=== PATIENT | female | born 1980 | race African-American/Black ===

== ENCOUNTER 2018-02-14 16:16 | Emergency (ER) | payer MEDICAID ==
--- NOTE | 2018-02-14 17:20 | EKG ---
Test Date: 2018-02-14 Test Time: 16:43:35 Expert Witness: MELANIE MEASUREMENT RESULTS: Intervals: Rate: 82 NJ: 168 QRSD: 88 QT: 390 QTc: 455 Huntley: P: 67 NJ: 168 QRS: 54 T: 49 INTERPRETIVE STATEMENTS: Normal sinus rhythm Normal ECG Compared to ECG 10/29/2014 18:46:57 No significant changes Electronically Signed On 02-14-18 17:19:48 CDT by Landon Vines
[2018-02-14 17:27] LABS: Absolute Lymphocytes (CBC) 1.8 K/uL (0.7-4.9); Absolute Monocytes 0.5 K/uL (0.1-1.3); Absolute Neutrophil 3.4 K/uL (1.8-8.0); Basophils % 0.3 % (0-1.3); Hematocrit 39.8 % (36.0-45.0); Lymphocytes % 30.7 % (15.3-44.8); MCH 32.6 pg (27.0-35.0); MCV 97.9 fL (80-100); MPV 11.2 fL (7.6-11.3); Monocytes % 9.2 % (3.3-12.3); RBC Red Blood Cell Count 4.06 M/uL (3.86-4.86)
[2018-02-14] MEDS ORDERED: MORPHINE 4 MG/ML SYR ONE (17:39)
[2018-02-14] MEDS ORDERED: NA CHLORIDE 0.9% 500 ML ONE (17:39)
[2018-02-14] MEDS ORDERED: ONDANSETRON 4 MG/2 ML VIAL ONE (17:39)
--- NOTE | 2018-02-14 17:45 | RAD REPORT ---
EXAM DESCRIPTION: RAD - Chest Single View - 02/14/2018 5:37 pm CLINICAL HISTORY: Chest pain, shortness of breath COMPARISON: November 18 TECHNIQUE: AP portable chest image was obtained . FINDINGS: Lungs are clear. Heart and vasculature are normal. No measurable pleural effusion and no p neumothorax. No gross bony abnormality seen. No acute aortic findings suspected. IMPRESSION: No acute cardiopulmonary process. No significant change from comparison.
[2018-02-14] MEDS ORDERED: NS KCL 20MEQ 1,000 ML IV ONE (17:55)
[2018-02-14 18:28] LABS: Urine Blood TRACE (NEG); Urine Glucose TRACE (NEG); Urine Protein 2+ (NEG); Urine Specific Gravity 1.015 (1.005-1.030)
--- NOTE | 2018-02-14 20:20 | EDPHYS ---
Physician Documentation [facility] Name: Miya Persaud Age: 37 yrs Sex: Female : 1980 Arrival Date: 02/14/2018 Time: 16:19 Bed 5 Private MD: Danae Lee ED Physician Derek Gomez HPI: 02/14 17:44 This 37 yrs old Black Female presents to ER via Ambulatory with complaints of Allergic jr8 Reaction. 17:44 Patient stated that she started on antibiotic regimen today for H. Pylori. Took her jr8 clarithromycin. A little while after started to have chest tightness and abdominal pain with n/v. Severity of symptoms: At their worst the symptoms were moderate in the emergency department the symptoms are unchanged. The patient has not experienced similar symptoms in the past. The patient has not recently seen a physician. 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 - Social history:: Smoking status: Patient/guardian denies using tobacco. ROS: 17:44 Eyes: Negative for injury, pain, redness, and discharge, ENT: Negative for injury, jr8 pain, and discharge, Neck: Negative for injury, pain, and swelling, Respiratory: Negative for shortness of breath, cough, wheezing, and pleuritic chest pain, Back: Negative for injury and pain, MS/Extremity: Negative for injury and deformity, Skin: Negative for injury, rash, and discoloration, Neuro: Negative for headache, weakness, numbness, tingling, and seizure. 17:44 Cardiovascular: Positive for chest pain, Negative for edema, orthopnea, palpitations, paroxysmal nocturnal dyspnea. 17:44 Abdomen/GI: Positive for abdominal pain, nausea and vomiting, Negative for diarrhea, constipation, abdominal cramps, abdominal distension, anorexia, dysphagia, hematemesis, black/tarry stool, rectal pain, rectal bleeding, bowel incontinence, flatulence. Exam: 17:44 Head/Face: Normocephalic, atraumatic. Eyes: Pupils equal round and reactive to light, jr8 extra-ocular motions intact. Lids and lashes normal. Conjunctiva and sclera are non-icteric and not injected. Cornea within normal limits. Periorbital areas with no swelling, redness, or edema. ENT: Nares patent. No nasal discharge, no septal abnormalities noted. Tympanic membranes are normal and external auditory canals are clear. Oropharynx with no redness, swelling, or masses, exudates, or evidence of obstruction, uvula midline. Mucous membranes moist. Neck: Trachea midline, no thyromegaly or masses palpated, and no cervical lymphadenopathy. Supple, full range of motion without nuchal rigidity, or vertebral point tenderness. No Meningismus. Cardiovascular: Regular rate and rhythm with a normal S1 and S2. No gallops, murmurs, or rubs. Normal PMI, no JVD. No pulse deficits. Respiratory: Lungs have equal breath sounds bilaterally, clear to auscultation and percussion. No rales, rhonchi or wheezes noted. No increased work of breathing, no retractions or nasal flaring. Abdomen/GI: Soft, non-tender, with normal bowel sounds. No distension or tympany. No guarding or rebound. No evidence of tenderness throughout. Back: No spinal tenderness. No costovertebral tenderness. Full range of motion. Skin: Warm, dry with normal turgor. Normal color with no rashes, no lesions, and no evidence of cellulitis. MS/ Extremity: Pulses equal, no cyanosis. Neurovascular intact. Full, normal range of motion. Neuro: Awake and alert, GCS 15, oriented to person, place, time, and situation. Cranial nerves II-XII grossly intact. Motor strength 5/5 in all extremities. Sensory grossly intact. Cerebellar exam normal. Normal gait. Vital Signs: 16:27 BP 118 / 91; Pulse 94; Resp 20; Temp 97.9; Pulse Ox 98% on R/A; Weight 48.99 kg; Height aj 5 ft. 1 in. (154.94 cm); 16:58 BP 132 / 84; Pulse 83; Resp 22; Pulse Ox 96% on R/A; ae1 18:57 BP 110 / 77; Pulse 86; Resp 18; Pulse Ox 99% on R/A; ae1 19:14 BP 119 / 81; Pulse 80; Resp 18; Pulse Ox 99% on R/A; mt 19:51 BP 104 / 73; Pulse 66; Resp 18; Pulse Ox 98% on R/A; mt 20:20 BP 106 / 72; Pulse 68; Resp 18; Pulse Ox 99% on R/A; mt 16:27 Body Mass Index 20.41 (48.99 kg, 154.94 cm) aj MDM: 16:41 Patient medically screened. jr8 20:19 Data reviewed: vital signs, nurses notes, lab test result(s), EKG, radiologic studies, jr8 plain films, and as a result, I will discharge patient. Data interpreted: Pulse oximetry: on room air is 98 %. Interpretation: normal. Counseling: I had a detailed discussion with the patient and/or guardian regarding: the historical points, exam findings, and any diagnostic results supporting the discharge/admit diagnosis, lab results, radiology results, the need for outpatient follow up, a community development manager, to return to the emergency department if symptoms worsen or persist or if there are any questions or concerns that arise at home. Response to treatment: the patient's symptoms have markedly improved after treatment, patient is well hydrated. 02/14 17:12 Order name: CBC with Diff; Complete Time: 17:36 jr8 02/14 17:12 Order name: Basic Metabolic Panel; Complete Time: 17:43 8 02/14 17:12 Order name: XRAY Chest (1 view); Complete Time: 17:46 8 02/14 18:27 Order name: Urine Dipstick--Ancillary (enter results); Complete Time: 18:30 em1 02/14 18:27 Order name: Urine --Ancillary (enter results); Complete Time: 18:30 1 02/14 17:12 Order name: EKG; Complete Time: 17:12 jr8 02/14 17:12 Order name: EKG - Nurse/Tech; Complete Time: 17:12 8 02/14 17:12 Order name: IV; Complete Time: 17:12 jr Administered Medications: 17:40 Drug: Zofran 4 mg Route: IVP; Site: right antecubital; ae1 17:58 Follow up: Response: Nausea is decreased ae1 17:44 Drug: NS 0.9% 500 ml Route: IV; Rate: bolus; Site: right antecubital; ae1 17:57 Follow up: IV Status: Completed infusion ae1 17:44 Drug: morphine 4 mg Route: IVP; Site: right antecubital; ae1 17:58 Follow up: Response: Pain is decreased ae1 17:57 Drug: NS 0.9% with KCl 20 mEq/L 1000 ml Route: IV; Rate: 500 ml/hr; Site: right ae1 antecubital; 20:34 Follow up: IV Status: Completed infusion ak1 Disposition: 02/14/18 20:19 Discharged to Home. Impression: Adverse Medication Reaction . - Condition is Stable. - Medication Reconciliation Form, Thank You Letter, Antibiotic Education, Prescription Opioid Use form. - Follow up: Private Physician; When: 2 - 3 days; Reason: Recheck today's complaints, Continuance of care, Re-evaluation by your physician. - Problem is new. - Symptoms have improved. Addendum: 02/15/2018 22:25 Co-signature as Attending Physician, Derek Gomez MD I agree with the assessment and k dr plan of care. Signatures: Dispatcher [employer] EDKaren Lim RN RN aj Rittger, Kevin, MD MD [facility] Jagdish Zeng PA PA jr8 Rosie Maloney RN RN ak1 Shiv Sampson RN RN ae1 Corrections: (The following items were deleted from the chart) 02/14 20:51 20:19 02/14/2018 20:19 Discharged to Home. Impression: Adverse Medication Reaction . ak1 Condition is Stable. Forms are Medication Reconciliation Form, Thank You Letter, Antibiotic Education, Prescription Opioid Use. Follow up: Private Physician; When: 2 - 3 days; Reason: Recheck today's complaints, Continuance of care, Re-evaluation by your physician. Problem is new. Symptoms have improved. jr8
--- NOTE | 2018-02-14 20:20 | ER ---
Nurse's Notes [facility] Name: Miya Persaud Age: 37 yrs Sex: Female : 1980 Arrival Date: 02/14/2018 Time: 16:19 Bed 5 Private MD: Danae Lee Diagnosis: Adverse Medication Reaction Presentation: 02/14 16:24 Presenting complaint: Patient states: Reports chest pain and SOB that started today aj after starting dexilant, clarithromycin, and amoxicillin today. Patient speaking with clear voice in triage, skin is warm and dry, in NAD. No swelling noted at this time. Transition of care: patient was not received from another setting of care. Onset: The symptoms/episode began/occurred acutely. Anaphylaxis evaluation, chest pain. Onset of symptoms was February 14, 2018. Care prior to arrival: None. 16:24 Method Of Arrival: Ambulatory aj 16:24 Acuity: PARTH 3 aj 16:59 Initial Sepsis Screen: Does the patient meet any 2 criteria? No. Patient's initial ae1 sepsis screen is negative. Does the patient have a suspected source of infection? No. Patient's initial sepsis screen is negative. Triage Assessment: 16:27 General: Appears in no apparent distress. comfortable, Behavior is calm, cooperative, aj appropriate for age. Pain: Complains of pain in chest. Neuro: Neuro: Level of Consciousness is awake, alert, obeys commands, Oriented to person, place, time, situation, Appropriate for age. Respiratory: Airway is patent Respiratory effort is even, unlabored, Respiratory pattern is. Derm: Skin is intact, is healthy with good turgor, Skin is pink, warm \T\ dry. normal. 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 - Social history:: Smoking status: Patient/guardian denies using tobacco. Screenin:57 Abuse screen: Denies threats or abuse. Nutritional screening: No deficits noted. ae1 Tuberculosis screening: No symptoms or risk factors identified. Fall Risk No fall in past 12 months (0 pts). No secondary diagnosis (0 pts). IV access (20 points). Ambulatory Aid- None/Bed Rest/Nurse Assist (0 pts). Gait- Weak (10 pts.). Mental Status- Overestimates/Forgets Limitations (15 pts.). Assessment: 16:54 General: Appears distressed, uncomfortable, slender, Behavior is agitated, anxious, ae1 crying, drowsy, Patient is slow to follow verbal commands. Patient keeps eyes closed, is able to open eyes if asked to. . Pain: Complains of pain in mid-sternal area Pain does not radiate. Neuro: Level of Consciousness is awake, lethargic, Oriented to person, place, situation. Cardiovascular: Heart tones S1 S2 present Patient's skin is warm and dry. Respiratory: Airway is patent Respiratory effort is even, unlabored, Respiratory pattern is regular, symmetrical, Breath sounds are clear bilaterally. GI: Reports nausea, vomiting. : No signs and/or symptoms were reported regarding the genitourinary system. Denies burning with urination. EENT: Eyes mild eyelid swelling. . Derm: Skin is dry, Skin is normal. Musculoskeletal: No signs and/or symptoms reported regarding the musculoskeletal system. 18:02 Reassessment: Patient appears in no apparent distress at this time. Patient and/or jl7 family updated on plan of care and expected duration. Pain level reassessed. Patient denies pain at this time. Patient states feeling better. 18:15 Reassessment: Patient up to bedside commode. ae1 Vital Signs: 16:27 BP 118 / 91; Pulse 94; Resp 20; Temp 97.9; Pulse Ox 98% on R/A; Weight 48.99 kg; Height aj 5 ft. 1 in. (154.94 cm); 16:58 BP 132 / 84; Pulse 83; Resp 22; Pulse Ox 96% on R/A; ae1 18:57 BP 110 / 77; Pulse 86; Resp 18; Pulse Ox 99% on R/A; ae1 19:14 BP 119 / 81; Pulse 80; Resp 18; Pulse Ox 99% on R/A; mt 19:51 BP 104 / 73; Pulse 66; Resp 18; Pulse Ox 98% on R/A; mt 20:20 BP 106 / 72; Pulse 68; Resp 18; Pulse Ox 99% on R/A; mt 16:27 Body Mass Index 20.41 (48.99 kg, 154.94 cm) ED Course: 16:19 Patient arrived in ED. rg4 16:19 Danae Lee MD is Private Physician. rg4 16:27 Triage completed. aj 16:27 Arm band placed on right wrist. Patient placed in an exam room. aj 16:31 Shiv Sampson, RN is Primary Nurse. ae1 16:41 Jgadish Zeng PA is PHCP. jr8 16:41 Derek Gomez MD is Attending Physician. jr8 16:43 Inserted saline lock: 20 gauge in right antecubital area, using aseptic technique. ae1 Blood collected. 16:43 EKG done, by public health technician. reviewed by Jagdish THOMAS. at1 16:58 Placed in gown. Bed in low position. Call light in reach. Side rails up X 1. Cardiac ae1 monitor on. Pulse ox on. NIBP on. Warm blanket given. 17:30 Notified Nurse Practitioner and/or Physician Loom Changer of a critical lab result(s), plt la1 94. 17:34 X-ray completed. Portable x-ray completed in exam room. Patient tolerated procedure bb2 well. 17:35 XRAY Chest (1 view) In Process Unspecified. EDMS 20:21 No provider procedures requiring assistance completed. ak1 20:33 IV discontinued, intact, bleeding controlled, No redness/swelling at site. Pressure ak1 dressing applied. Administered Medications: 17:40 Drug: Zofran 4 mg Route: IVP; Site: right antecubital; ae1 17:58 Follow up: Response: Nausea is decreased ae1 17:44 Drug: NS 0.9% 500 ml Route: IV; Rate: bolus; Site: right antecubital; ae1 17:57 Follow up: IV Status: Completed infusion ae1 17:44 Drug: morphine 4 mg Route: IVP; Site: right antecubital; ae1 17:58 Follow up: Response: Pain is decreased ae1 17:57 Drug: NS 0.9% with KCl 20 mEq/L 1000 ml Route: IV; Rate: 500 ml/hr; Site: right ae1 antecubital; 20:34 Follow up: IV Status: Completed infusion ak1 Outcome: 20:19 Discharge ordered by . jr8 20:32 Discharged to home ambulatory. ak1 20:32 Condition: improved 20:32 Discharge instructions given to patient, Instructed on discharge instructions, follow up and referral plans. Demonstrated understanding of instructions, follow-up care. 20:51 Patient left the ED. ak1 Signatures: Dispatcher [employer] EDMS Karen Dunlap, RN RN Jagdish Rebolledo PA PA jr8 Karen davis, estimator and drafter EKG Tat1 Erickson Bustamante RN RN la1 Rosie Maloney RN RN irlanda1 Shiv Sampson, RN RN delvin1 Michelle Reynaga4 Scott Richards RN RN jl7 [place] Tran Menjivar2
== END 2018-02-14 20:51 | disposition home or self-care (01) ==
LOC: ER 16:16
DX: T36.95XA Adverse effect of unspecified systemic antibiotic, initial encounter (principal); Y92.9 Unspecified place or not applicable
CPT/HCPCS: 36415; 71045; 80048; 81003; 81025; 85025; 93005; 96361; 96374; 96375; 99284; J2405

== ENCOUNTER 2018-06-06 18:41 | Emergency (ER) | payer MEDICAID ==
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
== END 2018-06-06 19:46 | disposition home or self-care (01) ==
LOC: ER 18:41
DX: M79.1 Myalgia (principal); V49.49XA Driver injured in collision with other motor vehicles in traffic accident, initial encounter; Z88.3 Allergy status to other anti-infective agents; Z88.6 Allergy status to analgesic agent
CPT/HCPCS: 99282

== ENCOUNTER 2018-06-30 01:06 | Emergency (ER) | payer MEDICAID ==
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
== END 2018-06-30 02:18 | disposition home or self-care (01) ==
LOC: ER 01:06
DX: S16.1XXA Strain of muscle, fascia and tendon at neck level, initial encounter (principal); V89.2XXA Person injured in unspecified motor-vehicle accident, traffic, initial encounter; F41.9 Anxiety disorder, unspecified; E07.9 Disorder of thyroid, unspecified; Z88.3 Allergy status to other anti-infective agents; Z88.6 Allergy status to analgesic agent; Z88.8 Allergy status to other drugs, medicaments and biological substances
CPT/HCPCS: 72040; 99283

== ENCOUNTER 2019-11-10 14:09 | Emergency (ER) | payer MEDICAID ==
--- OUTSIDE RECORDS SUMMARY | 2019-11-10 14:11 | XMS REPORT ---
:1980 [facility] Address [address] [place] [address] [address] [place] [address] Care Team Providers Name Role Phone Unavailable Unavailable Unavailable Problems This patient has no known problems. Allergies, Adverse Reactions, Alerts This patient has no known allergies or adverse reactions. Medications This patient has no known medications.
[2019-11-10 14:47] LABS: Absolute Lymphocytes (CBC) 2.4 K/uL (0.7-4.9); Basophils % 0.3 % (0-1.3); Hematocrit 38.9 % (36.0-45.0); Lymphocytes % 55.3 % (15.3-44.8); MPV 11.3 fL (7.6-11.3); Protime INR 1.07; RBC Red Blood Cell Count 3.93 M/uL (3.86-4.86)
--- NOTE | 2019-11-10 14:51 | RAD REPORT ---
EXAM DESCRIPTION: RAD - Chest Single View - 11/10/2019 2:44 pm CLINICAL HISTORY: CHEST PAIN Chest pain. COMPARISON: Chest Pa And Lat (2 Views) dated 06/13/2018; Chest Pa And Lat (2 Views) dated 02/15/2018; Chest Single View dated 02/14/2018; Chest Pa And Lat (2 Views) dated 11/18/2017 FINDINGS: Portable technique limits examination quality. The lungs are grossly clear. The heart is normal in size. No displaced fractures. IMPRESSION: No acute intrathoracic process suspected.
[2019-11-10 15:01] LABS: ALT/SGPT 36 U/L (12-78); AST/SGOT 40 U/L (15-37); Alkaline Phosphatase 115 U/L (45-117); BUN Blood Urea Nitrogen 13 mg/dL (7-18); Bicarbonate 22 mmol/L (21-32); Bilirubin Direct 0.2 mg/dL (0-0.2); Bilirubin Total 0.6 mg/dL (0.2-1.0); Glucose Level 80 mg/dL (74-106); Magnesium 2.6 mg/dL (1.8-2.4); NT PRO-BNP 171 pg/mL (<125); Potassium 3.7 mmol/L (3.5-5.1); Protein, Total 7.4 g/dL (6.4-8.2); Sodium Level 142 mmol/L (136-145); Troponin (Emerg Dept Use Only) < 0.02 ng/mL (0.0-0.045)
[2019-11-10 15:54] LABS: Urine Blood TRACE (NEG); Urine Glucose TRACE (NEG); Urine Protein 2+ (NEG); Urine pH 7.5 (5.0-7.0)
--- NOTE | 2019-11-10 16:21 | EDPHYS ---
Physician Documentation [facility] Name: Miya Persaud Age: 38 yrs Sex: Female : 1980 Arrival Date: 11/10/2019 Time: 14:13 Bed 4 Private MD: ED Physician Buck Rivera HPI: 11/10 16:16 This 38 yrs old Black Female presents to ER via EMS with complaints of Chest Pain. kb 16:16 The patient or guardian reports chest pain that is located primarily in the anterior kb chest wall, left. The pain radiates to the left arm. Associated signs and symptoms: The patient has no apparent associated signs or symptoms. The chest pain is described as aching. Duration: The patient or guardian reports a single episode. Modifying factors: The symptoms are alleviated by nothing. the symptoms are aggravated by movement, palpation of area. Severity of pain: At its worst the pain was moderate in the emergency department the pain is unchanged. The patient has not experienced similar symptoms in the past. The patient has not recently seen a physician. Pt reports left upper chest pain that radiates to left arm. States the pain started yesterday and got worse today. Reports pain on palpation of chest and shoulder, pain to upper arm on Monday when she had her BP checked at her dr's office and pain to raise left arm. Reports she is also having pain to right upper arm when the BP cuff squeezes it. States she has been feeling tired and not well since she had her labs done in October and it showed her kidney disease went from Stage 3 to Stage 4. . Historical: - Allergies: 14:16 CYCLOBENZAPRINE; ss 14:16 diclofenac sodium; ss 14:16 Levofloxacin; ss 14:16 aspirin; ss - PMHx: 14:16 Anxiety; Thyroid problem; Stage IV renal disease; Depression; IBS; Anemia; ss - PSHx: 14:16 Tubal ligation; R foot; ss - Immunization history:: Adult Immunizations up to date. - Coronavirus screen:: The patient has NOT traveled to [place], [place], or [place] in the past 14 days. Proceed with normal triage process as indicated. - Social history:: Smoking status: Patient denies any tobacco usage or history of. - Ebola Screening: : Patient denies exposure to infectious person Patient denies travel to an Ebola-affected area in the 21 days before illness onset. ROS: 16:13 ENT: Negative for injury, pain, and discharge, Neck: Negative for injury, pain, and kb swelling, Respiratory: Negative for shortness of breath, cough, wheezing, and pleuritic chest pain, Abdomen/GI: Negative for abdominal pain, nausea, vomiting, diarrhea, and constipation, Back: Negative for injury and pain, MS/Extremity: Negative for injury and deformity, Skin: Negative for injury, rash, and discoloration, Neuro: Negative for headache, weakness, numbness, tingling, and seizure. 16:13 Cardiovascular: Positive for chest pain, with movement, of the anterior aspect of left upper chest. 16:15 Constitutional: Positive for fatigue, malaise. kb Exam: 16:13 Constitutional: This is a well developed, well nourished patient who is awake, alert, kb and in no acute distress. Head/Face: Normocephalic, atraumatic. ENT: Nares patent. No nasal discharge, no septal abnormalities noted. Tympanic membranes are normal and external auditory canals are clear. Oropharynx with no redness, swelling, or masses, exudates, or evidence of obstruction, uvula midline. Mucous membranes moist. Neck: Trachea midline, no thyromegaly or masses palpated, and no cervical lymphadenopathy. Supple, full range of motion without nuchal rigidity, or vertebral point tenderness. No Meningismus. Cardiovascular: Regular rate and rhythm with a normal S1 and S2. No gallops, murmurs, or rubs. Normal PMI, no JVD. No pulse deficits. Respiratory: Lungs have equal breath sounds bilaterally, clear to auscultation and percussion. No rales, rhonchi or wheezes noted. No increased work of breathing, no retractions or nasal flaring. Abdomen/GI: Soft, non-tender, with normal bowel sounds. No distension or tympany. No guarding or rebound. No evidence of tenderness throughout. Back: No spinal tenderness. No costovertebral tenderness. Full range of motion. Skin: Warm, dry with normal turgor. Normal color with no rashes, no lesions, and no evidence of cellulitis. Neuro: Awake and alert, GCS 15, oriented to person, place, time, and situation. Cranial nerves II-XII grossly intact. Motor strength 5/5 in all extremities. Sensory grossly intact. Cerebellar exam normal. Normal gait. 16:13 Chest/axilla: Inspection: normal, Palpation: tenderness, that is moderate, of the anterior aspect of left upper chest, that totally reproduces the patient's complaints. 16:13 Musculoskeletal/extremity: Extremities: grossly normal except: noted in the left arm: pain, tenderness, ROM: limited active range of motion due to pain, in the left arm, Circulation is intact in all extremities. Sensation intact. Vital Signs: 14:16 BP 154 / 77; Pulse 60; Resp 18; Temp 98.2(O); Pulse Ox 100% on R/A; Weight 49.9 kg; ss Height 5 ft. 1 in. (154.94 cm); Pain 8/10; 15:00 BP 116 / 78; Pulse 55; Resp 15; Pulse Ox 100% on R/A; hb 16:00 BP 124 / 76; Pulse 58; Resp 16; Pulse Ox 99% on R/A; hb 14:16 Body Mass Index 20.78 (49.90 kg, 154.94 cm) ss MDM: 14:15 Patient medically screened. kb 15:16 Data reviewed: vital signs, nurses notes. Data reviewed: old medical records, kb Creatinine historically high, platelet count historically low lab test result(s), radiologic studies. Data interpreted: Pulse oximetry: on room air is 100 %. Interpretation: normal. Counseling: I had a detailed discussion with the patient and/or guardian regarding: the historical points, exam findings, and any diagnostic results supporting the discharge/admit diagnosis, lab results, radiology results, the need for outpatient follow up, a family practitioner, a urologist, to return to the emergency department if symptoms worsen or persist or if there are any questions or concerns that arise at home. 15:30 ED course: Pt reports she is now having pain all over body that is radiating down her kb legs. . 16:11 ED course: Pt will follow up with elevator mechanic tomorrow for re-evaluation. kb 11/10 14:15 Order name: Basic Metabolic Panel; Complete Time: 15:14 kb 11/10 14:15 Order name: CBC with Diff; Complete Time: 15:14 kb 11/10 14:15 Order name: LFT's; Complete Time: 15:14 kb 11/10 14:15 Order name: Magnesium; Complete Time: 15:14 kb 11/10 14:15 Order name: NT PRO-BNP; Complete Time: 15:14 kb 11/10 14:15 Order name: PT-INR; Complete Time: 15:14 kb 11/10 14:15 Order name: Troponin (emerg Dept Use Only); Complete Time: 15:14 kb 11/10 14:15 Order name: XRAY Chest (1 view); Complete Time: 15:14 kb 11/10 14:15 Order name: EKG; Complete Time: 14:18 kb 11/10 14:15 Order name: Cardiac monitoring; Complete Time: 14:36 kb 11/10 15:18 Order name: TSH; Complete Time: 15:52 kb 11/10 15:34 Order name: Flu; Complete Time: 16:11 hb 11/10 15:45 Order name: Urine Dipstick--Ancillary (enter results); Complete Time: 16:03 ms 11/10 15:45 Order name: Urine --Ancillary (enter results); Complete Time: 16:03 ms 11/10 14:15 Order name: EKG - Nurse/Tech; Complete Time: 14:36 kb 11/10 14:15 Order name: IV Saline Lock; Complete Time: 14:36 kb 11/10 14:15 Order name: Labs collected and sent; Complete Time: 14:36 kb 11/10 14:15 Order name: O2 Per Protocol; Complete Time: 14:36 kb 11/10 14:15 Order name: O2 Sat Monitoring; Complete Time: 14:36 kb 11/10 15:42 Order name: Urine Dipstick-Ancillary (obtain specimen); Complete Time: 15:52 kb Administered Medications: No medications were administered Disposition: 17:40 Co-signature as Attending Physician, Buck Rivera MD. rn Disposition: 11/10/19 16:20 Discharged to Home. Impression: Chest pain, unspecified, Myalgia, Chronic kidney disease (CKD). - Condition is Stable. - Discharge Instructions: Chest Wall Pain, [id number], Nonspecific Chest Pain, [id number]. - Medication Reconciliation Form, Thank You Letter, Antibiotic Education, Prescription Opioid Use form. - Follow up: Emergency Department; When: As needed; Reason: Worsening of condition. Follow up: Private Physician; When: 2 - 3 days; Reason: Recheck today's complaints, Continuance of care, Re-evaluation by your physician. Signatures: Dispatcher [employer] EDMS Zeynep Barba, CONTRACT POST OFFICE CLERK-C CONTRACT POST OFFICE CLERK-Ckb Buck Rivera MD MD rn Smirch, Shelby, RN RN Marie Russ RN RN hb Corrections: (The following items were deleted from the chart) 16:15 16:13 Constitutional: Negative for fever, chills, and weight loss, ENT: Negative for kb injury, pain, and discharge, Neck: Negative for injury, pain, and swelling, Respiratory: Negative for shortness of breath, cough, wheezing, and pleuritic chest pain, Abdomen/GI: Negative for abdominal pain, nausea, vomiting, diarrhea, and constipation, Back: Negative for injury and pain, MS/Extremity: Negative for injury and deformity, Skin: Negative for injury, rash, and discoloration, Neuro: Negative for headache, weakness, numbness, tingling, and seizure, kb 16:38 16:20 11/10/2019 16:20 Discharged to Home. Impression: Chest pain, unspecified; hb Myalgia; Chronic kidney disease (CKD). Condition is Stable. Forms are Medication Reconciliation Form, Thank You Letter, Antibiotic Education, Prescription Opioid Use. Follow up: Emergency Department; When: As needed; Reason: Worsening of condition. Follow up: Private Physician; When: 2 - 3 days; Reason: Recheck today's complaints, Continuance of care, Re-evaluation by your physician. kb
--- NOTE | 2019-11-10 16:21 | ER ---
Nurse's Notes [facility] Name: Miya Persaud Age: 38 yrs Sex: Female : 1980 Arrival Date: 11/10/2019 Time: 14:13 Bed 4 Private MD: Diagnosis: Chest pain, unspecified;Myalgia;Chronic kidney disease (CKD) Presentation: 11/10 14:13 Presenting complaint: EMS states: CP that radiates down L arm that began yesterday. Pt ss also c/o headache x 2 days. Transition of care: patient was not received from another setting of care. Onset of symptoms was November 09, 2019. Risk Assessment: Do you want to hurt yourself or someone else? Patient reports no desire to harm self or others. Initial Sepsis Screen: Does the patient meet any 2 criteria? No. Patient's initial sepsis screen is negative. Does the patient have a suspected source of infection? No. Patient's initial sepsis screen is negative. Care prior to arrival: None. 14:13 Method Of Arrival: EMS: [facility] ss 14:13 Acuity: PARTH 3 ss Historical: - Allergies: 14:16 CYCLOBENZAPRINE; ss 14:16 diclofenac sodium; ss 14:16 Levofloxacin; ss 14:16 aspirin; ss - PMHx: 14:16 Anxiety; Thyroid problem; Stage IV renal disease; Depression; IBS; Anemia; ss - PSHx: 14:16 Tubal ligation; R foot; ss - Immunization history:: Adult Immunizations up to date. - Coronavirus screen:: The patient has NOT traveled to [place], [place], or [place] in the past 14 days. Proceed with normal triage process as indicated. - Social history:: Smoking status: Patient denies any tobacco usage or history of. - Ebola Screening: : Patient denies exposure to infectious person Patient denies travel to an Ebola-affected area in the 21 days before illness onset. Screenin:36 Abuse screen: Denies threats or abuse. Denies injuries from another. Nutritional hb screening: No deficits noted. Tuberculosis screening: No symptoms or risk factors identified. Fall Risk None identified. Assessment: 14:15 General: Appears in no apparent distress. Behavior is calm, cooperative. Pain: hb Complains of pain in anterior aspect of left upper chest Pain radiates to left arm Pain currently is 8 out of 10 on a pain scale. Quality of pain is described as squeezing, Pain began 1 hour ago. Neuro: Level of Consciousness is awake, alert, obeys commands, Oriented to person, place, time, situation. Cardiovascular: Heart tones S1 S2 present Capillary refill < 3 seconds Patient's skin is warm and dry. Respiratory: Airway is patent Respiratory effort is even, unlabored, Respiratory pattern is regular, symmetrical, Breath sounds are clear bilaterally. GI: No signs and/or symptoms were reported involving the gastrointestinal system. : No signs and/or symptoms were reported regarding the genitourinary system. EENT: No signs and/or symptoms were reported regarding the EENT system. Derm: Skin is intact, is healthy with good turgor. Musculoskeletal: No signs and/or symptoms reported regarding the musculoskeletal system. 15:15 Reassessment: Patient appears in no apparent distress at this time. Patient and/or hb family updated on plan of care and expected duration. Pain level reassessed. Patient is alert, oriented x 3, equal unlabored respirations, skin warm/dry/pink. 16:15 Reassessment: Patient appears in no apparent distress at this time. Patient and/or hb family updated on plan of care and expected duration. Pain level reassessed. Patient is alert, oriented x 3, equal unlabored respirations, skin warm/dry/pink. Vital Signs: 14:16 BP 154 / 77; Pulse 60; Resp 18; Temp 98.2(O); Pulse Ox 100% on R/A; Weight 49.9 kg; ss Height 5 ft. 1 in. (154.94 cm); Pain 8/10; 15:00 BP 116 / 78; Pulse 55; Resp 15; Pulse Ox 100% on R/A; hb 16:00 BP 124 / 76; Pulse 58; Resp 16; Pulse Ox 99% on R/A; hb 14:16 Body Mass Index 20.78 (49.90 kg, 154.94 cm) ED Course: 14:13 Patient arrived in ED. ss 14:14 Triage completed. ss 14:15 Zeynep Barba F[facility]-C [facility]. kb 14:15 Buck Rivera MD is Attending Physician. kb 14:16 Arm band placed on right wrist. ss 14:25 Patient maintains SpO2 saturation greater than 95% on room air. hb 14:30 Inserted saline lock: 22 gauge in right forearm, using aseptic technique. Blood hb collected. 14:36 Marie Russ, RN is Primary Nurse. hb 14:38 Patient has correct armband on for positive identification. Bed in low position. Call hb light in reach. Side rails up X 1. life underwriter on. Pulse ox on. NIBP on. 14:52 XRAY Chest (1 view) In Process Unspecified. EDMS 16:32 No provider procedures requiring assistance completed. IV discontinued, intact, hb bleeding controlled, No redness/swelling at site. Pressure dressing applied. Administered Medications: No medications were administered Outcome: 16:20 Discharge ordered by MD. kb 16:32 Discharged to home ambulatory. hb 16:32 Condition: stable 16:32 Discharge instructions given to patient, Instructed on discharge instructions, follow up and referral plans. Demonstrated understanding of instructions, follow-up care. 16:38 Patient left the ED. hb Signatures: Dispatcher [employer] EDND Zeynep Barba, MARIEL-C MARIEL-Deanne Marrufo RN RN Marie Russ, RN RN hb
[2019-11-10 17:04] VITALS: TEMP 98.2
[2019-11-10 17:06] VITALS: BP 124/76; O2SAT 99
--- NOTE | 2019-11-11 06:15 | EKG ---
Test Date: 2019-11-10 Test Time: 14:31:57 Trackmobile Operator: MERYL MEASUREMENT RESULTS: Intervals: Rate: 50 ME: 184 QRSD: 88 QT: 450 QTc: 410 [place]: P: 63 ME: 184 QRS: 60 T: 46 INTERPRETIVE STATEMENTS: Sinus bradycardia Otherwise normal ECG Compared to ECG 02/14/2018 16:43:35 Sinus rhythm no longer present Electronically Signed On 11-11-19 06:14:41 RETAIL ASSET PROTECTION SPECIALIST by Landon Vines
== END 2019-11-10 16:38 | disposition home or self-care (01) ==
LOC: ER 14:09
DX: R07.9 Chest pain, unspecified (principal); M79.10 Myalgia, unspecified site; N18.4 Chronic kidney disease, stage 4 (severe)
CPT/HCPCS: 36415; 71045; 80048; 80076; 81003; 81025; 83735; 83880; 84443; 84484; 85025; 85610; 87804; 93005; 99285

== ENCOUNTER 2019-11-13 15:32 | Emergency (ER) | payer MEDICAID ==
--- OUTSIDE RECORDS SUMMARY | 2019-11-13 15:35 | XMS REPORT ---
:1980 Author Organization [facility] Address [address] [place] [address] [address] [place] [address] Care Team Providers Name Role Phone Unavailable Unavailable Unavailable Problems This patient has no known problems. Allergies, Adverse Reactions, Alerts This patient has no known allergies or adverse reactions. Medications This patient has no known medications.
[2019-11-13] MEDS ORDERED: NA CHLORIDE 0.9% 1,000 ML ONE (17:00)
[2019-11-13] MEDS ORDERED: ONDANSETRON 4 MG/2 ML VIAL ONE (17:00)
[2019-11-13] MEDS ORDERED: MORPHINE 2 MG/ML SYR ONE (17:00)
[2019-11-13 17:14] LABS: Absolute Lymphocytes (CBC) 2.5 K/uL (0.7-4.9); Basophils % 0.3 % (0-1.3); Hematocrit 38.6 % (36.0-45.0); Lymphocytes % 59.8 % (15.3-44.8); MPV 11.6 fL (7.6-11.3); RBC Red Blood Cell Count 3.92 M/uL (3.86-4.86)
[2019-11-13 17:21] LABS: Protime INR 1.1
[2019-11-13 17:41] LABS: ALT/SGPT 35 U/L (12-78); AST/SGOT 34 U/L (15-37); Alkaline Phosphatase 106 U/L (45-117); BUN Blood Urea Nitrogen 16 mg/dL (7-18); Bicarbonate 23 mmol/L (21-32); Bilirubin Direct 0.2 mg/dL (0-0.2); Bilirubin Total 0.8 mg/dL (0.2-1.0); Glucose Level 84 mg/dL (74-106); Magnesium 2.6 mg/dL (1.8-2.4); NT PRO-BNP 93 pg/mL (<125); Potassium 3.6 mmol/L (3.5-5.1); Protein, Total 7.6 g/dL (6.4-8.2); Sodium Level 141 mmol/L (136-145); Troponin (Emerg Dept Use Only) < 0.02 ng/mL (0.0-0.045)
--- NOTE | 2019-11-13 17:56 | RAD REPORT ---
EXAM DESCRIPTION: RAD - Chest Single View - 11/13/2019 5:35 pm CLINICAL HISTORY: CHEST PAIN Chest pain. COMPARISON: Chest Single View dated 11/10/2019; Chest Pa And Lat (2 Views) dated 06/13/2018; Chest Pa A nd Lat (2 Views) dated 02/15/2018; Chest Single View dated 02/14/2018 FINDINGS: Portable technique limits examination quality. The lungs are grossly clear. The heart is normal in size. No displaced fractures. IMPRESSION: No acute intrathoracic process suspected.
--- NOTE | 2019-11-13 17:58 | EKG ---
Test Date: 2019-11-13 Test Time: 15:52:26 Central Services Tech: MELANIE MEASUREMENT RESULTS: Intervals: Rate: 50 RI: 182 QRSD: 92 QT: 454 QTc: 413 [place]: P: 55 RI: 182 QRS: 56 T: 52 INTERPRETIVE STATEMENTS: Sinus bradycardia Otherwise normal ECG Compared to ECG 11/10/2019 14:31:57 No significant changes Electronically Signed On 11-13-19 17:57:35 GEOTHERMAL OPERATIONS MANAGER by Landon Vines
--- NOTE | 2019-11-13 18:21 | RAD REPORT ---
EXAM DESCRIPTION: CT - Head Brain Wo Cont - 11/13/2019 6:15 pm CLINICAL HISTORY: HEADACHE Headache, drowsiness COMPARISON: HEAD BRAIN W O CONTRAST dated 11/27/2013 TECHNIQUE: All CT scans are performed using dose optimization technique as appropriate and may inclu de automated exposure control or mA/KV adjustment according to patient size. FINDINGS: No intracranial hemorrhage, hydrocephalus or extra-axial fluid collection.No areas of brai n edema or evidence of midline shift. The paranasal sinuses and mastoids are clear. The calvarium is intact. IMPRESSION: No acute intracranial abnormality.
--- NOTE | 2019-11-13 21:03 | EDPHYS ---
Physician Documentation [facility] Name: Miya Persaud Age: 38 yrs Sex: Female : 1980 Arrival Date: 11/13/2019 Time: 15:34 Bed 26 Private MD: ED Physician Derek Gomez HPI: 11/13 16:45 This 38 yrs old Black Female presents to ER via Ambulatory with complaints of Chest cp Pain, Headache. 16:45 The patient or guardian reports chest pain that is located primarily in the anterior cp chest wall. 16:45 The pain does not radiate. Associated signs and symptoms: Pertinent positives: cp headache, Pertinent negatives: abdominal pain, cough, diaphoresis, dizziness, lower extremity pain, lower extremity swelling, recent travel, shortness of breath, syncope. 16:45 Duration: The patient or guardian reports multiple episodes, that wax and wane. cp 16:45 The chest pain is described as aching. Modifying factors: The symptoms are alleviated cp by nothing. the symptoms are aggravated by nothing. The patient has been recently seen at the [facility] Emergency Department, this week, for similar complaints. 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 all those that end with mycin; ch - Home Meds: 15:55 Lexapro 20 mg Oral tab 1 tab [Active]; loratadine 10 mg Oral tab 1 tab once daily ch [Active]; methocarbamol 500 mg Oral tab 1 tabs twice daily PRN [Active]; ondansetron HCl 4 mg Oral tab [Active]; Robaxin 500 mg Oral tab 1 tabs twice daily PRN [Active]; 22:10 Dexilant 60 mg oral CpDB 1 cap once daily [Active]; ch - PMHx: 15:55 Anemia; Anxiety; Depression; ibs; kidney disease; Stage IV renal disease; Thyroid ch problem; - PSHx: 15:55 Tubal ligation; R foot; ch - Immunization history:: Adult Immunizations up to date, Flu vaccine is up to date. - Coronavirus screen:: The patient has NOT traveled to [place] in the past 14 days. The patient has NOT had contact with known/suspected case of Coronavirus?. - Social history:: Smoking status: Patient denies any tobacco usage or history of. - Ebola Screening: : Patient negative for fever greater than or equal to 101.5 degrees Fahrenheit, and additional compatible Ebola Virus Disease symptoms Patient denies exposure to infectious person Patient denies travel to an Ebola-affected area in the 21 days before illness onset No symptoms or risks identified at this time. ROS: 16:50 Constitutional: Negative for fever, poor PO intake. cp 16:50 Cardiovascular: Positive for chest pain, Negative for edema, palpitations. cp 16:50 Respiratory: Negative for cough, shortness of breath, wheezing. 16:50 Abdomen/GI: Negative for abdominal pain, vomiting, diarrhea, constipation. 16:50 Back: Negative for radiated pain. 16:50 Skin: Negative for rash. 16:50 Neuro: Positive for headache, Negative for altered mental status, dizziness, syncope, weakness. 16:50 All other systems are negative. Exam: 16:52 ECG was reviewed by the Attending Physician. cp 16:55 Constitutional: The patient appears in no acute distress, alert, awake, cp non-diaphoretic, non-toxic, well developed, well nourished. 16:55 Head/Face: Normocephalic, atraumatic. cp 16:55 Eyes: Periorbital structures: appear normal, Pupils: equal, round, and reactive to light and accomodation, Extraocular movements: intact throughout, Conjunctiva: normal, no exudate, no injection, Sclera: no appreciated abnormality, Lids and lashes: appear normal, bilaterally. 16:55 ENT: External ear(s): are unremarkable, Ear canal(s): are normal, clear, TM's: bulging, is not appreciated, bilaterally, dullness, bilaterally, erythema, is not appreciated, bilaterally, Nose: is normal, Mouth: Lips: moist, Oral mucosa: pink and intact, moist, Posterior pharynx: is normal, airway is patent, no erythema, no exudate. 16:55 Neck: ROM/movement: is normal, is supple, without pain, no range of motions limitations, no nuchal rigidity. 16:55 Chest/axilla: Inspection: normal, Palpation: is normal, no crepitus, no tenderness. 16:55 Cardiovascular: Rate: bradycardic, Rhythm: regular, Heart sounds: murmur, not appreciated, rub, not appreciated, gallop, not appreciated, Edema: is not appreciated, JVD: is not appreciated. 16:55 Respiratory: the patient does not display signs of respiratory distress, Respirations: normal, no use of accessory muscles, no retractions, labored breathing, is not present, Breath sounds: are clear throughout, no decreased breath sounds, no stridor, no wheezing. 16:55 Abdomen/GI: Inspection: abdomen appears normal, Bowel sounds: active, all quadrants, Palpation: abdomen is soft and non-tender, in all quadrants. 16:55 Back: pain, is absent, ROM is normal. 16:55 Skin: no rash present. 16:55 Neuro: Orientation: to person, place \\T\\ time. Mentation: is normal, Cerebellar function: is grossly normal, Motor: moves all fours, strength is normal, Sensation: is normal. 20:51 ECG was reviewed by the Attending Physician. cp Vital Signs: 15:55 BP 146 / 85; Pulse 48; Resp 12; Temp 99(O); Pulse Ox 100% on R/A; Weight 48.53 kg; ch Height 5 ft. 2 in. (157.48 cm); Pain 8/10; 16:30 BP 108 / 83; Pulse 52; Resp 19; Pulse Ox 100% on R/A; vc 17:31 BP 128 / 77; Pulse 51; Resp 15; Pulse Ox 100% on R/A; vc 18:33 BP 101 / 68; Pulse 52; Resp 12; Temp 98.2; Pulse Ox 99% on R/A; Pain 2/10; ch 19:30 BP 101 / 65; Pulse 52; Resp 19; Pulse Ox 100% on R/A; vc 19:54 BP 101 / 65; Pulse 51; Resp 16; Temp 98.1(O); Pulse Ox 99% on R/A; Pain 2/10; ch 21:00 BP 123 / 73; Pulse 53; Resp 16; Pulse Ox 100% on R/A; vc 15:55 Body Mass Index 19.57 (48.53 kg, 157.48 cm) MDM: 16:25 Patient medically screened. cp 17:00 Differential diagnosis: acute myocardial infarction, acute pericarditis, chest wall cp pain, costochondritis, myocarditis, pleurisy, pneumonia, pneumothorax, pulmonary embolus, migraine. 21:01 Data reviewed: vital signs, nurses notes, lab test result(s), EKG, radiologic studies, cp plain films. 21:01 Test interpretation: by ED physician or midlevel provider: ECG, plain radiologic cp studies, chest xray negative for infiltrates. Counseling: I had a detailed discussion with the patient and/or guardian regarding: the historical points, exam findings, and any diagnostic results supporting the discharge/admit diagnosis, lab results, radiology results, the need for outpatient follow up, a family practitioner, to return to the emergency department if symptoms worsen or persist or if there are any questions or concerns that arise at home. Response to treatment: the patient's symptoms have mildly improved after treatment, and as a result, I will discharge patient. Special discussion: Based on the patient's history, exam, and Dx evaluation, there is no indication for emergent intervention or inpatient Tx. It is understood by the patient/guardian that if the Sx's persist or worsen they need to return immediately for re-evaluation. 02 16:42 Order name: Basic Metabolic Panel cp 02 16:42 Order name: CBC with Diff cp 02 16:42 Order name: LFT's cp 02 16:42 Order name: Magnesium cp 02 16:42 Order name: NT PRO-BNP cp 02 16:42 Order name: PT-INR cp 02 16:42 Order name: Troponin (emerg Dept Use Only) cp 02 16:42 Order name: Influenza Screen (a \\T\\ B) cp 11/13 16:42 Order name: Strep cp 11/13 17:16 Order name: CBC with Automated Diff; Complete Time: 17:37 EDMS 11/13 17:37 Interpretation: Normal except: WBC 4.1; PLT 78; MPV 11.6; ARMOND% 32.1; LYM% 59.8; NEUT A cp 1.3. 11/13 17:22 Order name: Protime (+INR); Complete Time: 17:37 EDMS 11/13 17:37 Interpretation: Abnormal: PT 12.9. cp 11/13 17:24 Order name: Group A Streptococcus Rapid Sc; Complete Time: 17:37 EDMS 11/13 17:43 Order name: Basic Metabolic Panel; Complete Time: 17:45 EDMS 11/13 17:45 Interpretation: Normal except: CL 112; CRE 2.08; GFR 32; CA 8.3. cp / 17:43 Order name: Liver (Hepatic) Function; Complete Time: 17:45 EDMS 02/ 17:45 Interpretation: Normal except: GLOB 3.6. cp / 16:42 Order name: XRAY Chest (1 view) cp 11/13 16:42 Order name: EKG; Complete Time: 16:58 cp 11/13 17:43 Order name: Troponin (Emerg Dept Use Only); Complete Time: 17:45 EDMS 02 17:46 Interpretation: Within normal limits: TROPED < 0.02. cp / 17:43 Order name: NT PRO-BNP; Complete Time: 17:45 EDMS 11/13 17:43 Order name: Magnesium; Complete Time: 17:45 EDMS 11/13 17:46 Interpretation: MG 2.6; Reviewed. cp 11/13 17:43 Order name: Influenza Screen (A ; Complete Time: 17:45 EDMS 11/13 17:47 Order name: CT Head Brain wo Cont cp 11/13 18:08 Order name: RAD; Complete Time: 18:08 EDMS 11/13 18:08 Interpretation: Report reviewed. cp 11/13 18:24 Order name: CT; Complete Time: 19:15 EDMS 11/13 19:15 Interpretation: Report reviewed. cp 11/13 19:59 Order name: Troponin I cp 11/13 19:59 Order name: EKG; Complete Time: 20:00 cp 11/13 20:38 Order name: Troponin I; Complete Time: 20:50 EDMS 11/13 20:50 Interpretation: Reviewed. 11/13 16:42 Order name: Cardiac monitoring; Complete Time: 16:57 cp 11/13 16:42 Order name: EKG - Nurse/Tech; Complete Time: 16:57 cp 11/13 16:42 Order name: IV Saline Lock; Complete Time: 16:57 cp 11/13 16:42 Order name: Labs collected and sent; Complete Time: 16:57 cp 11/13 16:42 Order name: O2 Per Protocol; Complete Time: 16:57 cp 11/13 16:42 Order name: O2 Sat Monitoring; Complete Time: 16:57 11/13 19:59 Order name: EKG - Nurse/Tech; Complete Time: 20:48 EC:52 Rate is 50 beats/min. Rhythm is regular. IN interval is normal. QRS interval is normal. cp QT interval is normal. Clinical impression: Sinus bradycardia. Interpreted by me. Reviewed by me. 20:51 Rate is 47 beats/min. Rhythm is regular. IN interval is normal. QRS interval is normal. cp QT interval is normal. Interpreted by me. Reviewed by me. Administered Medications: 17:03 Drug: morphine 2 mg Route: IVP; Site: right antecubital; ch 18:35 Follow up: Response: No adverse reaction; Pain is decreased ch 17:04 Drug: Zofran 4 mg Route: IVP; Site: right antecubital; ch 20:36 Follow up: Response: No adverse reaction ch 17:04 Drug: NS 0.9% 1000 ml Route: IV; Rate: 1000 ml/hr; Site: right antecubital; ch 17:37 Follow up: IV Intake: 1000ml vc 21:06 Drug: Hydrocodone-Acetaminophen (7.5 mg-325 mg) 1 tabs Route: PO; vc 21:20 Follow up: Response: No adverse reaction; Pain is decreased ch Disposition: 21:45 Chart complete. 11/14 07:06 Co-signature as Attending Physician, Derek Gomez MD I agree with the assessment and kdr plan of care. Disposition: 11/13/19 21:02 Discharged to Home. Impression: Headache, Chest pain, unspecified, Chronic kidney disease (CKD). - Condition is Stable. - Discharge Instructions: Nonspecific Chest Pain, General Headache Without Cause. - Prescriptions for Medrol (Tao) 4 mg Oral Tablets, Dose Pack - take 1 tablet by ORAL route as directed - follow package instructions; 1 packet. Tramadol 50 mg Oral Tablet - take 1 tablet by ORAL route every 8 hours as needed; 12 tablet. - Medication Reconciliation Form, Thank You Letter, Antibiotic Education, Prescription Opioid Use form. - Follow up: Danae Lee MD; When: 1 - 2 days; Reason: Recheck today's complaints. - Problem is an ongoing problem. - Symptoms have improved. Signatures: Dispatcher [employer] EDJodi York RN RN ch Derek Gomez MD MD kdr Kalyan Bernard PA PA cp Gibson, Jolanta lt1 Shanna Islas RN RN vc Corrections: (The following items were deleted from the chart) 11/13 17:37 17:37 Normal except: WBC 4.1; PLT 78; MPV 11.6; ARMOND% 32.1; LYM% 59.8. cp cp 17:45 17:45 Normal except: CL 112; CRE 2.08; GFR 32. cp cp 21:29 21:02 11/13/2019 21:02 Discharged to Home. Impression: Headache; Chest pain, lt1 unspecified; Chronic kidney disease (CKD). Condition is Stable. Forms are Medication Reconciliation Form, Thank You Letter, Antibiotic Education, Prescription Opioid Use. Follow up: Danae Lee; When: 1 - 2 days; Reason: Recheck today's complaints. Problem is an ongoing problem. Symptoms have improved. cp 22:10 15:55 Home Meds: Omeprazole Oral; [facility]
--- NOTE | 2019-11-13 21:03 | ER ---
Nurse's Notes [facility] Name: Miya Persaud Age: 38 yrs Sex: Female : 1980 Arrival Date: 11/13/2019 Time: 15:34 Bed 26 Private MD: Diagnosis: Headache;Chest pain, unspecified;Chronic kidney disease (CKD) Presentation: 11/13 15:52 Presenting complaint: Patient states: not feeling well since October. states it is just ch getting worse. I was seen here Monday and they checked everything but I still dont feel better. C/o chest pain, headache, sore throat, not feeling well, aches all over. and I need a prescription for my Lexapro. Transition of care: patient was not received from another setting of care. Onset of symptoms was October 16, 2019. Risk Assessment: Do you want to hurt yourself or someone else? Patient reports no desire to harm self or others. Initial Sepsis Screen: Does the patient meet any 2 criteria? No. Patient's initial sepsis screen is negative. Does the patient have a suspected source of infection? No. Patient's initial sepsis screen is negative. 15:52 Method Of Arrival: Ambulatory 15:52 Acuity: PARTH 3 ch 21:17 Care prior to arrival: None. vc Triage Assessment: 15:55 General: Appears in no apparent distress. comfortable, Behavior is calm, cooperative, ch appropriate for age. Pain: Complains of pain in generalized. Cardiovascular: Pulses are all present. Edema is absent. Rhythm is sinus bradycardia. 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 all those that end with mycin; ch - Home Meds: 15:55 Lexapro 20 mg Oral tab 1 tab [Active]; loratadine 10 mg Oral tab 1 tab once daily ch [Active]; methocarbamol 500 mg Oral tab 1 tabs twice daily PRN [Active]; ondansetron HCl 4 mg Oral tab [Active]; Robaxin 500 mg Oral tab 1 tabs twice daily PRN [Active]; 22:10 Dexilant 60 mg oral CpDB 1 cap once daily [Active]; ch - PMHx: 15:55 Anemia; Anxiety; Depression; ibs; kidney disease; Stage IV renal disease; Thyroid ch problem; - PSHx: 15:55 Tubal ligation; R foot; ch - Immunization history:: Adult Immunizations up to date, Flu vaccine is up to date. - Coronavirus screen:: The patient has NOT traveled to [place] in the past 14 days. The patient has NOT had contact with known/suspected case of Coronavirus?. - Social history:: Smoking status: Patient denies any tobacco usage or history of. - Ebola Screening: : Patient negative for fever greater than or equal to 101.5 degrees Fahrenheit, and additional compatible Ebola Virus Disease symptoms Patient denies exposure to infectious person Patient denies travel to an Ebola-affected area in the 21 days before illness onset No symptoms or risks identified at this time. Screenin:30 Abuse screen: Denies threats or abuse. Nutritional screening: No deficits noted. vc Tuberculosis screening: No symptoms or risk factors identified. Fall Risk None identified. Assessment: 17:35 Reassessment: Patient and/or family updated on plan of care and expected duration. Pain vc level reassessed. warm blanket provided. 18:16 Pain: Complains of pain in chest, throat, generalized pain. improved after morphine ch Pain does not radiate. Pain began gradually, couple months ago, was present by October of 2019. Neuro: No deficits noted. Cardiovascular: Reports chest pain, Heart tones S1 S2 present Capillary refill < 3 seconds in bilateral fingers toes Clubbing of nail beds is absent Patient's skin is warm and dry. Pulses are all present. Edema is absent. Rhythm is sinus bradycardia. Respiratory: Airway is patent Trachea midline Respiratory effort is even, unlabored, Breath sounds are clear bilaterally. GI: Abdomen is flat, non-distended, Bowel sounds present X 4 quads. Abd is soft and non tender X 4 quads. Reports nausea, appetite, pain with eating. : No signs and/or symptoms were reported regarding the genitourinary system. Derm: Skin is intact, is healthy with good turgor, Skin is dry, Skin is normal, brown, Skin temperature is warm. 18:33 Reassessment: Patient appears in no apparent distress at this time. Patient and/or ch family updated on plan of care and expected duration. Pain level reassessed. Patient is alert, oriented x 3, equal unlabored respirations, skin warm/dry/pink. pt states she still has a bit of a headache, but otherwise feels better. Patient states feeling better. Patient states symptoms have improved. 19:54 Reassessment: Patient appears in no apparent distress at this time. No changes from previously documented assessment. Patient and/or family updated on plan of care and expected duration. Pain level reassessed. Patient is alert, oriented x 3, equal unlabored respirations, skin warm/dry/pink. 21:00 Reassessment: Patient and/or family updated on plan of care and expected duration. Pain vc level reassessed. Patient is alert, oriented x 3, equal unlabored respirations, skin warm/dry/pink. Patient states feeling better. Neuro: Level of Consciousness is awake, alert, obeys commands, Oriented to person, place, time. Vital Signs: 15:55 BP 146 / 85; Pulse 48; Resp 12; Temp 99(O); Pulse Ox 100% on R/A; Weight 48.53 kg; ch Height 5 ft. 2 in. (157.48 cm); Pain 8/10; 16:30 BP 108 / 83; Pulse 52; Resp 19; Pulse Ox 100% on R/A; vc 17:31 BP 128 / 77; Pulse 51; Resp 15; Pulse Ox 100% on R/A; vc 18:33 BP 101 / 68; Pulse 52; Resp 12; Temp 98.2; Pulse Ox 99% on R/A; Pain 2/10; ch 19:30 BP 101 / 65; Pulse 52; Resp 19; Pulse Ox 100% on R/A; vc 19:54 BP 101 / 65; Pulse 51; Resp 16; Temp 98.1(O); Pulse Ox 99% on R/A; Pain 2/10; ch 21:00 BP 123 / 73; Pulse 53; Resp 16; Pulse Ox 100% on R/A; vc 15:55 Body Mass Index 19.57 (48.53 kg, 157.48 cm) ED Course: 15:34 Patient arrived in ED. as 15:44 Jodi Lewis, RN is Primary Nurse. 15:54 Triage completed. 15:55 Arm band placed on left wrist. Patient placed in an exam room, on a stretcher, on monitor technician, on pulse oximetry. EKG completed in triage. Results shown to MD. 15:57 EKG done, by lead quality technician. reviewed by Derek Gomez MD. at1 16:15 Patient has correct armband on for positive identification. Placed in gown. Bed in low vc position. Call light in reach. Side rails up X 1. monitor and storage bin tender on. Pulse ox on. NIBP on. 16:25 Kalyan Bernard PA is PHCP. cp 16:25 Derek Gomez MD is Attending Physician. cp 16:56 Initial lab(s) drawn, by me, sent to lab. Flu and/or RSV swab sent to lab. Strep swab lt1 sent to lab. Inserted saline lock: 20 gauge in right antecubital area, using aseptic technique. 19:54 No apparent distress. Resting quietly. ch 19:54 No provider procedures requiring assistance completed. Patient maintains SpO2 ch saturation greater than 95% on room air. 20:19 Repeat lab(s) drawn. by me, sent to lab. ch 20:35 Troponin I Sent. ch 20:48 CT Head Brain wo Cont Sent. ch 21:01 Danae Lee MD is Referral Physician. cp 21:27 IV discontinued, intact, bleeding controlled, No redness/swelling at site. Pressure ch dressing applied. 22:07 Strep Sent. ch 22:07 Influenza Screen (a \\T\\ B) Sent. ch Administered Medications: 17:03 Drug: morphine 2 mg Route: IVP; Site: right antecubital; ch 18:35 Follow up: Response: No adverse reaction; Pain is decreased ch 17:04 Drug: Zofran 4 mg Route: IVP; Site: right antecubital; ch 20:36 Follow up: Response: No adverse reaction ch 17:04 Drug: NS 0.9% 1000 ml Route: IV; Rate: 1000 ml/hr; Site: right antecubital; ch 17:37 Follow up: IV Intake: 1000ml vc 21:06 Drug: Hydrocodone-Acetaminophen (7.5 mg-325 mg) 1 tabs Route: PO; vc 21:20 Follow up: Response: No adverse reaction; Pain is decreased ch Intake: 17:37 IV: 1000ml; Total: 1000ml. vc Outcome: 21:02 Discharge ordered by . cp 21:27 Discharged to home ambulatory, with family. vc 21:27 Condition: good 21:27 Discharge instructions given to patient, Instructed on discharge instructions, follow up and referral plans. medication usage. 21:29 Patient left the ED. lt1 Signatures: Jodi Lewis, RN RN Martina Ramirez Amanda, commissioned security officer EKG Tat1 Kalyan Bernard PA PA cp Tran, Leah lt1 Shanna Islas RN RN vc Corrections: (The following items were deleted from the chart) 22:10 15:55 Home Meds: Omeprazole Oral; [facility]
[2019-11-13] MEDS ORDERED: HYDROCODONE/APAP 7.5/325 MG TAB ONE (21:04)
--- NOTE | 2019-11-14 09:22 | EKG ---
Test Date: 2019-11-13 Test Time: 20:44:56 Laundry Presser: DELORIS MEASUREMENT RESULTS: Intervals: Rate: 47 [place]: 188 QRSD: 88 QT: 474 QTc: 419 [place]: P: 60 [place]: 188 QRS: 63 T: 46 INTERPRETIVE STATEMENTS: Sinus bradycardia Otherwise normal ECG Compared to ECG 11/13/2019 15:52:26 No significant changes Electronically Signed On 11-14-19 09:22:32 HEALTH CLAIMS EXAMINER by Landon Vines
[2019-11-15 02:45] VITALS: TEMP 98.1
[2019-11-15 02:47] VITALS: BP 123/73; O2SAT 100
== END 2019-11-13 21:29 | disposition home or self-care (01) ==
LOC: ER 15:32
DX: R07.9 Chest pain, unspecified (principal); R51 Headache; N18.4 Chronic kidney disease, stage 4 (severe); F34.1 Dysthymic disorder; E07.9 Disorder of thyroid, unspecified; Z88.1 Allergy status to other antibiotic agents; Z88.3 Allergy status to other anti-infective agents; Z88.5 Allergy status to narcotic agent; Z88.6 Allergy status to analgesic agent
CPT/HCPCS: 93005 ×2; 87070; 85025; 80048; 36415; 83735; 85610; 80076; 87081; 84484 ×2; 83880; 87804 ×2; 70450; 71045; 96375; 96374; 99285; J2270; J7030; J2405

== ENCOUNTER 2020-07-16 08:31 | Observation (INO) | payer MEDICAID, OTHER ==
--- OUTSIDE RECORDS SUMMARY | 2020-07-16 08:33 | XMS REPORT | Continuity of Care Document ---
:1980 Author Organization [facility] t Address [address] [place] [address] Care Team Providers Name Role Phone Peggy ALAMO Attending Clinician Problems This patient has no known problems. Allergies, Adverse Reactions, Alerts This patient has no known allergies or adverse reactions. Medications This patient has no known medications. Procedures This patient has no known procedures. Encounters Start End Encounter Admission Attending Care Care Encounter Source Date/Time Date/Time Type Type Clinicians Facility Department ID 2019-11-26 2019-11-26 Office [facility] [id number] 27 10:09:55 11:02:35 Visit John PA [id number] [facility] [id number] [facility] [phone] [facility] Results This patient has no known results.
[2020-07-16] MEDS ORDERED: NA CHLORIDE 0.9% 500 ML ONE ×2 (08:57→10:55)
[2020-07-16] MEDS ORDERED: ONDANSETRON 4 MG/2 ML VIAL ONE ×2 (08:57→14:00)
[2020-07-16 09:12] LABS: Absolute Lymphocytes (CBC) 3.2 K/uL (0.7-4.9); Basophils % 0.3 % (0-1.3); Hematocrit 39.2 % (36.0-45.0); Lymphocytes % 34.1 % (15.3-44.8); MPV 11.2 fL (7.6-11.3); RBC Red Blood Cell Count 3.89 M/uL (3.86-4.86)
[2020-07-16] MEDS ORDERED: FAMOTIDINE 20 MG/2 ML VIAL IV ONE (09:21)
[2020-07-16 09:24] LABS: Albumin 4.1 g/dL (3.4-5.0); Bilirubin Direct 0.2 mg/dL (0-0.2); Bilirubin Total 0.4 mg/dL (0.2-1.0); Protein, Total 8.1 g/dL (6.4-8.2)
--- NOTE | 2020-07-16 09:30 | RAD REPORT ---
EXAM DESCRIPTION: CT - Abdomen Pelvis Wo Contrast - 07/16/2020 9:22 am CLINICAL HISTORY: Abdominal pain. n/v/d;Abd pain COMPARISON: Abdomen Pelvis Wo Contrast dated 01/19/2018 TECHNIQUE: CT imaging of the abdomen and pelvis was performed without contrast. Solid organ, bowel a nd vascular assessment is limited due to lack of IV and oral contrast. All CT scans are performed using dose optimization technique as appropriate and may include automated exposure control or mA/KV adjustment according to patient size. FINDINGS: The lower lung pike are clear.Small stone is present in the gallbladder. The liver, spleen, pancreas, adrenal glands and kidneys are within normal limits for a limited non-co ntrast examination. No bowel obstruction, free air, free fluid or abscess. The colon demonstrates mild mucosal thickening likely representing mild colitis. The appendix is normal. The osseous structures are within normal limits. IMPRESSION: A mild colitis pattern is suspected. Cholelithiasis. A limited non-contrast examination was performed as detailed.
[2020-07-16 10:51] LABS: Blood Morphology Comment NOT SEEN (NOT SEEN); Platelet Estimate DECR
[2020-07-16] MEDS ORDERED: KCL 20 MEQ/100 mL IVPB 20 MEQ/100 ML BAG IV ONE (10:55)
[2020-07-16] MEDS ORDERED: POTASSIUM CL SA 10 MEQ TAB PO ONE (10:55)
[2020-07-16] MEDS ORDERED: METOCLOPRAMIDE 10 MG/2mL INJ ONE (11:23)
--- NOTE | 2020-07-16 11:43 | ER ---
Nurse's Notes [facility] Name: Miya Persaud Age: 39 yrs Sex: Female : 1980 Arrival Date: 07/16/2020 Time: 08:32 Bed 8 Private MD: Diagnosis: Nausea and vomiting;Abdominal and pelvic pain;Mild colitis Presentation: 07/16 08:33 Chief complaint: EMS states: N/V since 0600 this morning, reports abd pain. Coronavirus em screen: Client denies travel out of the [place] in the last 14 days. Ebola Screen: Patient negative for fever greater than or equal to 101.5 degrees Fahrenheit, and additional compatible Ebola Virus Disease symptoms Patient denies exposure to infectious person. Patient denies travel to an Ebola-affected area in the 21 days before illness onset. No symptoms or risks identified at this time. Initial Sepsis Screen: Does the patient meet any 2 criteria? No. Patient's initial sepsis screen is negative. Does the patient have a suspected source of infection? No. Patient's initial sepsis screen is negative. Risk Assessment: Do you want to hurt yourself or someone else? Patient reports no desire to harm self or others. Onset of symptoms was July 16, 2020. 08:33 Method Of Arrival: EMS: [facility] em 08:33 Acuity: PARTH 3 em Historical: - Allergies: 08:41 "mycin" medications. all those that end with mycin; em 08:41 Aspirin; em 08:41 CYCLOBENZAPRINE; em 08:41 Demerol; em 08:41 diclofenac sodium; em 08:41 Levofloxacin; em - PMHx: 08:41 Anemia; Anxiety; Depression; ibs; kidney disease; Stage IV renal disease; Thyroid em problem; - PSHx: 08:41 Tubal ligation; R foot; em - Immunization history:: Adult Immunizations unknown. - Social history:: Smoking status: Patient denies any tobacco usage or history of. Screenin:41 Abuse screen: Denies threats or abuse. Nutritional screening: No deficits noted. em Tuberculosis screening: No symptoms or risk factors identified. Fall Risk None identified. Assessment: 08:41 General: Appears in no apparent distress. uncomfortable, ill, slender, Behavior is em calm, cooperative, quiet. Pain: Complains of pain in abdomen Pain currently is 10 out of 10 on a pain scale. Neuro: Level of Consciousness is awake, alert, obeys commands, Oriented to person, place, time, situation, Appropriate for age. Cardiovascular: Capillary refill < 3 seconds Patient's skin is warm and dry. Respiratory: Airway is patent Respiratory effort is even, unlabored, Respiratory pattern is regular, symmetrical. GI: Abdomen is flat, Bowel sounds present X 4 quads. Abd is soft X 4 quads Abd is non tender X 4 quads Reports diarrhea, nausea, vomiting. Derm: Skin is intact, is healthy with good turgor, Skin is pink, warm \\T\\ dry. Musculoskeletal: Capillary refill < 3 seconds, Range of motion: intact in all extremities. 10:14 Reassessment: Patient appears in no apparent distress at this time. Patient and/or em family updated on plan of care and expected duration. Pain level reassessed. Patient is alert, oriented x 3, equal unlabored respirations, skin warm/dry/pink. 11:00 Reassessment: reports nausea has returned, Dr. Gomez notified, received new em medication orders. 12:21 Reassessment: Dr. Jara at bedside. em 13:25 Reassessment: Patient appears in no apparent distress at this time. Patient and/or em family updated on plan of care and expected duration. Pain level reassessed. Patient is alert, oriented x 3, equal unlabored respirations, skin warm/dry/pink. Vital Signs: 08:33 BP 148 / 75; Pulse 56; Resp 18; Temp 97.9(O); Pulse Ox 100% on R/A; Weight 47.17 kg; em Height 5 ft. 0 in. (152.40 cm); 10:13 BP 142 / 76; Pulse 47; Resp 18; Pulse Ox 100% on R/A; em 11:06 BP 128 / 64; Pulse 45; Resp 16; Pulse Ox 100% on R/A; em 13:00 BP 127 / 61; Pulse 45; Resp 18; Pulse Ox 100% on R/A; em 08:33 Body Mass Index 20.31 (47.17 kg, 152.40 cm) em ED Course: 08:32 Patient arrived in ED. em 08:35 Derek Gomez MD is Attending Physician. kdr 08:39 Triage completed. em 08:41 Arm band placed on. em 08:41 Patient has correct armband on for positive identification. Bed in low position. Call em light in reach. Adult w/ patient. 08:42 Carroll Perla, RN is Primary Nurse. em 08:55 Initial lab(s) drawn, by me, sent to lab. Inserted saline lock: 20 gauge in right em antecubital area, using aseptic technique. Blood collected. 11:42 Paulo Jara DO is Hospitalizing Provider. kdr 13:35 No provider procedures requiring assistance completed. Patient admitted, IV remains in em place. Administered Medications: 08:55 Drug: NS 0.9% 500 ml Route: IV; Rate: bolus; Site: right antecubital; em 10:40 Follow up: IV Status: Completed infusion; IV Intake: 500ml em 08:55 Drug: Zofran (Ondansetron) 4 mg Route: IVP; Site: right antecubital; em 10:40 Follow up: Response: No adverse reaction; Marked relief of symptoms em 09:13 Drug: Pepcid 20 mg Route: IVP; Site: right antecubital; em 10:40 Follow up: Response: No adverse reaction; Marked relief of symptoms em 10:49 Drug: Potassium Chloride 20 mEq Route: IV; Rate: calculated rate; Site: right em antecubital; 13:10 Follow up: IV Status: Completed infusion; IV Intake: 100ml em 10:49 Drug: NS 0.9% 500 ml Route: IV; Rate: bolus; Site: right antecubital; em 13:10 Follow up: IV Status: Completed infusion; IV Intake: 500ml em 11:17 Drug: Reglan 10 mg Route: IVP; Site: right antecubital; em 12:00 Follow up: Response: No adverse reaction; Marked relief of symptoms; Nausea is decreasedem 13:09 Drug: Flagyl 500 mg Volume: 100 ml; Route: IVPB; Rate: 200 ml/hr; Infused Over: 30 em mins; Site: right antecubital; 13:36 Follow up: IV Status: Infusion continued upon admission em 13:48 Drug: Zofran (Ondansetron) 4 mg Route: IVP; Site: right antecubital; em 13:58 Follow up: Response: Medication administered at discharge. em 13:58 Not Given (Patient Refused): Potassium Chloride 40 mEq PO once em Intake: 10:40 IV: 500ml; Total: 500ml. em 13:10 IV: 100ml; Total: 600ml. em 13:10 IV: 500ml; Total: 1100ml. em Outcome: 11:43 Decision to Hospitalize by Provider. kdr 13:35 Admitted to Med/surg accompanied by tech, via wheelchair, room 205, Report called to em DUNCAN Singer 13:35 Condition: good 13:35 Instructed on the need for admit, Demonstrated understanding of instructions. 13:59 Patient left the ED. em Signatures: Derek Gomez MD MD kdr Munoz, Edgar RN RN em
--- NOTE | 2020-07-16 11:44 | EDPHYS ---
Physician Documentation [facility] Name: Miya Persaud Age: 39 yrs Sex: Female : 1980 Arrival Date: 07/16/2020 Time: 08:32 Bed 8 Private MD: ED Physician Derek Gomez HPI: 07/16 11:43 This 39 yrs old Black Female presents to ER via EMS with complaints of Nausea/Vomiting. kdr 11:43 The patient presents to the emergency department with nausea, that is mild, vomiting, kdr that is intermittent, diarrhea, that is intermittent, abdominal pain, of the abdomen diffusely. Onset: The symptoms/episode began/occurred suddenly, at 06:00. Possible causes: unknown. The symptoms are aggravated by food , The symptoms are alleviated by nothing. Associated signs and symptoms: Pertinent positives: abdominal pain, diarrhea, nausea, vomiting. Severity of symptoms: At their worst the symptoms were moderate severe in the emergency department the symptoms are unchanged. The patient has experienced similar episodes in the past, a few times. The patient has not recently seen a physician. Historical: - Allergies: 08:41 "mycin" medications. all those that end with mycin; em 08:41 Aspirin; em 08:41 CYCLOBENZAPRINE; em 08:41 Demerol; em 08:41 diclofenac sodium; em 08:41 Levofloxacin; em - PMHx: 08:41 Anemia; Anxiety; Depression; ibs; kidney disease; Stage IV renal disease; Thyroid em problem; - PSHx: 08:41 Tubal ligation; R foot; em - Immunization history:: Adult Immunizations unknown. - Social history:: Smoking status: Patient denies any tobacco usage or history of. ROS: 11:43 Constitutional: Negative for fever, chills, and weight loss, Eyes: Negative for injury, kdr pain, redness, and discharge, Neck: Negative for injury, pain, and swelling, Cardiovascular: Negative for chest pain, palpitations, and edema, Respiratory: Negative for shortness of breath, cough, wheezing, and pleuritic chest pain, Back: Negative for injury and pain, : Negative for injury, bleeding, discharge, and swelling, MS/Extremity: Negative for injury and deformity, Skin: Negative for injury, rash, and discoloration, Neuro: Negative for headache, weakness, numbness, tingling, and seizure activity. Psych: Negative for depression, anxiety, suicide ideation, homicidal ideation, and hallucinations, Allergy/Immunology: Negative for hives, rash, and allergies, Endocrine: Negative for neck swelling, polydipsia, polyuria, polyphagia, and marked weight changes, Hematologic/Lymphatic: Negative for swollen nodes, abnormal bleeding, and unusual bruising. 11:43 Abdomen/GI: Positive for abdominal pain, nausea and vomiting, nausea, vomiting, and diarrhea. Exam: 11:43 Constitutional: This is a well developed, well nourished patient who is awake, alert, kdr and in no acute distress. Head/Face: Normocephalic, atraumatic. Eyes: Pupils equal round and reactive to light, extra-ocular motions intact. Lids and lashes normal. Conjunctiva and sclera are non-icteric and not injected. Cornea within normal limits. Periorbital areas with no swelling, redness, or edema. Neck: Trachea midline, no thyromegaly or masses palpated, and no cervical lymphadenopathy. Supple, full range of motion without nuchal rigidity, or vertebral point tenderness. No Meningismus. Chest/axilla: Normal chest wall appearance and motion. Nontender with no deformity. No lesions are appreciated. Cardiovascular: Regular rate and rhythm with a normal S1 and S2. No gallops, murmurs, or rubs. Normal PMI, no JVD. No pulse deficits. Respiratory: Lungs have equal breath sounds bilaterally, clear to auscultation and percussion. No rales, rhonchi or wheezes noted. No increased work of breathing, no retractions or nasal flaring. Back: No spinal tenderness. No costovertebral tenderness. Full range of motion. Skin: Warm, dry with normal turgor. Normal color with no rashes, no lesions, and no evidence of cellulitis. MS/ Extremity: Pulses equal, no cyanosis. Neurovascular intact. Full, normal range of motion. Neuro: Awake and alert, GCS 15, oriented to person, place, time, and situation. Cranial nerves II-XII grossly intact. Motor strength 5/5 in all extremities. Sensory grossly intact. Cerebellar exam normal. Normal gait. Psych: Awake, alert, with orientation to person, place and time. Behavior, mood, and affect are within normal limits. 11:43 Abdomen/GI: Inspection: abdomen appears normal, Bowel sounds: diminished, in all quadrants, Palpation: soft, moderate abdominal tenderness, in all quadrants. Vital Signs: 08:33 BP 148 / 75; Pulse 56; Resp 18; Temp 97.9(O); Pulse Ox 100% on R/A; Weight 47.17 kg; em Height 5 ft. 0 in. (152.40 cm); 10:13 BP 142 / 76; Pulse 47; Resp 18; Pulse Ox 100% on R/A; em 11:06 BP 128 / 64; Pulse 45; Resp 16; Pulse Ox 100% on R/A; em 13:00 BP 127 / 61; Pulse 45; Resp 18; Pulse Ox 100% on R/A; em 08:33 Body Mass Index 20.31 (47.17 kg, 152.40 cm) em MDM: 11:43 Patient medically screened. kdr 11:43 Data reviewed: vital signs, nurses notes, lab test result(s), radiologic studies. kdr Counseling: I had a detailed discussion with the patient and/or guardian regarding: the historical points, exam findings, and any diagnostic results supporting the discharge/admit diagnosis, lab results, radiology results, the need for further work-up and treatment in the hospital. ED course: The patient has continued to be nausea and unable to take PO since arrival. 07/16 08:36 Order name: Basic Metabolic Panel kdr 07/16 08:36 Order name: CBC with Diff kdr 07/16 08:36 Order name: Hepatic Function kdr 07/16 08:36 Order name: Lipase kdr 07/16 09:15 Order name: CBC with Automated Diff EDMS 07/16 09:24 Order name: Basic Metabolic Panel; Complete Time: 10:32 EDMS 07/16 08:53 Order name: CT Abd/Pelvis - IV Contrast Only kdr 07/16 09:24 Order name: Liver (Hepatic) Function; Complete Time: 10:32 EDMS 07/16 09:24 Order name: Lipase; Complete Time: 10:32 EDMS 07/16 09:31 Order name: CT; Complete Time: 10:32 EDMS 07/16 10:46 Order name: CREATININE WHOLE BLOOD EDMS 07/16 10:51 Order name: Manual Differential EDMS 07/16 08:36 Order name: IV Saline Lock; Complete Time: 09:13 kdr 07/16 08:36 Order name: Labs collected and sent; Complete Time: 09:13 kdr Administered Medications: 08:55 Drug: NS 0.9% 500 ml Route: IV; Rate: bolus; Site: right antecubital; em 10:40 Follow up: IV Status: Completed infusion; IV Intake: 500ml em 08:55 Drug: Zofran (Ondansetron) 4 mg Route: IVP; Site: right antecubital; em 10:40 Follow up: Response: No adverse reaction; Marked relief of symptoms em 09:13 Drug: Pepcid 20 mg Route: IVP; Site: right antecubital; em 10:40 Follow up: Response: No adverse reaction; Marked relief of symptoms em 10:49 Drug: Potassium Chloride 20 mEq Route: IV; Rate: calculated rate; Site: right em antecubital; 13:10 Follow up: IV Status: Completed infusion; IV Intake: 100ml em 10:49 Drug: NS 0.9% 500 ml Route: IV; Rate: bolus; Site: right antecubital; em 13:10 Follow up: IV Status: Completed infusion; IV Intake: 500ml em 11:17 Drug: Reglan 10 mg Route: IVP; Site: right antecubital; em 12:00 Follow up: Response: No adverse reaction; Marked relief of symptoms; Nausea is decreasedem 13:09 Drug: Flagyl 500 mg Volume: 100 ml; Route: IVPB; Rate: 200 ml/hr; Infused Over: 30 em mins; Site: right antecubital; 13:36 Follow up: IV Status: Infusion continued upon admission em 13:48 Drug: Zofran (Ondansetron) 4 mg Route: IVP; Site: right antecubital; em 13:58 Follow up: Response: Medication administered at discharge. em 13:58 Not Given (Patient Refused): Potassium Chloride 40 mEq PO once em Disposition: 07/16/20 11:43 Hospitalization ordered by Paulo Jara for Observation. Preliminary diagnosis are Nausea and vomiting, Abdominal and pelvic pain, Mild colitis. - Bed requested for Telemetry/MedSurg (observation). - Status is Observation. em - Condition is Fair. - Problem is an acute exacerbation. - Symptoms have improved. Signatures: Dispatcher [employer] EDDerek Garber MD MD kdr Munoz, Edgar, RN RN em Ricki Rivera RN RN [id number] Corrections: (The following items were deleted from the chart) 13:19 11:43 Hospitalization Ordered by Paulo Jara DO for Observation. Preliminary jaLucas diagnosis is Nausea and vomiting; Abdominal and pelvic pain; Mild colitis. Bed requested for Telemetry/MedSurg (observation). Status is Observation. Condition is Fair. Problem is an acute exacerbation. Symptoms have improved. kdr 13:59 13:19 07/16/2020 11:43 Hospitalization Ordered by Paulo Jara DO for Observation. em Preliminary diagnosis is Nausea and vomiting; Abdominal and pelvic pain; Mild colitis. Bed requested for Telemetry/MedSurg (observation). Status is Observation. Condition is Fair. Problem is an acute exacerbation. Symptoms have improved. evens
[2020-07-16] MEDS ORDERED: METRONIDAZOLE 500mg IVPB 500 MG/100 ML BAG IV ONE (11:58)
--- NOTE | 2020-07-16 12:43 | P.HP ---
Patient History Date of Service: 07/16/20 Allergies aspirin Allergy (Verified 06/20/16 14:02) Anaphylaxis unknown antibiotic Allergy (Uncoded 09/26/17 01:08) Unknown Home Medications: Albuterol Sulfate [Albuterol Sulfate 0.083% Neb Soln] 2.5 mg IH PRN 06/20/16 Escitalopram [Lexapro] 20 mg PO DAILY 06/20/16 Loratadine [Claritin] 10 mg PO DAILY 06/20/16 Physical Examination - Studies Laboratory Data (last 24 hrs) 07/16/20 08:55: WBC 9.5 D, Hgb 13.2, Hct 39.2, Plt Count 69 L* 07/16/20 08:55: Sodium 142, Potassium 3.0 L, BUN 20 H, Creatinine 2.27 H, Glucose 134 H, Total Bilirubin 0.4, AST 68 H, ALT 49, Alkaline Phosphatase 141 H, Lipase 95 Assessment and Plan - Advance Directives Does patient have a Living Will: No Does patient have a Durable POA for Healthcare: No
--- NOTE | 2020-07-16 12:58 | P.HP ---
Certification for Inpatient Patient admitted to: Observation With expected LOS: <2 Midnights Patient will require the following post-hospital care: None Practitioner: I am a practitioner with admitting privileges, knowledge of patient current condition, hospital course, and medical plan of care. Services: Services provided to patient in accordance with Admission requirements found in Title 42 Section 412.3 of the Code of Federal Regulations Patient History Date of Service: 07/16/20 Primary Care Provider: Dr. Leon; GI-Dr. Mcfarlane; Nephrology-Dr. Bosch; Card- Dr. Mendez Reason for admission: Nausea, vomiting and diarrhea History of Present Illness: 39-year-old female with history of chronic renal disease, celiac disease, depression with anxiety, asthma, and chronic thrombocytopenia. Patient reports over the past week she has been having increasing nausea, vomiting and diarrhea. She is not able to keep anything down. Patient is seen by GI as an outpatient. She reports a history of celiac disease. Patient was trying to see GI but was not able to. Patient also reported some diffuse abdominal pain. Symptoms worsen. She came to the ER for further evaluation. Patient denies any fever, chills, chest pain or shortness of breath. In the ER patient was seen. Vital signs stable. CT scan shows mild diffuse colitis. White count 9.5, hemoglobin 13.2. Platelet count 69. Sodium 142, potassium 3.0. BN of 20, creatinine 2.27 with a GFR 29. Glucose 134. AST 68, ALT 49. Alk-phos 141 and lipase within normal range. Patient was given medication for pain and nausea in the ER. Patient admitted for observation. When I saw the patient ER, patient without significant pain. Patient stable. Allergies aspirin Allergy (Verified 06/20/16 14:02) Anaphylaxis unknown antibiotic Allergy (Uncoded 09/26/17 01:08) Unknown Home medications list reviewed: Yes Home Medications: Albuterol Sulfate [Albuterol Sulfate 0.083% Neb Soln] 2.5 mg IH PRN 06/20/16 Escitalopram [Lexapro] 20 mg PO DAILY 06/20/16 Loratadine [Claritin] 10 mg PO DAILY 06/20/16 - Past Medical/Surgical History Diabetic: No -: Depression with anxiety -: Chronic renal disease stage 3 -: Chronic thrombocytopenia -: Asthma -: Seasonal allergies -: Bilateral axillary surgery -: Right foot surgery Psychosocial/ Personal History: Patient was adopted. She is single. She has an adopted child. - Family History Family History: Reviewed- Non-Contributory - Social History Smoking Status: Never smoker Alcohol use: No CD- Drugs: No Caffeine use: No Place of Residence: Home Review of Systems General: Weakness, Malaise, As per HPI Eyes: Unremarkable ENT: Unremarkable Respiratory: Unremarkable Cardiovascular: Unremarkable Gastrointestinal: Nausea, Vomiting, Abdominal Pain, Diarrhea, As per HPI Genitourinary: Unremarkable Musculoskeletal: Unremarkable Integumentary: Unremarkable Neurological: Unremarkable Lymphatics: Unremarkable Physical Examination - Physical Exam General: Alert, In no apparent distress, Oriented x3, Cooperative HEENT: Atraumatic, Normocephalic, PERRLA, Other (Dry mucous membranes) Neck: Supple Respiratory: Clear to auscultation bilaterally, Normal air movement Cardiovascular: Normal pulses, Regular rate/rhythm Gastrointestinal: Normal bowel sounds, Soft and benign, Non-distended, No masses, No rebound, No guarding, Tenderness (Mild pain throughout) Musculoskeletal: No erythema, No tenderness, No warmth Integumentary: No tenderness/swelling, No erythema, No warmth, No cyanosis Neurological: Normal speech, Normal strength at 5/5 x4 extr, Normal tone, Normal affect - Studies Laboratory Data (last 24 hrs) 07/16/20 08:55: WBC 9.5 D, Hgb 13.2, Hct 39.2, Plt Count 69 L* 07/16/20 08:55: Sodium 142, Potassium 3.0 L, BUN 20 H, Creatinine 2.27 H, Glucose 134 H, Total Bilirubin 0.4, AST 68 H, ALT 49, Alkaline Phosphatase 141 H, Lipase 95 Assessment and Plan - Plan Impression: Nausea, vomiting and diarrhea with abdominal pain secondary to acute mild diffuse colitis with hx of celiac dz Acute on chronic renal disease stage II with mild dehydration Chronic thrombocytopenia Depression with anxiety Asthma Plan: Nausea, vomiting and diarrhea with abdominal pain secondary to acute mild diffuse colitis with hx of celiac dz: Patient we admitted for further evaluation and observation. Will continue IV fluids. Will continue with IV antibiotic therapy-Cipro and Flagyl. Will provide medication for pain and nausea. Will start with a clear liquid diet then advance to a gluten free diet. Will consult GI to further evaluate. Await recommendations. DVT prophylaxis will include SCD due to chronic thrombocytopenia. Will consult Nephrology to further evaluate her acute on chronic renal disease. Anticipate improvement over the next 24 hr. Likely discharge tomorrow. Acute on chronic renal disease stage II with mild dehydration: Patient is seen by Dr. Bosch. Continue IV fluids. Will consult nephrology for further recommendation. Chronic thrombocytopenia: Previous lab reviewed. Patient has a history of thrombocytopenia. Will obtain peripheral smear and other lab to monitor closely. Depression with anxiety: Will need to restart home medication Asthma: Patient uses inhalers as needed. Discharge Plan: Home Plan to discharge in: 24 Hours - Advance Directives Does patient have a Living Will: No Does patient have a Durable POA for Healthcare: No - Code Status/Comfort Care Code Status Assessed: Yes (Patient is full code) Time Spent Managing Pts Care (In Minutes): 55
[2020-07-16] MEDS ORDERED: ACETAMINOPHEN 500 MG TAB PO PRN (14:13)
[2020-07-16] MEDS ORDERED: ONDANSETRON 4 MG/2 ML VIAL IV PRN (14:13)
[2020-07-16] MEDS ORDERED: ALPRAZOLAM 0.25 MG TABLET PO PRN (14:13)
[2020-07-16] MEDS ORDERED: MORPHINE 2 MG/ML SYR IV PRN (14:13)
[2020-07-16] MEDS ORDERED: HYDROCODONE/APAP 7.5/325 MG TAB PO PRN (14:13)
[2020-07-16] MEDS ORDERED: TRAMADOL HCL 50 MG TAB PO PRN (14:13)
[2020-07-16 14:30] VITALS: BMI 19.6
--- NOTE | 2020-07-16 14:51 | CON ---
Date of Consultation: 07/16/2020 Reason For Consultation: Elevated BUN and creatinine, fluid management. History Of Present Illness: This is a pleasant 39-year-old black female with significant past medical history of bronchial asthma, hypertension, hyperlipidemia, IBS, chronic kidney disease stage 3B/4 secondary to hypertension, followed up with Dr. Bosch, baseline creatinine 2 as by November 2019, the patient came to the hospital complaining from abdominal pain, nausea and vomiting, and diarrhea. The patient had workup with Dr. Tim about celiac disease, not confirmed yet. Upon arrival to the hospital, the patient found to have elevation in BUN and creatinine. For that reason, we have been consulted. The patient denied taking any nonsteroidal. No IV contrast. No recent change in her medication. No antibiotic. Past Medical History: Includes; 1. IBS. 2. Chronic kidney disease, stage 3B, baseline creatinine 2, GFR of 32 as by November 2019, thrombocytopenia. Allergies: TO ASPIRIN. Home Medications: Include albuterol, Lexapro, loratadine. Family History: Positive for hypertension. Social History: Denied smoking, denied drinking, denied drugs abuse. Review of Systems: Head and Neck: No red eye. No ear pain. GI: Has nausea, vomiting, diarrhea. : No polyuria. No dysuria. No hematuria. Pediatric Speech Therapist: No vaginal discharge. Respiratory: No shortness of breath. Cardiovascular: No chest pain. Endocrine: No polydipsia. Skin: No rash. Neuro: No weakness. Musculoskeletal: Generalized fatigue. Physical Examination: Vital Signs: When I saw the patient, blood pressure of 118/67, pulse of 59, afebrile. Chest: Clear to auscultation. Heart: S1, S2. Regular. Systolic murmur. Abdomen: Soft, mild tenderness. No guarding. No rebound. Extremities: No edema. Neurological: Alert and oriented x3. No focal. Laboratory Data: Back in November; sodium 141, potassium 3.6, bicarb 23, BUN 16, creatinine 2, GFR of 32, calcium 8.3. Hemoglobin 13. Current platelets 78. Current lab data; WBC 9.4, H and H 13.2/39.2. Sodium 141, potassium 3.6, bicarb 23, BUN 16, creatinine 2, GFR of 32, calcium 8.3. Assessment And Plan: 1. Chronic kidney disease, stable on baseline, looked to me on the dry side. I am going to start the patient on hydration D5 half and we will monitor the patient. 2. Hypokalemia, we will supplement, mostly secondary to gastrointestinal loss. 3. Given the advanced disease, we will send for vitamin D and PTH. 4. Thrombocytopenia with the presence of anemia and chronic kidney disease, possible secondary to celiac. We will follow up with primary. 5. Hypernatremia secondary to depletion. We will start on D5 half. 6. Hypokalemia. We will supplement. Thank you Dr. Jara for allowing us to participate in the care of your patient. Time spent Corordent the care discussing the case with the patient Family member (face to face) and staff member / other risk assessment consultant and placing order 65 min SALOME Voice ID: [id number] Report ID: [id number] MTDD
[2020-07-16] MEDS ORDERED: INFLUENZA VACCINE (for 3y+) 0.5 ML DOSE IMVAC ONE (15:00)
[2020-07-16 15:08] LABS: Protime INR 1.02
[2020-07-16] MEDS: D5.45NS W/KCL 20MEQ 20 MEQ/1,000 ML BAG IV SCH (15:16)
[2020-07-16 15:30] VITALS: O2SAT 99
[2020-07-16 16:42] LABS: Urine Protein/Creatinine Ratio 2.17 ratio (<0.15)
[2020-07-16] MEDS: METRONIDAZOLE 500mg IVPB 500 MG/100 ML BAG IV SCH (16:43)
[2020-07-16 16:45] LABS: Urine Appearance CLEAR; Urine Bilirubin NEGATIVE (NEG); Urine Blood TRACE (NEG); Urine Color YELLOW; Urine Glucose 1+ (NEG); Urine Protein 2+ (NEG); Urine Specific Gravity 1.015 (1.005-1.030); Urine Urobilinogen 0.2 mg/dL (0.2-1.0); Urine pH 7.5 (5.0-7.0)
[2020-07-16 16:57] LABS: Urine Microscopic Reflex ORDER UMIC
[2020-07-16 17:07] LABS: Urine Bacteria <20 /HPF (<20); Urine Culture Reflex Order NOT NEEDED; Urine Mucus 1+ /HPF (NONE SEEN)
[2020-07-16] MEDS: LACTOBACILLUS/ACIDOPHILUS TAB PO SCH (21:22)
[2020-07-16] MEDS: Ciprofloxacin 200mg IV 200 MG/100 ML IV.SOLN. IV SCH (21:22)
[2020-07-17] MEDS: METRONIDAZOLE 500mg IVPB 500 MG/100 ML BAG IV SCH ×3 (00:37→16:55)
[2020-07-17 06:03] LABS: Absolute Lymphocytes (CBC) 2.2 K/uL (0.7-4.9); Basophils % 0.1 % (0-1.3); Lymphocytes % 36.5 % (15.3-44.8); RBC Red Blood Cell Count 3.57 M/uL (3.86-4.86)
[2020-07-17 06:25] LABS: Albumin 3.7 g/dL (3.4-5.0); Bilirubin Total 0.8 mg/dL (0.2-1.0); Magnesium 2.2 mg/dL (1.8-2.4); Phosphorus 1.6 mg/dL (2.5-4.9); Potassium 3.7 mmol/L (3.5-5.1); Protein, Total 7.4 g/dL (6.4-8.2); Thyroid Stimulating Hormone 1.06 uIU/mL (0.360-3.740)
[2020-07-17] MEDS: LACTOBACILLUS/ACIDOPHILUS TAB PO SCH (08:27)
[2020-07-17] MEDS: Ciprofloxacin 200mg IV 200 MG/100 ML IV.SOLN. IV SCH (08:28)
[2020-07-17] MEDS: D5.45NS W/KCL 20MEQ 20 MEQ/1,000 ML BAG IV SCH ×2 (08:28→17:40)
[2020-07-17] MEDS ORDERED: LORATADINE 10 MG TAB PO PRN (08:47)
[2020-07-17] MEDS ORDERED: NA CHLORIDE 0.9% 500 ML IV ONE ×2 (08:47→12:50)
--- NOTE | 2020-07-17 08:56 | P.PN ---
Subjective Date of Service: 07/17/20 Primary Care Provider: Dr. Leon; GI-Dr. Mcfarlane; Nephrology-Dr. Bosch; Card- Dr. Mendez Chief Complaint: Nausea, vomiting and diarrhea Subjective: Improving (less pain noted. less nausea and vomiting.) Physical Examination - Vital Signs Temperature: 97.5 F Blood Pressure: 91/52 Pulse: 55 Respirations: 16 Pulse Ox (%): 100 - Physical Exam General: Alert, In no apparent distress, Oriented x3, Cooperative HEENT: Atraumatic Neck: Supple Respiratory: Clear to auscultation bilaterally, Normal air movement Cardiovascular: Normal pulses, Regular rate/rhythm Gastrointestinal: Normal bowel sounds, Soft and benign, Non-distended, No tenderness, No masses, No rebound, No guarding Musculoskeletal: No erythema, No tenderness, No warmth Integumentary: No tenderness/swelling, No erythema, No warmth, No cyanosis Neurological: Normal speech, Normal strength at 5/5 x4 extr, Normal tone, Normal affect - Studies Laboratory Data (last 24 hrs) 07/17/20 05:48: Sodium 142, Potassium 3.7, BUN 13, Creatinine 2.15 H, Glucose 82, Phosphorus 1.6 L, Magnesium 2.2, Total Bilirubin 0.8, AST 30, ALT 34, Alkaline Phosphatase 118 H 07/17/20 05:48: WBC 5.9 D, Hgb 12.2, Hct 36.0, Plt Count 57 L* 07/16/20 14:42: PT 12.0, INR 1.02, APTT 32.9 07/16/20 08:55: WBC 9.5 D, Hgb 13.2, Hct 39.2, Plt Count 69 L* 07/16/20 08:55: Sodium 142, Potassium 3.0 L, BUN 20 H, Creatinine 2.27 H, Glucose 134 H, Total Bilirubin 0.4, AST 68 H, ALT 49, Alkaline Phosphatase 141 H, Lipase 95 Medications List Reviewed: Yes Assessment & Plan Discharge Plan: Home Plan to discharge in: 24 Hours Physician Review Additional Text: Impression: Nausea, vomiting and diarrhea with abdominal pain secondary to acute mild diffuse colitis with hx of celiac dz Acute on chronic renal disease stage II with mild dehydration Chronic thrombocytopenia Depression with anxiety Asthma Plan: Nausea, vomiting and diarrhea with abdominal pain secondary to acute mild diffuse colitis with hx of celiac dz: Patient overall improved. No significant abdominal pain noted. Less nausea. Continue IV antibiotic therapy. Continue IV fluids. Will give fluid bolus today. Will start full liquid diet this morning. If tolerates then will try soft diet for lunch. Continue to monitor closely. Possible discharge as early as today if able to tolerate diet and okay with nephrology. Await recommendation. Will also discuss with her GI specialist. If the patient remains until tomorrow, I will turn the service over to the hospitalist team. I will go over the plan of care with him. Acute on chronic renal disease stage II with mild dehydration: Patient is seen by Dr. Bosch. Continue IV fluids. Continue Nephrology recommendations. Chronic thrombocytopenia: Previous lab reviewed. Patient has a history of thrombocytopenia. Await results on peripheral smear and other lab. Depression with anxiety: Restart home medication Asthma: Patient uses inhalers as needed. Time Spent Managing Pts Care (In Minutes): 55
[2020-07-17] MEDS ORDERED: ESCITALOPRAM 20 MG TAB PO SCH (09:00)
[2020-07-17 10:35] LABS: White Blood Cell Scan OK (OK)
[2020-07-17 10:36] LABS: Blood Morphology Comment NOT SEEN (NOT SEEN); Platelet Estimate DECR
--- NOTE | 2020-07-17 12:30 | P.PN ---
Subjective Date of Service: 07/17/20 Primary Care Provider: Dr. Leon; GI-Dr. Mcfarlane; Nephrology-Dr. Bosch; Card- Dr. Mendez Chief Complaint: Nausea, vomiting and diarrhea Subjective: Improving Subjective Pt with Hx of CKD, baseline Cr 2.0, celiac disease , presented for nausea and vomiting Today feels better tolerating diet cr near baseline can be discharged from nephrology point of view Physical exam general: AAOX3, NAD thin Neck; Supple, No elevated JVD hear: RRR, normal S1,2 no murmur or rub Chest: CTAB, no rlaes or wheezes Abdomen: Soft , Nt Extremities No edema or ulcer Assessment And Plan: CKD III cr stable at baseline renal dose meds avoid NSAID hypokalemia due to poor oral intake resolved gastroenteritis improving now tolerating diet Chronic Thrombocytopenia stable HTN bp is at borderline at her baseline Pt can be discharged from nephrology point of view , follow in 2-3 wks Physical Examination - Vital Signs Temperature: 97.5 F Blood Pressure: 94/54 Pulse: 55 Respirations: 16 Pulse Ox (%): 100 - Studies Medications List Reviewed: Yes
--- NOTE | 2020-07-17 16:25 | P.DS ---
Admission Date: 07/16/20 Discharge Date: 07/17/20 Primary Care Provider: Dr. Leon; GI-Dr. Mcfarlane; Nephrology-Dr. Bosch; Card- Dr. Mendez Disposition: ROUTINE DISCHARGE Discharge Condition: GOOD Reason for Admission: Nausea, vomiting and diarrhea Consultations: Nephrology-Dr. Nj GI-Dr. Tim Procedures: CT Scan: FINDINGS: The lower lung pike are clear.Small stone is present in the gallbladder. The liver, spleen, pancreas, adrenal glands and kidneys are within normal limits for a limited non-contrast examination. No bowel obstruction, free air, free fluid or abscess. The colon demonstrates mild mucosal thickening likely representing mild colitis. The appendix is normal. The osseous structures are within normal limits. IMPRESSION: A mild colitis pattern is suspected. Cholelithiasis. A limited non-contrast examination was performed as detailed. Medical Problem List: Nausea, vomiting and diarrhea with abdominal pain secondary to acute mild diffuse colitis with hx of celiac dz Acute on chronic renal disease stage II with mild dehydration Chronic thrombocytopenia Depression with anxiety Asthma CT scan showing cholelithiasis Brief History of Present Illness: 39-year-old female with history of chronic renal disease, celiac disease, depression with anxiety, asthma, and chronic thrombocytopenia. Patient reports over the past week she has been having increasing nausea, vomiting and diarrhea. She is not able to keep anything down. Patient is seen by GI as an outpatient. She reports a history of celiac disease. Patient was trying to see GI but was not able to. Patient also reported some diffuse abdominal pain. Symptoms worsen. She came to the ER for further evaluation. Patient denies any fever, chills, chest pain or shortness of breath. In the ER patient was seen. Vital signs stable. CT scan shows mild diffuse colitis. White count 9.5, hemoglobin 13.2. Platelet count 69. Sodium 142, potassium 3.0. BN of 20, creatinine 2.27 with a GFR 29. Glucose 134. AST 68, ALT 49. Alk-phos 141 and lipase within normal range. Patient was given medication for pain and nausea in the ER. Patient admitted for observation. When I saw the patient ER, patient without significant pain. Patient stable. Hospital Course: Patient presented with nausea, vomiting and diarrhea. She also had some abdominal pain. Patient found to have mild diffuse colitis based on CT scan. Patient reports a history of celiac disease. She had seen GI recently to further evaluate this. The patient was admitted for IV fluids and antibiotic therapy. The patient has responded well. At discharge the patient is tolerating a gluten free diet. At discharge she will continue with a gluten free diet. Education on colitis will be provided. Education on celiac disease will also be given. At discharge she will continue with Levaquin 250 mg daily and Flagyl 500 mg 3 times a day for a total of 7 days. The patient will also continue with lactobacillus twice daily. GI was consulted. No further intervention was required. Recommend follow up with GI within 1-2 weeks to follow up this hospitalization. Patient will likely require colonoscopy in the near future to further evaluate and address. Patient had acute on chronic renal disease stage II with mild dehydration. Patient given IV fluids. Renal function has improved. Patient at baseline at this time. Patient is seen by nephrology as an outpatient. Recommend follow up with nephrology within 1-2 weeks to follow up this hospitalization. Recommend to recheck lab-BMP in 1-2 weeks to monitor stability. Patient with chronic thrombocytopenia. Patient has seen Hematology in the past. This appears stable. Recommend follow up with hematology within 1-2 weeks to monitor her care. Patient with depression and anxiety. At discharge she will continue with her current medication. Patient with history of asthma. Patient takes medication. She may continue with this. CT scan also revealed cholelithiasis. No cholecystitis noted. This can be further monitored and addressed by her PCP. Vital Signs/Physical Exam: Temp Pulse Resp BP Pulse Ox 97.5 F 55 16 94/54 L 100 07/17/20 12:30 07/17/20 12:30 07/17/20 12:30 07/17/20 12:30 07/17/20 12:30 General: Alert, In no apparent distress, Oriented x3, Cooperative HEENT: Atraumatic Neck: Supple Respiratory: Clear to auscultation bilaterally, Normal air movement Cardiovascular: Normal pulses, Regular rate/rhythm Gastrointestinal: Normal bowel sounds, Soft and benign, Non-distended, No tenderness, No masses, No rebound, No guarding Neurological: Normal speech, Normal strength at 5/5 x4 extr, Normal tone, Normal affect Laboratory Data at Discharge: WBC 5.9 K/uL (4.3-10.9) D 07/17/20 05:48 Hgb 12.2 g/dL (12.0-15.0) 07/17/20 05:48 Hct 36.0 % (36.0-45.0) 07/17/20 05:48 Plt Count 57 K/uL (152-406) L* 07/17/20 05:48 PT 12.0 SECONDS (9.5-12.5) 07/16/20 14:42 INR 1.02 07/16/20 14:42 APTT 32.9 SECONDS (24.3-36.9) 07/16/20 14:42 Sodium 142 mmol/L (136-145) 07/17/20 05:48 Potassium 3.7 mmol/L (3.5-5.1) 07/17/20 05:48 BUN 13 mg/dL (7-18) 07/17/20 05:48 Creatinine 2.15 mg/dL (0.55-1.3) H 07/17/20 05:48 Glucose 82 mg/dL (74-106) 07/17/20 05:48 Phosphorus 1.6 mg/dL (2.5-4.9) L 07/17/20 05:48 Magnesium 2.2 mg/dL (1.8-2.4) 07/17/20 05:48 Total Bilirubin 0.8 mg/dL (0.2-1.0) 07/17/20 05:48 AST 30 U/L (15-37) 07/17/20 05:48 ALT 34 U/L (12-78) 07/17/20 05:48 Alkaline Phosphatase 118 U/L (45-117) H 07/17/20 05:48 Lipase 95 U/L (73-393) 07/16/20 08:55 Home Medications: Albuterol Sulfate [Albuterol Sulfate 0.083% Neb Soln] 2.5 mg IH PRN PRN 06/20/16 Escitalopram [Lexapro*] 20 mg PO DAILY 06/20/16 Loratadine [Claritin*] 10 mg PO DAILY PRN 06/20/16 Lactobacillus Acidophilus [Acidophilus Lactobacilli] 1 each PO BID #14 capsule 07/17/20 Levofloxacin [Levaquin] 250 mg PO DAILY #7 tablet 07/17/20 metroNIDAZOLE [Flagyl] 500 mg PO Q8H #21 tablet 07/17/20 New Medications: Lactobacillus Acidophilus [Acidophilus Lactobacilli] 1 each PO BID #14 capsule metroNIDAZOLE [Flagyl] 500 mg PO Q8H #21 tablet Levofloxacin [Levaquin] 250 mg PO DAILY #7 tablet Patient Discharge Instructions: 1. Follow up with PCP within 1 week. 2. Patient presented with nausea, vomiting and diarrhea. She also had some abdominal pain. Patient found to have mild diffuse colitis based on CT scan. Patient reports a history of celiac disease. She had seen GI recently to further evaluate this. The patient was admitted for IV fluids and antibiotic therapy. The patient has responded well. At discharge the patient is tolerating a gluten free diet. At discharge she will continue with a gluten free diet. Education on colitis will be provided. Education on celiac disease will also be given. At discharge she will continue with Levaquin 250 mg daily and Flagyl 500 mg 3 times a day for a total of 7 days. The patient will also continue with lactobacillus twice daily. GI was consulted. No further intervention was required. Recommend follow up with GI within 1-2 weeks to follow up this hospitalization. Patient will likely require colonoscopy in the near future to further evaluate and address. 3. Patient had acute on chronic renal disease stage II with mild dehydration. Patient given IV fluids. Renal function has improved. Patient at baseline at this time. Patient is seen by nephrology as an outpatient. Recommend follow up with nephrology within 1-2 weeks to follow up this hospitalization. Recommend to recheck lab-BMP in 1-2 weeks to monitor stability. 4. Patient with chronic thrombocytopenia. Patient has seen Hematology in the past. This appears stable. Recommend follow up with hematology within 1-2 weeks to monitor her care. 5. Patient with depression and anxiety. At discharge she will continue with her current medication. 6. Patient with history of asthma. Patient takes medication. She may continue with this. 7. CT scan also revealed cholelithiasis. No cholecystitis noted. This can be further monitored and addressed by her PCP. Diet: gluten free diet Activity: Ad oscar Time spent managing pt's care (in minutes): 55
[2020-07-17] MEDS ORDERED: ENSURE HIGH PROTEIN 237 ML CAN PO SCH (21:00)
[2020-07-17 22:55] VITALS: BP 94/54; TEMP 97.5
--- NOTE | 2020-07-18 19:22 | CON ---
Date of Consultation: 07/17/2020 Reason For Consultation: Nausea, vomiting, diarrhea with abnormal CT scan revealing colitis. History Of Present Illness: This is a 39-year-old female with history of chronic re nal disease, on hemodialysis, celiac disease, depression, anxiety, asthma, and chronic thrombocytopen ia. The patient presented to the hospital due to nausea, vomiting, diarrhea, and dehydration. The p atient states that she had been having diarrhea constantly over the past week along with constant hawa sea and vomiting came to hospital for help and she felt really dehydrated. Since that dannie e, she has been given IV fluids and resuscitated. The platelet count was noted to be down to 69. So dium ok of 140 but potassium was low at 3.0, creatinine was at 2.37. She has a CT scan revealing mil d diffuse colitis. Past Medical History: Significant for end-stage renal disease, stage III. Actually, she is not on d ialysis or hemodialysis, depression, anxiety, chronic thrombocytopenia, asthma, seasonal allergies, b ilateral axillary surgery and right foot surgery. The patient was adopted, single, never . T he patient has an adopted child and daughter, so she says 2 kids. No tobacco. No alcohol. Family History: Father alive with celiac disease. Mother of cervical cancer and approximately 39 years of age it appears. Medications: At home include albuterol, Lexapro, Claritin. Allergies: ASPIRIN GIVES ANAPHYLAXIS SHE SAYS ON CHART REVIEW. Review of Systems: The patient has nausea, vomiting, diarrhea. Maybe some mild abdominal discomfort but no significant severe pain. No fevers, chills, night sweats, heat or cold intolerance. Chest pain, shortness of br eath, seizure, syncope, lower extremity edema, muscle aches, joint aches, backaches. She does have d epression, anxiety. Physical Examination: Vital signs: The patient has a temperature of 97 degrees Fahrenheit, pulse 65, respirations 20, bloo d pressure 111/69. She is 5 feet 1 inch, 104 pounds. BMI of 19.6 kg/meter sq. HEENT: Normocephalic, atraumatic. Anicteric. Pupils are equal, round, and reactive to light. Extr aocular movements are intact. Oropharynx is clear. Neck: Supple. No masses. Respirations: Clear to auscultation bilaterally. Cardiac: Regular rate and rhythm. Gastrointestinal: Positive bowel sounds. Soft, nondistended. Mild tenderness with no peritoneal or Mejia sign. No rebound. Extremities: No clubbing, cyanosis, or edema. 2+ pulses. Neuro: Alert and oriented x3. Grossly nonfocal. 5/5 motor sensation to light touch. Laboratory Data: The patient has a white count of 5.9, down from 9.5 yesterday, hemoglobin of 12.2, hematocrit of 36, MCV of 101, platelet count of 57, polys of 56%, lymphocytes 37%; monocytes 8%. The patient has a PT of 12.0, INR of 1.02, PTT of 32.9. The patient has a sodium 142, potassium 3.7, ch loride 118, bicarb 20, BUN of 13, creatinine of 2.15, glucose 82, calcium 8.3, phosphorus 1.6, magnes ium 2.2, total bilirubin 0.8, direct bilirubin yesterday was 0.2, AST of 30, ALT of 34, alkaline phos phatase 118, LDH of 127, total protein 7.4, albumin 3.7. TSH of 1.06, free T4 1.04, PTH intact of 29 .1. UA show glucose 1+, trace ketones, trace blood with 5-10 RBCs, less than 5 white blood cells, 5 to 10 squamous epithelial cells, less than 20 bacteria, negative leukocyte esterase, negative nitrite s, total protein 102, urine creatinine 47, and total urine protein 2+ from nephropathy. No blood or RBCs in her urine. CT abdomen and pelvis revealed mild colitis. The appendix appeared normal. The whole colon looked a little mildly inflamed. Impression: 1.Mild colitis with nausea, vomiting, diarrhea over the past week. We will need to await remaining stool studies. Continue antibiotics. 2.Abnormal CT revealing mild diffuse colitis in entire colon. 3.History of end-stage renal disease, depression, and interosseous disorder and other as per above. Recommendation: 1.Await remaining stool studies including C. diff and stool culture. 2.Continue antibiotics. 3.Consider Questran therapy. 4.Consider endoscopies with biopsies if needed. YOJANA/NGOC Voice ID: [id number] Report ID: [id number]
[2020-07-23 06:55] LABS: Vitamin D 1,25-Dihydroxy Total 56 pg/mL (18-72); Vitamin D,1,25-OH2, D2 <8 pg/mL
== END 2020-07-17 19:00 | disposition home or self-care (01) ==
LOC: ER 08:31 → ERHOLD 12:49 → 2ND 13:35 → INTOOBSV 07-17 07:52 → OBSVTOIN 07-17 07:52
PROVIDERS: ADMIT Family Medicine; ATTEND Family Medicine
DX: K52.9 Noninfective gastroenteritis and colitis, unspecified (principal); D64.9 Anemia, unspecified; I12.9 Hypertensive chronic kidney disease with stage 1 through stage 4 chronic kidney disease, or unspecified chronic kidney disease; N18.32 Chronic kidney disease, stage 3b; E78.5 Hyperlipidemia, unspecified; E87.6 Hypokalemia; D69.6 Thrombocytopenia, unspecified; E87.0 Hyperosmolality and hypernatremia; N17.9 Acute kidney failure, unspecified; F41.8 Other specified anxiety disorders; J45.909 Unspecified asthma, uncomplicated; K80.20 Calculus of gallbladder without cholecystitis without obstruction; K90.0 Celiac disease
CPT/HCPCS: 96365; 96361; 87040; 87088; 85025 ×2; 87086; 80048; 36415; 83735; 83615; 85610; 82565; 80076; 85730; 82652; 80069; 84443; 87077; 87186; 82570; 84439; 83690; 83010; 83970; 80053; 84156; 74176; 96375; 99285; 96366; J2765; J3480; J0744 ×2; G0378 ×4; J7040 ×4; J2405 ×3; 81003; 81015

== ENCOUNTER 2020-09-23 13:51 | Emergency (ER) | payer MEDICAID ==
--- OUTSIDE RECORDS SUMMARY | 2020-09-23 13:55 | XMS REPORT | Continuity of Care Document ---
:1980 Author Organization [facility] t Address [address] [place] [address] Care Team Providers Name Role Phone Peggy [...] ID 2019-11-26 2019-11-26 Office BOGDAN Woods [id number] 10:09:55 11:02:35 Visit John PA [id number] ABELINO [id number] BELLE PLAINE [phone] AND AL[facility] Results This patient has no known results.
--- NOTE | 2020-09-23 15:31 | RAD REPORT ---
EXAM DESCRIPTION: Saw Gates (2 Views)09/23/2020 3:14 pm CLINICAL HISTORY: Cough COMPARISON: November 2019 FINDINGS: The lungs appear clear of acute infiltrate. The heart is mildly enlarged IMPRESSION: No acute abnormalities displayed
[2020-09-23] MEDS ORDERED: PANTOPRAZOLE 40 MG INJ ONE (16:05)
[2020-09-23 16:18] LABS: Absolute Lymphocytes (CBC) 2.3 K/uL (0.7-4.9); Albumin 4.1 g/dL (3.4-5.0); Basophils % 0.2 % (0-1.3); Bilirubin Direct 0.1 mg/dL (0-0.2); Bilirubin Total 0.6 mg/dL (0.2-1.0); Hematocrit 34.2 % (36.0-45.0); Lymphocytes % 56.6 % (15.3-44.8); MPV 11.3 fL (7.6-11.3); Potassium 3.7 mmol/L (3.5-5.1); Protein, Total 7.4 g/dL (6.4-8.2); RBC Red Blood Cell Count 3.36 M/uL (3.86-4.86)
[2020-09-23 16:26] LABS: Protime INR 1.15
--- NOTE | 2020-09-23 17:10 | ER ---
Nurse's Notes [facility] Name: Miya Persaud Age: 39 yrs Sex: Female : 1980 Arrival Date: 09/23/2020 Time: 13:54 Bed 13 Private MD: Diagnosis: Encounter for examination and observation for unspecified reason Presentation: 09/23 14:23 Chief complaint: Patient states: "I was spitting up blood clots and I called my MD and sv they told me to come in." Started 0400 today but has been having this issue for weeks. Coronavirus screen: Client denies travel out of the [place] in the last 14 days. Ebola Screen: No symptoms or risks identified at this time. Risk Assessment: Do you want to hurt yourself or someone else? Patient reports no desire to harm self or others. Onset of symptoms is unknown. 14:23 Method Of Arrival: Ambulatory sv 14:23 Acuity: PARTH 3 sv 14:25 Initial Sepsis Screen: Does the patient meet any 2 criteria? No. Patient's initial sv sepsis screen is negative. Does the patient have a suspected source of infection? No. Patient's initial sepsis screen is negative. Triage Assessment: 17:56 General: Appears in no apparent distress. Behavior is calm, cooperative, appropriate ll1 for age. 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 all those that end with mycin; sv 14:25 Aspirin; sv 14:25 CYCLOBENZAPRINE; sv 14:25 Demerol; sv 14:25 diclofenac sodium; sv 14:25 Levofloxacin; sv 14:25 Clarithromycin; sv - PMHx: 14:25 Anemia; Anxiety; Depression; ibs; kidney disease; Stage IV renal disease; Thyroid sv problem; - PSHx: 14:25 Tubal ligation; R foot; sv - Immunization history:: Adult Immunizations up to date. - Social history:: Smoking status: unknown. Screenin:00 Abuse screen: Denies threats or abuse. Nutritional screening: No deficits noted. ll1 Tuberculosis screening: No symptoms or risk factors identified. Fall Risk IV access (20 points). Total Crane Fall Scale indicates No Risk (0-24 pts). Assessment: 15:55 General: Appears in no apparent distress. Behavior is calm, cooperative, appropriate ll1 for age. Pain: Denies pain. Neuro: No deficits noted. Cardiovascular: No deficits noted. Respiratory: Reports cough that is noticed blood in sputum with cough Airway is patent Trachea midline Respiratory effort is even, unlabored, Respiratory pattern is regular, symmetrical, Breath sounds are clear bilaterally. GI: No deficits noted. 17:00 Reassessment: No changes from previously documented assessment. Patient and/or family ll1 updated on plan of care and expected duration. Pain level reassessed. 17:55 Reassessment: No changes from previously documented assessment. Patient and/or family ll1 updated on plan of care and expected duration. Pain level reassessed. Vital Signs: 14:25 BP 108 / 70; Pulse 60; Resp 16; Temp 97.5; Pulse Ox 99% ; Weight 44 kg; Height 5 ft. 1 sv in. (154.94 cm); 16:00 BP 124 / 70; Pulse 52; Resp 16; Pulse Ox 99% ; ll1 17:55 BP 94 / 54; Pulse 50; Resp 16; Pulse Ox 100% on R/A; Pain 0/10; ll1 14:25 Body Mass Index 18.33 (44.00 kg, 154.94 cm) sv ED Course: 13:54 Patient arrived in ED. rg4 14:23 Arm band placed on. sv 14:24 Triage completed. sv 15:07 Jose Alberto Kilgore, RN is Primary Nurse. ll1 15:12 Chest Pa And Lat (2 Views) XRAY In Process Unspecified. EDMS 15:14 Kalyan Bernard PA is PHCP. cp 15:14 Derek Gomez MD is Attending Physician. cp 15:58 Inserted saline lock: 22 gauge in right antecubital area, using aseptic technique. ll1 Blood collected. 16:00 Patient has correct armband on for positive identification. Bed in low position. Call ll1 light in reach. Side rails up X 1. monitoring tech on. Pulse ox on. NIBP on. 17:08 Alexandro Tim MD is Referral Physician. cp 17:08 Referral Physician role handed off by Alexandro Tim MD cp 17:55 No provider procedures requiring assistance completed. IV discontinued, intact, ll1 bleeding controlled, No redness/swelling at site. Pressure dressing applied. Administered Medications: 15:58 Drug: ProTONIX 40 mg Route: IVP; Site: right antecubital; 1 19:00 Follow up: Response: No adverse reaction; RASS: Alert and Calm (0) ll1 Outcome: 17:09 Discharge ordered by . cp 17:56 Patient left the ED. 1 17:56 Discharged to home ambulatory. 1 17:56 Condition: stable 17:56 Discharge instructions given to patient, Instructed on discharge instructions, follow up and referral plans. medication usage, Demonstrated understanding of instructions, follow-up care, medications, Prescriptions given X 2. Signatures: Dispatcher [employer] EDRenee Alvarez, RN RN Kalyan Brar PA PA cp Garcia, Rubi 4 Jose Alberto Kilgore RN RN 1
--- NOTE | 2020-09-23 17:10 | EDPHYS ---
Physician Documentation [facility] Name: Miya Persaud Age: 39 yrs Sex: Female : 1980 Arrival Date: 09/23/2020 Time: 13:54 Bed 13 Private MD: ED Physician Derek Gomez HPI: 09/23 15:30 This 39 yrs old Black Female presents to ER via Ambulatory with complaints of Coughing cp Up Blood. 15:30 The patient presents to the emergency department "spitting up blood". Onset: The cp symptoms/episode began/occurred intermittent for past several weeks, multiple episodes since this morning. Abdominal pain: located in the epigastric area. Associated signs and symptoms: Pertinent negatives: fever, shortness of breath, cough. Severity of symptoms: in the emergency department the symptoms are unchanged. 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 all those that end with mycin; sv 14:25 Aspirin; sv 14:25 CYCLOBENZAPRINE; sv 14:25 Demerol; sv 14:25 diclofenac sodium; sv 14:25 Levofloxacin; sv 14:25 Clarithromycin; sv - PMHx: 14:25 Anemia; Anxiety; Depression; ibs; kidney disease; Stage IV renal disease; Thyroid sv problem; - PSHx: 14:25 Tubal ligation; R foot; sv - Immunization history:: Adult Immunizations up to date. - Social history:: Smoking status: unknown. ROS: 15:35 All other systems are negative. cp Exam: 15:40 Constitutional: The patient appears in no acute distress, alert, awake, comfortable, cp non-toxic, well developed, well nourished. 15:40 Head/Face: Normocephalic, atraumatic. cp 15:40 Eyes: Periorbital structures: appear normal, Conjunctiva: normal, no exudate, no injection, Sclera: no appreciated abnormality, Lids and lashes: appear normal, bilaterally. 15:40 ENT: External ear(s): are unremarkable, Nose: is normal, Mouth: Lips: moist, Oral mucosa: pink and intact, moist, Posterior pharynx: Airway: no evidence of obstruction, patent, erythema, is not appreciated, exudate, is not appreciated. 15:40 Neck: ROM/movement: is normal, is supple, without pain, no range of motions limitations. 15:40 Chest/axilla: Inspection: normal, Palpation: is normal, no crepitus, no tenderness. 15:40 Cardiovascular: Rate: normal, Rhythm: regular. 15:40 Respiratory: the patient does not display signs of respiratory distress, Respirations: normal, no use of accessory muscles, no retractions, labored breathing, is not present, Breath sounds: are clear throughout, no decreased breath sounds. 15:40 Abdomen/GI: Inspection: abdomen appears normal, Bowel sounds: active, all quadrants, Palpation: soft, in all quadrants, mild abdominal tenderness, in the epigastric area, rebound tenderness, is not appreciated, involuntary guarding, is not appreciated. 15:40 Back: pain, is absent, ROM is normal. 15:40 Neuro: Orientation: is normal, Mentation: is normal, Motor: moves all fours, strength is normal. Vital Signs: 14:25 BP 108 / 70; Pulse 60; Resp 16; Temp 97.5; Pulse Ox 99% ; Weight 44 kg; Height 5 ft. 1 sv in. (154.94 cm); 16:00 BP 124 / 70; Pulse 52; Resp 16; Pulse Ox 99% ; ll1 17:55 BP 94 / 54; Pulse 50; Resp 16; Pulse Ox 100% on R/A; Pain 0/10; ll1 14:25 Body Mass Index 18.33 (44.00 kg, 154.94 cm) sv MDM: 15:22 Patient medically screened. cp 16:00 Differential diagnosis: gastritis, hemorrhagic shock, PUD. cp 17:08 Data reviewed: vital signs, nurses notes, lab test result(s), radiologic studies, plain cp films. 17:08 Counseling: I had a detailed discussion with the patient and/or guardian regarding: the cp historical points, exam findings, and any diagnostic results supporting the discharge/admit diagnosis, lab results, radiology results, the need for outpatient follow up, a microbiology lab technician, to return to the emergency department if symptoms worsen or persist or if there are any questions or concerns that arise at home. ED course: VSS. Labs reviewed and stable. Will discharge to home for continued monitoring. 09/23 15:23 Order name: Basic Metabolic Panel cp 09/23 15:23 Order name: CBC with Diff cp 09/23 15:23 Order name: LFT's; Complete Time: 16:28 cp 09/23 16:28 Interpretation: Normal except: AST 59; ALK 154. cp 09/23 15:23 Order name: PT-INR; Complete Time: 16:28 cp 09/23 15:25 Order name: Basic Metabolic Panel; Complete Time: 16:28 EDMS 09/23 17:02 Interpretation: Normal except: CL 112; CRE 2.24; GFR 29. cp 09/23 15:25 Order name: CBC with Automated Diff EDMS 09/23 17:01 Interpretation: Normal except: WBC 4.1; RBC 3.36; HGB 11.5; HCT 34.2; MCV 101.8; PLT cp 62; ARMOND% 35.2; LYM% 56.6; NEUT A 1.5. 09/23 14:38 Order name: Chest Pa And Lat (2 Views) XRAY; Complete Time: 15:46 snw 09/23 15:23 Order name: Cardiac monitoring; Complete Time: 15:39 cp 09/23 15:24 Order name: IV Saline Lock; Complete Time: 15:39 cp 09/23 15:24 Order name: Labs collected and sent; Complete Time: 15:39 cp 09/23 15:24 Order name: O2 Per Protocol; Complete Time: 15:39 cp 09/23 15:24 Order name: O2 Sat Monitoring; Complete Time: 15:39 cp Administered Medications: 15:58 Drug: ProTONIX 40 mg Route: IVP; Site: right antecubital; ll1 19:00 Follow up: Response: No adverse reaction; RASS: Alert and Calm (0) ll1 Disposition: 18:00 Chart complete. cp Disposition: 09/23/20 17:09 Discharged to Home. Impression: Encounter for examination and observation for unspecified reason. - Condition is Stable. - Prescriptions for Protonix 40 mg Oral Tablet - take 1 tablet by ORAL route once daily; 30 tablet. Zofran 4 mg Oral Tablet - take 1 tablet by ORAL route every 12 hours As needed; 20 tablet. - Medication Reconciliation Form, Thank You Letter, Antibiotic Education, Prescription Opioid Use form. - Follow up: Alexandro Tim MD; When: 2 - 3 days; Reason: Recheck today's complaints. Follow up: Private Physician; When: 2 - 3 days; Reason: Recheck today's complaints. - Problem is new. - Symptoms have improved. Addendum: 09/26/2020 11:32 Co-signature as Attending Physician, Derek Gomez MD I agree with the assessment and k dr plan of care. Signatures: Dispatcher [employer] EDMS Renee Chandler, RN RN Derek Barraza MD MD [facility] Kalyan Bernard PA PA cp Lewis, Lynsay RN RN ll1 Corrections: (The following items were deleted from the chart) 09/23 17:56 17:09 09/23/2020 17:09 Discharged to Home. Impression: Encounter for examination and ll1 observation for unspecified reason. Condition is Stable. Forms are Medication Reconciliation Form, Thank You Letter, Antibiotic Education, Prescription Opioid Use. Follow up: Private Physician; When: 2 - 3 days; Reason: Recheck today's complaints. Problem is new. Symptoms have improved. cp
[2020-09-23 19:10] LABS: Blood Morphology Comment NOT SEEN (NOT SEEN); Platelet Estimate DECR; White Blood Cell Scan OK (OK)
[2020-09-23 20:20] VITALS: O2SAT 99
[2020-09-23 20:22] VITALS: BP 124/70
[2020-09-23 20:37] VITALS: TEMP 98
== END 2020-09-23 17:56 | disposition home or self-care (01) ==
LOC: ER 13:51
DX: Z71.1 Person with feared health complaint in whom no diagnosis is made (principal); N18.4 Chronic kidney disease, stage 4 (severe); Z88.1 Allergy status to other antibiotic agents; Z88.3 Allergy status to other anti-infective agents; Z88.5 Allergy status to narcotic agent; Z88.6 Allergy status to analgesic agent
CPT/HCPCS: 85025; 80048; 36415; 85610; 80076; 71046; 96374; 99284; C9113

== ENCOUNTER 2021-03-28 19:47 | Emergency (ER) | payer MEDICAID ==
--- OUTSIDE RECORDS SUMMARY | 2021-03-28 19:50 | XMS REPORT | Continuity of Care Document ---
:1980 Author Organization [facility] t Address [address] [place] [address] Care Team Providers Name Role Phone Radiology Attending Clinician Unavailable Doctor Unassigned, Name Attending Clinician Unavailable Peggy ALAMO Attending Clinician Problems This patient has no known problems. Allergies, Adverse Reactions, Alerts This patient has no known allergies or adverse reactions. Medications This patient has no known medications. Procedures This patient has no known procedures. Encounters Start End Encounter Admission Attending Care Care Encounter Source Date/Time Date/Time Type Type Clinicians Facility Department ID 2021-03-26 2021-03-26 [facility] [id number] 16:00:00 23:59:00 Encounter [place] [id number] [place] [id number] [place] [id number] 2021-03-26 2021-03-26 Orders Doctor BRADEN [id number] 00:00:00 00:00:00 Only Unassigned, MARV[place] [id number] [place] [id number] 2021-03-24 2021-03-24 [facility]iology [facility] [id number] 07:33:57 23:59:00 Encounter [place] [id number] [place] [id number] [place] [id number] 2021-03-24 2021-03-24 Orders Doctor BRADEN [id number] 00:00:00 00:00:00 Only Unassigned, MARVIN [id number] [place] [facility] [id number] 2019-11-26 2019-11-26 Office [place] [id number] 10:09:55 11:02:35 Visit John PA [id number] [place] [id number] [place] [id number] [facility] Results This patient has no known results.
[2021-03-28 20:58] LABS: Absolute Lymphocytes (CBC) 1.3 K/uL (0.7-4.9); Basophils % 0.2 % (0-1.3); Hematocrit 35.3 % (36.0-45.0); Lymphocytes % 36.2 % (15.3-44.8); MPV 11.3 fL (7.6-11.3); RBC Red Blood Cell Count 3.51 M/uL (3.86-4.86)
--- NOTE | 2021-03-28 21:00 | RAD REPORT ---
EXAM DESCRIPTION: Saw Single View03/28/2021 8:51 pm CLINICAL HISTORY: Chest pain COMPARISON: 2019 FINDINGS: The lungs appear clear of acute infiltrate. The heart is normal size IMPRESSION: No acute abnormalities displayed
[2021-03-28 21:12] LABS: ALT/SGPT 34 U/L (12-78); AST/SGOT 42 U/L (15-37); Albumin 3.7 g/dL (3.4-5.0); Alkaline Phosphatase 122 U/L (45-117); BUN Blood Urea Nitrogen 15 mg/dL (7-18); Bicarbonate 25 mmol/L (21-32); Bilirubin Direct 0.2 mg/dL (0-0.2); Bilirubin Total 0.6 mg/dL (0.2-1.0); Glucose Level 98 mg/dL (74-106); Magnesium 2.3 mg/dL (1.8-2.4); NT PRO-BNP 249 pg/mL (<125); Protein, Total 7.1 g/dL (6.4-8.2); Sodium Level 143 mmol/L (136-145); Troponin (Emerg Dept Use Only) < 0.02 ng/mL (0.0-0.045)
[2021-03-28 21:14] LABS: Protime INR 1.17
[2021-03-28] MEDS ORDERED: MORPHINE 2 MG/ML SYR ONE (21:14)
[2021-03-28] MEDS ORDERED: ONDANSETRON 4 MG/2 ML VIAL ONE (21:14)
[2021-03-28 22:14] LABS: Blood Morphology Comment NOTED (NOT SEEN); Platelet Estimate DECR; Polychromasia 1+; White Blood Cell Scan OK (OK)
[2021-03-29] MEDS ORDERED: MORPHINE 2 MG/ML SYR ONE (00:39)
--- NOTE | 2021-03-29 00:47 | EDPHYS ---
Physician Documentation [facility] Name: Miya Persaud Age: 40 yrs Sex: Female : 1980 Arrival Date: 03/28/2021 Time: 19:55 Bed 5 Private MD: ED Physician Keith Rausch HPI: 03/28 21:14 This 40 yrs old Black Female presents to ER via EMS with complaints of Chest Pain. [facility] 21:14 The patient or guardian reports chest pain that is located primarily in the anterior mh7 chest wall, left. Onset: just prior to arrival, today. The pain does not radiate. Associated signs and symptoms: Pertinent positives: lightheadedness, nausea, palpitations, Pertinent negatives: abdominal pain, cough, diaphoresis, headache, lower extremity pain, lower extremity swelling, near syncope, recent travel, shortness of breath, syncope, vomiting. The chest pain is described as tightness. Duration: The patient or guardian reports a single episode, that is still ongoing, but improving. Modifying factors: The symptoms are alleviated by nothing. the symptoms are aggravated by movement, palpation of area. Severity of pain: At its worst the pain was moderate today, in the emergency department the pain has improved moderately. 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 all those that end with mycin; jm8 20:13 Clarithromycin; jm8 20:13 CYCLOBENZAPRINE; jm8 20:13 Demerol; jm8 20:13 diclofenac sodium; jm8 20:13 Levofloxacin; jm8 - Home Meds: 20:13 Dexilant 60 mg Oral CpDB 1 cap once daily [Active]; Lexapro 20 mg Oral tab 1 tab jm8 [Active]; loratadine 10 mg Oral tab 1 tab once daily [Active]; methocarbamol 500 mg Oral tab 1 tabs twice daily PRN [Active]; ondansetron HCl 4 mg Oral tab [Active]; Robaxin 500 mg Oral tab 1 tabs twice daily PRN [Active]; - PMHx: 20:13 Anemia; Anxiety; Depression; ibs; kidney disease; Stage IV renal disease; Thyroid jm8 problem; - PSHx: 20:13 None; jm8 - Immunization history:: Adult Immunizations up to date, Client reports having NOT received the Covid vaccine. - Social history:: Smoking status: Patient/guardian denies using tobacco. ROS: 21:14 Constitutional: Negative for fever, chills, and weight loss, Eyes: Negative for injury, mh7 pain, redness, and discharge, ENT: Negative for injury, pain, and discharge, Neck: Negative for injury, pain, and swelling, Respiratory: Negative for shortness of breath, cough, wheezing, and pleuritic chest pain, Back: Negative for injury and pain, : Negative for injury, bleeding, discharge, and swelling, MS/Extremity: Negative for injury and deformity, Skin: Negative for injury, rash, and discoloration, Neuro: Negative for headache, weakness, numbness, tingling, and seizure, Psych: Negative for depression, anxiety, suicide ideation, homicidal ideation, and hallucinations, Allergy/Immunology: Negative for hives, rash, and allergies, Endocrine: Negative for neck swelling, polydipsia, polyuria, polyphagia, and marked weight changes, Hematologic/Lymphatic: Negative for swollen nodes, abnormal bleeding, and unusual bruising. Exam: 21:14 Constitutional: This is a well developed, well nourished patient who is awake, alert, mh7 and in no acute distress. Head/Face: Normocephalic, atraumatic. Eyes: Pupils equal round and reactive to light, extra-ocular motions intact. Lids and lashes normal. Conjunctiva and sclera are non-icteric and not injected. Cornea within normal limits. Periorbital areas with no swelling, redness, or edema. Neck: Trachea midline, no thyromegaly or masses palpated, and no cervical lymphadenopathy. Supple, full range of motion without nuchal rigidity, or vertebral point tenderness. No Meningismus. 21:14 Respiratory: Lungs have equal breath sounds bilaterally, clear to auscultation and percussion. No rales, rhonchi or wheezes noted. No increased work of breathing, no retractions or nasal flaring. Abdomen/GI: Soft, non-tender, with normal bowel sounds. No distension or tympany. No guarding or rebound. No evidence of tenderness throughout. Back: No spinal tenderness. No costovertebral tenderness. Full range of motion. Skin: Warm, dry with normal turgor. Normal color with no rashes, no lesions, and no evidence of cellulitis. MS/ Extremity: Pulses equal, no cyanosis. Neurovascular intact. Full, normal range of motion. Neuro: Awake and alert, GCS 15, oriented to person, place, time, and situation. Cranial nerves II-XII grossly intact. Motor strength 5/5 in all extremities. Sensory grossly intact. Cerebellar exam normal. Normal gait. Psych: Awake, alert, with orientation to person, place and time. Behavior, mood, and affect are within normal limits. 21:14 Chest/axilla: Inspection: normal, Palpation: tenderness, that is moderate, of the anterior aspect of left upper chest, that totally reproduces the patient's complaints, Axilla: are normal, Lymph nodes: lymphadenopathy is not appreciated. 21:14 Cardiovascular: Rate: bradycardic, Rhythm: regular, Pulses: no pulse deficits are appreciated, Heart sounds: normal, normal S1and S2, Edema: is not appreciated, JVD: is not appreciated. Vital Signs: 20:09 BP 107 / 67; Pulse 49; Resp 16; Temp 98.6; Pulse Ox 100% ; Weight 43.54 kg; Height 5 [facility] ft. 0 in. (152.40 cm); Pain 8/10; 21:14 BP 102 / 65; Pulse 48; Resp 16; Pulse Ox 99% on R/A; [facility] 22:48 BP 91 / 62; Pulse 46; Resp 16; Pulse Ox 98% on R/A; [facility] 03/29 00:13 BP 92 / 60; Pulse 44; Resp 16; Pulse Ox 99% on R/A; [facility] 01:04 BP 93 / 62; Pulse 43; Resp 16; Pulse Ox 99% on R/A; [facility] 03/28 20:09 Body Mass Index 18.75 (43.54 kg, 152.40 cm) [facility] MDM: 00:45 Differential diagnosis: abnormal EKG, acute myocardial infarction, acute pericarditis, mh7 anxiety, coronary artery disease chest wall pain, congestive heart failure costochondritis, myocarditis, pericarditis, pleurisy, pneumonia, pneumothorax. HEART Score: History: Slightly Suspicious (0), ECG: Normal (0), Age: < or = 45 years (0), Risk Factors: No Risk Factors Known (0), Troponin: < or = 1 x Normal Limit (0), Total Score = 0. Data reviewed: vital signs, nurses notes, old medical records, lab test result(s), cardiac enzymes, CBC, electrolytes, EKG, radiologic studies, plain films. Data interpreted: Pulse oximetry: on room air is 99 %. Interpretation: normal. Counseling: I had a detailed discussion with the patient and/or guardian regarding: the historical points, exam findings, and any diagnostic results supporting the discharge/admit diagnosis, lab results, radiology results, the need for outpatient follow up, to return to the emergency department if symptoms worsen or persist or if there are any questions or concerns that arise at home. 00:47 Patient medically screened. 03/28 20:27 Order name: Basic Metabolic Panel; Complete Time: 21:30 [facility] 03/28 20:27 Order name: CBC with Diff; Complete Time: 22:15 [facility] 03/28 20:27 Order name: LFT's; Complete Time: 21:30 [facility] 03/28 20:27 Order name: Magnesium; Complete Time: 21: [facility] 03/28 20:27 Order name: NT PRO-BNP; Complete Time: 21:30 03/28 20:27 Order name: PT-INR; Complete Time: 21:55 [facility] 03/28 20:27 Order name: Troponin (emerg Dept Use Only); Complete Time: 21:30 03/28 20:27 Order name: XRAY Chest (1 view); Complete Time: 21:30 [facility] 03/28 20:27 Order name: EKG; Complete Time: 20:28 [facility] 03/28 21:08 Order name: CBC Smear Scan; Complete Time: 22:15 [facility] 03/28 23:41 Order name: Troponin (emerg Dept Use Only); Complete Time: 00:34 03/28 20:27 Order name: Cardiac monitoring; Complete Time: 20:28 [facility] 03/28 20:27 Order name: EKG - Nurse/Tech; Complete Time: 20:28 03/28 20:27 Order name: IV Saline Lock; Complete Time: 20:41 03/28 20:27 Order name: Labs collected and sent; Complete Time: 20:41 [facility] 03/28 20:27 Order name: O2 Per Protocol; Complete Time: 20:41 [facility] 03/28 20:27 Order name: O2 Sat Monitoring; Complete Time: 20:41 [facility] Administered Medications: 03/28 20:55 Drug: Zofran (Ondansetron) 4 mg Route: IVP; Site: right antecubital; 8 03/29 00:58 Follow up: Response: No adverse reaction [facility] 03/28 20:56 Drug: morphine 2 mg Route: IVP; Site: right antecubital; 8 03/29 00:58 Follow up: Response: No adverse reaction [facility] 00:23 Drug: morphine 2 mg Route: IVP; Site: right antecubital; 8 00:58 Follow up: Response: No adverse reaction [facility] Disposition: 03/29/21 00:47 Discharged to Home. Impression: Chest pain, unspecified. - Condition is Stable. - Discharge Instructions: Nonspecific Chest Pain, Chest Wall Pain. - Medication Reconciliation Form, Thank You Letter, Antibiotic Education, Prescription Opioid Use form. - Follow up: Private Physician; When: 1 - 2 days; Reason: Worsening of condition, Recheck today's complaints, Continuance of care, Re-evaluation by your physician. - Problem is an acute exacerbation. - Symptoms have improved. Signatures: Dispatcher [employer] EDMS Erickson Bustamante, TOOTH CLERK-C TOOTH CLERK-Cla1 Pritesh Muñoz, RN RN [id number] Keith Rausch MD MD 7 Esdras Gleason RN RN [id number] Corrections: (The following items were deleted from the chart) 01:00 00:47 03/29/2021 00:47 Discharged to Home. Impression: Chest pain, unspecified. [facility] Condition is Stable. Forms are Medication Reconciliation Form, Thank You Letter, Antibiotic Education, Prescription Opioid Use. Follow up: Private Physician; When: 1 - 2 days; Reason: Worsening of condition, Recheck today's complaints, Continuance of care, Re-evaluation by your physician. Problem is an acute exacerbation. Symptoms have improved. [facility]
--- NOTE | 2021-03-29 00:47 | ER ---
Nurse's Notes [facility] Name: Miya Persaud Age: 40 yrs Sex: Female : 1980 Arrival Date: 03/28/2021 Time: 19:55 Bed 5 Private MD: Diagnosis: Chest pain, unspecified Presentation: 03/28 20:09 Chief complaint: EMS states: they were called for chest pain that started around 1850. jm8 Pt also complains of dizziness, nausea, and palpitations. Coronavirus screen: Client denies travel out of the [place] in the last 14 days. At this time, the client does not indicate any symptoms associated with coronavirus-19. Ebola Screen: Patient negative for fever greater than or equal to 101.5 degrees Fahrenheit, and additional compatible Ebola Virus Disease symptoms Patient denies exposure to infectious person. Patient denies travel to an Ebola-affected area in the 21 days before illness onset. Initial Sepsis Screen: Does the patient meet any 2 criteria? No. Patient's initial sepsis screen is negative. Does the patient have a suspected source of infection? No. Patient's initial sepsis screen is negative. Risk Assessment: Do you want to hurt yourself or someone else? Patient reports no desire to harm self or others. Onset of symptoms was March 28, 2021 at 18:50. 20:09 Method Of Arrival: EMS: [facility] 20:09 Acuity: PARTH 2 jm8 Triage Assessment: 20:14 General: Appears in no apparent distress. comfortable, Behavior is calm, cooperative, jm8 appropriate for age. Pain: Complains of pain in chest Pain currently is 8 out of 10 on a pain scale. Quality of pain is described as burning, dull. 20:20 EENT: No deficits noted. No signs and/or symptoms were reported regarding the EENT 8 system. Neuro: No deficits noted. Level of Consciousness is awake, alert, obeys commands, Oriented to person, place, time. Cardiovascular: Reports chest pain, lightheadedness, nausea, palpitations, Capillary refill < 3 seconds Rhythm is sinus bradycardia Chest pain is described as Pain is 8 out of 10 on a pain scale. Respiratory: No deficits noted. Airway is patent Trachea midline Respiratory effort is even, unlabored, Respiratory pattern is regular, symmetrical. GI: No deficits noted. No signs and/or symptoms were reported involving the gastrointestinal system. : No deficits noted. No signs and/or symptoms were reported regarding the genitourinary system. Derm: No deficits noted. No signs and/or symptoms reported regarding the dermatologic system. Musculoskeletal: No deficits noted. No signs and/or symptoms reported regarding the musculoskeletal system. HAND TACKER: 20:14 LMP N/A - Post-menopause jm8 Historical: - Allergies: 20:13 Aspirin; jm8 20:13 "mycin" medications. all those that end with mycin; jm8 20:13 Clarithromycin; jm8 20:13 CYCLOBENZAPRINE; jm8 20:13 Demerol; jm8 20:13 diclofenac sodium; jm8 20:13 Levofloxacin; jm8 - Home Meds: 20:13 Dexilant 60 mg Oral CpDB 1 cap once daily [Active]; Lexapro 20 mg Oral tab 1 tab jm8 [Active]; loratadine 10 mg Oral tab 1 tab once daily [Active]; methocarbamol 500 mg Oral tab 1 tabs twice daily PRN [Active]; ondansetron HCl 4 mg Oral tab [Active]; Robaxin 500 mg Oral tab 1 tabs twice daily PRN [Active]; - PMHx: 20:13 Anemia; Anxiety; Depression; ibs; kidney disease; Stage IV renal disease; Thyroid jm8 problem; - PSHx: 20:13 None; jm8 - Immunization history:: Adult Immunizations up to date, Client reports having NOT received the Covid vaccine. - Social history:: Smoking status: Patient/guardian denies using tobacco. Screenin:14 Abuse screen: Denies threats or abuse. Denies injuries from another. Nutritional jm8 screening: No deficits noted. Tuberculosis screening: No symptoms or risk factors identified. Fall Risk None identified. Vital Signs: 20:09 BP 107 / 67; Pulse 49; Resp 16; Temp 98.6; Pulse Ox 100% ; Weight 43.54 kg; Height 5 jm8 ft. 0 in. (152.40 cm); Pain 8/10; 21:14 BP 102 / 65; Pulse 48; Resp 16; Pulse Ox 99% on R/A; jm8 22:48 BP 91 / 62; Pulse 46; Resp 16; Pulse Ox 98% on R/A; jm8 03/29 00:13 BP 92 / 60; Pulse 44; Resp 16; Pulse Ox 99% on R/A; [facility] 01:04 BP 93 / 62; Pulse 43; Resp 16; Pulse Ox 99% on R/A; [facility] 03/28 20:09 Body Mass Index 18.75 (43.54 kg, 152.40 cm) 8 ED Course: 03/28 19:55 Patient arrived in ED. [facility] 20:03 Keith Rausch MD is Attending Physician. [facility] 20:12 Triage completed. [facility] 20:14 Arm band placed on right wrist. [facility] 20:14 Patient has correct armband on for positive identification. Bed in low position. Call [facility] light in reach. Side rails up X2. 20:35 Inserted saline lock: 20 gauge in right antecubital area, using aseptic technique. [facility] 20:51 XRAY Chest (1 view) In Process Unspecified. [facility] 03/29 01:00 No provider procedures requiring assistance completed. IV discontinued, intact. [facility] Administered Medications: 03/28 20:55 Drug: Zofran (Ondansetron) 4 mg Route: IVP; Site: right antecubital; [facility] 03/29 00:58 Follow up: Response: No adverse reaction [facility] 03/28 20:56 Drug: morphine 2 mg Route: IVP; Site: right antecubital; [facility] 03/29 00:58 Follow up: Response: No adverse reaction [facility] 00:23 Drug: morphine 2 mg Route: IVP; Site: right antecubital; [facility] 00:58 Follow up: Response: No adverse reaction [facility] Outcome: 00:47 Discharge ordered by . [facility] 00:59 Discharged to home ambulatory. [facility] 00:59 Condition: good 00:59 Discharge instructions given to patient, Instructed on discharge instructions, follow up and referral plans. medication usage, Demonstrated understanding of instructions, follow-up care, medications. 01:00 Patient left the ED. 8 Signatures: Dispatcher [employer] [facility] Pritesh Muñoz, RN RN [id number] Keith Rausch MD MD 7 Esdras Gleason RN RN 8
[2021-03-29 01:15] VITALS: TEMP 98.6
[2021-03-29 01:21] VITALS: BP 92/60; O2SAT 99
--- NOTE | 2021-03-29 15:49 | EKG ---
Test Date: 2021-03-28 Test Time: 20:00:28 Firebrick Layer Helper: MEASUREMENT RESULTS: Intervals: Rate: 49 VT: 160 QRSD: 84 QT: 476 QTc: 429 [place]: P: 72 VT: 160 QRS: 65 T: 50 INTERPRETIVE STATEMENTS: Marked sinus bradycardia Abnormal ECG Compared to ECG 11/13/2019 20:44:56 No significant changes Electronically Signed On 03-29-21 15:47:06 CDT by Fidel Mendez
--- NOTE | 2021-03-29 15:49 | EKG ---
Test Date: 2021-03-28 Test Time: 20:01:14 Cashier And Waiter/Waitress: MEASUREMENT RESULTS: Intervals: Rate: 48 DC: 164 QRSD: 84 QT: 470 QTc: 419 [place]: P: 61 DC: 164 QRS: 66 T: 58 INTERPRETIVE STATEMENTS: Marked sinus bradycardia Abnormal ECG Compared to ECG 03/28/2021 20:00:28 No significant changes Electronically Signed On 03-29-21 15:47:06 CDT by Fidel Mendez
== END 2021-03-29 01:00 | disposition home or self-care (01) ==
LOC: ER 19:47
DX: R07.89 Other chest pain (principal); N18.4 Chronic kidney disease, stage 4 (severe); F41.8 Other specified anxiety disorders; Z88.3 Allergy status to other anti-infective agents; Z88.5 Allergy status to narcotic agent; Z88.6 Allergy status to analgesic agent; Z88.8 Allergy status to other drugs, medicaments and biological substances
CPT/HCPCS: 93005 ×2; 85025; 80048; 36415; 83735; 85610; 80076; 84484 ×2; 83880; 71045; J2270 ×2; J2405; 96374; 96375; 99284

== ENCOUNTER 2021-04-05 12:16 | Inpatient (IN) | payer MEDICAID ==
--- OUTSIDE RECORDS SUMMARY | 2021-04-05 12:39 | XMS REPORT | Continuity of Care Document ---
:1980 [address] [facility] t Address [address] [place] [address] Care Team Providers Name Role Phone Radiology [...] Type Clinicians Facility Department ID 2021-03-26 2021-03-26 [facility] Radiology [facility] [id number] 16:00:00 23:59:00 Encounter Mc[place] [id number] [place] [id number] [place] [id number] 2021-03-26 2021-03-26 Orders Doctor BRADEN [id number] 00:00:00 00:00:00 Only Unassigned, MARVIN [id number] [place] [id number] 2021-03-24 2021-03-24 [facility] Radiology [facility] [id number] 07:33:57 23:59:00 Encounter [place] [id number] [place] [id number] [place] [id number] 2021-03-24 2021-03-24 Orders Doctor BRADEN [id number] 00:00:00 00:00:00 Only Unassigned, MARVIN [id number] [place] [facility] [id number] 2019-11-26 2019-11-26 Office BOGDAN [place] [id number] 10:09:55 11:02:35 Visit John PA [id number] [place] [id number] [place] [id number] AND ALIV[facility] Results This patient has no known results.
[2021-04-05] MEDS ORDERED: LORazepam 2 MG/ML VIAL ONE (12:56)
--- NOTE | 2021-04-05 13:25 | RAD REPORT ---
EXAM DESCRIPTION: RAD - Chest Single View - 04/05/2021 1:09 pm CLINICAL HISTORY: CHEST PAIN Chest pain. COMPARISON: Chest Single View dated 03/28/2021; Chest Pa And Lat (2 Views) dated 09/23/2020; Chest Si ngle View dated 11/13/2019; Chest Single View dated 11/10/2019 FINDINGS: Portable technique limits examination quality. The lungs are grossly clear. The heart is normal in size. No displaced fractures. IMPRESSION: No acute intrathoracic process suspected.
[2021-04-05 13:50] LABS: Absolute Lymphocytes (CBC) 1.6 K/uL (0.7-4.9); Basophils % 0.3 % (0-1.3); Hematocrit 37.9 % (36.0-45.0); Lymphocytes % 39.2 % (15.3-44.8); RBC Red Blood Cell Count 3.77 M/uL (3.86-4.86)
[2021-04-05 13:54] LABS: Protime INR 1.1
[2021-04-05 14:15] LABS: ALT/SGPT 40 U/L (12-78); AST/SGOT 53 U/L (15-37); Albumin 4.3 g/dL (3.4-5.0); Alkaline Phosphatase 123 U/L (45-117); BUN Blood Urea Nitrogen 18 mg/dL (7-18); Bicarbonate 23 mmol/L (21-32); Bilirubin Direct 0.2 mg/dL (0-0.2); Bilirubin Total 0.9 mg/dL (0.2-1.0); Glucose Level 76 mg/dL (74-106); Magnesium 2.7 mg/dL (1.8-2.4); NT PRO-BNP 242 pg/mL (<125); Potassium 3.5 mmol/L (3.5-5.1); Protein, Total 7.6 g/dL (6.4-8.2); Sodium Level 140 mmol/L (136-145); Troponin (Emerg Dept Use Only) < 0.02 ng/mL (0.0-0.045)
--- NOTE | 2021-04-05 16:02 | EDPHYS ---
Physician Documentation [facility] Name: Miya Persaud Age: 40 yrs Sex: Female : 1980 Arrival Date: 04/05/2021 Time: 12:17 Bed 16 Private MD: ED Physician Klayan Cr HPI: 04/05 12:51 This 40 yrs old Black Female presents to ER via EMS with complaints of Chest Pain. kb 12:51 The patient or guardian reports chest pain that is located primarily in the anterior kb chest wall, left. Onset: this morning. The pain radiates to the left arm, the left shoulder, left neck. Associated signs and symptoms: Pertinent positives: shortness of breath. The chest pain is described as crushing. Duration: The patient or guardian reports a single episode, that is still ongoing. Modifying factors: The symptoms are alleviated by nothing. the symptoms are aggravated by nothing. Severity of pain: At its worst the pain was moderate in the emergency department the pain is unchanged. The patient has not experienced similar symptoms in the past. The patient has been recently seen at the [facility] Emergency Department, last week. 12:52 Pt reports left sided chest pain that started this morning when she woke up. States the kb pain radiates to left arm, shoulder and neck. Also reports shortness of breath. Has heart cath scheduled for tomorrow at [address] Mendez. Historical: - Allergies: 12:22 "mycin" medications. all those that end with mycin; bp 12:22 Aspirin; bp 12:22 Clarithromycin; bp 12:22 Cyclobenzaprine; bp 12:22 Demerol; bp 12:22 diclofenac sodium; bp 12:22 Levofloxacin; bp - Home Meds: 12:22 Dexilant 60 mg Oral CpDB 1 cap once daily [Active]; Lexapro 20 mg Oral tab 1 tab bp [Active]; loratadine 10 mg Oral tab 1 tab once daily [Active]; methocarbamol 500 mg Oral tab 1 tabs twice daily PRN [Active]; ondansetron HCl 4 mg Oral tab [Active]; Robaxin 500 mg Oral tab 1 tabs twice daily PRN [Active]; - PMHx: 12:22 Anemia; Anxiety; Depression; ibs; kidney disease; Stage IV renal disease; Thyroid bp problem; - Immunization history:: Adult Immunizations. - Social history:: Smoking status: unknown. ROS: 12:46 Constitutional: Negative for fever, chills, and weight loss. kb 12:46 Cardiovascular: Positive for chest pain, Negative for edema, orthopnea, palpitations, paroxysmal nocturnal dyspnea. 12:46 Respiratory: Positive for shortness of breath, Negative for cough, dyspnea on exertion, hemoptysis, orthopnea, pleurisy, sputum production, wheezing. 12:46 Psych: Positive for anxiety, Negative for depression, drug dependence, alcohol dependence, auditory hallucinations, visual hallucinations, homicidal ideation, insomnia, suicide gesture, suicidal ideation. 12:46 All other systems are negative. Exam: 12:47 Constitutional: This is a well developed, well nourished patient who is awake, alert, kb and in no acute distress. Head/Face: Normocephalic, atraumatic. ENT: Moist Mucous membranes Cardiovascular: Regular rate and rhythm with a normal S1 and S2. No gallops, murmurs, or rubs. No pulse deficits. Respiratory: Respirations even and unlabored. No increased work of breathing, no retractions or nasal flaring. Abdomen/GI: Soft, non-tender. No distention Skin: Warm, dry with normal turgor. Normal color. MS/ Extremity: Pulses equal, no cyanosis. Neurovascular intact. Full, normal range of motion. Neuro: Awake and alert, GCS 15, oriented to person, place, time, and situation. Moves all extremities. Normal gait. Psych: Awake, alert, with orientation to person, place and time. Behavior, mood, and affect are within normal limits. 12:47 Constitutional: The patient appears anxious. 12:50 ECG was reviewed by the Attending Physician. kb Vital Signs: 12:17 BP 114 / 67; Pulse 58; Resp 16; Temp 98; Pulse Ox 100% ; bp 14:25 BP 96 / 63; Pulse 48; Resp 16; Pulse Ox 100% ; bp 16:45 BP 110 / 64; Pulse 51; Resp 16; Pulse Ox 98% on R/A; iw 20:30 BP 113 / 69; Pulse 60; Resp 16; Pulse Ox 100% on R/A; jb4 MDM: 12:27 Patient medically screened. kb 12:47 Data reviewed: vital signs, nurses notes. Data interpreted: Pulse oximetry: on room air kb is 100 %. Interpretation: normal. 14:42 Physician consultation: Fidel Mendez MD was called at 14:42, regarding consult, kb voicemail left, awaiting callback. 15:59 Counseling: I had a detailed discussion with the patient and/or guardian regarding: the kb historical points, exam findings, and any diagnostic results supporting the discharge/admit diagnosis, lab results, radiology results, the need for further work-up and treatment in the hospital. Physician consultation: Fidel Mendez MD was contacted at 16:00, regarding consult, patient's condition, and will see patient in inpatient room. 16:00 ED course: WILLIAM Guzman contacted for admission. kb 04/05 12:27 Order name: Basic Metabolic Panel; Complete Time: 14:31 kb 04/05 12:27 Order name: CBC with Diff; Complete Time: 20:09 kb 04/05 12:27 Order name: LFT's; Complete Time: 14:31 kb 04/05 12:27 Order name: Magnesium; Complete Time: 14:31 kb 04/05 12:27 Order name: NT PRO-BNP; Complete Time: 14:31 kb 04/05 12:27 Order name: PT-INR; Complete Time: 13:58 kb 04/05 12:27 Order name: Troponin (emerg Dept Use Only); Complete Time: 14:31 kb 04/05 12:27 Order name: XRAY Chest (1 view); Complete Time: 13:29 kb 04/05 12:27 Order name: EKG; Complete Time: 12:28 kb 04/05 12:50 Order name: COVID-19 : Document "Date of Symptom Onset" if Symptomatic. kb 04/05 15:58 Order name: SARS-COV-2 RT PCR; Complete Time: 15:59 EDMS 04/05 20:09 Order name: CBC Smear Scan; Complete Time: 20:09 EDMS 04/05 12:27 Order name: Cardiac monitoring; Complete Time: 13:00 kb 04/05 12:27 Order name: EKG - Nurse/Tech; Complete Time: 13:00 kb 04/05 12:27 Order name: IV Saline Lock; Complete Time: 13:00 kb 04/05 12:27 Order name: Labs collected and sent; Complete Time: 13:00 kb 04/05 12:27 Order name: O2 Per Protocol; Complete Time: 13:00 kb 04/05 12:27 Order name: O2 Sat Monitoring; Complete Time: 13:00 kb EC:50 Rate is 52 beats/min. Rhythm is regular. QRS [place] is Normal. HI interval is normal at kb 164 msec. QRS interval is normal at 84 msec. QT interval is normal at 442 msec. Administered Medications: 12:45 Drug: Ativan (LORazepam) 0.5 mg Route: IVP; Site: left forearm; bp 14:37 Follow up: Response: Anxiety decreased bp Disposition: 04/06 18:50 Co-signature as Attending Physician, Kalyan Cr MD I agree with the assessment and horace plan of care. Disposition Summary: 04/05/21 16:02 Hospitalization Ordered Hospitalization Status: Observation Provider: Paulo Jara Location: Telemetry/MedSurg (observation) kb Condition: Stable kb Problem: new kb Symptoms: are unchanged kb Bed/Room Type: Standard Room Assignment: 430(04/05/21 19:41) Diagnosis - Chest pain, unspecified kb Forms: - Medication Reconciliation Form kb - SBAR form kb Signatures: Dispatcher [employer] EDZeynep Newman, MARIEL-C FOOD AND BEVERAGE OPERATIONS MANAGER-Sofie Fleming, RN RN Kalyan Wilson MD MD cha Peltier, Brian, RN RN bp Corrections: (The following items were deleted from the chart) 04/05 14:43 14:34 Counseling: I had a detailed discussion with the patient and/or guardian regarding: the historical points, exam findings, and any diagnostic results supporting the discharge/admit diagnosis, lab results, radiology results, the need for further work-up and treatment in the hospital, kb 15:06 12:50 CORONAVIRUS ordered. EDOK EDOK 19:41 16:02 kb
--- NOTE | 2021-04-05 16:02 | ER ---
Nurse's Notes [facility] Name: iMya Persaud Age: 40 yrs Sex: Female : 1980 Arrival Date: 04/05/2021 Time: 12:17 Bed 16 Private MD: Diagnosis: Chest pain, unspecified Presentation: 04/05 12:17 Chief complaint: EMS states: CRUSHING CHEST PAIN, SEEN FOR SAME LAST WEEK. SCHEDULED bp FOR HEARTH CATH TOMORROW. Coronavirus screen: At this time, the client does not indicate any symptoms associated with coronavirus-19. Ebola Screen: No symptoms or risks identified at this time. Initial Sepsis Screen: Does the patient meet any 2 criteria? No. Patient's initial sepsis screen is negative. Initial Sepsis Screen: Does the patient have a suspected source of infection? No. Patient's initial sepsis screen is negative. Risk Assessment: Do you want to hurt yourself or someone else? Patient reports no desire to harm self or others. 12:17 Method Of Arrival: EMS: [facility] bp 12:17 Acuity: PARTH 2 bp Triage Assessment: 12:22 General: Appears in no apparent distress. comfortable, Behavior is cooperative, bp appropriate for age, anxious. Pain: Complains of pain in chest. EENT: No deficits noted. Neuro: Level of Consciousness is awake, alert, obeys commands, Oriented to Appropriate for age. Cardiovascular: Rhythm is sinus bradycardia. Respiratory: No deficits noted. GI: No signs and/or symptoms were reported involving the gastrointestinal system. : No signs and/or symptoms were reported regarding the genitourinary system. Derm: No deficits noted. Musculoskeletal: No deficits noted. Historical: - Allergies: 12:22 "mycin" medications. all those that end with mycin; bp 12:22 Aspirin; bp 12:22 Clarithromycin; bp 12:22 Cyclobenzaprine; bp 12:22 Demerol; bp 12:22 diclofenac sodium; bp 12:22 Levofloxacin; bp - Home Meds: 12:22 Dexilant 60 mg Oral CpDB 1 cap once daily [Active]; Lexapro 20 mg Oral tab 1 tab bp [Active]; loratadine 10 mg Oral tab 1 tab once daily [Active]; methocarbamol 500 mg Oral tab 1 tabs twice daily PRN [Active]; ondansetron HCl 4 mg Oral tab [Active]; Robaxin 500 mg Oral tab 1 tabs twice daily PRN [Active]; - PMHx: 12:22 Anemia; Anxiety; Depression; ibs; kidney disease; Stage IV renal disease; Thyroid bp problem; - Immunization history:: Adult Immunizations. - Social history:: Smoking status: unknown. Screenin:29 Abuse screen: Denies threats or abuse. Denies injuries from another. Nutritional bp screening: No deficits noted. Tuberculosis screening: No symptoms or risk factors identified. Fall Risk None identified. Assessment: 12:30 General: SEE TRIAGE NOTE. bp 19:00 Reassessment: Patient appears in no apparent distress at this time. Patient and/or jb4 family updated on plan of care and expected duration. Pain level reassessed. Patient is alert, oriented x 3, equal unlabored respirations, skin warm/dry/pink. 20:30 Reassessment: Patient is alert, oriented x 3, equal unlabored respirations, skin bb warm/dry/pink. report called to Kiley SONG for room 430. 20:30 Reassessment: Patient appears in no apparent distress at this time. Patient and/or jb4 family updated on plan of care and expected duration. Pain level reassessed. Patient is alert, oriented x 3, equal unlabored respirations, skin warm/dry/pink. Vital Signs: 12:17 BP 114 / 67; Pulse 58; Resp 16; Temp 98; Pulse Ox 100% ; bp 14:25 BP 96 / 63; Pulse 48; Resp 16; Pulse Ox 100% ; bp 16:45 BP 110 / 64; Pulse 51; Resp 16; Pulse Ox 98% on R/A; iw 20:30 BP 113 / 69; Pulse 60; Resp 16; Pulse Ox 100% on R/A; jb4 ED Course: 12:17 Patient arrived in ED. bp 12:22 Triage completed. bp 12:22 Arm band placed on. bp 12:27 Zeynep Barba FNP-C is PHCP. kb 12:27 Kalyan Cr MD is Attending Physician. kb 12:29 Patient has correct armband on for positive identification. Bed in low position. Call bp light in reach. Side rails up X2. potline monitor on. Pulse ox on. NIBP on. 12:32 Omer Smith, RN is Primary Nurse. bp 12:45 Inserted saline lock: 20 gauge in left forearm, using aseptic technique. Blood bp collected. 13:00 XRAY Chest (1 view) Sent. bp 13:10 XRAY Chest (1 view) In Process Unspecified. EDMS 14:37 COVID-19 : Document "Date of Symptom Onset" if Symptomatic. Sent. bp 16:01 Paulo Jara DO is Hospitalizing Provider. kb 20:31 No provider procedures requiring assistance completed. Patient admitted, IV remains in bb place. Patient maintains SpO2 saturation greater than 95% on room air. 20:58 Primary Nurse role handed off by Omer Smith, RN mw2 Administered Medications: 12:45 Drug: Ativan (LORazepam) 0.5 mg Route: IVP; Site: left forearm; bp 14:37 Follow up: Response: Anxiety decreased bp Outcome: 16:02 Decision to Hospitalize by Provider. kb 20:31 Admitted to Tele accompanied by tech, via stretcher, room 430, with chart, Report bb called to Kiley SONG 20:31 Condition: stable 20:31 Instructed on the need for admit. 21:09 Patient left the ED. mw2 Signatures: Dispatcher [employer] EDMS Zeynep Barba, BILLER-C BILLER-CkMicki Alexis, RN Karla Smith, RN Rolan Ingram, DUNCAN SONG jbOmer Carreon, RN RN Lynda Moore mw2
--- NOTE | 2021-04-05 16:45 | P.HP ---
Certification for Inpatient Patient admitted to: Observation With expected LOS: <2 Midnights Patient will require the following post-hospital care: None Practitioner: I am a practitioner with admitting privileges, knowledge of patient current condition, hospital course, and medical plan of care. Services: Services provided to patient in accordance with Admission requirements found in Title 42 Section 412.3 of the Code of Federal Regulations Patient History Date of Service: 04/05/21 Primary Care Provider: Dr. Toscano Reason for admission: Chest pain History of Present Illness: 40-year-old female with history of chronic renal disease stage 4, depression with anxiety, chronic thrombocytopenia, and GERD with hiatal hernia. Patient presented with chest pain. Mainly to the left side. She reports that she recently has seen Cardiology for chest pain. She had an abnormal cardiac stress test was to have a heart catheterization here soon. She came to the ER due to increasing pain. She denies any significant nausea, vomiting. No significant shortness of breath noted. In the ER patient evaluated. EKG shows no significant EKG changes. Troponin unremarkable. CBC unremarkable. Sodium 140, potassium 3.5. BUN of 18, creatinine 2.29 with a GFR 28. Glucose 76. ER spoke to Cardiology. Cardiology recommends to admit for further evaluation and heart catheterization for tomorrow. Patient admitted for further evaluation and treatment. Patient doing well this time. No chest pain noted. Allergies aspirin Allergy (Verified 04/01/21 13:58) Anaphylaxis clarithromycin Allergy (Verified 04/01/21 13:58) Anaphylaxis cyclobenzaprine Allergy (Verified 04/01/21 13:58) Anaphylaxis gluten Allergy (Verified 04/01/21 13:58) Anaphylaxis Home medications list reviewed: Yes Home Medications: Albuterol Sulfate [Albuterol Sulfate 0.083% Neb Soln] 2.5 mg IH PRN PRN 06/20/16 Escitalopram [Lexapro*] 20 mg PO DAILY 06/20/16 Loratadine [Claritin*] 10 mg PO DAILY PRN 06/20/16 Lactobacillus Acidophilus [Acidophilus Lactobacilli] 1 each PO BID #14 capsule 07/17/20 Levofloxacin [Levaquin] 250 mg PO DAILY #7 tablet 07/17/20 metroNIDAZOLE [Flagyl] 500 mg PO Q8H #21 tablet 07/17/20 - Past Medical/Surgical History Diabetic: No -: Depression with anxiety -: Chronic renal disease stage 3 -: Chronic thrombocytopenia -: Asthma -: Seasonal allergies -: Bilateral axillary surgery -: Right foot surgery Psychosocial/ Personal History: Patient was adopted. She is single. She has an adopted child. - Family History Mother Notes: cervical cancer - Social History Smoking Status: Unknown if ever smoked Alcohol use: No CD- Drugs: No Caffeine use: No Place of Residence: Home Review of Systems General: As per HPI Eyes: Unremarkable ENT: Unremarkable Respiratory: Unremarkable Cardiovascular: Chest Pain Gastrointestinal: As per HPI (Increased indigestion) Genitourinary: Unremarkable Musculoskeletal: Unremarkable Integumentary: Unremarkable Neurological: Unremarkable Lymphatics: Unremarkable Physical Examination - Physical Exam General: Alert, In no apparent distress, Oriented x3, Cooperative HEENT: Atraumatic, Normocephalic, PERRLA, Other (Dry mucous membranes) Neck: Supple Respiratory: Clear to auscultation bilaterally, Normal air movement Cardiovascular: Normal pulses, Regular rate/rhythm Gastrointestinal: Normal bowel sounds, Non-distended, No tenderness, No masses, No rebound, No guarding Musculoskeletal: No erythema, No tenderness, No warmth Integumentary: No tenderness/swelling, No erythema, No warmth, No cyanosis Neurological: Normal speech, Normal strength at 5/5 x4 extr, Normal tone, Normal affect - Studies Laboratory Data (last 24 hrs) 04/05/21 12:45: PT 12.7 H, INR 1.10 04/05/21 12:45: WBC 4.00 L, Hgb 12.6, Hct 37.9, Plt Count 81 L* D 04/05/21 12:45: Sodium 140, Potassium 3.5, BUN 18, Creatinine 2.29 H, Glucose 76, Magnesium 2.7 H, Total Bilirubin 0.9, AST 53 H, ALT 40, Alkaline Phosphatase 123 H Assessment and Plan - Plan Impression: Chest pain with recent abnormal cardiac stress test GERD with hiatal hernia Chronic renal disease stage IV Depression with anxiety Chronic thrombocytopenia Plan: Chest pain with recent abnormal cardiac stress test: Patient will be admitted for further evaluation and treatment. Will monitor cardiac enzymes and telemetry. Cardiology consulted. Cardiology is aware of the patient. Will plan for heart catheterization tomorrow. In preparation for this will start IV fluids. Will monitor renal function. Will consult nephrology for further recommendation. Await findings from heart catheterization. GERD with hiatal hernia: Continue Protonix b.i.d.. Chronic renal disease stage IV: Nephrology consulted to further evaluate and treat. Will start IV fluids. Depression with anxiety: Continue with Lexapro. Chronic thrombocytopenia: Will monitor closely. Hold heparin if platelet count less than 90. Code status: Full code DVT prophylaxis: Heparin Advanced care planning-30 min: Patient wishes to go home at discharge. Discharge Plan: Home Plan to discharge in: 24 Hours - Advance Directives Does patient have a Living Will: No Does patient have a Durable POA for Healthcare: No - Code Status/Comfort Care Code Status Assessed: Yes (Patient is full code) Time Spent Managing Pts Care (In Minutes): 55
[2021-04-05 20:08] LABS: Blood Morphology Comment NOTED (NOT SEEN); Platelet Estimate DECR; Poikilocytosis 1+; White Blood Cell Scan OK (OK)
[2021-04-05] MEDS ORDERED: NA CHLORIDE 0.9% 1,000 ML IV SCH (20:32)
[2021-04-05] MEDS ORDERED: ONDANSETRON 4 MG/2 ML VIAL IV PRN (20:32)
[2021-04-05] MEDS ORDERED: ACETAMINOPHEN 500 MG TAB PO PRN (20:32)
[2021-04-05] MEDS: HEPARIN 5000 UNIT/ML 1 ML VIAL SQ SCH (21:00)
[2021-04-05 21:28] VITALS: BMI 18.0
[2021-04-05 21:54] LABS: Creatine Phosphokinase 89 U/L (26-192); Troponin I < 0.02 ng/mL (0.0-0.045)
[2021-04-05] MEDS: ALPRAZOLAM 0.25 MG TABLET PO PRN (21:55)
[2021-04-05] MEDS ORDERED: ALPRAZOLAM 0.5 MG TABLET ONE (22:02)
[2021-04-05 22:11] LABS: CKMB Creatine Kinase MB < 1.0 ng/mL (1.0-3.6)
[2021-04-06] MEDS: MORPHINE 2 MG/ML SYR IV PRN ×3 (00:12→23:53)
[2021-04-06] MEDS: ALPRAZOLAM 0.25 MG TABLET PO PRN (05:08)
[2021-04-06 05:30] LABS: Urine Appearance CLEAR (Clear); Urine Bilirubin NEGATIVE (Negative); Urine Blood NEGATIVE (Negative); Urine Color YELLOW (Yellow); Urine Glucose TRACE (Negative); Urine Protein 2+ (Negative); Urine Specific Gravity 1.015 (1.005-1.030); Urine Urobilinogen 0.2 mg/dL (0.2-1.0); Urine pH 7.5 (5.0-7.0)
[2021-04-06 05:34] LABS: Urine Microscopic Reflex ORDER UMIC
[2021-04-06 05:52] LABS: Urine Bacteria <20 /HPF (<20); Urine RBC NONE SEEN /HPF (NONE SEEN); Urine Urothelial Cells <5 /HPF (NONE SEEN)
[2021-04-06 06:09] LABS: Absolute Lymphocytes (CBC) 2.5 K/uL (0.7-4.9); Basophils % 0.2 % (0-1.3); Hematocrit 33.4 % (36.0-45.0); Lymphocytes % 60.8 % (15.3-44.8); MPV 11.8 fL (7.6-11.3)
--- NOTE | 2021-04-06 06:16 | P.PN ---
Subjective Date of Service: 04/06/21 Primary Care Provider: Dr. Toscano Chief Complaint: Chest pain Subjective: Improving, Doing well Physical Examination - Vital Signs Temperature: 97.1 F Blood Pressure: 98/54 Pulse: 50 Respirations: 16 Pulse Ox (%): 100 - Studies Laboratory Data (last 24 hrs) 04/05/21 12:45: PT 12.7 H, INR 1.10 04/05/21 12:45: WBC 4.00 L, Hgb 12.6, Hct 37.9, Plt Count 81 L* D 04/05/21 12:45: Sodium 140, Potassium 3.5, BUN 18, Creatinine 2.29 H, Glucose 76, Magnesium 2.7 H, Total Bilirubin 0.9, AST 53 H, ALT 40, Alkaline Phosphatase 123 H Assessment & Plan Discharge Plan: Home Plan to discharge in: 24 Hours Physician Review Additional Text: Physical exam: General: Alert, In no apparent distress, Oriented x3, Cooperative HEENT: Atraumatic, Normocephalic, PERRLA, Other (Dry mucous membranes) Neck: Supple Respiratory: Clear to auscultation bilaterally, Normal air movement Cardiovascular: Normal pulses, Regular rate/rhythm Gastrointestinal: Normal bowel sounds, Non-distended, No tenderness, No masses, No rebound, No guarding Musculoskeletal: No erythema, No tenderness, No warmth Integumentary: No tenderness/swelling, No erythema, No warmth, No cyanosis Neurological: Normal speech, Normal strength at 5/5 x4 extr, Normal tone, Normal affect Impression: Chest pain with recent abnormal cardiac stress test GERD with hiatal hernia Chronic renal disease stage IV Depression with anxiety Chronic thrombocytopenia Plan: Chest pain with recent abnormal cardiac stress test: Patient doing well at this time. Continue to monitor closely. Cardiology consulted. Cardiology is aware of the patient. Patient to have heart catheterization today to further evaluate. Await findings. If unremarkable likely discharge later today. Will discuss with cardiology. Patient on IV fluids in preparation for procedure. GERD with hiatal hernia: Continue Protonix b.i.d.. Chronic renal disease stage IV: Nephrology consulted to further evaluate and treat. Continue IV fluids.. Depression with anxiety: Continue with Lexapro. Chronic thrombocytopenia: Will monitor closely. Hold heparin if platelet count less than 90. Code status: Full code DVT prophylaxis: Heparin Advanced care planning-30 min: Patient wishes to go home at discharge. Time Spent Managing Pts Care (In Minutes): 55
[2021-04-06 06:17] LABS: BUN Blood Urea Nitrogen 18 mg/dL (7-18); Bicarbonate 23 mmol/L (21-32); Creatine Phosphokinase 66 U/L (26-192); Glucose Level 71 mg/dL (74-106); HDL Cholesterol 39 mg/dL (40-60); LDL Cholesterol, Calculated 42 (<130); Magnesium 2.6 mg/dL (1.8-2.4); Potassium 3.5 mmol/L (3.5-5.1); Sodium Level 142 mmol/L (136-145); Troponin I < 0.02 ng/mL (0.0-0.045)
[2021-04-06 06:18] LABS: CKMB Creatine Kinase MB < 1.0 ng/mL (1.0-3.6)
[2021-04-06 07:17] LABS: Blood Morphology Comment NOT SEEN (NOT SEEN); Platelet Estimate DECR
[2021-04-06] MEDS: PANTOPRAZOLE 40MG TABLET PO SCH ×2 (07:30→16:35)
--- NOTE | 2021-04-06 07:42 | P.CNS ---
Date of Consult: 04/06/21 Reason for Consult: ANIKA/CKD Requesting Physician: Paulo Jara Primary Care Provider: Dr. Lo Chief Complaint: Chest pain History of Present Illness: 40-year-old female with history of chronic renal disease stage 4, depression with anxiety, chronic thrombocytopenia, and GERD with hiatal hernia. Patient presented with chest pain. Mainly to the left side. She reports that she recently has seen Cardiology for chest pain. She had an abnormal cardiac stress test was to have a heart catheterization here soon. She came to the ER due to increasing pain. She denies any significant nausea, vomiting. No significant shortness of breath noted. 12:51 This 40 yrs old Black Female presents to ER via EMS with complaints of Chest Pain. kb 12:51 The patient or guardian reports chest pain that is located primarily in the anterior kb chest wall, left. Onset: this morning. The pain radiates to the left arm, the left shoulder, left neck. Associated signs and symptoms: Pertinent positives: shortness of breath. The chest pain is described as crushing. Duration: The patient or guardian reports a single episode, that is still ongoing. Modifying factors: The symptoms are alleviated by nothing. the symptoms are aggravated by nothing. Severity of pain: At its worst the pain was moderate in the emergency department the pain is unchanged. The patient has not experienced similar symptoms in the past. The patient has been recently seen at the [facility] Emergency Department, last week. 12:52 Pt reports left sided chest pain that started this morning when she woke up. States the kb pain radiates to left arm, shoulder and neck. Also reports shortness of breath. Has heart cath scheduled for tomorrow at [address] Mendez. Allergies aspirin Allergy (Verified 04/01/21 13:58) Anaphylaxis clarithromycin Allergy (Verified 04/01/21 13:58) Anaphylaxis cyclobenzaprine Allergy (Verified 04/01/21 13:58) Anaphylaxis gluten Allergy (Verified 04/01/21 13:58) Anaphylaxis Home medications list reviewed: Yes Home Medications: Loratadine [Claritin*] 10 mg PO DAILY PRN 06/20/16 Buspirone HCl 7.5 mg PO DAILY 04/05/21 Estradiol/Levonorgestrel [Climara Pro Patch] 1 each TD EVERY 7TH DAY 04/05/21 Famotidine 20 mg PO BEDTIME 04/05/21 Lactobacillus Acidophilus [Probiotic] 1 cap PO DAILY 04/05/21 Omeprazole [Prilosec] 40 mg PO DAILY 04/05/21 Ondansetron [Zofran] 4 mg PO Q6H PRN 04/05/21 Oxybutynin Chloride 5 mg PO DAILY 04/05/21 Sertraline [Zoloft] 25 mg PO DAILY 04/05/21 Sucralfate [Carafate] 1 gm PO DAILY WITH BREAKFAST 04/05/21 Pantoprazole [Protonix Tab] 40 mg PO BID #60 tab 04/06/21 - Past Medical/Surgical History Diabetic: No -: Depression with anxiety -: Chronic renal disease stage 3 -: Chronic thrombocytopenia -: Asthma -: Seasonal allergies -: Bilateral axillary surgery -: Right foot surgery -: ligation Psychosocial/ Personal History: Patient was adopted. She is single. She has an adopted child. - Family History Mother Notes: cervical cancer - Social History Smoking Status: Unknown if ever smoked Alcohol use: No CD- Drugs: No Caffeine use: No Place of Residence: Home Review of Systems 10-point ROS is otherwise unremarkable Cardiovascular: Chest Pain Physical Examination Temp Pulse Resp BP Pulse Ox 97.1 F 50 16 98/54 L 100 04/06/21 06:15 04/06/21 06:15 04/06/21 06:15 04/06/21 06:15 04/06/21 06:15 General: In no apparent distress, Oriented x3, Cooperative HEENT: Atraumatic Neck: Supple Respiratory: Clear to auscultation bilaterally Cardiovascular: No edema, Regular rate/rhythm Gastrointestinal: Soft and benign, Non-distended Musculoskeletal: No clubbing, No contractures Integumentary: No rashes, No cyanosis Neurological: Normal speech Laboratory Data (last 24 hrs) 04/05/21 12:45: PT 12.7 H, INR 1.10 04/05/21 12:45: WBC 4.00 L, Hgb 12.6, Hct 37.9, Plt Count 81 L* D 04/05/21 12:45: Sodium 140, Potassium 3.5, BUN 18, Creatinine 2.29 H, Glucose 76, Magnesium 2.7 H, Total Bilirubin 0.9, AST 53 H, ALT 40, Alkaline Phosphatase 123 H Imagings Data: EXAM DESCRIPTION: RAD - Chest Single View - 04/05/2021 1:09 pm CLINICAL HISTORY: CHEST PAIN Chest pain COMPARISON: Chest Single View dated 03/28/2021; Chest Pa And Lat (2 Views) dated 09/23/2020; Chest Single View dated 11/13/2019; Chest Single View dated 11/10/2019 FINDINGS: Portable technique limits examination quality. The lungs are grossly clear. The heart is normal in size. No displaced fractures. IMPRESSION: No acute intrathoracic process suspected. Conclusions/Impression: ANIKA likely due to hypovolemia CKD III with proteinuria -No NSAIDs -Change IVF 1/2NS Hypokalemia -Consider potassium replacement Hypocalcemia -Recommend Vitamin D Anemia in chronic illness Thrombocytopenia -Monitor H&H Bradycardia -Follow up with cardiology Chest Pain -Plan for cardiac cath today -Give Mucomyst for dye exposure Thank you kindly for the consultation. Case reviewed with Dr. Jara.
[2021-04-06] MEDS: HEPARIN 5000 UNIT/ML 1 ML VIAL SQ SCH ×2 (07:47→19:23)
[2021-04-06] MEDS ORDERED: ACETYLCYST 6,000 MG/30 ML VIAL PO SCH (08:00)
[2021-04-06] MEDS: NACHLORIDE 0.45% 1,000 ML IV SCH ×2 (08:43→18:00)
[2021-04-06] MEDS ORDERED: ESCITALOPRAM 20 MG TAB PO SCH (09:00)
[2021-04-06] MEDS ORDERED: NA CHLORIDE 0.9% 500 ML ONE (09:57)
--- NOTE | 2021-04-06 11:07 | OP ---
Date of Procedure: 04/06/2021 Surgeon: Fidel Mendez MD [employer] Vice President: Mr. Alhaji Lott. Admitted to Dr. Jara on 04/05/2021 with unstable angina. She has a history of positive stress test in the past. Procedure In Detail: Brought to the open hearth laborer today on 04/06/2021 at 10 in the morning, prepped and d raped in routine sterile fashion. Given Versed and fentanyl for sedation. A 6-Congolese sheath introdu nayana in the right common femoral artery successfully using the Seldinger technique and 10 cc of xyloca ine. Angiography there was normal. Angio-Seal was used to close the case. Yeison catheter left an d right were used to cannulate the left main and right main. She was found to have a small blood ves teresa throughout but they were free of any atherosclerosis. There were no focal stenosis. There were no complications. Blood Loss: 5 mL. Postoperative Diagnosis: Positive stress test, positive chest pain, normal heart catheterization, sm all vessel. Plan: Plan is for medical therapy. The patient will remain in the hospital for 2 hours after bedres t after the catheterization then she will go home today whenever it is okay with Dr. Jara and I felicitas orozco see her in the office in 2 weeks. Total conscious sedation was 30 minutes. MILKA/HANKL Voice ID: [id number] Report ID: [id number]
--- NOTE | 2021-04-06 11:08 | P.DS ---
Admission Date: 04/05/21 Discharge Date: 04/06/21 Primary Care Provider: Dr. Edwards Disposition: ROUTINE DISCHARGE Discharge Condition: GOOD Reason for Admission: Chest pain Consultations: Cardiology-Dr. Mendez Nephrology-Dr. Edwards Procedures: Heart catheterization: Unremarkable no significant disease noted Medical problem list: Chest pain with recent abnormal cardiac stress test status post normal heart catheterization GERD with hiatal hernia Chronic renal disease stage IV Depression with anxiety Chronic thrombocytopenia Brief History of Present Illness: 40-year-old female with history of chronic renal disease stage 4, depression with anxiety, chronic thrombocytopenia, and GERD with hiatal hernia. Patient presented with chest pain. Mainly to the left side. She reports that she recently has seen Cardiology for chest pain. She had an abnormal cardiac st ress test was to have a heart catheterization here soon. She came to the ER due to increasing pain. She denies any significant nausea, vomiting. No significant shortness of breath noted. In the ER patient evaluated. EKG shows no significant EKG changes. Troponin unremarkable. CBC unremarkable. Sodium 140, potassium 3.5. BUN of 18, creatinine 2.29 with a GFR 28. Glucose 76. ER spoke to Cardiology. Cardiology recommends to admit for further evaluation and heart catheterization for tomorrow. Patient admitted for further evaluation and treatment. Patient doing well this time. No chest pain noted. Hospital Course: Patient presented with chest pain. She had been seen by cardiology as an outpatient. She had an abnormal cardiac stress test. She was scheduled for heart catheterization. Due to her chest pain the patient was admitted for further evaluation. Cardiology was consulted. Cardiology performed heart catheterization. Heart catheterization showed normal coronaries. No further intervention required. Chest pain likely GI related. Patient with underlying GERD with hiatal hernia. At discharge patient will continue with Protonix 40 mg 1 pill twice daily. Education on GERD/hiatal hernia diet provided. Recommend follow-up with PCP in 1 week to follow-up his hospitalization and continue her care. Patient may follow-up with cardiology in 4 to 6 weeks. Patient with history of GERD and hiatal hernia. As recommended above patient will continue with Protonix 40 mg 1 pill twice daily. Patient with chronic renal disease stage IV. This appears stable at this time. Patient seen by nephrology. Future medications will need to be renally dosed. No further use of notes or anti-inflammatories. Recommend to recheck labBMP in 1 week to monitor her progress. Follow-up with nephrology as directed. Patient with depression with anxiety. At discharge she will continue with Lexapro and buspar. Patient with chronic thrombocytopenia. This appears stable. This can be monitored as an outpatient. Recommend to recheck labCBC in 2 to 4 weeks to monitor her progress. Vital Signs/Physical Exam: Temp Pulse Resp BP Pulse Ox 97.1 F 67 16 93/64 100 04/06/21 08:54 04/06/21 10:42 04/06/21 10:42 04/06/21 10:42 04/06/21 08:54 General: Alert, In no apparent distress, Oriented x3, Cooperative HEENT: Atraumatic Neck: Supple Respiratory: Clear to auscultation bilaterally, Normal air movement Cardiovascular: Normal pulses, Regular rate/rhythm Gastrointestinal: Normal bowel sounds, Soft and benign, Non-distended, No tenderness, No masses, No rebound, No guarding Musculoskeletal: No erythema, No tenderness, No warmth Integumentary: No tenderness/swelling Neurological: Normal speech, Normal strength at 5/5 x4 extr, Normal tone, Normal affect Laboratory Data at Discharge: WBC 4.10 K/uL (4.3-10.9) L 04/06/21 05:28 Hgb 11.4 g/dL (12.0-15.0) L 04/06/21 05:28 Hct 33.4 % (36.0-45.0) L 04/06/21 05:28 Plt Count 70 K/uL (152-406) L* 04/06/21 05:28 PT 12.7 SECONDS (9.5-12.5) H 04/05/21 12:45 INR 1.10 04/05/21 12:45 Sodium 142 mmol/L (136-145) 04/06/21 05:28 Potassium 3.5 mmol/L (3.5-5.1) 04/06/21 05:28 BUN 18 mg/dL (7-18) 04/06/21 05:28 Creatinine 2.16 mg/dL (0.55-1.3) H 04/06/21 05:28 Glucose 71 mg/dL (74-106) L 04/06/21 05:28 Magnesium 2.6 mg/dL (1.8-2.4) H 04/06/21 05:28 Total Bilirubin 0.9 mg/dL (0.2-1.0) 04/05/21 12:45 AST 53 U/L (15-37) H 04/05/21 12:45 ALT 40 U/L (12-78) 04/05/21 12:45 Alkaline Phosphatase 123 U/L (45-117) H 04/05/21 12:45 Troponin I < 0.02 ng/mL (0.0-0.045) 04/06/21 05:28 Triglycerides 106 mg/dL (<150) 04/06/21 05:28 Cholesterol 102 mg/dL (<200) 04/06/21 05:28 HDL Cholesterol 39 mg/dL (40-60) L 04/06/21 05:28 Cholesterol/HDL Ratio 2.62 04/06/21 05:28 Home Medications: Escitalopram [Lexapro*] 20 mg PO DAILY 06/20/16 Loratadine [Claritin*] 10 mg PO DAILY PRN 06/20/16 Buspirone HCl 7.5 mg PO DAILY 04/05/21 Estradiol/Levonorgestrel [Climara Pro Patch] 1 each TD EVERY 7TH DAY 04/05/21 Famotidine 20 mg PO BEDTIME 04/05/21 Lactobacillus Acidophilus [Probiotic] 1 cap PO DAILY 04/05/21 Omeprazole [Prilosec] 40 mg PO DAILY 04/05/21 Ondansetron [Zofran] 4 mg PO Q6H PRN 04/05/21 Oxybutynin Chloride 5 mg PO DAILY 04/05/21 Sertraline [Zoloft] 25 mg PO DAILY 04/05/21 Sucralfate [Carafate] 1 gm PO DAILY WITH BREAKFAST 04/05/21 Pantoprazole [Protonix Tab] 40 mg PO BID #60 tab 04/06/21 New Medications: Pantoprazole [Protonix Tab] 40 mg PO BID #60 tab Physician Discharge Instructions: Patient presented with chest pain. She had been seen by cardiology as an outpatient. She had an abnormal cardiac stress test. She was scheduled for heart catheterization. Due to her chest pain the patient was admitted for further evaluation. Cardiology was consulted. Cardiology performed heart c atheterization. Heart catheterization showed normal coronaries. No further intervention required. Chest pain likely GI related. Patient with underlying GERD with hiatal hernia. At discharge patient will continue with Protonix 40 mg 1 pill twice daily. Education on GERD/hiatal hernia diet provided. Recommend follow-up with PCP in 1 week to follow-up his hospitalization and continue her care. Patient may follow-up with cardiology in 4 to 6 weeks. Patient with history of GERD and hiatal hernia. As recommended above patient will continue with Protonix 40 mg 1 pill twice daily. Patient with chronic renal disease stage IV. This appears stable at this time. Patient seen by nephrology. Future medications will need to be renally dosed. No further use of notes or anti-inflammatories. Recommend to recheck labBMP in 1 week to monitor her progress. Follow-up with nephrology as directed. Patient with depression with anxiety. At discharge she will continue with Lexapro and buspar. Patient with chronic thrombocytopenia. This appears stable. This can be monitored as an outpatient. Recommend to recheck labCBC in 2 to 4 weeks to monitor her progress. Diet: Renal Activity: Ad oscar Followup: NONE,NONE [Primary Care Provider] - Time spent managing pt's care (in minutes): 55
--- NOTE | 2021-04-06 16:13 | EKG ---
Test Date: 2021-04-05 Test Time: 12:41:49 [employer] Assistant: TAMANNA MEASUREMENT RESULTS: Intervals: Rate: 52 WI: 164 QRSD: 84 QT: 442 QTc: 411 [place]: P: 69 WI: 164 QRS: 57 T: 57 INTERPRETIVE STATEMENTS: Sinus bradycardia Otherwise normal ECG Compared to ECG 03/28/2021 20:01:14 No significant changes Electronically Signed On 04-06-21 16:08:54 CDT by Fidel Mendez
--- NOTE | 2021-04-06 16:18 | CON ---
Date of Consultation: 04/06/2021 Reason For Consultation: Elevated BUN and creatinine, fluid management. History Of Present Illness: This is a pleasant 40-year-old female, well known to me from the office with significant past medical history of bronchial asthma, hypertension, hyperlipidemia, IBS, chronic kidney disease stage IIIB/4, normal size kidney, on the right 10.2/7 cm on the left, disproportion i n the size, proteinuric, nonnephrotic secondary to hypertension, nephrosclerosis, confirmed with biop sy done back in 2002. Baseline creatinine 2s with GFR around 30. Apparently, the patient was in her regular state of health. The patient came to the hospital complaining of chest pain without any hawa sea or vomiting radiating to her left shoulder. The patient was taking for cardiac cath today. Prim carlito workup show creatinine 2.2 with GFR of 28. The patient denied taking any nonsteroidal. No IV contrast. Past Medical History: 1.Hypertension. 2.Hyperlipidemia. 3.Bronchial asthma. 4.IBS. 5.Chronic kidney disease, stage IIIB/4 with disproportion in the kidney size, right 10.2/left 7 cm, proteinuric, nonnephrotic secondary to hypertension, nephrosclerosis, confirmed with biopsy. 6.Seasonal allergy. Past Surgical History: Include the heart catheterization today, right foot surgery, bilateral axilla ry surgery. Home Medications: Include albuterol, citalopram. Loratadine, levofloxacin, metronidazole. Allergies: TO ASPIRIN, CLARITHROMYCIN, CYCLOBENZAPRINE. Social History: Denies smoking. Denies drinking. Denies drug abuse. Family History: Positive for cervical cancer. Review of Systems: Head and Neck: No red eye. No ear pain. GI: No nausea. No vomiting. : No polyuria. No dysuria. No hematuria. 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 Respiratory: No shortness of breath. Cardiovascular: Has chest pain. Endocrine: No polydipsia. Skin: No rash. Neuro: No neuropathy. No pain. Musculoskeletal: No joint pain. No swelling. Physical Examination: Vital Signs: When I saw the patient, blood pressure 94/62, pulse of 53. Chest: Clear to auscultation. Heart: S1, S2 regular. Abdomen: Soft, nontender. Extremities: No edema. Neurologic: Alert and oriented x3. No focality. Laboratory Data: WBC 4.1, H and H 11.4/33.4, platelets of 70. Sodium 142, potassium 3.5, bicarb 23, BUN 18, creatinine 2.1, GFR of 30, calcium 8.1, magnesium 2.6. BNP 242. Urinalysis negative for in fection. Current Medications: Include heparin, Tylenol, alprazolam, citalopram, pantoprazole. Assessment And Plan: 1.Chronic kidney disease stage IIIB/4 secondary to hypertension, nephrosclerosis stable on baseline. The patient is going to be exposed to contrast. I am going to start the patient on Mucomyst, incre ase IV fluid to 100 and we will monitor the patient. We will continue on normal saline. 2.Hypertension. Currently blood pressure on the lower side. Hold all blood pressure medications, e specially BREE inhibitor and ARB. 3.Coronary artery disease with catheterization on advanced chronic kidney disease. We will continue Mucomyst. We will follow up lab in 2 days and 2 weeks. Will follow up with Cardiology. 4.Bronchial asthma, stable. Follow up with the primary. Case discussed with Dr. Jara, agreed on the plan discussed with the patient, verbalized aji bebeto. COLLIN/NGOC Voice ID: [id number] Report ID: [id number]
[2021-04-06] MEDS: ACETYLCYST 6,000 MG/30 ML VIAL PO SCH (19:23)
[2021-04-06] MEDS: SERTRALINE HCL 50 MG TAB PO SCH (20:27)
[2021-04-06] MEDS ORDERED: BUSPIRONE HCL 5 MG TABLET PO SCH (21:00)
[2021-04-07] MEDS: NACHLORIDE 0.45% 1,000 ML IV SCH ×2 (01:46→08:14)
[2021-04-07] MEDS: MORPHINE 2 MG/ML SYR IV PRN (03:51)
--- NOTE | 2021-04-07 06:14 | P.DS ---
Admission Date: 04/05/21 Discharge Date: 04/07/21 Primary Care Provider: Dr. Lo Disposition: ROUTINE DISCHARGE Discharge Condition: GOOD Reason for Admission: Chest pain Consultations: Cardiology-Dr. Mendez Nephrology-Dr. Edwards Procedures: Heart catheterization: Unremarkable no significant disease noted Medical problem list: Chest pain with recent abnormal cardiac stress test status post normal heart catheterization GERD with hiatal hernia Chronic renal disease stage IV Depression with anxiety Chronic thrombocytopenia Brief History of Present Illness: 40-year-old female with history of chronic renal disease stage 4, depression with anxiety, chronic thrombocytopenia, and GERD with hiatal hernia. Patient presented with chest pain. Mainly to the left side. She reports that she recently has seen Cardiology for chest pain. She had an abnormal cardiac stress test was to have a heart catheterization here soon. She came to the ER due to increasing pain. She denies any significant nausea, vomiting. No significant shortness of breath noted. In the ER patient evaluated. EKG shows no significant EKG changes. Troponin unremarkable. CBC unremarkable. Sodium 140, potassium 3.5. BUN of 18, creatinine 2.29 with a GFR 28. Glucose 76. ER spoke to Cardiology. Cardiology recommends to admit for further evaluation and heart catheterization for tomorrow. Patient admitted for further evaluation and treatment. Patient doing well this time. No chest pain noted. Hospital Course: Patient presented with chest pain. She had been seen by cardiology as an outpatient. She had an abnormal cardiac stress test. She was scheduled for heart catheterization. Due to her chest pain the patient was admitted for further evaluation. Cardiology was consulted. Cardiology performed heart catheterization. Heart catheterization showed normal coronaries. No further intervention required. Chest pain likely GI related. Patient with underlying GERD with hiatal hernia. At discharge patient will continue with Protonix 40 mg 1 pill twice daily. Education on GERD/hiatal hernia diet provided. Recommend follow-up with PCP in 1 week to follow-up his hospitalization and continue her care. Patient may follow-up with cardiology in 4 to 6 weeks. Patient with history of GERD and hiatal hernia. As recommended above patient will continue with Protonix 40 mg 1 pill twice daily. Patient with chronic renal disease stage IV. This appears stable at this time. Patient seen by nephrology. Future medications will need to be renally dosed. No further use of notes or anti-inflammatories. Recommend to recheck labBMP in 1 week to monitor her progress. Follow-up with nephrology as directed. Patient with depression with anxiety. At discharge she will continue with Lexapro and buspar. Patient with chronic thrombocytopenia. This appears stable. This can be monitored as an outpatient. Recommend to recheck labCBC in 2 to 4 weeks to monitor her progress. Vital Signs/Physical Exam: Temp Pulse Resp BP Pulse Ox 97.2 F 52 16 98/57 L 100 04/07/21 04:00 04/07/21 04:00 04/07/21 04:21 04/07/21 04:00 04/07/21 04:21 General: Alert, In no apparent distress, Oriented x3, Cooperative HEENT: Atraumatic Neck: Supple Respiratory: Clear to auscultation bilaterally, Normal air movement Cardiovascular: Normal pulses, Regular rate/rhythm Gastrointestinal: Normal bowel sounds, No tenderness, No masses, No rebound, No guarding Musculoskeletal: No erythema, No tenderness, No warmth Integumentary: No tenderness/swelling Neurological: Normal speech, Normal strength at 5/5 x4 extr, Normal tone, Normal affect Laboratory Data at Discharge: WBC 4.10 K/uL (4.3-10.9) L 04/06/21 05:28 Hgb 11.4 g/dL (12.0-15.0) L 04/06/21 05:28 Hct 33.4 % (36.0-45.0) L 04/06/21 05:28 Plt Count 70 K/uL (152-406) L* 04/06/21 05:28 PT 12.7 SECONDS (9.5-12.5) H 04/05/21 12:45 INR 1.10 04/05/21 12:45 Sodium 142 mmol/L (136-145) 04/06/21 05:28 Potassium 3.5 mmol/L (3.5-5.1) 04/06/21 05:28 BUN 18 mg/dL (7-18) 04/06/21 05:28 Creatinine 2.16 mg/dL (0.55-1.3) H 04/06/21 05:28 Glucose 71 mg/dL (74-106) L 04/06/21 05:28 Magnesium 2.6 mg/dL (1.8-2.4) H 04/06/21 05:28 Total Bilirubin 0.9 mg/dL (0.2-1.0) 04/05/21 12:45 AST 53 U/L (15-37) H 04/05/21 12:45 ALT 40 U/L (12-78) 04/05/21 12:45 Alkaline Phosphatase 123 U/L (45-117) H 04/05/21 12:45 Troponin I < 0.02 ng/mL (0.0-0.045) 04/06/21 05:28 Triglycerides 106 mg/dL (<150) 04/06/21 05:28 Cholesterol 102 mg/dL (<200) 04/06/21 05:28 HDL Cholesterol 39 mg/dL (40-60) L 04/06/21 05:28 Cholesterol/HDL Ratio 2.62 04/06/21 05:28 Home Medications: Loratadine [Claritin*] 10 mg PO DAILY PRN 06/20/16 Buspirone HCl 7.5 mg PO DAILY 04/05/21 Estradiol/Levonorgestrel [Climara Pro Patch] 1 each TD EVERY 7TH DAY 04/05/21 Famotidine 20 mg PO BEDTIME 04/05/21 Lactobacillus Acidophilus [Probiotic] 1 cap PO DAILY 04/05/21 Omeprazole [Prilosec] 40 mg PO DAILY 04/05/21 Ondansetron [Zofran] 4 mg PO Q6H PRN 04/05/21 Oxybutynin Chloride 5 mg PO DAILY 04/05/21 Sertraline [Zoloft] 25 mg PO DAILY 04/05/21 Sucralfate [Carafate] 1 gm PO DAILY WITH BREAKFAST 04/05/21 Pantoprazole [Protonix Tab] 40 mg PO BID #60 tab 04/06/21 New Medications: Pantoprazole [Protonix Tab] 40 mg PO BID #60 tab Physician Discharge Instructions: Patient presented with chest pain. She had been seen by cardiology as an outpatient. She had an abnormal cardiac stress test. She was scheduled for heart catheterization. Due to her chest pain the patient was admitted for further evaluation. Cardiology was consulted. Cardiology performed heart catheterization. Heart catheterization showed normal coronaries. No further intervention required. Chest pain likely GI related. Patient with underlying GERD with hiatal hernia. At discharge patient will continue with Protonix 40 mg 1 pill twice daily. Education on GERD/hiatal hernia diet provided. Recommend follow-up with PCP in 1 week to follow-up his hospitalization and continue her care. Patient may follow-up with cardiology in 4 to 6 weeks. Patient with history of GERD and hiatal hernia. As recommended above patient will continue with Protonix 40 mg 1 pill twice daily. Patient with chronic renal disease stage IV. This appears stable at this time. Patient seen by nephrology. Future medications will need to be renally dosed. No further use of notes or anti-inflammatories. Recommend to recheck labBMP in 1 week to monitor her progress. Follow-up with nephrology as directed. Patient with depression with anxiety. At discharge she will continue with Lexapro and buspar. Patient with chronic thrombocytopenia. This appears stable. This can be monitored as an outpatient. Recommend to recheck labCBC in 2 to 4 weeks to monitor her progress. Diet: Renal Activity: Ad oscar Followup: NONE,NONE [Primary Care Provider] - Time spent managing pt's care (in minutes): 55
--- NOTE | 2021-04-07 07:57 | P.PN ---
Subjective Date of Service: 04/07/21 Primary Care Provider: Dr. Lo Chief Complaint: Chest pain Physical Examination - Vital Signs Temperature: 97.2 F Blood Pressure: 98/57 Pulse: 52 Respirations: 16 Pulse Ox (%): 100 Assessment And Plan - Plan 1. Chronic kidney disease stage IIIB/4 secondary to hypertension, nephrosclerosis stable on baseline. The patient is going to be exposed to contrast. I am going to start the patient on Mucomyst, increase IV fluid to 100 and we will monitor the patient. We will continue on normal saline. 2. Hypertension. Currently blood pressure on the lower side. Hold all blood pressure medications, especially BREE inhibitor and ARB. 3. Coronary artery disease with catheterization on advanced chronic kidney disease. We will continue Mucomyst. We will follow up lab in 2 days and 2 weeks. Will follow up with Cardiology. 4. Bronchial asthma, stable. Follow up with the primary. Case discussed with Dr. Jara, agreed on the plan discussed with the patient, verbalized understanding. Physician Review Additional Text: Physical exam: General: Alert, In no apparent distress, Oriented x3, Cooperative HEENT: Atraumatic, Normocephalic, PERRLA, Other (Dry mucous membranes) Neck: Supple Respiratory: Clear to auscultation bilaterally, Normal air movement Cardiovascular: Normal pulses, Regular rate/rhythm Gastrointestinal: Normal bowel sounds, Non-distended, No tenderness, No masses, No rebound, No guarding Musculoskeletal: No erythema, No tenderness, No warmth Integumentary: No tenderness/swelling, No erythema, No warmth, No cyanosis Neurological: Normal speech, Normal strength at 5/5 x4 extr, Normal tone, Normal affect Impression: Chest pain with recent abnormal cardiac stress test GERD with hiatal hernia Chronic renal disease stage IV Depression with anxiety Chronic thrombocytopenia Plan: Chest pain with recent abnormal cardiac stress test: Patient doing well at this time. Continue to monitor closely. Cardiology consulted. Cardiology is aware of the patient. Patient to have heart catheterization today to further evaluate. Await findings. If unremarkable likely discharge later today. Will discuss with cardiology. Patient on IV fluids in preparation for procedure. GERD with hiatal hernia: Continue Protonix b.i.d.. Chronic renal disease stage IV: Nephrology consulted to further evaluate and treat. Continue IV fluids.. Depression with anxiety: Continue with Lexapro. Chronic thrombocytopenia: Will monitor closely. Hold heparin if platelet count less than 90. Code status: Full code DVT prophylaxis: Heparin Advanced care planning-30 min: Patient wishes to go home at discharge.
[2021-04-07] MEDS: PANTOPRAZOLE 40MG TABLET PO SCH (08:06)
[2021-04-07] MEDS: SERTRALINE HCL 50 MG TAB PO SCH (08:06)
[2021-04-07] MEDS: ACETYLCYST 6,000 MG/30 ML VIAL PO SCH (08:06)
[2021-04-07] MEDS: HEPARIN 5000 UNIT/ML 1 ML VIAL SQ SCH (08:07)
[2021-04-07 08:14] VITALS: BP 97/58; TEMP 96.6
[2021-04-07 10:09] VITALS: O2SAT 98
--- NOTE | 2021-04-08 04:31 | CON ---
Date of Consultation: 04/06/2021 The patient was admitted on 04/05/2021 with unstable angina. I saw the patient 04/06/2021. Patient admitting physician was Dr. Jara. History Of Present Illness: Ms. Persaud is a patient who rather has a complicated past medical histor y including anemia, anxiety, depression, irritable bowel syndrome, stage 4 kidney disease, hypothyroi dism. Had a recent abnormal stress test in my office. Came in with complaining of chest pain in the anterior wall with exertion radiating to the left arm and left neck and left shoulder with some diap horesis, and shortness of breath. Denied any nausea, vomiting. Denied any PND, orthopnea, pedal estuardo ma, palpitation, or syncope. She was scheduled to have a catheterization today as an outpatient mohsen monte. Past Medical History: As stated above. Allergies: TO MYCIN, ASPIRIN, DEMEROL, LEVOTHYROXINE, DICLOFENAC. Medications: At home include Dexilant, Lexapro, loratadine, Zofran, and Robaxin. Review of Systems: Negative. Social History: Negative. Family History: Noncontributory. Physical Examination: Vital Signs: Blood pressure 114/67, pulse of 58, respiratory rate of 16, temperature 98, pulse ox wa s 100%. HEENT: Negative. Neck: Supple without any bruit, lymphadenopathy, JVD, or thyromegaly. Chest: Clear to auscultation and percussion. Cardiac: Revealed a regular rhythm and rate with an S4 gallops, no murmurs or rubs. Abdomen: Benign. Extremities: Revealed no clubbing, cyanosis, or edema. Data Reviewed: EKG showed sinus bradycardia. Chest x-ray was normal. Creatinine was 2.29, platelet count was 81,000. Troponin was negative. Her BNP was 242. Lipid profile was adequate. She was CO VID negative. Impression And Plan: 1.Unstable angina with symptoms of chest pain radiating to the left arm with shortness of breath and diaphoresis and recent positive stress test. We are obviously concern with her kidney function. Ne phrology had been consulted. We will hydrate her. Will be given Mucomyst. She also has some thromb ocytopenia that needs to be addressed down the road. I agree with her present regimen. I think carrie ent needs a left heart catheterization to define her coronary anatomy. I will limit the amount of co ntrast as much as possible. The patient understands the risk and the benefits of the procedure. She agrees to proceed. Dr. Edwards is involved in her care as well. MILKA/NGOC Voice ID: [id number] Report ID: [id number]
== END 2021-04-07 11:35 | disposition home or self-care (01) | DRG 392 ==
LOC: ER 12:16 → OBSVTOIN 16:33 → ERHOLD 16:33 → 4TH 20:31
PROVIDERS: ADMIT Family Medicine; ATTEND Family Medicine
PROC: B201YZZ Plain Radiography of Multiple Coronary Arteries using Other Contrast (ICD-10-PCS; principal; 2021-04-06)
DX: K21.9 Gastro-esophageal reflux disease without esophagitis (principal); N18.4 Chronic kidney disease, stage 4 (severe); R07.9 Chest pain, unspecified; R94.39 Abnormal result of other cardiovascular function study; K44.9 Diaphragmatic hernia without obstruction or gangrene; I12.9 Hypertensive chronic kidney disease with stage 1 through stage 4 chronic kidney disease, or unspecified chronic kidney disease; D69.6 Thrombocytopenia, unspecified; F41.8 Other specified anxiety disorders; K58.9 Irritable bowel syndrome, unspecified; J45.909 Unspecified asthma, uncomplicated; E87.6 Hypokalemia; E83.51 Hypocalcemia; D63.8 Anemia in other chronic diseases classified elsewhere; Z20.822 Contact with and (suspected) exposure to COVID-19
CPT/HCPCS: 36415; 71045; 80048; 80061; 80076; 81003; 81015; 82550; 82553; 83735; 83880; 84484; 85025; 85610; 93005; 93454; 96374; 99285; C1760; C1893; J2270; J7040; U0003

== ENCOUNTER 2021-05-13 05:55 | Day surgery (SDC) | payer OTHER ==
[2021-05-12 09:05] LABS: Absolute Lymphocytes (CBC) 1.7 K/uL (0.7-4.9); Basophils % 0.3 % (0-1.3); Hematocrit 34.2 % (36.0-45.0); Lymphocytes % 44.1 % (15.3-44.8); MPV 11.2 fL (7.6-11.3); RBC Red Blood Cell Count 3.36 M/uL (3.86-4.86)
[2021-05-12 09:07] LABS: Albumin 3.8 g/dL (3.4-5.0); Bilirubin Direct 0.1 mg/dL (0-0.2); Bilirubin Total 0.3 mg/dL (0.2-1.0); Potassium 3.6 mmol/L (3.5-5.1); Protein, Total 7.4 g/dL (6.4-8.2)
[2021-05-12 11:10] LABS: Blood Morphology Comment NOT SEEN (NOT SEEN); Platelet Estimate DECR; White Blood Cell Scan OK (OK)
[2021-05-13] MEDS ORDERED: Ringers Lactate 1,000 ML IV ONE (06:35)
[2021-05-13] MEDS ORDERED: CEFOXITIN/SWI 1gm 1 GM/10 ML SYR ONE (06:35)
[2021-05-13 06:45] VITALS: O2SAT 100
[2021-05-13 06:59] LABS: Absolute Lymphocytes (CBC) 1.8 K/uL (0.7-4.9); Basophils % 0.3 % (0-1.3); Hematocrit 33.1 % (36.0-45.0); Lymphocytes % 43.4 % (15.3-44.8); MPV 11.4 fL (7.6-11.3); RBC Red Blood Cell Count 3.23 M/uL (3.86-4.86)
[2021-05-13 07:07] LABS: Albumin 3.8 g/dL (3.4-5.0); Bilirubin Direct 0.2 mg/dL (0-0.2); Bilirubin Total 0.4 mg/dL (0.2-1.0); Protein, Total 7.2 g/dL (6.4-8.2)
[2021-05-13] MEDS ORDERED: propofoL 200 MG/20 ML VIAL IV ONE (07:49)
[2021-05-13] MEDS ORDERED: ROCURONIUM 50 MG/5 ML VIAL IV ONE (07:50)
[2021-05-13] MEDS ORDERED: FENTANYL CITR 250 MCG/5 ML ONE (07:50)
[2021-05-13] MEDS ORDERED: GLYCOPYRROLATE 0.2 MG/ML SYR ONE (07:50)
[2021-05-13] MEDS ORDERED: LIDOCAINE 2% MPF 5 ML VIAL ONE (07:50)
[2021-05-13] MEDS ORDERED: MIDAZOLAM HCL 2 MG/2 ML INJ ONE (07:51)
[2021-05-13] MEDS ORDERED: ONDANSETRON 4 MG/2 ML VIAL ONE (07:53)
[2021-05-13] MEDS ORDERED: dexAMETHasone 10 MG/ML VIAL ONE (07:55)
[2021-05-13] MEDS ORDERED: KETOROLAC 30 MG/ML INJ ONE (07:55)
[2021-05-13] MEDS ORDERED: BUPIVACAINE 0.5% PF 10 ML VIAL ONE (07:57)
[2021-05-13] MEDS: HYDROMORPHONE HCL 1 MG/ML INJ ONE ×2 (09:59→10:14)
[2021-05-13 10:34] VITALS: TEMP 96.8
[2021-05-13] MEDS ORDERED: TRAMADOL HCL 50 MG TAB ONE (11:53)
[2021-05-13 12:08] VITALS: BP 97/62
--- NOTE | 2021-05-13 18:28 | OP ---
Date of Procedure: 05/13/2021 Surgeon: Glen Valle MD [employer]: TAIWO Gates Preoperative Diagnosis: Chronic cholecystitis and cholelithiasis. Postoperative Diagnosis: Chronic cholecystitis and cholelithiasis with cirrhosis of the liver and ve ntral hernia. Procedure Performed: Laparoscopic cholecystectomy and repair of ventral hernia. Estimated Blood Loss: Minimal. Specimen: Hernia sac and gallbladder. Finding: As above. Anesthesia: General. Complications: None. Disposition: The patient tolerated the procedure in stable condition and taken to Recovery in good g eneral condition. Procedure In Detail: The patient was brought to the OR and placed in supine position. General anest hesia begun. The patient was prepped and draped in usual sterile fashion. Marcaine 0.5% was infiltr ated locally. A 15-blade was used to make a 1 cm supraumbilical midline incision. Subcutaneous tiss ue was divided. Fascia was identified and there was a ventral hernia present with preperitoneal fat, which was excised. Good fascial edges were obtained. A 1.5 cm opening was present and then #1 Vicr yl was used as stay sutures and then a 12 mm trocar was placed into the peritoneal cavity under direc t vision. Pneumoperitoneum was established and three 5 mm trocars were placed, 2 in the right subcos jaime region and 1 in the infraumbilical paramedian region because the liver was very enlarged and cirr hotic. Then, the gallbladder was identified. The fundus was retracted superiorly. Infundibulum was identified and retracted inferolaterally. Cystic duct and cystic artery were clearly identified wit h blunt dissection. Clips were placed. Both structures were divided. Cautery was used to remove th e gallbladder from the liver bed. Bleeding on the liver bed was controlled with cautery. Gallbladde r was retrieved through the umbilicus via an EndoCatch bag. Because of the cirrhosis, Arixtra spray was used as a preventive measure and platelet counts were low as well. No evidence of bleeding or bi le leakage was appreciated. Subsequently, all trocars were removed under direct vision. Stay suture s were tied to each other to reapproximate the fascial defect and closed the hernia defect. Subcutan eous wounds were irrigated. Bleeding was controlled with cautery. A 3-0 chromic was used to reappro ximate subcutaneous tissue and close the skin. Sterile dressing applied. The patient was awakened a nd taken to Recovery in good condition. Discharge Note: The patient will go to day surgery and home when stable. Disposition: Home. Condition: Stable. Discharge Instructions: Resume home medications and diet. Activity as tolerated. No heavy lifting. Remove outer dressing in 2 days. Shower. Keep wound clean and dry. Keep Steri-Strips on at all t imes. Tramadol 1 tablet 50 mg p.o. q.4 p.r.n. pain. Follow up in my office in 1 week. Call for mila ointment. /MODL Voice ID: [id number] Report ID: [id number]
== END 2021-05-13 11:58 | disposition home or self-care (01) ==
LOC: OR 05:55
PROVIDERS: ATTEND Surgery
PROC: 0FT44ZZ Resection of Gallbladder, Percutaneous Endoscopic Approach (ICD-10-PCS; principal; 2021-05-13 08:00)
DX: K80.10 Calculus of gallbladder with chronic cholecystitis without obstruction (principal); Z20.822 Contact with and (suspected) exposure to COVID-19
CPT/HCPCS: 85025 ×2; 80048; 36415 ×2; 82150; 86900; 86850; 84703; 86901; 80076 ×2; 88302; 88304; 47562; U0003; J2704; J2250; J3010; J1100; J1170; J7120; J2405

== ENCOUNTER 2021-05-14 15:42 | Emergency (ER) | payer OTHER ==
--- OUTSIDE RECORDS SUMMARY | 2021-05-14 15:45 | XMS REPORT | Continuity of Care Document ---
:1980 Author Organization [facility] t Address [address] [place] [address] Care Team Providers Name Role Phone Radiology [...] Type Clinicians Facility Department ID 2021-03-26 2021-03-26 [facility] Radiology [facility] [id number] 16:00:00 23:59:00 Encounter [place] [id number] [place] [id number] [place] [phone] [id number] 2021-03-26 2021-03-26 Orders Doctor BRADEN [id number] 00:00:00 00:00:00 Only Unassigned, MARVIN [id number] [place] [id number] 2021-03-24 2021-03-24 [facility] Radiology [facility] [id number] 07:33:57 23:59:00 Encounter [place] [id number] [place] [id number] [place] [id number] 2021-03-24 2021-03-24 Orders Doctor BRADEN [id number] 00:00:00 00:00:00 Only Unassigned, MARVIN [id number] [place] [facility] [id number] 2019-11-26 2019-11-26 Office [place] [id number] 10:09:55 11:02:35 Visit John [place] [id number] [place] [id number] [place] [phone] AND ALIV[facility] Results This patient has no known results.
[2021-05-14] MEDS ORDERED: ONDANSETRON 4 MG (ODT) TAB ONE (17:25)
--- NOTE | 2021-05-14 20:51 | RAD REPORT ---
EXAM DESCRIPTION: RAD - Chest Single View - 05/14/2021 8:43 pm CLINICAL HISTORY: COUGH COMPARISON: Chest Single View dated 04/05/2021; Chest Single View dated 03/28/2021; Chest Pa And Lat (2 Views) dated 09/23/2020; Chest Single View dated 11/13/2019 FINDINGS: No evidence of edema or pneumonia. The heart size is within normal limits.No acute osseous abnormality. There is free air underneath the right hemidiaphragm. The lungs are clear, however. Jaya gical clips in the right upper quadrant per IMPRESSION: No acute cardiopulmonary disease. Free air underneath the right hemidiaphragm. Reference same-day CT of the abdomen and pelvis.
--- NOTE | 2021-05-14 20:51 | RAD REPORT ---
EXAM DESCRIPTION: CT - Abdomen Pelvis Wo Contrast - 05/14/2021 8:32 pm CLINICAL HISTORY: Abdominal pain. s/p cholcystectomy;Abd pain;Nausea / vomiting COMPARISON: Abdomen Pelvis Wo Contrast dated 07/16/2020; Abdomen Pelvis Wo Contrast dated 018; Abdomen Pelvis Wo Contrast dated 03/08/2017Abdomen Pelvis Wo Contrast dated 07/16/2020; Abdome n Pelvis Wo Contrast dated 01/19/2018; Abdomen Pelvis Wo Contrast dated 03/08/2017; Hepatobiliary Sy stem Imagin dated 04/29/2021 TECHNIQUE: CT imaging of the abdomen and pelvis was performed without contrast. Solid organ, bowel a nd vascular assessment is limited due to lack of IV and oral contrast. All CT scans are performed using dose optimization technique as appropriate and may include automated exposure control or mA/KV adjustment according to patient size. FINDINGS: The lower lung pike are clear. No focal liver lesions are identified. Status post cholecystectomy. No intrahepatic biliary ductal di latation is identified. There is some fluid at the gallbladder fossa. Punctate right renal stone. No ureteral calculi. There is free fluid in the pelvis. No bowel obstruction is identified. Bladder is u nremarkable. No adnexal masses are seen. No fractures are identified. No adrenal masses. Normal appen leatha. IMPRESSION: Free air within the abdomen which is not unexpected given the patient reportedly had a c holecystectomy the previous day. There is some fluid at the gallbladder fossa and within the pelvis w hich is also not unexpected. Recommend clinical correlation as hollow viscus perforation could appear similar. A limited non-contrast examination was performed as detailed.
[2021-05-14 21:24] LABS: Basophils % 1.6 % (0-1.3); Lymphocytes % 11.4 % (15.3-44.8); MPV 10.7 fL (7.6-11.3); RBC Red Blood Cell Count 3.68 M/uL (3.86-4.86)
[2021-05-14 21:57] LABS: Albumin 4.3 g/dL (3.4-5.0); Bilirubin Direct 0.3 mg/dL (0-0.2); Bilirubin Total 1.1 mg/dL (0.2-1.0); Potassium 3.7 mmol/L (3.5-5.1); Protein, Total 8.3 g/dL (6.4-8.2)
[2021-05-14] MEDS ORDERED: PROMETHAZINE INJ 25 MG/ML AMP ONE (21:57)
[2021-05-14] MEDS ORDERED: MORPHINE 2 MG/ML SYR ONE (21:58)
[2021-05-14] MEDS ORDERED: NA CHLORIDE 0.9% 500 ML ONE (21:58)
[2021-05-14] MEDS ORDERED: FAMOTIDINE 20 MG/2 ML VIAL IV ONE (21:58)
[2021-05-14 23:53] LABS: Protime INR 1.13
--- NOTE | 2021-05-15 00:27 | EDPHYS ---
Physician Documentation [facility] Name: Miya Persaud Age: 40 yrs Sex: Female : 1980 Arrival Date: 05/14/2021 Time: 15:43 Bed DIS2 Private MD: ED Physician Keith Rausch HPI: 05/14 20:24 This 40 yrs old Black Female presents to ER via Wheelchair with complaints of Post mh7 Surgical Pain, Vomiting. 20:24 The patient presents with abdominal pain in the upper abdomen. Onset: The mh7 symptoms/episode began/occurred last night. The symptoms do not radiate. Associated signs and symptoms: Pertinent positives: nausea and vomiting, Pertinent negatives: anorexia, blood in stools, chest pain, constipation, diarrhea, dysuria, fever, headache, hematuria, palpitations, shortness of breath, vaginal discharge, vomiting blood. The symptoms are described as intermittent, vague, waxing/waning. Modifying factors: The symptoms are alleviated by nothing, the symptoms are aggravated by food, movement, pressure, touching the area, vomiting. Severity of pain: At its worst the pain was moderate today, in the emergency department the pain is unchanged. The patient has been recently been admitted at [facility], was discharged yesterday. Patient states that she had her gallbladder removed at this hospital yesterday. She reports increased upper abdominal pain, nausea, and vomiting since last night. She has also had a nonproductive cough since yesterday. She denies any fever, sore throat, chest pain, headache, diarrhea, or dysuria.. Historical: - Allergies: 17:05 "mycin" medications. all those that end with mycin; iw 17:05 Aspirin; iw 17:05 Clarithromycin; iw 17:05 Cyclobenzaprine; iw 17:05 Demerol; iw 17:05 diclofenac sodium; iw 17:05 Levofloxacin; iw - PMHx: 17:05 Anemia; Anxiety; Depression; ibs; kidney disease; Stage IV renal disease; Thyroid iw problem; - Immunization history:: Client reports having NOT received the Covid vaccine. - Social history:: Smoking status: Patient denies any tobacco usage or history of. ROS: 20:24 Constitutional: Negative for fever, chills, and weight loss, Eyes: Negative for injury, mh7 pain, redness, and discharge, ENT: Negative for injury, pain, and discharge, Neck: Negative for injury, pain, and swelling, Cardiovascular: Negative for chest pain, palpitations, and edema, Back: Negative for injury and pain, : Negative for injury, bleeding, discharge, and swelling, MS/Extremity: Negative for injury and deformity, Skin: Negative for injury, rash, and discoloration, Neuro: Negative for headache, weakness, numbness, tingling, and seizure, Psych: Negative for depression, anxiety, suicide ideation, homicidal ideation, and hallucinations, Allergy/Immunology: Negative for hives, rash, and allergies, Endocrine: Negative for neck swelling, polydipsia, polyuria, polyphagia, and marked weight changes, Hematologic/Lymphatic: Negative for swollen nodes, abnormal bleeding, and unusual bruising. Exam: 20:24 Constitutional: This is a well developed, well nourished patient who is awake, alert, mh7 and in no acute distress. Head/Face: Normocephalic, atraumatic. Eyes: Pupils equal round and reactive to light, extra-ocular motions intact. Lids and lashes normal. Conjunctiva and sclera are non-icteric and not injected. Cornea within normal limits. Periorbital areas with no swelling, redness, or edema. Neck: Trachea midline, no thyromegaly or masses palpated, and no cervical lymphadenopathy. Supple, full range of motion without nuchal rigidity, or vertebral point tenderness. No Meningismus. Chest/axilla: Normal chest wall appearance and motion. Nontender with no deformity. No lesions are appreciated. Cardiovascular: Regular rate and rhythm with a normal S1 and S2. No gallops, murmurs, or rubs. Normal PMI, no JVD. No pulse deficits. Respiratory: Lungs have equal breath sounds bilaterally, clear to auscultation and percussion. No rales, rhonchi or wheezes noted. No increased work of breathing, no retractions or nasal flaring. 20:24 Back: No spinal tenderness. No costovertebral tenderness. Full range of motion. Skin: Warm, dry with normal turgor. Normal color with no rashes, no lesions, and no evidence of cellulitis. MS/ Extremity: Pulses equal, no cyanosis. Neurovascular intact. Full, normal range of motion. Neuro: Awake and alert, GCS 15, oriented to person, place, time, and situation. Cranial nerves II-XII grossly intact. Motor strength 5/5 in all extremities. Sensory grossly intact. Cerebellar exam normal. Normal gait. Psych: Awake, alert, with orientation to person, place and time. Behavior, mood, and affect are within normal limits. 20:24 Abdomen/GI: Inspection: scar(s), are noted in the umbilical area and right upper quadrant, Surgical wounds appear clean dry and intact without any discharge, erythema, or swelling., Bowel sounds: normal, in all quadrants, Palpation: moderate abdominal tenderness, in the epigastric area and right upper quadrant, mass, is not appreciated, rebound tenderness, is not appreciated, voluntary guarding, is not appreciated, involuntary guarding, is not appreciated, no appreciated organomegaly, Rectal exam: the exam is deferred, because of patient request, Indicators: McBurney's point is not tender, Mejia's sign is negative, Rovsing's sign is negative, Obturator sign is negative, Psoas sign is negative, Liver: is enlarged, Hernia: not appreciated. Vital Signs: 17:03 BP 134 / 90; Pulse 55; Resp 16; Temp 97.4(O); Pulse Ox 99% on R/A; Weight 46.72 kg; mt Height 5 ft. 1 in. (154.94 cm) (R); 20:58 BP 117 / 64; Pulse 60; Resp 20; Pulse Ox 98% on R/A; dh4 05/15 00:48 BP 107 / 59; Pulse 60; Resp 20 S; Temp 98.3(O); Pulse Ox 98% on R/A; bb 05/14 17:03 Body Mass Index 19.46 (46.72 kg, 154.94 cm) mt MDM: 00:23 Differential diagnosis: bowel obstruction, diverticulitis, gastritis, gastroesophageal mh7 reflux disease, non-specific abd pain, pancreatitis, Peptic Ulcer Disease, urinary tract infection. Data reviewed: vital signs, nurses notes, old medical records, lab test result(s), cardiac enzymes, CBC, electrolytes, EKG, radiologic studies, CT scan, plain films. Data interpreted: Pulse oximetry: on room air is 98 %. Interpretation: normal. Counseling: I had a detailed discussion with the patient and/or guardian regarding: the historical points, exam findings, and any diagnostic results supporting the discharge/admit diagnosis, lab results, radiology results, the need for outpatient follow up, to return to the emergency department if symptoms worsen or persist or if there are any questions or concerns that arise at home. Response to treatment: the patient's symptoms have resolved after treatment, the patient's blood pressure is in an acceptable range, mental status has returned to baseline, the patient no longer shows bradycardia, the patient is not short of breath, the patient is not tachycardic, the patient's pain is gone, the patient's temperature has normalized, the patient is now symptom free, patient is well hydrated. Physician consultation: Glen Valle MD was contacted at 22:05, regarding patient's condition, and will see patient in office, next week. 00:27 Patient medically screened. [facility] 05/14 20:18 Order name: Basic Metabolic Panel; Complete Time: 22:01 [facility] 05/14 20:18 Order name: CBC with Diff; Complete Time: 21:37 [facility] 05/14 20:18 Order name: Hepatic Function; Complete Time: 22:01 [facility] 05/14 20:18 Order name: Lipase; Complete Time: 22:01 [facility] 05/14 20:20 Order name: Troponin (emerg Dept Use Only); Complete Time: 21:51 [facility] 05/14 21:39 Order name: Protime (+inr) [facility] 05/14 20:19 Order name: Chest Single View XRAY; Complete Time: 21:06 [facility] 05/14 20:19 Order name: CT Abd/Pelvis - Without Contrast; Complete Time: 21:06 [facility] 05/14 21:39 Order name: Ptt, Activated; Complete Time: 00:19 [facility] 05/14 21:39 Order name: Protime (+INR); Complete Time: 00:19 [facility] 05/14 20:18 Order name: IV Saline Lock; Complete Time: 21:15 [facility] 05/14 20:18 Order name: Labs collected and sent; Complete Time: 21:15 [facility] Administered Medications: 05/14 17:05 Drug: Ondansetron 4 mg Route: PO; kb 22:06 Drug: NS 0.9% 500 ml Route: IV; Rate: bolus; Site: right antecubital; bb 05/15 00:47 Follow up: IV Status: Completed infusion; IV Intake: 500ml 05/14 22:07 Drug: Pepcid (famotidine) 20 mg Route: IVP; Site: right antecubital; 23:00 Follow up: Response: No adverse reaction bb 22:07 Drug: morphine 2 mg Route: IVP; Site: right antecubital; bb 23:00 Follow up: Response: No adverse reaction; RASS: Alert and Calm (0) bb 22: Drug: Phenergan (promethazine) 12.5 mg Route: IVP; Site: right antecubital; bb 23:00 Follow up: Response: No adverse reaction bb Disposition Summary: 05/15/21 00:27 Discharge Ordered Location: Home [facility] Problem: new [facility] Symptoms: have improved mh Condition: Stable 7 Diagnosis - Nausea with vomiting, unspecified mh7 - Abdominal Pain, Post Operative 7 Followup: [facility] - With: Private Physician - When: 1 - 2 days - Reason: Worsening of condition, Recheck today's complaints, Continuance of care, Re-evaluation by your physician Followup: [facility] - With: Glen Valle MD - When: 2 - 3 days - Reason: Worsening of condition, Recheck today's complaints, Continuance of care, Re-evaluation by your physician Discharge Instructions: - Discharge Summary Sheet 7 - Nausea and Vomiting, Adult, [id number] 7 - Abdominal Pain, Adult, [id number] 7 - Cholecystostomy, Care After mh7 Forms: - Medication Reconciliation Form [facility] - Thank You Letter [facility] - Antibiotic Education [facility] - Prescription Opioid Use [facility] Prescriptions: - ondansetron 4 mg Oral tablet,disintegrating - place 1 tablet by TRANSLINGUAL route every 8 hours As needed; 10 tablet; 7 Refills: 0, Product Selection Permitted - Pepcid 20 mg Oral Tablet - take 1 tablet by ORAL route every 12 hours for 5 days; 10 tablet; Refills: 0, [facility] Product Selection Permitted - promethazine 25 mg Oral Tablet - take 1 tablet by ORAL route every 6 hours As needed; 8 tablet; Refills: 0, 7 Product Selection Permitted Signatures: Dispatcher [employer] Zeynep Armendariz, EMIL FLOYD-Micki Avila RN RN Karla Graham RN RN iw Holmes, Maurice, MD MD mh7
--- NOTE | 2021-05-15 00:27 | ER ---
Nurse's Notes [facility] Name: Miya Persaud Age: 40 yrs Sex: Female : 1980 Arrival Date: 05/14/2021 Time: 15:43 Bed DIS2 Private MD: Diagnosis: Nausea with vomiting, unspecified;Abdominal Pain, Post Operative Presentation: 05/14 17:05 Chief complaint: Patient states: cholecystectomy on 05-13 by Leonard, having post op pain. iw Ebola Screen: Patient negative for fever greater than or equal to 101.5 degrees Fahrenheit, and additional compatible Ebola Virus Disease symptoms Patient denies exposure to infectious person. Patient denies travel to an Ebola-affected area in the 21 days before illness onset. No symptoms or risks identified at this time. 17:05 Method Of Arrival: Wheelchair iw 17:05 Acuity: PARTH 3 iw Historical: - Allergies: 17:05 "mycin" medications. all those that end with mycin; iw 17:05 Aspirin; iw 17:05 Clarithromycin; iw 17:05 Cyclobenzaprine; iw 17:05 Demerol; iw 17:05 diclofenac sodium; iw 17:05 Levofloxacin; iw - PMHx: 17:05 Anemia; Anxiety; Depression; ibs; kidney disease; Stage IV renal disease; Thyroid iw problem; - Immunization history:: Client reports having NOT received the Covid vaccine. - Social history:: Smoking status: Patient denies any tobacco usage or history of. Screenin:00 Abuse screen: Denies threats or abuse. Nutritional screening: No deficits noted. bb Tuberculosis screening: No symptoms or risk factors identified. Fall Risk None identified. Assessment: 20:00 General: Appears uncomfortable, ill, slender, Behavior is anxious. Pain: Complains of bb pain in epigastric area and right upper quadrant Pain currently is 10 out of 10 on a pain scale. Neuro: Level of Consciousness is awake, alert, obeys commands, Oriented to person, place, time, situation. Cardiovascular: Capillary refill < 3 seconds Patient's skin is warm and dry. Respiratory: Respiratory effort is even, unlabored. GI: Abdomen is non-distended, Reports upper abdominal pain, vomiting. Derm: Skin is dry, Skin is normal, Skin temperature is warm. Musculoskeletal: Circulation, motion, and sensation intact. 22:30 Reassessment: pt appears to be sleeping, eyes closed, resp unlabored, arouses easily bb states she is feeling better. 05/15 00:45 Reassessment: Patient is alert, oriented x 3, equal unlabored respirations, skin bb warm/dry/pink. pt verbalized understanding of and agrees to plan of care discharge instructions given pt ambulated with steady gait to exit Patient states feeling better. Vital Signs: 05/14 17:03 BP 134 / 90; Pulse 55; Resp 16; Temp 97.4(O); Pulse Ox 99% on R/A; Weight 46.72 kg; mt Height 5 ft. 1 in. (154.94 cm) (R); 20:58 BP 117 / 64; Pulse 60; Resp 20; Pulse Ox 98% on R/A; dh4 05/15 00:48 BP 107 / 59; Pulse 60; Resp 20 S; Temp 98.3(O); Pulse Ox 98% on R/A; bb 05/14 17:03 Body Mass Index 19.46 (46.72 kg, 154.94 cm) nh ED Course: 05/14 15:43 Patient arrived in ED. mr 16:48 Derek Gomez MD is Attending Physician. kdr 17:05 Triage completed. iw 20:00 Keith Rausch MD is Attending Physician. 7 20:00 No provider procedures requiring assistance completed. bb 20:00 Patient has correct armband on for positive identification. bb 20:32 CT Abd/Pelvis - Without Contrast In Process Unspecified. EDMS 20:42 Chest Single View XRAY In Process Unspecified. EDMS 21:14 Inserted saline lock: 20 gauge in right antecubital area, using aseptic technique. replaced by [facility] Blood collected. 05/15 00:26 Glen Valle MD is Referral Physician. 7 00:45 IV discontinued, intact, bleeding controlled, No redness/swelling at site. Pressure bb dressing applied. Administered Medications: 05/14 17:05 Drug: Ondansetron 4 mg Route: PO; kb 22:06 Drug: NS 0.9% 500 ml Route: IV; Rate: bolus; Site: right antecubital; bb 05/15 00:47 Follow up: IV Status: Completed infusion; IV Intake: 500ml 05/14 22:07 Drug: Pepcid (famotidine) 20 mg Route: IVP; Site: right antecubital; bb 23:00 Follow up: Response: No adverse reaction bb 22:07 Drug: morphine 2 mg Route: IVP; Site: right antecubital; bb 23:00 Follow up: Response: No adverse reaction; RASS: Alert and Calm (0) bb 22:07 Drug: Phenergan (promethazine) 12.5 mg Route: IVP; Site: right antecubital; bb 23:00 Follow up: Response: No adverse reaction bb Intake: 05/15 00:47 IV: 500ml; Total: 500ml. bb Outcome: 00:27 Discharge ordered by . mhNikole 00:45 Discharged to home ambulatory. bb 00:45 Condition: stable 00:45 Discharge instructions given to patient, Instructed on discharge instructions, follow up and referral plans. medication usage, Demonstrated understanding of instructions, follow-up care, medications, Prescriptions given X 3. 00:49 Patient left the ED. bb Signatures: Dispatcher [employer] EDMS Zeynep Barba, SUPERIOR COURT JUDGE-C SUPERIOR COURT JUDGE-Ckb Derek Gomez MD MD kdr Rivera Sylvia Micki Hatfield RN RN bb Williams, Irene, RN RN iw [place] Leighton Cota replaced by [facility] Keith Rausch MD MD 7
[2021-05-15 00:57] VITALS: O2SAT 98
[2021-05-15 01:00] VITALS: BP 107/59; TEMP 98.3
--- NOTE | 2021-05-18 16:58 | EKG ---
Test Date: 2021-05-14 Test Time: 21:42:52 Pole Lift Operator: TAMANNA MEASUREMENT RESULTS: Intervals: Rate: 56 HI: 142 QRSD: 84 QT: 430 QTc: 414 Gordo: P: 61 HI: 142 QRS: 62 T: 66 INTERPRETIVE STATEMENTS: Sinus bradycardia Otherwise normal ECG Compared to ECG 04/05/2021 12:41:49 No significant changes Electronically Signed On 05-18-21 16:53:59 CDT by Fidel Mendez
== END 2021-05-15 00:49 | disposition home or self-care (01) ==
LOC: ER 15:42
DX: G89.18 Other acute postprocedural pain (principal); Z98.890 Other specified postprocedural states; Z88.1 Allergy status to other antibiotic agents; Z88.5 Allergy status to narcotic agent; Z88.6 Allergy status to analgesic agent; Z88.8 Allergy status to other drugs, medicaments and biological substances
CPT/HCPCS: 96361; 93005; 85025; 80048; 36415; 85610; 80076; 85730; 84484; 83690; 74176; 71045; 96375; 96374; 99284; J2550; J2270; J7040

== ENCOUNTER 2023-02-01 12:41 | Inpatient (IN) | payer OTHER ==
--- OUTSIDE RECORDS SUMMARY | 2023-02-01 13:30 | XMS REPORT | Continuity of Care Document ---
:1980 Author Organization [facility] t Address [address] [place] [address] [address] [place] [address] Care Team Providers Name Role Phone HYACINTH TEJINDER Primary Care Physician Unavailable Doctor Unassigned, [place] Attending Clinician Unavailable EUN STEEL Attending Clinician Unavailable Eun Steel MD Attending Clinician JEANA AHUMADA Attending Clinician Unavailable Jeana Ahumada DO Attending Clinician Kia Waddell MD Attending Clinician Pob, [facility] Main Attending Clinician Unavailable Randall Waddell MD Attending Clinician RANDALL WADDELL Attending Clinician Unavailable KIA WADDELL Attending Clinician Unavailable Jose Evans Attending Clinician DONAVAN GLYNN Attending Clinician Unavailable Donavan Espinoza Attending Clinician 1, [facility] Attending Clinician Unavailable Akilah Cedeno MD Attending Clinician AKILAH CEDNEO Attending Clinician Unavailable Zaid Cowan Attending Clinician ZAID HERNÁNDEZ Attending Clinician Unavailable [facility] Attending Clinician Unavailable Vtc-Lab Attending Clinician Unavailable Matthew Kelly MD Attending Clinician Radiology Attending Clinician Unavailable RADIOLOGY Attending Clinician Unavailable MYLES NEWMAN Attending Clinician Unavailable LISA MALAVE Attending Clinician Unavailable Hadley Edmonds MD Attending Clinician John Woods MD Attending Clinician HADLEY EDMONDS Attending Clinician Unavailable Jess Hanks MD Attending Clinician EUN STEEL Admitting Clinician Unavailable DONAVAN GLYNN Admitting Clinician Unavailable KIA WADDELL Admitting Clinician Unavailable Payers Payer Name Policy Type Policy Number Effective Date Expiration Date [facility] [id number] 2015 MEDICAID 00:00:00 Problems Condition Condition Condition Status Onset Resolution Last Treating Co mments Source Name Details Category Date Date Treatment Clinician Date Mild Mild Disease Active 2020-10 Univers intermitte intermitte 2-20 [place] Nephrogeno Nephrogeno Disease Active 2020-10 U nivers us us 2-13 ity of protein[place] protein[place] Anemia of Anemia of Disease Active 2020-10 Uni vers chronic chronic 2-13 ity of disease disease 00:00: [place] [facility] Urinary Urinary Disease Active Overview: Univ ers incontinen incontinen 03-12 Formattin ity of ce ce 00:00: g of this note Medical might be Branch different from the original. Formattin g of this note might be different from the original. Possible mixed incontine nce on oxybutyni n being managed by Dr Steel Grade 3 Grade 3 Disease Active Overview: Univ ers out of 6 out of 6 03-12 Formattin ity of intensity intensity 00:00: [place] of [place] murmur murmur 00 note Medical might be Branch different from the original. Formattin g of this note might be different from the original. Has been followed by Dr Mendez likely mitral valve prolapse Will refer for further eval Celiac Celiac Disease Active Overview: Univer s disease disease 03-12 Formattin ity o f 00:00: g of this note Medical might be Branch different from the original. Formattin g of this note might be different from the original. Has chronic malabsorb tion syndrome Will need to monitor iron ,B12 folate and vitamin D levels Counseled on protein intake and monitor weight Has been followed by Dr Tim in past Lumbar Lumbar Disease Active Univers radiculiti radiculiti 12-30 it y of s s 00:00: Medical Branch Lumbar Lumbar Disease Active Univers radiculopa radiculopa 12-30 it y of thy thy 00:00: Medical Branch Pain of Pain of Disease Active Univers left hip left hip 12-30 ity of joint joint 00:00: Medical Branch Stage 3 Stage 3 Disease Active Overview: Univ ers chronic chronic 05-02 Formattin ity o f kidney kidney 00:00: g of this [place] disease disease note Medical might be Branch different from the original. Formattin g of this note might be different from the original. 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 Baseline creatinin e around 2-2.5 Fluctuate s with her vol status she tends to get very dehydrate d sometimes with nausea and vomiting She has never been on immunosup ression Will get records from Dr Villalobos Anxiety Anxiety Disease Active Univers and and 12-05 ity of depression depression [place] [facility] [place] Allergies, Adverse Reactions, Alerts Allergy Allergy Status Severity Reaction(s) Onset Inactive Treating Comm ents Source Name Type Date Date Clinician Macrolid Propensi Active Shortness of Univers e ty to Breath 2-25 ity of Antibiot adverse 00:00: [place] ics reaction 00 Medical s Branch MACROLID Drug Active SOB Univers E Class 2-25 ity of ANTIBIOT 00:00: [place] ICS 00 Medical Branch Macrolid Propensi Active Shortness of Univers e ty to Breath 2-25 ity of Antibiot adverse 00:00: [place] ics reaction 00 Medical s Branch Cycloben Propensi Active Shortness of Univers zaprine ty to Breath 6-10 ity of adverse 00:00: [place] reaction 00 Medical s Branch CYCLOBEN DRUG Active SOB Univers ZAPRINE INGREDI 6-10 ity of 00:00: Medical Branch Gluten Propensi Active Unknown - 2019-10 Unive rs ty to See comments 0-15 ity of adverse 00:00: [place] reaction 00 Medical s Branch GLUTEN DRUG Active Unknown-Cmnt 2019-10 Univ ers INGREDI 0-15 ity of 00:00: [place] 00 Medical Branch Clarithr Propensi Active Shortness of Univers omycin ty to Breath 2-22 ity of adverse 00:00: [place] reaction 00 Medical s Branch CLARITHR DRUG Active High Palpitations Un jame OMYCIN INGREDI 2-22 ity of 00:00: [place] 00 Medical Branch Aspirin Propensi Active Shortness of Experien c Univers ty to Breath -04 ed ity of adverse 00:00: shortness [place] reaction of breath Medic al s and Branch hives. ASPIRIN DRUG Active SOB Univers INGREDI 5- ity of 00:00: [place] 00 Medical Branch Social History Social Habit Start Date Stop Date Quantity Comments Source Alcohol intake 2022-05-26 2022-05-26 Current [facility] 00:00:00 00:00:00 non-drinker of [facility] alcohol (finding) Branch Exposure to 2022-04-17 2022-04-27 Yes [facility] SARS-CoV-2 00:00:00 14:37:00 [place] Medical (event) Branch Tobacco use and 2017-12-29 2017-12-29 Smokeless tobacco Un iversity of exposure 00:00:00 00:00:00 non-user [facility] Sex Assigned At [birth year] [facility] 00:00:00 00:00:00 Smoking Status Start Date Stop Date Source Tobacco smoking consumption [facility] unknown Never smoked tobacco [facility] Medications Ordered Filled Start Stop Current Ordering Indication Dosage Frequency Signature Comments Components Source Medication Medication Date Date Medication? Clinician (SIG) Name Name mirtazapine Yes 15mg Take 15 mg Univers 15 mg 7-29 by mouth ity of tablet 03:23: at [place] 02 bedtime. Medical Branch mirtazapine Yes 15mg Take 15 mg Univers 15 mg 7-29 by mouth ity of tablet 03:23: at [place] 02 bedtime. Medical Branch NaCl 0.9% 2021- 1000mL at 999 Uni vers (NS) bolus 04-27 mL/hr, ity of infusion 20:30: 20:10 1,000 mL, Fabien as 1,000 mL 00 :00 IV Medical Infusion, Branch ONCE, 1 dose, On Mon04/27/22 at 1530, KEYON mirtazapine 0 Yes 15mg Take 15 mg Univers 15 mg 04-27 by mouth ity of tablet 15:16: at [place] 11 bedtime. Medical Branch escitalopra 2021-0 Yes 20mg Take 20 mg Univers m oxalate 04-27 by mouth ity of 20 mg 14:24: daily. [place] tablet 25 Medical Branch escitalopra 0 Yes 20mg Take 20 mg Univers m oxalate 04-27 by mouth ity of 20 mg 14:24: daily. [place] tablet 25 Medical Branch escitalopra 0 Yes 20mg Take 20 mg Univers m oxalate 04-27 by mouth ity of 20 mg 14:24: daily. [place] tablet 25 Medical Branch ondansetron 2021- No 4mg Take 4 mg Univers 4 mg tablet 04-27 by mouth ity of 14:23: 00:00 every 8 [place] 56 :00 (eight) Medical hours as Branch needed. amoxicillin 2021-2021- No [id number] 875mg Take 1 Univers 875 mg 04-27 tablet by ity of tablet 00:00: 04:59 mouth in [place] 00 :00 the Medical morning Branch and 1 tablet in the evening. Do all this for 7 days. ursodioL 0 Yes [id number] 500mg Take 1 U nivers 500 mg 5-27 tablet by ity of tablet 00:00: mouth [place] 00 daily. Medical Branch proMETHazin 2021-0 Yes [id number] 25mg Take 1 Univers e 25 mg 5-27 tablet by ity of tablet 00:00: mouth [place] 00 every 6 Medical (six) Branch hours as needed for Nausea and Vomiting (N/V). ursodioL 2021-0 Yes [id number] 500mg Take 1 U nivers 500 mg 5-27 tablet by ity of tablet 00:00: mouth [place] 00 daily. Medical Branch proMETHazin 2021-0 Yes [id number] 25mg Take 1 Univers e 25 mg 5-27 tablet by ity of tablet 00:00: mouth [place] 00 every 6 Medical (six) Branch hours as needed for Nausea and Vomiting (N/V). ursodioL 2-0 Yes [id number] 500mg Take 1 U nivers 500 mg 5-27 tablet by ity of tablet 00:00: mouth [place] 00 daily. Medical Branch proMETHazin 2021-0 Yes [id number] 25mg Take 1 Univers e 25 mg 5-27 tablet by ity of tablet 00:00: mouth [place] 00 every 6 Medical (six) Branch hours as needed for Nausea and Vomiting (N/V). ursodioL 2-0 Yes [id number] 500mg Take 1 U nivers 500 mg 5-27 tablet by ity of tablet 00:00: mouth [place] 00 daily. Medical Branch proMETHazin 2021-0 Yes [id number] 25mg Take 1 Univers e 25 mg 5-27 tablet by ity of tablet 00:00: mouth [place] 00 every 6 Medical (six) Branch hours as needed for Nausea and Vomiting (N/V). proMETHazin 2021-0 2022- No [id number] 25mg Take 1 Univers e 25 mg 3-22 05-27 tablet by ity of tablet 00:00: 00:00 mouth [place] 00 :00 every 6 Medical (six) Branch hours as needed for Nausea and Vomiting (N/V). famotidine 2021-0 Yes 20mg Take 20 mg U nivers 20 mg 2-16 by mouth ity of tablet 00:00: at [place] [address] bedtime. Medical Branch famotidine 2021-0 Yes 20mg Take 20 mg U nivers 20 mg 2-16 by mouth ity of tablet 00:00: at [place] [address] bedtime. Medical Branch famotidine 2021-0 Yes 20mg Take 20 mg U nivers 20 mg 2-16 by mouth ity of tablet 00:00: at [place] [address] bedtime. Medical Branch famotidine 2021-0 Yes 20mg Take 20 mg U nivers 20 mg 2-16 by mouth ity of tablet 00:00: at [place] [address] bedtime. Medical Branch SERTraline 2021-0 Yes Univers 25 mg 2-13 ity of tablet 00:00: [place] 00 Medical Branch SERTraline 2021-0 2022- No Univer s 25 mg 2-13 07-27 ity of tablet 00:00: 00:00 [place] 00 :00 Medical Branch omeprazole 2022-0 Yes 40mg Take 40 mg U nivers 40 mg 2-09 by mouth ity of capsule 00:00: every [place] 00 morning. Medical Branch omeprazole 2021-0 Yes 40mg Take 40 mg U nivers 40 mg 2-09 by mouth ity of capsule 00:00: every [place] 00 morning. Medical Branch omeprazole 2021-0 Yes 40mg Take 40 mg U nivers 40 mg 2-09 by mouth ity of capsule 00:00: every [place] 00 morning. Medical Branch omeprazole 2021-0 Yes 40mg Take 40 mg U nivers 40 mg 2-09 by mouth ity of capsule 00:00: every [place] 00 morning. Medical Branch bismuth Yes Take by Univers subsalicyla 5-03 mouth. ity of te 15:24: [place] (PEPTO-BISM 46 Medical OL ORAL) Branch bismuth Yes Take by Univers subsalicyla 5-03 mouth. ity of te 15:24: [place] (PEPTO-BISM 46 Medical OL ORAL) Branch bismuth Yes Take by Univers subsalicyla 5-03 mouth. ity of te 15:24: [place] (PEPTO-BISM 46 Medical OL ORAL) Branch bismuth Yes Take by Univers subsalicyla 5-03 mouth. ity of te 15:24: [place] (PEPTO-BISM 46 Medical OL ORAL) Branch loratadine Yes 10mg Take 10 mg U nivers (CLARITIN) 02-01 by mouth ity o f 10 mg 15:08: daily. [place] tablet Medical Branch ALBUTEROL Yes Inhale. Unive rs INHALE 02-01 ity of 15:08: [place] [facility] beclomethas Yes Inhale. Uni vers one 02-01 ity of dipropionat 15:08: [place] e (QVAR 01 Medical INHALE) Branch ondansetron Yes 4mg Take 4 mg U nivers 4 mg tablet 02-01 by mouth ity of 15:08: every 8 [place] (eight) Medical hours as Branch needed. calcium Yes Take by Univers carbonate 5-03 mouth. ity of (TUMS ORAL) 15:08: [place] [facility] escitalopra Yes 20mg Take 20 mg Univers m oxalate 03 by mouth ity of (LEXAPRO) 15:08: daily. [place] 20 mg Medical tablet Branch loratadine Yes 10mg Take 10 mg U nivers (CLARITIN) 503 by mouth ity o f 10 mg 15:08: daily. [place] tablet Medical [place] ALBUTEROL Yes Inhale. [facility] rs INHALE 02-01 ity of 15:08: [facility] beclomethas Yes Inhale. Uni vers one 02-01 ity of dipropionat 15:08: [facility] (QVAR 01 Medical INHALE) [place] calcium Yes Take by Univers carbonate 5-03 mouth. ity of (TUMS ORAL) 15:08: [place] [facility] loratadine Yes 10mg Take 10 mg U nivers (CLARITIN) 03 by mouth ity o f 10 mg 15:08: daily. [place] tablet [facility] ALBUTEROL Yes Inhale. [facility] INHALE 02-01 ity of 15:08: [facility] beclomethas Yes Inhale. Uni vers one 02-01 ity of dipropionat 15:08: [facility] (QVAR 01 Medical INHALE) [place] calcium Yes Take by Univers carbonate 5-03 mouth. ity of (TUMS ORAL) 15:08: [facility] loratadine Yes 10mg Take 10 mg U nivers (CLARITIN) 03 by mouth ity o f 10 mg 15:08: daily. [place] tablet [facility] ALBUTEROL Yes Inhale. [facility] INHALE 02-01 ity of 15:08: [facility] beclomethas Yes Inhale. Uni vers one 02-01 ity of dipropionat 15:08: [facility] (QVAR 01 Medical INHALE) [place] calcium Yes Take by Univers carbonate 5-03 mouth. ity of (TUMS ORAL) 15:08: [address] PROAIR HFA Yes INHALE 2 Uni vers 90 1-25 PUFFS PO Q ity of mcg/actuati 00:00: 4-6 H PRF [place] inhaler 00 SOB/ Medical WHEEZING Branch PROAIR HFA 0 Yes INHALE 2 Uni vers 90 1-25 PUFFS PO Q ity of mcg/actuati 00:00: 4-6 H PRF [place] on inhaler 00 SOB/ Medical WHEEZING Branch PROAIR HFA 2018-0 Yes INHALE 2 Uni vers 90 1-25 PUFFS PO Q ity of mcg/actuati 00:00: 4-6 H PRF [place] on inhaler 00 SOB/ Medical WHEEZING Branch PROAIR HFA 2018-0 Yes INHALE 2 Uni vers 90 1-25 PUFFS PO Q ity of mcg/actuati 00:00: 4-6 H PRF [place] on inhaler 00 SOB/ Medical WHEEZING Branch cyproheptad 0 Yes Univer s ine 4 mg 1-15 ity of tablet 00:00: [place] [facility] cyproheptad 2018-0 Yes Univer s ine 4 mg 1-15 ity of tablet 00:00: [place] [facility] cyproheptad 2018-0 Yes Univer s ine 4 mg 1-15 ity of tablet 00:00: [place] [facility] cyproheptad 0 Yes Univer s ine 4 mg 1-15 ity of tablet 00:00: [place] [facility] Vital Signs Vital Name Observation Time Observation Value Comments Source Systolic blood 2022-04-27 19:19:00 141 mm[Hg] Univer sity of pressure [facility] Diastolic blood 2022-04-27 19:19:00 93 mm[Hg] Unive rsity of [facility] Heart rate 2022-04-27 19:19:00 87 /min [facility] Body temperature 2022-04-27 19:19:00 37.11 [facility]yn [facility] Respiratory rate 2022-04-27 19:19:00 18 /min [facility] Body weight 2022-04-27 19:19:00 45.813 kg [facility] BMI 2022-04-27 19:19:00 19.73 kg/m2 [facility] Oxygen saturation in 2022-04-27 19:19:00 98 /min University Arterial blood by [facility] Pulse oximetry Branch Systolic blood 2022-02-25 20:21:00 133 mm[Hg] Univer sity of pressure [facility] Diastolic blood 2022-02-25 20:21:00 76 mm[Hg] Unive rsity of pressure [facility] Heart rate 2022-02-25 20:21:00 71 /min [facility] Respiratory rate 2022-02-25 20:21:00 18 /min [facility] Body height 2022-02-25 20:21:00 152.4 cm [facility] Body weight 2022-02-25 20:21:00 45.949 kg [facility] BMI 2022-02-25 20:21:00 19.78 kg/m2 [facility] Oxygen saturation in 2022-02-25 20:21:00 100 /min [facility] Arterial blood by [facility] Pulse oximetry [place] Procedures Procedure Date / Time Performing Clinician Source Performed AUTHORIZATION FOR 2022-10-10 06:01:00 Doctor Unassigned, No [facility] RELEASE OF PHI Name [facility] COMP. METABOLIC PANEL 2022-04-27 19:35:00 Jeana Ahumada [facility] ([id number]) [facility] CBC WITH DIFF 2022-04-27 19:35:00 Jeana Ahumada [facility] CONSENT/REFUSAL FOR 2022-04-27 19:15:00 Doctor Unassdomingo, No Un [facility] DIAGNOSIS AND TREATMENT Name [facility] Encounters Start End Encounter Admission Attending Care Care Encounter Source Date/Time Date/Time Type Type Clinicians Facility Department ID 2022-10-10 2022-10-10 Orders Doctor FELICIANO 1.2.840.114 [id number] Univers 00:00:00 00:00:00 Only Unassigned, MARVIN 350.1.13.10 ity of [place] [facility] 4.2.7.2.686 Fabien as [id number] [place] [address] Branch 2022-05-26 2022-05-26 Outpatient R DAMIÁN [facility] [id number] Univers 10:27:39 23:59:00 EUN johnston [facility] 2022-05-26 2022-05-26 [facility] Damián NJMELINDA 1.2.840.114 [id number] Univers 10:27:39 23:59:00 Encounter Eun LÓPEZ 350.1.13.10 ity of [place] 4.2.7.2.686 [facility] [id number] [facility] 800 Branch 2022-04-27 2022-04-27 Emergency X [facility] ERT [id number] Univers 14:21:00 15:23:00 JEANA ity [facility] 2022-04-27 2022-04-27 Emergency [facility] 1.2.840.114 [id number] Univers 14:21:00 15:23:00 Jeana Cervantes RENE 350.1.13.10 ity [facility] 4.2.7.2.686 [facility] [id number] [facility] 084 Branch 2022-03-22 2022-03-22 Telephone [facility] [id number] Univers 00:00:00 00:00:00 Kia MULTISPEC 350.1.13.10 ity of [place]AL[place] 4.2.7.2.686 [facility] [id number] [facility] AND ALIVIA 072 Branch DIABETES CLINIC 2022-03-16 2022-03-16 Case Folder Christelle, Shaista Lab Main [facility] 1.2.8 40.114 [id number] Univers 16:15:00 16:30:00 Visit Randall Waddell 350.1.1 3.10 ity of [facility] 4.2.7.2.686 [facility] PROFESSIO [id number] Nd dical NAL 353 Branch BUILDING 2022-03-16 2022-03-16 Outpatient [facility] [id number] Univers 16:15:00 16:15:00 RANDALL ity [facility] 2022-03-16 2022-03-16 Orders Doctor FELICIANO 1.2.840.114 [id number] Univers 00:00:00 00:00:00 Only Unassigned, MARVIN 350.1.13.10 ity of [place] [facility] 4.2.7.2.686 Fabien [id number] [facility] 009 Branch 2022-02-25 2022-02-25 Outpatient R NADIRA [facility] [id number] Univers 14:00:00 15:47:25 [facility] 2022-02-25 2022-02-25 Outpatient James WADDELL [facility] [id number] Univers 14:00:00 15:47:25 [facility] 2022-02-25 2022-02-25 [facility] 1.2.840.114 [id number] Univers 14:00:00 15:47:25 Visit [facility] 350.1.13.10 ity [facility] 4.2.7.2.686 [facility] [id number] [facility] AND [place] 072 Branch DIABETES CLINIC 2022-02-25 2022-02-25 Outpatient R NADIRA [facility] [id number] Univers 14:00:00 14:00:00 [facility] 2022-02-25 2022-02-25 Outpatient R NADIRA [facility] [id number] Univers 14:00:00 14:00:00 [facility] 2022-01-12 2022-01-12 Outpatient R NADIRA [facility] [id number] Univers 11:30:00 11:30:00 [facility] 2022-01-08 2022-01-08 Abstract BRADEN Burton 1.2.840.114 [id number] Univers 00:00:00 00:00:00 Jose WONG 350.1.13.10 it y of [facility] 4.2.7.2.686 Fabien [id number] [facility] 009 Branch 2021-12-21 2021-12-21 Emergency [facility] [id number] Univers 15:15:00 18:23:00 DONAVAN [facility] 2021-12-21 2021-12-21 Emergency [facility] [id number] Univers 15:15:00 18:23:[address] [facility] 350.1.13.10 i ty of [place] 4.2.7.2.686 [facility] [id number] [facility] 084 Branch 2021-12-21 2021-12-21 Orders Doctor BRADEN 1.2.840.114 [id number] Univers 00:00:00 00:00:00 Only Unassigned, MARVIN 350.1.13.10 ity of [place] [facility] 4.2.7.2.686 Fabien as [id number] [facility] 009 Branch 2021-12-21 2021-12-21 Patient [facility] 1.2.840.114 [id number] Univers 00:00:00 00:00:00 Secure Msg [facility] MULTISPEC 350.1.13.10 ity of [place] 4.2.7.2.686 [facility] [place] [id number] [facility] AND [place] [address] [place] [facility] 2021-12-20 2021-12-20 Telephone [facility] [id number] Univers 00:00:00 00:00:00 Sheharyar MULTISPEC 350.1.13.10 ity of [place] 4.2.7.2.686 [facility] [place] [id number] [facility] AND [address] DIABETES CLINIC 2021-12-10 2021-12-10 Outpatient [facility] [id number] Univers 08:46:40 23:59:00 SHEHARYAR ity [facility] 2021-12-10 2021[facility] 1.2.840.114 [id number] Univers 08:46:40 23:59:00 Encounter Kia [facility] 350.1.13.10 ity of CLINICS 4.2.7.2.686 [facility] [id number] [facility] 803 Branch 2021-12-10 2021-12-10 Outpatient R DIAZFORMERLY [facility] [id number] Univers 08:46:40 23:59:00 SHEHARYAR ity [facility] 2021-12-10 2021-12-10 Outpatient [facility] [id number] Univers 08:46:40 23:59:00 SHEHARYAR ity [facility] 2021-12-08 2021-12-08 Case Folder Christelle, Adc Lab Main [facility] 1.2.8 40.114 [id number] Univers 11:15:00 11:30:00 Visit Kia Waddell 350.1.13.10 ity of [facility] 4.2.7.2.686 [place] [facility] [id number] [address] 2021-12-08 2021-12-08 Case Folder 1, Adc Lab [facility] 1.2.840.114 [id number] Univers 10:45:00 11:00:00 Visit Akilah CedenoALBERT 350.1.13.10 ity of [place] 4.2.7.2.686 [place] [id number] [facility] [address] [place] 2021-12-08 2021-12-08 Outpatient James [facility] [id number] Univers 10:45:00 10:45:00 AKILAH [facility] 2021-12-08 2021-12-08 Outpatient James [facility]REL[facility] [id number] Univers 10:00:00 10:00:00 [facility]AH [facility] 2021-12-08 2021-12-08 Orders Doctor BRADEN 1.2.840.114 [id number] Univers 00:00:00 00:00:00 Only Unassigned, MARVIN 350.1.13.10 ity of [place] [facility] 4.2.7.2.686 Fabien as [id number] [facility] 009 Branch 2021 2021 [facility] Zaid Hernández [facility] 1.2.840.114 [id number] Univers 00:00:00 00:00:00 Management Y HEALTH 350.1.13.10 ity of CLINICS 4.2.7.2.686 [place] [id number] [facility] 803 Branch 2021-11-26 2021-11-26 Outpatient ZAID ROSARIO [facility] [id number] Univers 07:46:06 23:59:00 ity of [facility] 2021-11-26 2021-11-26 Zaid Christy 1.2.840.114 [id number] Univers 07:46:06 23:59:00 Encounter Hemant [facility] 350.1. 13.10 ity of CLINICS 4.2.7.2.686 [facility] [id number] [facility] 803 Branch 2021-11-26 2021-11-26 Outpatient R ZAID HERNÁNDEZ [facility] [id number] Univers 07:46:06 23:59:00 ity of [facility] 2021-11-19 2021-11-19 Case Folder Vtc-Lab [facility] 1.2.840.114 [id number] Univers 15:15:00 15:30:00 Visit Kia [place] 350.1.13.1 0 ity of [place] 4.2.7.2.686 [facility] [place] [phone] [facility] [address] [facility] 2021-11-19 2021-11-19 [facility] [id number] Univers 14:30:00 15:06:01 SHEHARYAR ity [facility] 2021-11-19 2021-11-19 [facility] 1.2.840.114 [id number] Univers 14:30:00 15:06:01 Visit Kia PA 350.1.13.10 ity of [place] 4.2.7.2.686 [facility] [phone] [place] [id number] [place] [facility] 2021-11-19 2021-11-19 Outpatient R NADIRA [facility] [id number] Univers 14:30:00 15:06:01 SHEHARYAR ity [facility] 2021-11-19 2021-11-19 [facility] 1.2.840.114 [id number] Univers 14:30:00 15:06:01 Visit Kia PA 350.1.13.10 ity of [place] 4.2.7.2.686 [facility] [place] [phone] [facility] [place] [address] [facility] 2021-08-11 2021-08-11 Orders Doctor FELICIANO 1.2.840.114 [id number] Univers 00:00:00 00:00:00 Only Unassigned, MARVIN 350.1.13.10 ity of [place] [facility] 4.2.7.2.686 Fabien as [id number] [facility] [address] 2021-08-11 2021-08-11 Telephone KRISTOPHER [place] 1.2.840.114 [id number] [facility] 00:00:00 00:00:00 [facility] 350.1.13.10 ity of [facility] 4.2.7.2.686 [place] [phone] [facility] [address] 2021-06-04 2021-06-04 EXT [facility] OP Kelly, EXT MSRDP 1.2.840.114 [id number] [place] 00:00:00 00:00:00 [place] LOCATION 350.1.13.58 H ealth [place] 9.2.7.2.686 [id number] 2021-06-04 2021-06-04 EXT [facility] Kelly, EXT MSR[facility] 1.2.840.114 [id number] [place] 00:00:00 00:00:00 [place] LOCATION 350.1.13.58 H ealth [place] 9.2.7.2.686 [id number] 0 2021-05-19 2021-05-19 Outpatient R DAMIÁN, [facility] [id number] Univers 14:00:00 14:00:00 ENU ity of [facility] 2021-03-26 2021-03-26 Hospital Radiology [facility] 1.2.840.114 [id number] Univers 16:00:00 23:59:00 Encounter [place] 350.1.13.10 ity of [place].2.686 [place] [phone] [facility] [address] 2021-03-26 2021-03-26 [facility] Radiology [facility] 1.2.840.114 [id number] 16:00:00 23:59:00 Encounter [place] 350.1.13.10 [place] 4.2.7.2.686 [place] [id number] 806 2021-03-26 2021-03-26 Outpatient R RADIOLOGY [facility] [id number] Univers 00:00:00 00:00:00 ity of [facility] 2021-03-26 2021-03-26 Orders Doctor BRADEN 1.2.840.114 [id number] Univers 00:00:00 00:00:00 Only Unassigned, MARVIN 350.1.13.10 ity of [place] [facility] 4.2.7.2.686 [place] as [id number] [facility] [address] 2021-03-26 2021-03-26 Orders Doctor BRADEN 1.2.840.114 [id number] 00:00:00 00:00:00 Only Unassigned, MARVIN 350.1.13.10 [place] [facility] 4.2.7.2.686 [id number] [id number] 2021-03-24 2021-03-24 [facility] Radiology [facility] 1.2.840.114 [id number] 07:33:57 23:59:00 Encounter [place] 350.1.13.10 [place] 4.2.7.2.686 [place] [id number] 80 2021-03-24 2021-03-24 [facility] Radiology [facility] 1.2.840.114 [id number] [facility] 07:33:57 23:59:00 Encounter [place] 350.1.13.10 ity of [place] 4.2.7.2.686 [facility] [phone] [facility] [address] [place] [address] 2021-03-24 2021-03-24 Outpatient R RADIOLOGY [facility] [id number] Univers 00:00:00 00:00:00 ity of [facility] 2021-03-24 2021-03-24 Orders Doctor BRADEN 1.2.840.114 [id number] 00:00:00 00:00:00 Only Unassigned, MARVIN 350.1.13.10 [place] [facility] 4.2.7.2.686 [id number] 009 2021-03-24 2021-03-24 Orders Doctor BRADEN Cortez2.840.114 [id number] Univers 00:00:00 00:00:00 Only Unassigned, MARVIN 350.1.13.10 ity of [place] [facility] 4.2.7.2.686 [place] [id number] [place] [address] [place] 2021-02-11 2021-02-11 Outpatient R STEFFIKIMBERLYHELENA [facility] [id number] Univers 00:00:00 00:00:00 [facility] 2020-08-19 2020-08-19 Outpatient R TRENT, [facility] [id number] Univers 10:30:00 10:30:00 MYLES [facility] 2020-08-19 2020-08-19 Outpatient R TRENT [facility] [id number] Univers 10:30:00 10:30:00 MYLES [facility] 2020-03-02 2020-03-02 Outpatient R NATALIALISA BURLESON [facility] [id number] Univers 11:30:00 11:30:00 ity [facility] 2020-02-26 2020-02-26 Outpatient R TRENT [facility] [id number] Univers 13:00:00 [facility] 2020-02-17 2020-02-17 Outpatient R [facility] [id number] Univers 11:00:00 11:[facility]:00 [facility] 2019-11-26 2019-11-26 Case Folder Vtc-Lab [facility] 1.2.840.114 [id number] Univers 11:06:28 11:16:28 Visit Hadley EdmondsPEC 350.1.13. 10 ity of [place]7.2.686 [place] [id number] [facility] AND [facility] 2019-11-26 2019-11-26 Office Peggy NJMELINDA 1.2.840.114 [id number] 10:09:55 11:02:35 Visit John PA 350.1.13.10 [place] 4.2.7.2.686 [place] [id number] AND ALIVIA [facility] 2019-11-26 2019-11-26 Office John Woods [facility] 1.2.840.114 [id number] Univers 10:09:55 11:02:35 Visit Hadley Edmonds MULTISPEC 350.1.13. 10 [place] of [place] [id number] [facility] AND [place] [address] [facility] 2019-11-26 2019-11-26 Outpatient R KENDAL, [facility] [id number] Univers 10:00:00 10:00:00 HADLEY ity of [facility] 2019-11-20 2019-11-20 Orders Doctor BRADEN 1.2.840.114 [id number] Univers 00:00:00 00:00:00 Only Unassigned, MARVIN 350.1.13.10 ity of [place] [facility] 4.2.7.2.686 [place] [id number] [facility] [address] 2019-10-15 2019-10-15 Case Folder Christelle, Ad[facility] Lab Main [facility] 1.2.8 40.114 [id number] Univers 14:40:47 14:55:47 Visit Jess Hanks 350.1.13 .10 ity of [place]2.7.2.686 [place] [facility] [id number] [facility] [address] [facility] 2019-10-15 2019-10-15 Orders Doctor BRADEN 1.2.840.114 [id number] Univers 00:00:00 00:00:00 Only Unassigned, MARVIN 350.1.13.10 ity of [place] [facility] 4.2.7.2.686 [place] [id number] [place] [address] [place] 2019-05-06 2019-05-06 Orders Doctor FELICIANO 1.2.840.114 [id number] Univers 00:00:00 00:00:00 Only Unassigned, MARVIN 350.1.13.10 ity of [place] [facility] 4.2.7.2.686 [place] [phone] [address] Results This patient has no known results.
--- NOTE | 2023-02-01 14:09 | RAD REPORT ---
EXAM DESCRIPTION: Saw Single View02/01/2023 1:54 pm CLINICAL HISTORY: Chest pain COMPARISON: 2020 FINDINGS: The lungs appear clear of acute infiltrate. The heart is normal size IMPRESSION: No acute abnormalities displayed
[2023-02-01 14:26] LABS: Absolute Lymphocytes (CBC) 2.1 K/uL (0.7-4.9); Hematocrit 37.1 % (36.0-45.0); Lymphocytes % 50.8 % (15.3-44.8); MCV 99.2 fL (80-100); MPV 10.1 fL (7.6-11.3); RBC Red Blood Cell Count 3.73 M/uL (3.86-4.86)
[2023-02-01 14:27] LABS: Protime INR 1.15
[2023-02-01 14:44] LABS: Albumin 4.2 g/dL (3.4-5.0); Bilirubin Direct 0.2 mg/dL (0-0.2); Bilirubin Total 0.6 mg/dL (0.2-1.0); Magnesium 2.6 mg/dL (1.6-2.4); Potassium 3.5 mEq/L (3.5-5.1); Protein, Total 7.7 g/dL (6.4-8.2); Troponin High Sensitivity 3.5 pg/mL (<58.9)
--- NOTE | 2023-02-01 16:36 | ER ---
Nurse's Notes [facility] Name: Miya Persaud Age: 42 yrs Sex: Female : 1980 Arrival Date: 02/01/2023 Time: 12:41 Bed 13 Private MD: Diagnosis: Chest pain, unspecified Presentation: 02/01 13:03 Chief complaint: Patient states: Pain to left side of chest radiating down left arm aa5 that began yesterday. Pt also reports nausea and weight loss. Coronavirus screen: At this time, the client does not indicate any symptoms associated with coronavirus-19. Ebola Screen: Patient denies travel to an Ebola-affected area in the 21 days before illness onset. Initial Sepsis Screen: Does the patient meet any 2 criteria? No. Patient's initial sepsis screen is negative. Does the patient have a suspected source of infection? No. Patient's initial sepsis screen is negative. Risk Assessment: Do you want to hurt yourself or someone else? Patient reports no desire to harm self or others. Onset of symptoms was January 2023. 13:03 Acuity: PARTH 3 aa5 13:03 Method Of Arrival: Ambulatory aa5 Triage Assessment: 13:15 General: Appears in no apparent distress. uncomfortable, Behavior is calm, cooperative, eh3 appropriate for age. 13:15 Pain: Complains of pain in chest and abdomen. EENT: No signs and/or symptoms were eh3 reported regarding the EENT system. Neuro: Level of Consciousness is awake, alert, obeys commands, Oriented to person, place, time, situation. Cardiovascular: Capillary refill < 3 seconds Patient's skin is warm and dry. Rhythm is sinus bradycardia. Respiratory: Airway is patent Respiratory effort is even, unlabored, Respiratory pattern is regular, symmetrical. GI: Abdomen is flat, non-distended, Reports intolerance of food, nausea. : No signs and/or symptoms were reported regarding the genitourinary system. Derm: Skin is pink, warm \\T\\ dry. Musculoskeletal: No signs and/or symptoms reported regarding the musculoskeletal system. 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 all those that end with mycin; aa5 13:02 Aspirin; aa5 13:02 Clarithromycin; aa5 13:02 Cyclobenzaprine; aa5 13:02 Demerol; aa5 13:02 diclofenac sodium; aa5 13:02 Levofloxacin; aa5 - Home Meds: 13:15 Lexapro 10 mg Oral tablet 1 tab [Active]; loratadine 10 mg Oral tab 1 tab [Active]; eh3 omeprazole 40 mg Oral capsule,delayed release (e.c.) [Active]; Climara Pro 0.045-0.015 mg/24 hr transdermal patch, transdermal weekly [Active]; famotidine 20 mg Oral tablet [Active]; ursodiol 500 mg Oral tablet [Active]; promethazine 25 mg Oral tablet [Active]; - PMHx: 13:02 Anemia; Anxiety; Depression; ibs; kidney disease; Stage IV renal disease; Thyroid aa5 problem; - Immunization history:: Adult Immunizations up to date. - Social history:: Smoking status: unknown. Screenin:15 [facility] ED Fall Risk Assessment (Adult) Score/Fall Risk Level 0 - 2 = Low Risk. Abuse eh3 screen: Denies threats or abuse. Denies injuries from another. Nutritional screening: No deficits noted. Tuberculosis screening: No symptoms or risk factors identified. Assessment: 13:15 General: Appears in no apparent distress. uncomfortable, Behavior is calm, cooperative, eh3 appropriate for age. Pain: Complains of pain in abdomen and chest and left arm. Neuro: Level of Consciousness is awake, alert, obeys commands, Oriented to person, place, time, situation. Cardiovascular: Capillary refill < 3 seconds Patient's skin is warm and dry. Rhythm is sinus bradycardia. Respiratory: Airway is patent Respiratory effort is even, unlabored, Respiratory pattern is regular, symmetrical. GI: Abdomen is flat, non-distended, Bowel sounds present X 4 quads. Abd is soft and non tender X 4 quads. Reports intolerance of food, nausea. : No signs and/or symptoms were reported regarding the genitourinary system. EENT: No signs and/or symptoms were reported regarding the EENT system. Derm: Skin is pink, warm \\T\\ dry. Musculoskeletal: No signs and/or symptoms reported regarding the musculoskeletal system. 14:00 Reassessment: Patient appears in no apparent distress at this time. Patient and/or eh3 family updated on plan of care and expected duration. Pain level reassessed. Patient is alert, oriented x 3, equal unlabored respirations, skin warm/dry/pink. 15:00 Reassessment: Patient appears in no apparent distress at this time. Patient and/or eh3 family updated on plan of care and expected duration. Pain level reassessed. Patient is alert, oriented x 3, equal unlabored respirations, skin warm/dry/pink. 16:00 Reassessment: Patient appears in no apparent distress at this time. Patient and/or eh3 family updated on plan of care and expected duration. Pain level reassessed. Patient is alert, oriented x 3, equal unlabored respirations, skin warm/dry/pink. 17:00 Reassessment: Patient appears in no apparent distress at this time. Patient and/or eh3 family updated on plan of care and expected duration. Pain level reassessed. Patient is alert, oriented x 3, equal unlabored respirations, skin warm/dry/pink. 18:00 Reassessment: Patient appears in no apparent distress at this time. Patient and/or eh3 family updated on plan of care and expected duration. Pain level reassessed. Patient is alert, oriented x 3, equal unlabored respirations, skin warm/dry/pink. 19:00 Reassessment: Patient appears in no apparent distress at this time. Patient and/or eh3 family updated on plan of care and expected duration. Pain level reassessed. Patient is alert, oriented x 3, equal unlabored respirations, skin warm/dry/pink. 19:29 Reassessment: Nurse to nurse report received by Kitty on 4th floor. [facility] Vital Signs: 13:03 BP 138 / 90; Pulse 67; Resp 20 S; Pulse Ox 100% on R/A; aa5 13:29 Weight 47.58 kg (M); aa5 14:00 BP 114 / 70; Pulse 51; Resp 12; Pulse Ox 99% on R/A; 3 15:00 BP 116 / 73; Pulse 50; Resp 16; Pulse Ox 100% on R/A; 3 16:00 BP 113 / 77; Pulse 56; Resp 19; Pulse Ox 100% on R/A; 3 17:00 BP 112 / 66; Pulse 56; Resp 17; Pulse Ox 97% on R/A; 3 18:00 BP 127 / 77; Pulse 74; Resp 18; Pulse Ox 99% on R/A; eh3 19:00 BP 132 / 82; Pulse 58; Resp 18; Pulse Ox 98% on R/A; eh3 ED Course: 12:44 Patient arrived in ED. am2 13:02 Arm band placed on. aa5 13:05 Triage completed. aa5 13:12 [facility] Bar[facility]C [facility] kb 13:12 Kalyan Cr MD is Attending Physician. kb 13:15 Patient has correct armband on for positive identification. Bed in low position. Call eh3 light in reach. Side rails up X2. Client placed on continuous cardiac and pulse oximetry monitoring. NIBP monitoring applied. Door closed. Noise minimized. Lights dimmed. Warm blanket given. 13:26 Isabel Albarado, DUNCAN is Primary Nurse. 3 13:56 XRAY Chest (1 view) In Process Unspecified. EDMS 14:15 Inserted saline lock: 20 gauge in right antecubital area, using aseptic technique. eh3 Blood collected. 16:35 Esdras Best is Hospitalizing Provider. kb 19:30 No provider procedures requiring assistance completed. Patient admitted, IV remains in eh3 place. Administered Medications: 17:30 Drug: morphine IVP or IV 2 mg Route: IVP; Infused Over: 4 mins; Site: right antecubital;3 17:30 Drug: Ondansetron IVP 4 mg Route: IVP; Site: right antecubital; 3 17:30 Drug: Famotidine IVP 20 mg Route: IVP; Site: right antecubital; 3 Medication: 19:30 VIS not applicable for this client. 3 Outcome: 16:35 Decision to Hospitalize by Provider. kb 19:58 Admitted to Tele accompanied by nurse, via wheelchair, room 407, with chart, Report ha1 called to [facility] 19:58 Condition: stable 19:58 Instructed on the need for admit. 20:18 Patient left the ED. ha1 Signatures: Dispatcher [employer] EDMS Zeynep Barba FNP-C FNP-Amy Garcia RN RN aa5 Karen Gaitan am2 Isabel Albarado, DUNCAN SONG 3 Shama Ashford RN RN ha1 Corrections: (The following items were deleted from the chart) 18:54 14:00 General: Appears in no apparent distress. uncomfortable, eh3 eh3
--- NOTE | 2023-02-01 16:36 | EDPHYS ---
Physician Documentation [facility] Name: Miya Persaud Age: 42 yrs Sex: Female : 1980 Arrival Date: 02/01/2023 Time: 12:41 Bed 13 Private MD: ED Physician Kalyan Cr HPI: 02/01 13:45 This 42 yrs old Black Female presents to ER via Ambulatory with complaints of Abdominal kb Pain, Chest Pain - hx/onset yesterday. 13:45 The patient or guardian reports chest pain that is located primarily in the anterior kb chest wall, left. Onset: yesterday. The pain radiates to the left arm. Associated signs and symptoms: Pertinent positives: abdominal pain, nausea, diarrhea. The chest pain is described as aching. Duration: The patient or guardian reports a single episode, that is still ongoing. Modifying factors: The symptoms are alleviated by nothing. the symptoms are aggravated by activity, breathing, movement. Severity of pain: At its worst the pain was moderate in the emergency department the pain is unchanged. The patient has not experienced similar symptoms in the past. The patient has not recently seen a physician. Pt reports chest pain to left chest with radiation down left arm that started yesterday. States pain is worse with movement. Also reports diarrhea and abd pain for 2 weeks. Has appt scheduled with GI on 02/09/23. 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 all those that end with mycin; aa5 13:02 Aspirin; aa5 13:02 Clarithromycin; aa5 13:02 Cyclobenzaprine; aa5 13:02 Demerol; aa5 13:02 diclofenac sodium; aa5 13:02 Levofloxacin; aa5 - Home Meds: 13:15 Lexapro 10 mg Oral tablet 1 tab [Active]; loratadine 10 mg Oral tab 1 tab [Active]; eh3 omeprazole 40 mg Oral capsule,delayed release (e.c.) [Active]; Climara Pro 0.045-0.015 mg/24 hr transdermal patch, transdermal weekly [Active]; famotidine 20 mg Oral tablet [Active]; ursodiol 500 mg Oral tablet [Active]; promethazine 25 mg Oral tablet [Active]; - PMHx: 13:02 Anemia; Anxiety; Depression; ibs; kidney disease; Stage IV renal disease; Thyroid aa5 problem; - Immunization history:: Adult Immunizations up to date. - Social history:: Smoking status: unknown. ROS: 13:44 Constitutional: Negative for fever, chills, and weight loss. kb 13:44 Cardiovascular: Positive for chest pain, Negative for edema, orthopnea, palpitations, paroxysmal nocturnal dyspnea. 13:44 Abdomen/GI: Positive for abdominal pain, nausea, diarrhea. 13:44 MS/extremity: Positive for pain, of the left arm. 13:44 All other systems are negative. Exam: 13:44 Constitutional: This is a well developed, well nourished patient who is awake, alert, kb and in no acute distress. Head/Face: Normocephalic, atraumatic. ENT: Moist Mucous membranes Chest/axilla: Normal chest wall appearance and motion. Cardiovascular: Regular rate and rhythm with a normal S1 and S2. No gallops, murmurs, or rubs. No pulse deficits. Respiratory: Respirations even and unlabored. No increased work of breathing. Talking in full sentences Abdomen/GI: Soft, non-tender. No distention Skin: Warm, dry with normal turgor. Normal color. MS/ Extremity: Pulses equal, no cyanosis. Neurovascular intact. Full, normal range of motion. Neuro: Awake and alert, GCS 15, oriented to person, place, time, and situation. Moves all extremities. Normal gait. 16:07 ECG was reviewed by the Attending Physician. kb Vital Signs: 13:03 BP 138 / 90; Pulse 67; Resp 20 S; Pulse Ox 100% on R/A; aa5 13:29 Weight 47.58 kg (M); aa5 14:00 BP 114 / 70; Pulse 51; Resp 12; Pulse Ox 99% on R/A; eh3 15:00 BP 116 / 73; Pulse 50; Resp 16; Pulse Ox 100% on R/A; eh3 16:00 BP 113 / 77; Pulse 56; Resp 19; Pulse Ox 100% on R/A; eh3 17:00 BP 112 / 66; Pulse 56; Resp 17; Pulse Ox 97% on R/A; eh3 18:00 BP 127 / 77; Pulse 74; Resp 18; Pulse Ox 99% on R/A; eh3 19:00 BP 132 / 82; Pulse 58; Resp 18; Pulse Ox 98% on R/A; eh3 MDM: 13:12 Patient medically screened. kb 13:45 Data reviewed: vital signs, nurses notes. kb 16:07 The patient was not given aspirin in the Emergency Department. Not indicated due to kb patient's past medical history. 16:34 Differential diagnosis: abnormal EKG, acute myocardial infarction, anxiety, coronary kb artery disease gastritis, gastroesophageal reflux disease (GERD). Consideration of Admission/Observation Patient was admitted/placed on observation. Counseling: I had a detailed discussion with the patient and/or guardian regarding: the historical points, exam findings, and any diagnostic results supporting the discharge/admit diagnosis, lab results, radiology results, the need for further work-up and treatment in the hospital. 16:36 Management of patient was discussed with the following: Hospitalist: Terence accepts pt kb for admission under Dr Best. 02/01 13:13 Order name: Basic Metabolic Panel; Complete Time: 14:55 kb 02/01 13:13 Order name: CBC with Diff; Complete Time: 14:55 kb 02/01 13:13 Order name: LFT's; Complete Time: 14:55 kb 02/01 13:13 Order name: Magnesium; Complete Time: 14:55 kb 02/01 13:13 Order name: NT PRO-BNP; Complete Time: 14:55 kb 02/01 13:13 Order name: PT-INR; Complete Time: 14:55 kb 02/01 13:13 Order name: Troponin HS; Complete Time: 14:55 kb 02/01 13:13 Order name: Lipase; Complete Time: 14:55 kb 02/01 17:37 Order name: Magnesium EDCA 02/01 17:37 Order name: Phosphorus EDMS 02/01 17:37 Order name: T4 Free EDCA 02/01 17:37 Order name: Thyroid Stimulating Hormone EDCA 02/01 17:37 Order name: Urinalysis w/ reflexes EDCA 02/01 17:37 Order name: Basic Metabolic Panel EDMS 02/01 17:37 Order name: Basic Metabolic Panel EDMS 02/01 17:37 Order name: CBC with Automated Diff EDMS 02/01 17:37 Order name: CBC with Automated Diff EDMS 02/01 17:37 Order name: Lipid Profile EDMS 02/01 17:37 Order name: Lipid Profile [facility] 02/01 17:37 Order name: NT PRO-BNP EDCA 02/01 17:37 Order name: NT PRO-BNP [facility] 02/01 17:40 Order name: Troponin High Sensitivity [facility] 02/01 17:40 Order name: Troponin High Sensitivity [facility] 02/01 17:40 Order name: Troponin High Sensitivity [facility] 02/01 13:13 Order name: XRAY Chest (1 view); Complete Time: 14:13 kb 02/01 13:13 Order name: EKG; Complete Time: 13:14 kb 02/01 17:37 Order name: 60g Consistent Carbohydrate (ADA 1800/2000) EDCA 02/01 17:37 Order name: CONS Physician Consult [facility]CA 02/01 13:13 Order name: Cardiac monitoring; Complete Time: 14:18 kb 02/01 13:13 Order name: EKG - Nurse/Tech; Complete Time: 14:18 kb 02/01 13:13 Order name: IV Saline Lock; Complete Time: 14:18 kb 02/01 13:13 Order name: Labs collected and sent; Complete Time: 14:18 kb 02/01 13:13 Order name: O2 Per Protocol; Complete Time: 14:18 kb 02/01 13:13 Order name: O2 Sat Monitoring; Complete Time: 14:18 kb EC:07 Rate is 50 beats/min. Rhythm is regular. QRS [place] is Normal. [place] interval is normal at kb 182 msec. QRS interval is normal at 90 msec. QT interval is normal at 423 msec. Administered Medications: 17:30 Drug: morphine IVP or IV 2 mg Route: IVP; Infused Over: 4 mins; Site: right antecubital;3 17:30 Drug: Ondansetron IVP 4 mg Route: IVP; Site: right antecubital; 3 17:30 Drug: Famotidine IVP 20 mg Route: IVP; Site: right antecubital; 3 Disposition Summary: 02/01/23 16:35 Hospitalization Ordered Hospitalization Status: Observation kb Provider: Esdras Best Location: Telemetry/MedSurg (observation) kb Condition: Stable kb Problem: new kb Symptoms: are unchanged kb Bed/Room Type: Standard Room Assignment: [facility](02/01/23 18:31) Diagnosis - Chest pain, unspecified kb Forms: - Medication Reconciliation Form kb - SBAR form kb Signatures: Dispatcher [employer] EDZeynep Newman, [place]-C [place]-Melly Edwards RN RN dw Amy Florez, RN RN aa5 Isabel Albarado RN RN eh3 Corrections: (The following items were deleted from the chart) 18:31 16:35 kb dw
[2023-02-01] MEDS ORDERED: MORPHINE 2 MG/ML SYR ONE (17:10)
[2023-02-01] MEDS ORDERED: FAMOTIDINE 20 MG/2 ML VIAL IV ONE (17:10)
[2023-02-01] MEDS ORDERED: ONDANSETRON 4 MG/2 ML VIAL ONE (17:10)
[2023-02-01] MEDS ORDERED: ACETAMINOPHEN 325 MG TABLET PO PRN (17:31)
[2023-02-01] MEDS ORDERED: ONDANSETRON 4 MG/2 ML VIAL IV PRN (17:35)
[2023-02-01] MEDS ORDERED: HYDRALAZINE HCL 20 MG/ML VIAL IV PRN (17:36)
--- NOTE | 2023-02-01 17:38 | P.HP ---
Certification for Inpatient Patient admitted to: Inpatient With expected LOS: >2 Midnights Patient will require the following post-hospital care: None Practitioner: I am a practitioner with admitting privileges, knowledge of patient current condition, hospital course, and medical plan of care. Services: Services provided to patient in accordance with Admission requirements found in Title 42 Section 412.3 of the Code of Federal Regulations Patient History Date of Service: 02/01/23 Reason for admission: Chest pain History of Present Illness: Patient is a 42-year-old female with a past medical history significant for anemia, anxiety disorder, depression, IBS, CKD, hypothyroidism presents with complaint of chest pain located in the left chest wall with radiation to the left arm, neck, left shoulder and back. Patient reported that chest pain started yesterday and became worse over time. Patient rated pain as 10/10 in severity and described pain as pressure in quality. Patient reported that she has not been able to keep any p.o. intake down for the past 2 weeks and has been having episodes of diarrhea. Patient also reports abdominal pain with p.o. intake. Patient reported associated signs and symptoms of dizziness, headache, chills and nausea. Patient denies any other signs and symptoms. Symptoms are aggravated or relieved by nothing. Patient decided to present to the hospital due to worsening symptoms. Allergies aspirin Allergy (Verified 05/12/21 08:27) Anaphylaxis clarithromycin Allergy (Verified 05/12/21 08:27) Anaphylaxis cyclobenzaprine Allergy (Verified 05/12/21 08:27) Anaphylaxis gluten Allergy (Verified 05/12/21 08:27) Anaphylaxis Home Medications: Loratadine [Claritin*] 10 mg PO DAILY PRN 06/20/16 Buspirone HCl 7.5 mg PO BID 04/05/21 Estradiol/Levonorgestrel [Climara Pro Patch] 1 each TD EVERY 7TH DAY 04/05/21 Famotidine 20 mg PO BEDTIME 04/05/21 Lactobacillus Acidophilus [Probiotic] 1 cap PO DAILY 04/05/21 Omeprazole [Prilosec] 40 mg PO DAILY 04/05/21 Ondansetron [Zofran] 4 mg PO Q6H PRN 04/05/21 Sertraline [Zoloft] 25 mg PO DAILY 04/05/21 ALPRAZolam [Xanax] 0.25 mg PO TID 05/12/21 Albuterol Neb [Proventil 0.083% Neb Soln] 2.5 mg IH PRN PRN 05/12/21 Albuterol Sulfate [Proair Hfa] 8.5 gm IH PRN PRN 05/12/21 Cider Vinegar [Apple Cider Vinegar] 300 mg PO DAILY 05/12/21 Multivit-Minerals/Folic Acid [Women's Multivitamin Gummies] 200 mcg PO DAILY 05/12/21 - Past Medical/Surgical History Diabetic: No -: Depression with anxiety -: Chronic renal disease stage 3 -: Chronic thrombocytopenia -: Asthma -: Seasonal allergies -: Bilateral axillary surgery -: Right foot surgery -: ligation Psychosocial/ Personal History: Patient was adopted. She is single. She has an adopted child. - Family History Mother Notes: cervical cancer - Social History Smoking Status: Never smoker Alcohol use: No CD- Drugs: No Caffeine use: No Place of Residence: Home Review of Systems General: Chills Eyes: Unremarkable ENT: Unremarkable Respiratory: Unremarkable Cardiovascular: Chest Pain Gastrointestinal: Nausea, Abdominal Pain, Diarrhea Genitourinary: Unremarkable Musculoskeletal: Neck Pain, Shoulder Pain, Arm Pain, Back Pain Integumentary: Unremarkable Neurological: Other (Dizziness, headache) Lymphatics: Unremarkable Physical Examination - Physical Exam General: Alert, Oriented x3, Cooperative HEENT: Atraumatic, PERRLA, Mucous membr. moist/pink, EOMI, Sclerae nonicteric Neck: Supple, 2+ carotid pulse no bruit, No LAD, Without JVD or thyroid abnormality Respiratory: Clear to auscultation bilaterally, Normal air movement Cardiovascular: No edema, Regular rate/rhythm, Normal S1 S2 Capillary refill: <2 Seconds Gastrointestinal: Normal bowel sounds, Non-distended, Tenderness Musculoskeletal: No clubbing, No swelling, No contractures, No tenderness Integumentary: No rashes, No significant lesion, No tenderness/swelling Neurological: Normal speech, Normal tone, Normal affect Lymphatics: No axilla or inguinal lymphadenopathy - Studies Laboratory Data (last 24 hrs) 02/01/23 14:15: PT 12.7 H, INR 1.15 02/01/23 14:15: WBC 4.20 L, Hgb 12.4, Hct 37.1, Plt Count 88 L 02/01/23 14:15: Sodium 139, Potassium 3.5, BUN 21 H, Creatinine 2.48 H, Glucose 80, Magnesium 2.6 H, Total Bilirubin 0.6, AST 43 H, ALT 36, Alkaline Phosphatase 117, Lipase 24 Assessment and Plan - Plan --Chest pain. To rule out ACS. Will trend serial troponins-negative so far. Telemetry to monitor for any significant arrhythmia. Cardiology consulted. Echocardiogram pending to assess LV\valvular functions and wall motion. We will await further recommendation from rn bone marrow transplant. -- CKD 4. Nephrology consulted. Further management per information support project manager. --History of IBS. Patient reports some episodes of diarrhea. Continue supportive care. --Anxiety disorder\depression. Continue home medications. --GERD. Continue Protonix. --Diarrhea. Stool studies pending to rule out any infectious process. . Antiemetics on board. Continue supportive care. Continue supportive care. --Thrombocytopenia. Secondary to liver cirrhosis. Continue supportive care. --Acute pain. We will manage pain with current pain medication regimen. -- Liver cirrhosis. Patient follow-up with an outpatient liver specialist. Continue supportive care. --Asthma. Stable. Continue home medications. --DVT prophylaxis with SCDs. Discharge Plan: Home Plan to discharge in: Greater than 2 days - Advance Directives Does patient have a Living Will: No Does patient have a Durable POA for Healthcare: No - Code Status/Comfort Care Code Status Assessed: Yes Physician Review: Patient Assessed, Agree with Above Assessment and Plan Critical Care: No
[2023-02-01] MEDS ORDERED: ENOXAPARIN 30 MG/0.3 ML SQ SCH (20:00)
[2023-02-01 20:42] LABS: Magnesium 2.5 mg/dL (1.6-2.4); Phosphorus 2.1 mg/dL (2.5-4.9); Thyroid Stimulating Hormone 2.94 uIU/mL (0.358-3.740)
--- NOTE | 2023-02-01 21:44 | P.CNS ---
Date of Consult: 02/02/23 Reason for Consult: CKD Requesting Physician: gilmer moncada Chief Complaint: Chest pain History of Present Illness: Patient is a 42-year-old female with a past medical history significant for anemia, anxiety disorder, depression, IBS, CKD, hypothyroidism presents with complaint of chest pain located in the left chest wall with radiation to the left arm, neck, left shoulder and back. Patient reported that chest pain started yesterday and became worse over time. Patient rated pain as 10/10 in severity and described pain as pressure in quality. Patient reported that she has not been able to keep any p.o. intake down for the past 2 weeks and has been having episodes of diarrhea. Patient also reports abdominal pain with p.o. intake. Patient reported associated signs and symptoms of dizziness, headache, chills and nausea. Patient denies any other signs and symptoms. Symptoms are aggravated or relieved by nothing. Patient decided to present to the hospital due to worsening symptoms. 13:45 This 42 yrs old Black Female presents to ER via Ambulatory with complaints of Abdominal kb Pain, Chest Pain - hx/onset yesterday. 13:45 The patient or guardian reports chest pain that is located primarily in the anterior kb chest wall, left. Onset: yesterday. The pain radiates to the left arm. Associated signs and symptoms: Pertinent positives: abdominal pain, nausea, diarrhea. The chest pain is described as aching. Duration: The patient or guardian reports a single episode, that is still ongoing. Modifying factors: The symptoms are alleviated by nothing. the symptoms are aggravated by activity, breathing, movement. Severity of pain: At its worst the pain was moderate in the emergency department the pain is unchanged. The patient has not experienced similar symptoms in the past. The patient has not recently seen a physician. Pt reports chest pain to left chest with radiation down left arm that started yesterday. States pain is worse with movement. Also reports diarrhea and abd pain for 2 weeks. Has appt scheduled with GI on 02/09/23. 13:03 Chief complaint: Patient states: Pain to left side of chest radiating down left arm aa5 that began yesterday. Pt also reports nausea and weight loss. Coronavirus screen: At this time, the client does not indicate any symptoms associated with coronavi nena-19. Ebola Screen: Patient denies travel to an Ebola-affected area in the 21 days before illness onset. Initial Sepsis Screen: Does the patient meet any 2 criteria? No. Patient's initial sepsis screen is negative. Does the patient have a suspected source of infection? No. Patient's initial sepsis screen is negative. Risk Assessment: Do you want to hurt yourself or someone else? Patient reports no desire to harm self or others. Onset of symptoms was January 2023. Allergies aspirin Allergy (Verified 05/12/21 08:27) Anaphylaxis clarithromycin Allergy (Verified 05/12/21 08:27) Anaphylaxis cyclobenzaprine Allergy (Verified 05/12/21 08:27) Anaphylaxis gluten Allergy (Verified 05/12/21 08:27) Anaphylaxis dairy Allergy (Uncoded 02/01/23 22:10) Anaphylaxis Home medications list reviewed: Yes Home Medications: Loratadine [Claritin*] 10 mg PO DAILY PRN 06/20/16 Estradiol/Levonorgestrel [Climara Pro Patch] 1 each TD EVERY 7TH DAY 04/05/21 Famotidine 20 mg PO BEDTIME 04/05/21 Lactobacillus Acidophilus [Probiotic] 1 cap PO DAILY 04/05/21 Omeprazole [Prilosec] 40 mg PO DAILY 04/05/21 Albuterol Neb [Proventil 0.083% Neb Soln] 2.5 mg IH PRN PRN 05/12/21 Albuterol Sulfate [Proair Hfa] 8.5 gm IH PRN PRN 05/12/21 Escitalopram Oxalate 10 mg PO DAILY 02/01/23 Promethazine HCl 25 mg PO Q6HR PRN 02/01/23 ursodioL [Ursodiol] 500 mg PO DAILY 02/01/23 - Past Medical/Surgical History Diabetic: No -: Depression with anxiety -: CKD IV with Proteinuria (Dr. Lo/ Francia) -: Anemia/ Thrombocytopenia -: Asthma -: Seasonal allergies -: Hypothyroidism -: Bilateral axillary surgery -: Right foot surgery -: ligation Psychosocial/ Personal History: Patient was adopted. She is single. She has an adopted child. - Family History Mother Notes: cervical cancer - Social History Smoking Status: Unknown if ever smoked Alcohol use: No CD- Drugs: No Caffeine use: No Place of Residence: Home Review of Systems 10-point ROS is otherwise unremarkable General: Weakness Cardiovascular: Chest Pain Physical Examination Temp Pulse Resp BP Pulse Ox 98.1 F 58 18 132/82 100 02/01/23 20:00 02/01/23 20:56 02/01/23 20:56 02/01/23 20:56 02/01/23 20:00 General: In no apparent distress, Oriented x3, Cooperative HEENT: Atraumatic Neck: Supple Respiratory: Clear to auscultation bilaterally Cardiovascular: No edema, Regular rate/rhythm Gastrointestinal: Soft and benign, Non-distended Musculoskeletal: No clubbing, No contractures Integumentary: No rashes, No cyanosis Neurological: Normal speech Laboratory Data (last 24 hrs) 02/01/23 14:15: PT 12.7 H, INR 1.15 02/01/23 14:15: WBC 4.20 L, Hgb 12.4, Hct 37.1, Plt Count 88 L 02/01/23 14:15: Sodium 139, Potassium 3.5, BUN 21 H, Creatinine 2.48 H, Glucose 80, Magnesium 2.6 H, Total Bilirubin 0.6, AST 43 H, ALT 36, Alkaline Phosphatase 117, Lipase 24 Imagings Data: EXAM DESCRIPTION: Saw Single View02/01/2023 1:54 pm CLINICAL HISTORY: Chest pain COMPARISON: 2020 FINDINGS: The lungs appear clear of acute infiltrate. The heart is normal size IMPRESSION: No acute abnormalities displayed Conclusions/Impression: ANIKA likely due to hypovolemia/hypotension in the setting of anorexia CKD IV with proteinuria -No NSAIDs -Continue gentle IVF -IVF bolus prn Hypokalemia -Replete potassium Hypophosphatemia -Encourage nutrition -Neutra-phos prn -Consider GI evaluation for anorexia with weight loss Hypotension, variable -Check cortisol level Thrombocytopenia Hx iron deficiency -Monitor CBC -Check iron status & B12 Thank you kindly for the consultation
[2023-02-01] MEDS ORDERED: LORATADINE 10 MG TAB PO PRN (22:36)
[2023-02-01] MEDS ORDERED: NACHLORIDE 0.45% 1,000 ML IV SCH (23:00)
[2023-02-01] MEDS: HYDROCODONE/APAP 10/325 TAB PO PRN (23:24)
[2023-02-01] MEDS: FAMOTIDINE 20 MG TAB PO SCH (23:36)
[2023-02-02 00:41] VITALS: BMI 20.5
[2023-02-02 02:38] LABS: Lymphocytes % 55.1 % (15.3-44.8); MCV 99.3 fL (80-100); MPV 10.5 fL (7.6-11.3); RBC Red Blood Cell Count 3.62 M/uL (3.86-4.86)
[2023-02-02 02:55] LABS: Phosphorus 2.7 mg/dL (2.5-4.9); Potassium 3.7 mEq/L (3.5-5.1); Uric Acid 1.9 mg/dL (2.6-6.0)
[2023-02-02 03:17] LABS: Blood Morphology Comment NOT SEEN (NOT SEEN); Platelet Estimate DECR; White Blood Cell Scan OK (OK)
[2023-02-02 04:21] LABS: Hepatitis B Core Ab, Total Nonreactive (Nonreactive); Hepatitis B Surface Ab - Quant < 3.10 mIU/mL (<8.0); Hepatitis B surface AG Interp. Nonreactive (Nonreactive); Hepatitis C Virus Ab Nonreactive (Nonreactive)
[2023-02-02] MEDS ORDERED: ALBUTEROL 2.5 MG/3 ML NEB SOL NEB PRN (07:17)
--- NOTE | 2023-02-02 07:35 | RAD REPORT ---
EXAM DESCRIPTION: US - Renal Ultrasound-Complete - 02/02/2023 12:28 am CLINICAL HISTORY: Chronic renal failure stage 4 COMPARISON: None. FINDINGS: The right kidney measures 9 cm with an increased echotexture. The left kidney measures 8 cm with an increased echotexture. Hydronephrosis is not seen. Bladder contains little urine and is not well evaluated IMPRESSION: Increased renal echotexture consistent with parenchymal disease
[2023-02-02] MEDS: PANTOPRAZOLE 40MG TABLET PO SCH (08:27)
[2023-02-02] MEDS: LACTOBACILLUS/ACIDOPHILUS TAB PO SCH (08:27)
[2023-02-02] MEDS: ESCITALOPRAM 20 MG TAB PO SCH (08:28)
[2023-02-02] MEDS ORDERED: ASPIRIN 81 MG CHEWABLE TABLET PO SCH (09:00)
[2023-02-02] MEDS: URSODIOL PO SCH ×2 (09:00→15:27)
[2023-02-02] MEDS ORDERED: POTASSIUM 25 MEQ EFFERV TAB PO ONE (09:00)
--- NOTE | 2023-02-02 10:10 | CON ---
Date of Consultation: 02/02/2023 Reason For Consultation: Atypical chest pain. History Of Present Illness: Ms. Persaud is 42. Has a history of asthma and multiple GI issues and li kallie issues. She comes in with atypical chest pain that is midepigastric, radiating to the back with some nausea. No diaphoresis. No shortness of breath. Denied PND, orthopnea, pedal edema, palpitati ons, or syncope. Denied any fever or chills. Workup so far revealed normal troponin, normal EKG, no rmal x-ray. The only abnormality is elevated creatinine of 2.48. Past Medical History: As stated above. Allergies: SHE IS ALLERGIC TO ASPIRIN, GLUTEN, AND NEOMYCIN. Review of Systems: Negative. Social History: Negative. Family History: Negative. Medications: At home only include inhalers. Physical Examination: Vital Signs: Stable, afebrile, sinus rhythm. HEENT: Negative. Neck: Supple with no bruit. Chest: Clear. Cardiac: Revealed a regular rhythm and rate. No murmurs, gallops, or rubs. Abdomen: Benign. Extremities: Revealed no clubbing, cyanosis, or edema. Diagnostic Data: As stated earlier. Impression And Plan: Very atypical chest pain. I think it is all gastric or esophageal in nature. She has plan to see Gastroenterology. Echocardiogram is pending. Nephrology is seeing her. Renal u ltrasound has been done and results are pending. We will continue her present regimen, see what her echocardiogram shows, consider doing a stress test as an outpatient. She can go home after the echo ardiogram once it is okay with Renal and Dr. Best. MILKA/HANKL Voice ID: [id number] Report ID: [id number]
[2023-02-02] MEDS: Ringers Lactate 1,000 ML IV SCH (11:53)
[2023-02-02 11:59] LABS: Ferritin 148.8 ng/mL (8-388)
[2023-02-02] MEDS ORDERED: ESTRADIOL TOP SCH (12:45)
[2023-02-02] MEDS ORDERED: LEVONORGESTREL TOP SCH (12:45)
[2023-02-02] MEDS ORDERED: DRISDOL (VITAMIN D=ERGOCALCIFEROL) 50000 UNIT CAP PO SCH ×2 (13:00)
--- NOTE | 2023-02-02 17:49 | P.PN ---
Subjective Date of Service: 02/02/23 Chief Complaint: Chest pain Patient report frequent diarrhea, anorexia, weight loss, and pain all over. Not specifically chest pain. Physical Examination - Vital Signs Temperature: 97.2 F Blood Pressure: 124/80 Pulse: 52 Respirations: 15 Pulse Ox (%): 100 Assessment And Plan - Plan Physical Exam General: Alert, Oriented x3, Cooperative, cachectic. HEENT: Atraumatic, PERRLA, Mucous membr. moist/pink, EOMI, Sclerae nonicteric Neck: Supple, 2+ carotid pulse no bruit, No LAD, Without JVD or thyroid abnormality Respiratory: Clear to auscultation bilaterally, Normal air movement Cardiovascular: No edema, Regular rate/rhythm, Normal S1 S2 Gastrointestinal: Normal bowel sounds, Non-distended, Tenderness Musculoskeletal: No clubbing, No swelling, No contractures, No tenderness Integumentary: No rashes, No significant lesion, No tenderness/swelling Neurological: Normal speech, Normal tone, Normal affect Lymphatics: No axilla or inguinal lymphadenopathy Plan Chest pain. Serial troponin negative. Cardiology input appreciated. Echocardiogram pending to assess LV\valvular functions and wall motion. CKD 4. Nephrology consulted. Further management per tutor. History of IBS/anorexia/weight loss/chronic diarrhea Continue supportive care. GI Dr. Tim consulted to assist with management per patient request. Follow stool studies. Antiemetics as needed Anxiety disorder\depression. Continue home medications. GERD. Continue Protonix. Liver cirrhosis/thrombocytopenia Monitor CBC. SCD for DVT prophylaxis. Follow-up with Dr. Tim. Asthma. Stable. Continue home medications.
[2023-02-02] MEDS: FAMOTIDINE 20 MG TAB PO SCH (20:13)
[2023-02-02] MEDS: ENSURE CLEAR 200 ML CAN PO SCH (20:20)
[2023-02-02] MEDS: HYDROCODONE/APAP 10/325 TAB PO PRN (20:21)
[2023-02-02] MEDS ORDERED: FAMOTIDINE 20 MG TAB PO SCH (21:00)
--- NOTE | 2023-02-02 23:07 | CON ---
Date of Consultation: 02/02/2023 Reason For Consultation: Change in bowel habits, diarrhea, anorexia, weight loss, and abdominal tend erness. History Of Present Illness: The patient is a 42-year-old female with history of chr onic renal disease, celiac disease, depression, anxiety, asthma, and chronic thrombocytopenia who pre sented to the hospital with acute change in change in bowel habits, diarrhea, anorexia, and weight lo ss over the past 2 to 3 weeks and some midepigastric tenderness. The patient states that she had gai meron weight up from approximately 100 pounds up to 122 pounds over the past 2 to 3 weeks. She has bee n having this unexplained diarrhea with anorexia and weight loss. The patient does not know why she has been seeing other physicians here in [place] and in [place], [place] to try to understand her problem and her recent diagnosis of possible liver disease, for which she has been seen by physicians in [place]. The patient notes that since in hospital and on therapy here, she has had no diarrhea a nd she continues to have midepigastric tenderness though. Past Medical History: Significant for acute kidney injury with chronic kidney disease stage 3. She has depression, anxiety, chronic thrombocytopenia, asthma, seasonal allergies, celiac disease, bilate ral axillary surgery, and right foot surgery. Social History: She is adopted, single, never . She says she has 2 children. She has a biol ogical daughter and adopted child. No tobacco. No alcohol. Family History: Father alive with celiac disease. Mother of cervical cancer approximately at t he age of 39 years of age. Medications: At home in the past have included albuterol, Lexapro, and Claritin. Allergies: ASPIRIN GIVES ANAPHYLAXIS SHE SAID. Review of Systems: The patient has anorexia and weight loss over the past 3 weeks with change in bowel habits, diarrhea, midepigastric pain and tenderness. She denies any hematemesis, coffee-grounds emesis, hematuria, dy suria, polyuria, polydipsia, melena, hematochezia, epistaxis, hemoptysis, chest pain, seizures, or sh ortness of breath. She does have some depression and some anxiety as well. Recently a close friend, who was very supportive of her and checking on her frequently, and she is somewhat in de pressed mood because of that. Physical Examination: General: The patient is lying in bed, in no acute distress. Vital Signs: She is 5 feet, 105 pounds. BMI of 20.6 kg/sq m. Temperature 98.1 degrees Fahrenheit, pulse 50, respirations 18, blood pressure 100/55, and O2 saturation 100%. HEENT: Normocephalic, atraumatic. Anicteric. Pupils equal, round, and reactive to light. Extraocu lar movements intact. Oropharynx clear. Neck: Supple. No masses. Respirations: Clear to auscultation bilaterally. Cardiac: Regular rate and rhythm. Gastrointestinal: Positive bowel sounds. Soft, nondistended. Pain in the midepigastric area, sligh tly in the suprapubic area as well. No guarding. No rebound. No peritoneal signs. Extremities: No clubbing, cyanosis, or edema. 2+ pulses. Neuro: Alert and oriented x3. Grossly nonfocal. 5/5 motor strength. Sensation intact to light debbie ch. Laboratory Data: The patient has white count of 5.4, hemoglobin 12.2, hematocrit 33.0, MCV of 99, pl atelet count of 81, polys of 37%, lymphocytes 55%, and monocytes 8%. PT of 12.7, INR of 1.2. The pa tient has sodium of 136, potassium 3.7, chloride 112, bicarb 21, BUN of 16, creatinine of 2.3, glucos e 75. Uric acid 1.9. Calcium 8.6. Phosphorus 2.7. Iron saturation 28.8, ferritin of 148.8. Total bilirubin 0.6, direct bilirubin 0.2, AST of 43, ALT of 36, alkaline phosphatase 117. Troponin I of 4.2. Beta natriuretic peptide elevated at 209. Albumin 4.2, globulin of 3.5, total protein 7.7. Tr iglycerides 145, cholesterol 105, LDL 36, HDL of 38, lipase 24. TSH of 2.94, free T4 1.17. UA is pe nding. Hepatitis A, B, C negative. HIV nonreactive. Chest x-ray was negative. Impression: 1.Change in bowel habits, anorexia, weight loss with midepigastric pain and tenderness over the past 2 to 3 weeks with approximately 15 pounds weight loss that looks like it is unexplained. However, t he patient has not had diarrhea since being admitted to the hospital, that appears to be yesterday. 2.Fldcu-dd-uljtzfq kidney disease. Renal has been consulted. Renal ultrasound has been done as aurelio orozco. 3.History of celiac disease and other as per above. Recommendations: 1.Check stool studies. 2.Continue IV fluids. Continue p.r.n. pain medicines. 3.Consider colonoscopy and EGD. 4.Obtain medical records with recent addition of prednisone as per the patient's report today. 5.Check prealbumin and albumin. 6.Check sedimentation rate, CRP. 7.Advance diet as tolerated from clear liquids to a celiac gluten free diet as tolerated. YOJANA/NGOC Voice ID: [id number] Report ID: [id number]
[2023-02-03] MEDS: Ringers Lactate 1,000 ML IV SCH ×2 (01:07→14:09)
[2023-02-03 05:33] LABS: Absolute Lymphocytes (CBC) 2.4 K/uL (0.7-4.9); Hematocrit 37.3 % (36.0-45.0); Lymphocytes % 49.3 % (15.3-44.8); MCV 100.8 fL (80-100); MPV 10.9 fL (7.6-11.3)
--- NOTE | 2023-02-03 05:53 | EKG ---
Test Date: 2023-02-01 Test Time: 14:00:42 Weigher And Crusher: DORIAN MEASUREMENT RESULTS: Intervals: Rate: 50 OK: 182 QRSD: 90 QT: 464 QTc: 423 [place]: P: 66 OK: 182 QRS: 65 T: 46 INTERPRETIVE STATEMENTS: Sinus bradycardia Moderate voltage criteria for LVH, may be normal variant Borderline ECG Compared to ECG 05/14/2021 21:42:52 Left ventricular hypertrophy now present Electronically Signed On 02-03-23 05:48:59 CDT by Fidel Mendez
[2023-02-03 06:11] LABS: ALT/SGPT 79 U/L (13-56); AST/SGOT 122 U/L (15-37); Albumin 3.9 g/dL (3.4-5.0); Alkaline Phosphatase 161 U/L (45-117); BUN Blood Urea Nitrogen 23 mg/dL (7-18); Bicarbonate 20 mEq/L (21-32); Bilirubin Total 1.1 mg/dL (0.2-1.0); Glomerular Filtration Rate 26 ml/min (=/>90); Glucose Level 57 mg/dL (74-106); Phosphorus 3.1 mg/dL (2.5-4.9); Potassium 3.7 mEq/L (3.5-5.1); Prealbumin 25.8 mg/dL (20-40); Protein, Total 7.2 g/dL (6.4-8.2); Sodium Level 134 mEq/L (136-145)
[2023-02-03 06:12] LABS: C-Reactive Protein < 2.90 mg/L (<3.00)
--- NOTE | 2023-02-03 06:56 | ECHO ---
HEIGHT: 5 ft 0 in WEIGHT: 105 lb 6.4 oz DATE OF STUDY: 02/02/[address]: Shanique Chen 2-DIMENSIONAL: YES M.MODE: YES DOPPLER: YES COLOR FLOW: YES TDS: NO PORTABLE: YES DEFINITY: NO BUBBLE STUDY: NO DIAGNOSIS: CHEST PAIN CARDIAC HISTORY: CATHERIZATION: NO SURGERY: NO PROSTHETIC VALVE: NO PACEMAKER: NO MEASUREMENTS (cm) DIASTOLIC (NORMALS) SYSTOLIC (NORMALS) IVSd 0.7 (0.6-1.2) LA Diam 2.9 (1.9-4.0) LVEF 74% LVIDd 4.1 (3.5-5.7) LVIDs 2.4 (2.0-3.5) %FS 43% LVPWd 0.7 (0.6-1.2) Ao Diam 2.2 (2.0-3.7) 2 DIMENSIONAL ASSESSMENT: RIGHT ATRIUM: NORMAL LEFT ATRIUM: NORMAL RIGHT VENTRICLE: NORMAL LEFT VENTRICLE: NORMAL TRICUSPID VALVE: NORMAL MITRAL VALVE: NORMAL PULMONIC VALVE: NORMAL AORTIC VALVE: MILD INSUFFICIENCY PERICARDIAL EFFUSION: NONE AORTIC ROOT: NORMAL LEFT VENTRICULAR WALL MOTION: NORMAL. DOPPLER/COLOR FLOW: MILD AORTIC INSUFFICIENCY. COMMENTS: NORMAL LEFT VENTRICULAR EJECTION FRACTION 60-65% NORMAL WALL MOTION MILD AORTIC INSUFFICIENCY TECHNOLOGIST: NOAM LORENZANA
[2023-02-03] MEDS: PANTOPRAZOLE 40MG TABLET PO SCH (08:22)
[2023-02-03] MEDS: URSODIOL PO SCH (08:22)
[2023-02-03] MEDS: LACTOBACILLUS/ACIDOPHILUS TAB PO SCH (08:24)
[2023-02-03] MEDS: ESCITALOPRAM 20 MG TAB PO SCH (08:24)
[2023-02-03] MEDS: ENSURE CLEAR 200 ML CAN PO SCH ×2 (08:27→23:05)
[2023-02-03] MEDS ORDERED: POTASSIUM CL SA 10 MEQ TAB PO ONE (09:00)
[2023-02-03 09:10] LABS: Specific Gravity 1.014 (1.005-1.030); Urine Bacteria None Seen /HPF (<20); Urine Bilirubin NEGATIVE (Negative); Urine Blood 1+ (Negative); Urine Clarity Clear (Clear); Urine Color Colorless (Yellow); Urine Glucose 1+ (Negative); Urine Mucus Slight /HPF (None Seen); Urine Protein 1+ (Negative); Urine RBC None Seen /HPF (None Seen); Urine Urobilinogen Normal (Normal); Urine pH 5.5 (5.0-7.0)
[2023-02-03 09:44] LABS: UR MICROALBUMIN 10.9 mg/dL (< 1.9); UR PROTEIN 85.9 mg/dL (<11.9); Urine Protein/Creatinine Ratio 1.65 ratio (<0.15)
[2023-02-03] MEDS: HYDROCODONE/APAP 10/325 TAB PO PRN (10:19)
--- NOTE | 2023-02-03 12:43 | PN ---
Date of Progress Note: 02/03/2023 Ms. Persaud was seen for atypical chest pain, GI symptoms, asthma, elevated creatinine of 2.48. Nephr ology is following. Her pain has resolved. No telemetry changes. Echocardiogram which was done yes terday revealed normal ejection fraction. Mild aortic regurgitation. No wall motion abnormalities a nd no effusion. We will sign off her case. May need an outpatient stress test if her symptoms persi st. MILKA/NGOC Voice ID: [id number] Report ID: [id number]
--- NOTE | 2023-02-03 13:26 | P.PN ---
Nephrology note: (S) Pt continues to cite some vague abd pain, denies any further diarrhea, reports not tolerating the diet ordered. (O) Vitals reviewed in the EMR General: NAD HEENT: Atraumatic, scler anicteric Neck: Supple Respiratory: Clear to auscultation bilaterally Cardiovascular: No edema, Regular rate/rhythm Gastrointestinal: Soft and benign, Non-distended Musculoskeletal: No clubbing, No contractures Neurological: Normal speech, awake, alert Laboratory Data (last 24 hrs) Reviewed in the EMR Conclusions/Impression: CKD IV with sub nephrotic range proteinuria -hx of possible prior biopsy in the remote past (will need to review prior records), renal function largely within recent baseline range. Cont to monitor closely. Renal imaging shows renal sizes at LLN, and with increased renal echogenicity. Abdominal pain, abnormal LFTs, weight loss -Recent w/u at [facility] with transjugular pressure measurements and percutaneous liver biopsy performed Hepatic wedge and venous pressure gradients elevated suggesting portal HTN. Liver biopsy path revealed the following: LIVER, NEEDLE BIOPSY: - MULTIPLE BILE DUCT HAMARTOMAS (V[place] COMPLEXES) - MINIMAL PORTAL LYMPHOPLASMACYTIC INFLAMMATION - FOCAL PORTAL FIBROSIS (CHINEDU FIBROSIS STAGE: 0-1/6). - NO PREVIOUS LIVER BIOPSY AVAILABLE FOR COMPARISON. Will f/u GI reccs Hypotension, unspecified -BP remains low, cont IVF hydration, further w/u per primary team Chauncey Cavazos MD, JANAY
[2023-02-03 15:47] LABS: Specific Gravity 1.014 (1.005-1.030); Urine Bacteria <20 /HPF (<20); Urine Bilirubin NEGATIVE (Negative); Urine Blood 1+ (Negative); Urine Clarity Clear (Clear); Urine Color Colorless (Yellow); Urine Glucose 1+ (Negative); Urine Mucus Slight /HPF (None Seen); Urine Protein 1+ (Negative); Urine RBC None Seen /HPF (None Seen); Urine Urobilinogen Normal (Normal); Urine pH 5.5 (5.0-7.0)
[2023-02-03 16:17] LABS: UR MICROALBUMIN 11.1 mg/dL (< 1.9)
--- NOTE | 2023-02-03 17:05 | P.PN ---
Subjective Date of Service: 02/03/23 Chief Complaint: Chest pain Patient is doing much better today. She was seen eating her breakfast with no complain. She stated diarrhea is much better today. No nausea or vomiting. Physical Examination - Vital Signs Temperature: 98.2 F Blood Pressure: 99/58 Pulse: 63 Respirations: 16 Pulse Ox (%): 100 Assessment And Plan - Plan Physical Exam General: Alert, Oriented x3, Cooperative, cachectic. HEENT: Atraumatic, PERRLA, Mucous membr. moist/pink, EOMI, Sclerae nonicteric Neck: Supple, 2+ carotid pulse no bruit, No LAD, Without JVD or thyroid abnormality Respiratory: Clear to auscultation bilaterally, Normal air movement Cardiovascular: No edema, Regular rate/rhythm, Normal S1 S2 Gastrointestinal: Normal bowel sounds, Non-distended, Tenderness Musculoskeletal: No clubbing, No swelling, No contractures, No tenderness Integumentary: No rashes, No significant lesion, No tenderness/swelling Neurological: Normal speech, Normal tone, Normal affect Lymphatics: No axilla or inguinal lymphadenopathy Plan Chest pain. Serial troponin negative. Cardiology input appreciated. Echocardiogram: CKD 4. Proteinuria noted. Nephrology to follow. History of IBS/anorexia/weight loss/chronic diarrhea Continue supportive care. GI Dr. Tim input appreciated. Dr. Tim is planning EGD and colonoscopy as outpatient. Antiemetics as needed Patient is tolerating diet. Anxiety disorder\depression. Continue home medications. GERD. Continue Protonix. Liver cirrhosis/thrombocytopenia Monitor CBC. SCD for DVT prophylaxis. Follow-up with Dr. Tim. Asthma. Stable. Continue home medications.
[2023-02-03] MEDS: FAMOTIDINE 20 MG TAB PO SCH (23:04)
[2023-02-04] MEDS: Ringers Lactate 1,000 ML IV SCH ×2 (03:08→17:33)
[2023-02-04 04:52] LABS: Magnesium 2.2 mg/dL (1.6-2.4); Phosphorus 2.8 mg/dL (2.5-4.9)
[2023-02-04 04:55] LABS: Potassium 3.6 mEq/L (3.5-5.1)
[2023-02-04] MEDS: LACTOBACILLUS/ACIDOPHILUS TAB PO SCH (08:29)
[2023-02-04] MEDS: URSODIOL PO SCH (08:29)
[2023-02-04] MEDS: PANTOPRAZOLE 40MG TABLET PO SCH (08:29)
[2023-02-04] MEDS: ESCITALOPRAM 20 MG TAB PO SCH (08:30)
[2023-02-04] MEDS: ENSURE CLEAR 200 ML CAN PO SCH (08:33)
[2023-02-04] MEDS ORDERED: POTASSIUM CL SA 10 MEQ TAB PO ONE (09:00)
[2023-02-04 16:11] VITALS: BP 112/72; TEMP 98.2
[2023-02-04 16:29] VITALS: O2SAT 99
--- NOTE | 2023-02-04 16:36 | PN ---
Date of Progress Note: 02/04/2023 Subjective: Patient was seen and examined at bedside. She is doing well. Denies any complaints. Objective: Vital Signs: Have been reviewed and are stable. General: She appears in no acute distress. HEENT: Atraumatic head. She appears cachectic and malnourished. Lungs: Clear to auscultation. Abdomen: Soft and nontender. Extremities: Without any evidence of edema. Laboratory Data: Showing creatinine of 2.2 and sodium of 136. CBC showing stable hemoglobin, hemato crit, and platelet count. Current Medications: Includes Tylenol p.r.n. for pain, Lexapro, Pepcid, hydrocodone p.r.n. for pain, potassium replacements, and vitamin D. Impression: 1.Chronic stage 4 chronic kidney disease with an acute component. Currently with stable renal funct ion. Patient has some nephrotic range proteinuria, but at this time, renal function is stable. 2.Abdominal pain associated with abnormal LFTs and weight loss. Patient is being worked up and will follow up with Dr. Tim as an outpatient. She is noted to have new-onset portal hypertension, for which she will need further workup as an outpatient. Plan: Overall, patient is doing okay. She is not on any nephrotoxic medications. Renal function is stable. We will continue to monitor closely. ROSA/NGOC Voice ID: [id number] Report ID: [id number]
--- NOTE | 2023-02-04 18:18 | P.DS ---
Admission Date: 02/01/23 Discharge Date: 02/04/23 Disposition: ROUTINE DISCHARGE Discharge Condition: FAIR Reason for Admission: Chest pain Brief History of Present Illness: Patient is a 42-year-old female with a past medical history significant for anemia, anxiety disorder, depression, IBS, CKD, hypothyroidism presented with complaint of chest pain located in the left chest wall with radiation to the left arm, neck, left shoulder and back. Patient reported that the chest pain started yesterday and became worse over time. Patient rated pain as 10/10 in severity and described pain as pressure in quality. Patient reported that she was not been able to keep any p.o. intake down for the past 2 weeks and was having episodes of diarrhea. Patient also reported abdominal pain with p.o. intake. Patient reported associated signs and symptoms of dizziness, headache, chills and nausea. Labs unremarkable except CKD. Patient was hospitalized for further management. Hospital Course: Chest pain. Serial troponin negative. Seen by cardiology. Echocardiogram unremarkable. ACS ruled out. No further intervention per cardiology. CKD 4. Nephrology consulted. Renal function was stable during the hospital stay History of IBS/anorexia/weight loss/chronic diarrhea Continue supportive care. GI Dr. Tim consulted to assist with management per patient request. Patient initially had diarrhea. Diarrhea resolved. Nurses reports no bowel movement for 2 days. Patient prescribed MiraLAX on discharge. Dr. Tim is planning to follow-up with her for outpatient EGD and colonoscopy Anxiety disorder\depression. Continue home medications. GERD. Continued Protonix. Liver cirrhosis/thrombocytopenia Stable Follow-up with Dr. Tim. Asthma. Stable. Continued home medications. Severe protein calorie malnutrition Nutritional supplementation. Vital Signs/Physical Exam: Temp Pulse Resp BP Pulse Ox 98.2 F 69 16 112/72 99 02/04/23 16:00 02/04/23 16:00 02/04/23 16:00 02/04/23 16:00 02/04/23 16:00 General: Alert, In no apparent distress, Cachectic HEENT: Mucous membr. moist/pink Neck: JVD not distended Respiratory: Clear to auscultation bilaterally, Normal air movement Cardiovascular: No edema, Regular rate/rhythm, Normal S1 S2 Gastrointestinal: Soft and benign, Non-distended Musculoskeletal: No swelling Neurological: Normal strength at 5/5 x4 extr Laboratory Data at Discharge: WBC 4.80 thou/uL (4.3-10.9) 02/03/23 04:29 Hgb 12.4 g/dL (12.0-15.0) 02/03/23 04:29 Hct 37.3 % (36.0-45.0) 02/03/23 04:29 Plt Count 89 thou/uL (152-406) L 02/03/23 04:29 PT 12.7 SECONDS (9.5-12.5) H 02/01/23 14:15 INR 1.15 02/01/23 14:15 Sodium 136 mEq/L (136-145) 02/04/23 03:59 Potassium 3.6 mEq/L (3.5-5.1) 02/04/23 03:59 BUN 30 mg/dL (7-18) H 02/04/23 03:59 Creatinine 2.28 mg/dL (0.55-1.02) H 02/04/23 03:59 Glucose 101 mg/dL (74-106) 02/04/23 03:59 Uric Acid 1.9 mg/dL (2.6-6.0) L 02/02/23 01:50 Phosphorus 2.8 mg/dL (2.5-4.9) 02/04/23 03:59 Magnesium 2.2 mg/dL (1.6-2.4) 02/04/23 03:59 Total Bilirubin 1.1 mg/dL (0.2-1.0) H 02/03/23 04:29 AST 122 U/L (15-37) H 02/03/23 04:29 ALT 79 U/L (13-56) H 02/03/23 04:29 Alkaline Phosphatase 161 U/L (45-117) H 02/03/23 04:29 Triglycerides 155 mg/dL (<150) H 02/02/23 01:50 Cholesterol 105 mg/dL (<200) 02/02/23 01:50 HDL Cholesterol 38 mg/dL (40-60) L 02/02/23 01:50 Cholesterol/HDL Ratio 2.76 02/02/23 01:50 Lipase 24 U/L (13-75) 02/01/23 14:15 Home Medications: Loratadine [Claritin*] 10 mg PO DAILY PRN 06/20/16 Estradiol/Levonorgestrel [Climara Pro Patch] 1 each TD EVERY 7TH DAY 04/05/21 Famotidine 20 mg PO BEDTIME 04/05/21 Lactobacillus Acidophilus [Probiotic] 1 cap PO DAILY 04/05/21 Omeprazole [Prilosec] 40 mg PO DAILY 04/05/21 Albuterol Neb [Proventil 0.083% Neb Soln] 2.5 mg IH PRN PRN 05/12/21 Albuterol Sulfate [Proair Hfa] 8.5 gm IH PRN PRN 05/12/21 Escitalopram Oxalate 10 mg PO DAILY 02/01/23 Promethazine HCl 25 mg PO Q6HR PRN 02/01/23 ursodioL [Ursodiol] 500 mg PO DAILY 02/01/23 Ergocalciferol (Vitamin D2) [Vitamin D 50,000 Unit Cap] 50,000 unit PO SEECOM 02/02/23 Ensure Clear 237 ml PO BID #30 can 02/04/23 Polyethylene Glycol 3350 [Miralax] 17 gm PO DAILY PRN #30 packet 02/04/23 New Medications: Ensure Clear 237 ml PO BID #30 can Polyethylene Glycol 3350 [Miralax] 17 gm PO DAILY PRN #30 packet PRN Reason: Constipation Followup: NONE,NONE [Primary Care Provider] - Time spent managing pt's care (in minutes): 36
== END 2023-02-04 19:31 | disposition home or self-care (01) | DRG 313 ==
LOC: ER 12:41 → ERHOLD 17:30 → 4TH 19:57
PROVIDERS: ADMIT Internal Medicine; ATTEND Internal Medicine
DX: R07.89 Other chest pain (principal); E43 Unspecified severe protein-calorie malnutrition; N18.4 Chronic kidney disease, stage 4 (severe); N17.9 Acute kidney failure, unspecified; R64 Cachexia; K76.6 Portal hypertension; E03.9 Hypothyroidism, unspecified; F41.9 Anxiety disorder, unspecified; F32.A Depression, unspecified; E87.6 Hypokalemia; K21.9 Gastro-esophageal reflux disease without esophagitis; I95.9 Hypotension, unspecified; E83.39 Other disorders of phosphorus metabolism; D69.59 Other secondary thrombocytopenia; K74.60 Unspecified cirrhosis of liver; J45.909 Unspecified asthma, uncomplicated; R19.7 Diarrhea, unspecified; R94.5 Abnormal results of liver function studies; Z88.8 Allergy status to other drugs, medicaments and biological substances; Z88.5 Allergy status to narcotic agent; Z88.1 Allergy status to other antibiotic agents; Z88.6 Allergy status to analgesic agent; Z68.20 Body mass index [BMI] 20.0-20.9, adult; Z79.899 Other long term (current) drug therapy
CPT/HCPCS: 36415; 71045; 76770; 80048; 80053; 80061; 80076; 81001; 82043; 82533; 82570; 82607; 82728; 83540; 83690; 83735; 83880; 84100; 84134; 84156; 84439; 84443; 84466; 84484; 84550; 85025; 85610; 86038; 86140; 86160; 86335; 86704; 86706; 86803; 87340; 87389; 93005; 93306; 96374; 96375; 99285; J2270; J2405; J7120

== ENCOUNTER 2023-04-04 16:47 | Emergency (ER) | payer OTHER ==
--- OUTSIDE RECORDS SUMMARY | 2023-04-04 16:50 | XMS REPORT | Continuity of Care Document ---
:1980 Author Organization [facility] t Address [address] [place] [address] [address] [place] [address] Care Team Providers Name Role Phone MELANIENORBERTOJoseJONAH Primary Care Physician Unavailable KIA WADDELL Attending Clinician Unavailable Pob, [facility] Main Attending Clinician Unavailable Randall Waddell MD Attending Clinician Unavailable Akilah Cedeno MD Attending Clinician AKILAH CEDENO Attending Clinician Unavailable Doctor Unassigned, [place] Attending Clinician Unavailable Kia Waddell MD Attending Clinician EUN STEEL Attending Clinician Unavailable Eun Steel MD Attending Clinician JEANA AHUMADA Attending Clinician Unavailable Jeana Ahumada DO Attending Clinician RANDALL WADDELL Attending Clinician Unavailable Jose Evans Attending Clinician DONAVAN GLYNN Attending Clinician Unavailable Donavan Espinoza Attending Clinician 1, [facility] Attending Clinician Unavailable Zaid Cowan Attending Clinician ZAID HERNÁNDEZ Attending Clinician [facility] Unavailable Vtc-Lab Attending Clinician Unavailable [...] Type Policy Number Effective Date Expiration Date [facility] [id number] 2023 STAR PLUS 00:00:00 Problems Condition Condition Condition Status Onset [...] chronic 2-13 ity of disease disease 00:00: [place] [address] Medical Branch Urinary Urinary Disease Active Overview: [...] ity o f 00:00: g of this [place] note Medical might be Branch different from [...] f kidney kidney 00:00: g of this [place] disease disease 00 note Medical might be Branch different [...] E Class 2-25 ity of ANTIBIOT 00:00: [place] ICS 00 Medical Branch Macrolid Propensi Active [...] ity of 00:00: [place] 00 Medical Branch CLARITHR DRUG Active High Palpitations Un jame OMYCIN INGREDI 2-22 ity of 00:00: [place] 00 Medical Branch Clarithr Propensi Active Shortness of Univers omycin ty to Breath 2-22 ity of adverse 00:00: [place] reaction 00 Medical s Branch Aspirin Propensi Active Shortness of Experien c Univers ty to Breath 5-04 ed ity of adverse 00:00: shortness [place] reaction of breath Medic al s and Branch hives. ASPIRIN DRUG Active SOB Univers INGREDI 5-04 ity of 00:00: [place] 00 Medical Branch Social History Social Habit Start Date Stop Date Quantity Comments Source Alcohol intake 2022-05-26 2022-05-26 Current [facility] 00:00:00 00:00:00 non-drinker of [facility] alcohol (finding) Branch Exposure to 2022-04-17 2022-04-27 Yes [facility] SARS-CoV-2 00:00:00 14:37:00 [facility] (event) Branch Tobacco use and 2017-12-29 2017-12-29 Smokeless tobacco Un iversity of exposure 00:00:00 00:00:00 non-user [facility] Sex Assigned At [birth year] OR Health 00:00:00 00:00:00 Smoking Status Start Date Stop Date Source Tobacco smoking consumption OR H ealth unknown Never smoked tobacco [facility] Medications Ordered Filled Start Stop Current Ordering Indication Dosage Frequency Signature Comments Components Source Medication Medication Date Date Medication? Clinician (SIG) Name Name mirtazapine Yes 15mg Take 15 mg Univers 15 mg 7-29 by mouth ity of tablet 03:23: at [place] 02 bedtime. Medical Branch mirtazapine Yes 15mg Take 15 mg Univers 15 mg 7-29 by mouth ity of tablet 03:23: at [place] 02 bedtime. Medical Branch mirtazapine Yes 15mg Take 15 mg Univers 15 mg 7-29 by mouth ity of tablet 03:23: at [place] 02 bedtime. Medical Branch mirtazapine 2021-0 Yes 15mg Take 15 mg Univers 15 mg 7-29 by mouth ity of tablet 03:23: at [place] 02 bedtime. Medical Branch mirtazapine 2021-0 Yes 15mg Take 15 mg Univers 15 mg 7-29 by mouth ity of tablet 03:23: at [place] 02 bedtime. Medical Branch NaCl 0.9% 2021- No 1000mL at 999 Uni vers (NS) bolus 04-27- mL/hr, ity of infusion 20:30: 20:10 1,000 mL, Fabien as 1,000 mL 00 :00 IV Medical Infusion, Branch ONCE, 1 dose, On Mon04/27/22 at 1530, KEYON mirtazapine 2021-0 Yes 15mg Take 15 mg Univers 15 mg - by mouth ity of tablet 15:16: at [place] [address] bedtime. [facility] Branch escitalopra 2021-0 Yes 20mg Take 20 mg Univers m oxalate 04-27 by mouth ity of 20 mg 14:24: daily. [facility] 25 [facility] escitalopra 0 Yes 20mg Take 20 mg Univers m oxalate - by mouth ity of 20 mg 14:24: daily. [facility] 25 [facility] escitalopra 0 Yes 20mg Take 20 mg Univers m oxalate - by mouth ity of 20 mg 14:24: daily. [place] tablet 25 [facility] escitalopra 2021-0 Yes 20mg Take 20 mg Univers m oxalate - by mouth ity of 20 mg 14:24: daily. [facility] 25 [facility] escitalopra 0 Yes 20mg Take 20 mg Univers m oxalate - by mouth ity of 20 mg 14:24: daily. [place] tablet 25 [facility] escitalopra 0 Yes 20mg Take 20 mg Univers m oxalate - by mouth ity of 20 mg 14:24: daily. [facility] 25 [facility] Branch ondansetron 2021- No 4mg Take 4 mg Univers 4 mg tablet 04-27 by mouth ity of 14:23: 00:00 every 8 [place] 56 :00 (eight) Medical hours as Branch needed. amoxicillin 2021- No [id number] 875mg Take 1 Univers 875 mg 7-27 08-04 tablet by ity of tablet 00:00: 04:59 mouth in [place] 00 :00 the Medical morning Branch and 1 tablet in the evening. Do all this for 7 days. ursodioL 2021-0 Yes [id number] 500mg Take 1 U nivers 500 mg 5-27 tablet by ity of tablet 00:00: mouth [place] 00 daily. Medical Branch proMETHazin 2021-0 Yes [id number] 25mg Take 1 Univers e 25 mg 5-27 tablet by ity of tablet 00:00: mouth [place] 00 every 6 Medical (six) Branch hours as needed for Nausea and Vomiting (N/V). ursodioL 2021-0 Yes [id number] 500mg Take 1 U nivers 500 mg 5-27 tablet by ity of tablet 00:00: mouth [place] 00 daily. Medical Branch proMETHazin 2021-0 Yes [id number] 25mg Take 1 Univers e 25 mg 5-27 tablet by ity of tablet 00:00: mouth [place] 00 every 6 Medical (six) Branch hours as needed for Nausea and Vomiting (N/V). ursodioL 2021-0 Yes [id number] 500mg Take 1 U nivers 500 mg 5-27 tablet by ity of tablet 00:00: mouth [place] 00 daily. Medical Branch proMETHazin 2021-0 Yes [id number] 25mg Take 1 Univers e 25 mg 5-27 tablet by ity of tablet 00:00: mouth [place] 00 every 6 Medical (six) Branch hours as needed for Nausea and Vomiting (N/V). ursodioL 2021-0 Yes [id number] 500mg Take 1 U nivers 500 mg 5-27 tablet by ity of tablet 00:00: mouth [place] 00 daily. Medical Branch proMETHazin 2021-0 Yes [id number] 25mg Take 1 Univers e 25 mg 5-27 tablet by ity of tablet 00:00: mouth [place] 00 every 6 Medical (six) Branch hours as needed for Nausea and Vomiting (N/V). ursodioL 2021-0 Yes [id number] 500mg Take 1 U nivers 500 mg 5-27 tablet by ity of tablet 00:00: mouth [place] 00 daily. Medical Branch proMETHazin 2021-0 Yes [id number] 25mg Take 1 Univers e 25 mg 5-27 tablet by ity of tablet 00:00: mouth [place] 00 every 6 Medical (six) Branch hours as needed for Nausea and Vomiting (N/V). ursodioL 2-0 Yes [id number] 500mg Take 1 U nivers 500 mg 5-27 tablet by ity of tablet 00:00: mouth [place] 00 daily. Medical Branch proMETHazin 2021-0 Yes [id number] 25mg Take 1 Univers e 25 mg 5-27 tablet by ity of tablet 00:00: mouth [place] 00 every 6 Medical (six) Branch hours as needed for Nausea and Vomiting (N/V). ursodioL 2-0 Yes [id number] 500mg Take 1 U nivers 500 mg 5-27 tablet by ity of tablet 00:00: mouth [place] 00 daily. Medical Branch proMETHazin 2021-0 Yes [id number] 25mg Take 1 Univers e 25 mg 5-27 tablet by ity of tablet 00:00: mouth [place] 00 every 6 Medical (six) Branch hours as needed for Nausea and Vomiting (N/V). proMETHazin 2021-0 2021- No [id number] 25mg Take 1 Univers e 25 mg 3-22 05-27 tablet by ity of tablet 00:00: 00:00 mouth [place] 00 :00 every 6 Medical (six) Branch hours as needed for Nausea and Vomiting (N/V). famotidine 2021-0 Yes 20mg Take 20 mg U nivers 20 mg 2-16 by mouth ity of tablet 00:00: at [place] [address] bedtime. Medical Branch famotidine 2021-0 Yes 20mg Take 20 mg U nivers 20 mg 2-16 by mouth ity of tablet 00:00: at [place] [address] bedtime. Medical Branch famotidine 2-0 Yes 20mg Take 20 mg U nivers 20 mg 2-16 by mouth ity of tablet 00:00: at [place] [address] bedtime. Medical Branch famotidine 2-0 Yes 20mg Take 20 mg U nivers 20 mg 2-16 by mouth ity of tablet 00:00: at [place] [address] bedtime. Medical Branch famotidine 2022-0 Yes 20mg Take 20 mg U nivers 20 mg 2-16 by mouth ity of tablet 00:00: at [place] [address] bedtime. Medical Branch famotidine 2-0 Yes 20mg Take 20 mg U nivers 20 mg 2-16 by mouth ity of tablet 00:00: at [place] [address] bedtime. Medical Branch famotidine 2021-0 Yes 20mg Take 20 mg U nivers 20 mg 2-16 by mouth ity of tablet 00:00: at [place] [address] bedtime. Medical Branch SERTraline 2-0 Yes Univers 25 mg 2-13 ity of tablet 00:00: [place] 00 Medical Branch SERTraline 2-0 2022- No Univer s 25 mg 2-13 07-27 ity of tablet 00:00: 00:00 [place] 00 :00 Medical Branch omeprazole 2-0 Yes 40mg Take 40 mg U nivers 40 mg 2-09 by mouth ity of capsule 00:00: every [place] 00 morning. Medical Branch omeprazole 2022-0 Yes 40mg Take 40 mg U nivers 40 mg 2-09 by mouth ity of capsule 00:00: every [place] 00 morning. Medical Branch omeprazole 2022-0 Yes 40mg Take 40 mg U nivers 40 mg 2-09 by mouth ity of capsule 00:00: every [place] 00 morning. Medical Branch omeprazole 2-0 Yes 40mg Take 40 mg U nivers 40 mg 2-09 by mouth ity of capsule 00:00: every [place] 00 morning. Medical Branch omeprazole 2022-0 Yes 40mg Take 40 mg U nivers 40 mg 2-09 by mouth ity of capsule 00:00: every [place] 00 morning. Medical Branch omeprazole 2022-0 Yes 40mg Take 40 mg U nivers 40 mg 2-09 by mouth ity of capsule 00:00: every [place] 00 morning. Medical Branch omeprazole 2022-0 Yes 40mg Take 40 mg U nivers 40 mg 2-09 by mouth ity of capsule 00:00: every [place] 00 morning. Medical Branch bismuth 2019-0 Yes Take by Univers subsalicyla 5-03 mouth. ity of te 15:24: [place] (PEPTO-BISM 46 Medical OL ORAL) Branch bismuth 2019-0 Yes Take by Univers subsalicyla 5-03 mouth. ity of te 15:24: [place] (PEPTO-BISM 46 Medical OL ORAL) Branch bismuth 2019-0 Yes Take by Univers subsalicyla 5-03 mouth. ity of te 15:24: [place] (PEPTO-BISM 46 Medical OL ORAL) Branch bismuth Yes Take by Univers subsalicyla 5-03 mouth. ity of te 15:24: [place] (PEPTO-BISM 46 Medical OL ORAL) Branch bismuth Yes Take by Univers subsalicyla 5-03 mouth. ity of te 15:24: [place] (PEPTO-BISM 46 Medical OL ORAL) Branch bismuth Yes Take by Univers subsalicyla 5-03 mouth. ity of te 15:24: [place] (PEPTO-BISM 46 Medical OL ORAL) Branch bismuth Yes Take by Univers subsalicyla 5-03 mouth. ity of te 15:24: [place] (PEPTO-BISM 46 Medical OL ORAL) Branch loratadine Yes 10mg Take 10 mg U nivers (CLARITIN) 5-03 by mouth ity o f 10 mg 15:08: daily. [place] tablet Medical Branch ALBUTEROL Yes Inhale. [facility] INHALE 02-01 ity of 15:08: Medical Branch beclomethas Yes Inhale. Uni vers one 02-01 ity of dipropionat 15:08: [facility] (QVAR 01 Medical INHALE) Branch ondansetron Yes 4mg Take 4 mg U nivers 4 mg tablet 03 by mouth ity of 15:08: every 8 [place] [address] (eight) Medical hours as Branch needed. calcium Yes Take by Univers carbonate 5-03 mouth. ity of (TUMS ORAL) 15:08: Medical Branch escitalopra Yes 20mg Take 20 mg Univers m oxalate 5-03 by mouth ity of (LEXAPRO) 15:08: daily. [place] 20 mg Medical tablet Branch loratadine Yes 10mg Take 10 mg U nivers (CLARITIN) 5-03 by mouth ity o f 10 mg 15:08: daily. [place] tablet Medical Branch ALBUTEROL 0 Yes Inhale. Unive rs INHALE 02-01 ity of 15:08: Medical Branch beclomethas Yes Inhale. Uni vers one - ity of dipropionat 15:08: [place] e (QVAR 01 Medical INHALE) Branch calcium Yes Take by Univers carbonate 5-03 mouth. ity of (TUMS ORAL) 15:08: [facility] loratadine Yes 10mg Take 10 mg U nivers (CLARITIN) 5-03 by mouth ity o f 10 mg 15:08: daily. [place] tablet [facility] ALBUTEROL Yes Inhale. [facility] [place] rs INHALE 02-01 ity of 15:08: [facility] beclomethas Yes Inhale. Uni vers one 02-01 ity of dipropionat 15:08: [facility] (QVAR 01 Medical INHALE) [place] calcium Yes Take by Univers carbonate 5-03 mouth. ity of (TUMS ORAL) 15:08: [place] [facility] loratadine Yes 10mg Take 10 mg U nivers (CLARITIN) 5-03 by mouth ity o f 10 mg 15:08: daily. [place] tablet [facility] ALBUTEROL Yes Inhale. [facility] rs INHALE 02-01 ity of 15:08: [facility] beclomethas Yes Inhale. Uni vers one 02-01 ity of dipropionat 15:08: [facility] (QVAR 01 Medical INHALE) [place] calcium Yes Take by Univers carbonate 5-03 mouth. ity of (TUMS ORAL) 15:08: [place] [facility] loratadine Yes 10mg Take 10 mg U nivers (CLARITIN) 5-03 by mouth ity o f 10 mg 15:08: daily. [place] tablet [facility] ALBUTEROL Yes Inhale. [facility] rs INHALE 02-01 ity of 15:08: [facility] beclomethas Yes Inhale. Uni vers one 02-01 ity of dipropionat 15:08: [facility] (QVAR 01 Medical INHALE) [place] calcium Yes Take by Univers carbonate 5-03 mouth. ity of (TUMS ORAL) 15:08: [address] loratadine Yes 10mg Take 10 mg U nivers (CLARITIN) 5-03 by mouth ity o f 10 mg 15:08: daily. [place] tablet [facility] ALBUTEROL 2019-0 Yes Inhale. [facility] rs INHALE 02-01 ity of 15:08: [place] [facility] beclomethas Yes Inhale. Uni vers one - ity of dipropionat 15:08: [place] e (QVAR 01 Medical INHALE) Branch calcium Yes Take by Univers carbonate 5-03 mouth. ity of (TUMS ORAL) 15:08: [place] [facility] loratadine Yes 10mg Take 10 mg U nivers (CLARITIN) 503 by mouth ity o f 10 mg 15:08: daily. [address] ALBUTEROL Yes Inhale. [facility] rs INHALE 02-01 ity of 15:08: [address] beclomethas Yes Inhale. Uni vers one 02-01 ity of dipropionat 15:08: [facility] (QVAR 01 Medical INHALE) [place] calcium Yes Take by Univers carbonate 5-03 mouth. ity of (TUMS ORAL) 15:08: [place] [facility] PROAIR HFA Yes INHALE 2 Uni vers 90 1-25 PUFFS PO Q ity of mcg/actuati 00:00: 4-6 H PRF [place] inhaler 00 SOB/ Medical WHEEZING Branch PROAIR HFA Yes INHALE 2 Uni vers 90 1-25 PUFFS PO Q ity of mcg/actuati 00:00: 4-6 H PRF [place] inhaler 00 SOB/ Medical WHEEZING Branch PROAIR HFA Yes INHALE 2 Uni vers 90 1-25 PUFFS PO Q ity of mcg/actuati 00:00: 4-6 H PRF [place] inhaler 00 SOB/ Medical WHEEZING Branch PROAIR HFA Yes INHALE 2 Uni vers 90 1-25 PUFFS PO Q ity of mcg/actuati 00:00: 4-6 H PRF [place] inhaler 00 SOB/ Medical WHEEZING Branch PROAIR HFA Yes INHALE 2 Uni vers 90 1-25 PUFFS PO Q ity of mcg/actuati 00:00: 4-6 H PRF [place] inhaler 00 SOB/ Medical WHEEZING Branch PROAIR HFA Yes INHALE 2 Uni vers 90 1-25 PUFFS PO Q ity of mcg/actuati 00:00: 4-6 H PRF [place] on inhaler 00 SOB/ Medical WHEEZING Branch PROAIR HFA 2019-0 Yes INHALE 2 Uni vers 90 1-25 PUFFS PO Q ity of mcg/actuati 00:00: 4-6 H PRF [place] on inhaler 00 SOB/ Medical WHEEZING Branch cyproheptad 2018-0 Yes Univer s ine 4 mg 1-15 ity of tablet 00:00: [place] Medical Branch cyproheptad 2019-0 Yes Univer s ine 4 mg 1-15 ity of tablet 00:00: [place] [facility] cyproheptad 2019-0 Yes Univer s ine 4 mg 1-15 ity of tablet 00:00: [place] [facility] cyproheptad 2019-0 Yes Univer s ine 4 mg 1-15 ity of tablet 00:00: [place] [facility] cyproheptad 2019-0 Yes Univer s ine 4 mg 1-15 ity of tablet 00:00: [place] [facility] cyproheptad 2019-0 Yes Univer s ine 4 mg 1-15 ity of tablet 00:00: [place] Medical Branch cyproheptad 2019-0 Yes Univer s ine 4 mg 1-15 ity of tablet 00:00: [place] Medical [place] Vital Signs Vital Name Observation Time Observation Value Comments Source Systolic blood 2022-04-27 19:19:00 141 mm[Hg] Univer sity of pressure [facility] Diastolic blood 2022-04-27 19:19:00 93 mm[Hg] Unive rsity of pressure [facility] Heart rate 2022-04-27 19:19:00 87 /min [facility] Body temperature 2022-04-27 19:19:00 37.11 Carolyn [facility] Res[facility] 2022-04-27 19:19:00 18 /min [facility] Body weight 2022-04-27 19:19:00 45.813 kg [facility] BMI 2022-04-27 19:19:00 19.73 kg/m2 [facility] Oxygen saturation in 2022-04-27 19:19:00 98 /min [facility] Arterial blood by [facility] Pulse oximetry Branch Systolic blood 2022-02-25 20:21:00 133 mm[Hg] Univer sity of pressure [facility] Diastolic blood 2022-02-25 20:21:00 76 mm[Hg] Unive rsity of pressure [facility] Heart rate 2022-02-25 20:21:00 71 /min [facility] Respiratory rate 2022-02-25 20:21:00 18 /min [facility] Body height 2022-02-25 20:21:00 152.4 cm [facility] Body weight 2022-02-25 20:21:00 45.949 kg [facility] BMI 2022-02-25 20:21:00 19.78 kg/m2 [facility] Oxygen saturation in 2022-02-25 20:21:00 100 /min [facility] Arterial blood by [facility] Pulse oximetry Branch Procedures Procedure Date / Time Performing Clinician Source Performed ASSIGNMENT OF BENEFITS 2023-03-22 16:32:15 Doctor Unassigned, No [facility] Branch AUTHORIZATION FOR 2022-10-10 06:01:00 Doctor Unassigned, No [facility] RELEASE OF [facility] COMP. METABOLIC PANEL 2022-04-27 19:35:00 Jeana Ahumada [facility] ([id number]) [facility] CBC WITH DIFF 2022-04-27 19:35:00 Jeana Ahumada [facility] CONSENT/REFUSAL FOR 2022-04-27 19:15:00 Doctor Unassigned, No [facility] DIAGNOSIS AND TREATMENT [facility] Encounters Start End Encounter Admission Attending Care Care Encounter Source Date/Time Date/Time Type Type Clinicians Facility Department ID 2023-09-08 2023-09-08 Outpatient James WADDELL [facility] [id number] Univers 10:30:00 10:30:00 KIA [facility] 2023-03-24 2023-03-24 Outpatient James WADDELL [facility] [id number] Univers 14:00:00 14:10:21 [facility] 2023-03-22 2023-03-22 Manager Printing Christelle, Shaista Lab Main [facility] 1.2.8 40.114 [id number] Univers 12:30:00 12:45:00 Visit Randall Waddell RENE 350.1.1 3.10 ity of [place]ilah Cedeno 4.2.7.2.686 [facility] [id number] [address] 2023-03-22 2023-03-22 [facility] [id number] Univers 12:30:00 12:30:00 AKILAH itparamjit [facility] 2023-03-22 2023-03-22 Orders Doctor BRADEN 1.2.840.114 [id number] Univers 00:00:00 00:00:00 Only Unassigned, MARVIN 350.1.13.10 ity of [place] [facility] 4.2.7.2.686 Fabien as [id number] [facility] 009 Branch 2023-03-14 2023-03-14 Telephone [facility] [id number] Univers 00:00:00 00:00:00 Kia PA 350.1.13.10 ity of IALTY 4.2.7.2.686 [facility] [place] [id number] [facility] ALIVIA 072 Branch DIAB[facility]ES [facility] 2022-10-10 2022-10-10 Orders Doctor BRADEN 1.2.840.114 [id number] Univers 00:00:00 00:00:00 Only Unassigned, MARVIN 350.1.13.10 ity of [place] [facility] 4.2.7.2.686 Fabien as [id number] [facility] 009 Branch 2022-05-26 2022-05-26 Outpatient R [facility] [id number] Univers 10:27:39 23:59:00 EUN ity [facility] 2022-05-26 2022-05-26 [facility] 1.2.840.114 [id number] Univers 10:27:39 23:59:00 Encounter Eun LÓPEZ 350.1.13.10 ity of [place] 4.2.7.2.686 [facility] [id number] [facility] 800 Branch 2022-04-27 2022-04-[address] [facility] [id number] Univers 14:21:00 15:23:00 JEANA johnston [facility] 2022-04-27 2022-04-[address] [facility] 1.2.840.114 [id number] Univers 14:21:00 15:23:00 Jeana LÓPEZ 350.1.13.10 ity of [place] 4.2.7.2.686 [facility] [id number] [facility] 084 Branch 2022-03-22 2022-03-22 [facility] [id number] Univers 00:00:00 00:00:00 Kia CARDOSOPEC 350.1.13.10 ity of [place] 4.2.7.2.686 [facility] [place] [id number] [facility] 072 [place] [facility] 2022-03-16 2022-03-16 Manager Printing Christelle, Shaista Lab Main [facility] 1.2.8 40.114 [id number] Univers 16:15:00 16:30:00 Visit Randall Waddell 350.1.1 3.10 ity of [facility] 4.2.7.2.686 [facility] [id number] [facility] 2022-03-16 2022-03-16 Outpatient [facility] [id number] Univers 16:15:00 16:15:00 RANDALL ity of [facility] 2022-03-16 2022-03-16 Orders Doctor FELICIANO 1.2.840.114 [id number] Univers 00:00:00 00:00:00 Only Unassigned, MARVIN 350.1.13.10 ity of [place] [facility] 4.2.7.2.686 [facility] [id number] [facility] 009 Branch 2022-02-25 2022-02-25 Outpatient [facility] [id number] Univers 14:00:00 15:47:25 KIA salesy [facility] 2022-02-25 2022-02-25 Outpatient [facility] [id number] Univers 14:00:00 15:47:25 KIA johnston [facility] 2022-02-25 2022-02-25 Office Nadira [facility] 1.2.840.114 [id number] Univers 14:00:00 15:47:25 Visit Kia WALKERPEC 350.1.13.10 ity [facility] 4.2.7.2.686 [facility] [place] [id number] [facility] AND BUNCH 072 Branch DIABETES CLINIC 2022-02-25 2022-02-25 Outpatient R NADIRA [facility] [id number] Univers 14:00:00 14:00:00 KIA johnston [facility] 2022-02-25 2022-02-25 Outpatient James NADIRA [facility] [id number] Univers 14:00:00 14:00:00 [facility] 2022-01-12 2022-01-12 Outpatient R [facility] [id number] Univers 11:30:00 11:30:00 [facility] 2022-01-08 2022-01-08 Abstract BRADEN Burton 1.2.840.114 [id number] Univers 00:00:00 00:00:00 Jose WONG 350.1.13.10 it y [facility] 4.2.7.2.686 [facility] [id number] [facility] 009 Branch 2021-12-21 2021-12-[address] [facility] ERT [id number] Univers 15:15:00 18:23:00 DONAVAN ity [facility] 2021-12-21 2021-12-21 Emergency [facility] [id number] Univers 15:15:00 18:23:00 Donavan Edilberto LÓPEZ 350.1.13.10 i ty [facility] 4.2.7.2.686 [facility] [id number] [facility] 084 Branch 2021-12-21 2021-12-21 Orders Doctor FELICIANO 1.2.840.114 [id number] Univers 00:00:00 00:00:00 Only Unassigned, MARVIN 350.1.13.10 ity of [place] [facility] 4.2.7.2.686 Fabien as [id number] [facility] 009 Branch 2021-12-21 2021-12-21 Patient Nadira [facility] 1.2.840.114 [id number] Univers 00:00:00 00:00:00 Secure Msg Shejacobyyar MULTISPEC 350.1.13.10 it[place]2.686 [place] [id number] [address] DIABETES CLINIC 2021-12-20 2021-12-20 Telephone [place]flsharona [facility] [id number] Univers 00:00:00 00:00:00 Shejacobyyar MULTISPEC 350.1.13.10 [place] [id number] [address] DIABETES CLINIC 2021-12-10 2021-12-10 [facility] [id number] Univers 08:46:40 23:59:00 [facility]-10 2021-12-10 Hospital BERHANE Wadd[place] 1.2.840.114 [id number] Univers 08:46:40 23:59:00 Encounter Kia [facility] 350.1.13.10 ity of [place] [id number] [facility] [address] 2021-12-10 2021-12-10 [facility] [id number] Univers 08:46:40 23:59:00 [facility] 2021-12-10 2021-12-10 [facility] [id number] Univers 08:46:40 23:59:00 [facility] 2021-12-08 2021-12-08 Manager Printing Christelle, Shaista Lab Main [facility] 1.2.8 40.114 [id number] Univers 11:15:00 11:30:00 Visit Kia Wadd[place] 350.1.13.10 [place] [facility] [phone] [facility] 353 [facility] 2021-12-08 2021-12-08 Manager Printing 1, Adc Lab [facility] 1.2.840.114 [id number] Univers 10:45:00 11:00:00 Visit Akilah Cedeno RENE 350.1.13.10 [place] of [place] [id number] [facility] [address] 2021-12-08 2021-12-08 [facility] [id number] Univers 10:45:00 10:45:00 AKILAH [facility] 2021-12-08 2021-12-08 Outpatient [facility] [id number] Univers 10:00:00 10:00:00 AKILAH [facility] 2021-12-08 2021-12-08 Orders Doctor BRADEN 1.2.840.114 [id number] Univers 00:00:00 00:00:00 Only Unassigned, MARVIN 350.1.13.10 ity of [place] [facility] 4.2.7.2.686 Fabien as [phone] [facility] [address] 2021 2021 Zaid Ortiz [facility] 1.2.840.114 [id number] Univers 00:00:00 00:00:00 Management Y HEALTH 350.1.13.10 [place] [id number] [facility] [address] 2021-11-26 2021-11-26 Outpatient R ZAID HERNÁNDEZ [facility] [id number] Univers 07:46:06 23:59:00 ity of [facility] 2021-11-26 2021-11-26 [facility] Zaid Hernández [facility] 1.2.840.114 [id number] Univers 07:46:06 23:59:00 Earl [facility] Y HEALTH 350.1. 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 [facility] 1.2.840.114 [id number] Univers 14:30:00 15:06:01 Visit Kia PA 350.1.13.10 ity of [place] 4.2.7.2.686 [facility] [place] [phone] [place] [address] [place] [facility] 2021-11-19 2021-11-19 Outpatient R NADIRA [facility] [id number] Univers 14:30:00 15:06:01 KIA ity [facility] 2021-11-19 2021-11-[address] [facility] 1.2.840.114 [id number] Univers 14:30:00 15:06:01 Visit Kia PA 350.1.13.10 ity of IAL[place] 4.2.7.2.686 [facility] [place] [phone] [facility] AND [place] 978182 [place] [facility] 2021-08-11 2021-08-11 Orders Doctor FELICIANO 1.2.840.114 [id number] Univers 00:00:00 00:00:00 Only Unassigned, MARVIN 350.1.13.10 ity of [place] [facility] 4.2.7.2.686 Fabien as [phone] [facility] [address] 2021-08-11 2021-08-11 Telephone KRISTOPHER Wadd[place] 1.2.840.114 [id number] Univers 00:00:00 00:00:00 [facility] 350.1.13.10 ity of [facility] 4.2.7.2.[place] [id number] [facility] [address] 2021-06-04 2021-06-04 EXT H OP Kelly, EXT MSRDP 1.2.840.114 [id number] [place] 00:00:00 00:00:00 [place] LOCATION 350.1.13.58 H ealth [place] 9.2.7.2.686 [phone] 0 2021-06-04 2021-06-04 EXT [facility] OP Kelly, EXT MSRDP 1.2.840.114 [id number] [place] 00:00:00 00:00:00 [place] LOCATION 350.1.13.58 [facility] [place] 9.2.7.2.686 [id number] 2021-05-19 2021-05-19 [facility] [id number] Univers 14:00:00 14:00:00 [facility] 2021-03-26 2021-03-26 [facility] Radiology [facility] 1.2.840.114 [id number] 16:00:00 23:59:00 Encounter [place] 350.1.13.10 [place] 4.2.7.2.686 [place] [id number] 806 2021-03-26 2021-03-26 [facility] Radiology [facility] 1.2.840.114 [id number] Univers 16:00:00 23:59:00 Encounter Shal[place] 350.1.13.10 ity of [place] 4.2.7.2.686 [facility] [id number] [facility] [address] 2021-03-26 2021-03-26 Outpatient R RADIOLOGY [facility] [id number] Univers 00:00:00 00:00:00 ity [facility] 2021-03-26 2021-03-26 Orders Doctor FELICIANO 1.2.840.114 [id number] 00:00:00 00:00:00 Only Unassigned, MARVIN 350.1.13.10 [place] [facility] 4.2.7.2.686 [id number] 009 2021-03-26 2021-03-26 Orders Doctor BRADEN 1.2.840.114 [id number] Univers 00:00:00 00:00:00 Only Unassigned, MARVIN 350.1.13.10 ity of [place] [facility] 4.2.7.2.686 [place] [phone] [facility] [address] 2021-03-24 2021-03-24 [facility] Radiology [facility] 1.2.840.114 [id number] Univers 07:33:57 23:59:00 Encounter [place] 350.1.13.10 ity of [place] 4[place]2.7.2.686 [place] [facility] [id number] [facility] [address] 2021-03-24 2021-03-24 [facility] Radiology [facility] 1.2.840.114 [id number] 07:33:57 23:59:00 Encounter [place] 350.1.13.10 [place] 4.2.7.2.686 [place] [id number] 2021-03-24 2021-03-24 Outpatient R RADIOLOGY [facility] [id number] Univers 00:00:00 00:00:00 [facility] 2021-03-24 2021-03-24 Orders Doctor BRADEN Cortez2.840.114 [id number] Univers 00:00:00 00:00:00 Only Unassigned, MARVIN 350.1.13.10 ity of [place] [facility] 4.2.7.2.686 Fab[place] as [id number] [facility] [address] 2021-03-24 2021-03-24 Orders Doctor BRADEN Cortez2.840.114 [id number] 00:00:00 00:00:00 Only Unassigned, MARVIN 350.1.13.10 [place] [facility] 4.2.7.2.686 [id number] 009 2021-02-11 2021-02-11 Outpatient R DAMIÁN, [facility] [id number] Univers 00:00:00 00:00:00 EUN [facility] 2020-08-19 2020-08-19 Outpatient R TRENT [facility] [id number] Univers 10:30:00 10:30:00 MYLES [facility] 2020-08-19 2020-08-19 Outpatient R TRENT [facility] [id number] Univers 10:30:00 10:30:00 MYLES [facility] 2020-03-02 2020-03-02 Outpatient R NATALIABENJY LISA [facility] [id number] Univers 11:30:00 11:30:[facility] 2020-02-26 2020-02-26 Outpatient R TRENT [facility] [id number] Univers 13:00:00 13:00:00 MYLES [facility] 2020-02-17 2020-02-17 Outpatient R [facility] [id number] Univers 11:00:00 11:00:00 [facility] 2019-11-26 2019-11-26 Manager Printing Vtc-Lab [facility] 1.2.840.114 [id number] Univers 11:06:28 11:16:28 Visit Hadley Edmonds MULTISPEC 350.1.13. 10 ity of IALTY 4.2.7.2.686 [facility] s [place] [id number] [address] [facility] 2019-11-26 2019-11-26 Office Peggy [facility] 1.2.840.114 [id number] 10:09:55 11:02:35 Visit John [facility] 350.1.13.10 IAL[place] 4.2.7.2.686 [place] [id number] [place] [address] [facility] 2019-11-26 2019-11-26 Office John Woods [facility] 1.2.840.114 [id number] Univers 10:09:55 11:02:35 Visit Hadley Edmonds MULTISPEC 350.1.13. 10 ity of [place] 4.2.7.2.686 [facility] s [place] [phone] [address] [facility] 2019-11-26 2019-11-26 [facility] [id number] Univers 10:00:00 10:00:00 HADLEY ity of [facility] 2019-11-20 2019-11-20 Orders Doctor BRADEN 1.2.840.114 [id number] Univers 00:00:00 00:00:00 Only Unassigned, MARVIN 350.1.13.10 ity of [place] [facility] 4.2.7.2.686 [place] [phone] [address] 2019-10-15 2019-10-15 Manager Printing Shaista Bourgeois Lab Main [facility] 1.2.8 40.114 [id number] Univers 14:40:47 14:55:47 Visit Jess Hanks 350.1.13 .10 ity of [place].2.[place] [phone] Fl [address] 2019-10-15 2019-10-15 Orders Doctor BRADEN 1.2.840.114 [id number] Univers 00:00:00 00:00:00 Only Unassigned, MARVIN 350.1.13.10 ity of [place] [facility] 4.2.7.2.686 [place] as [id number] [address] 2019-05-06 2019-05-06 Orders Doctor BRADEN 1.2.840.114 [id number] Univers 00:00:00 00:00:00 Only Unassigned, MARVIN 350.1.13.10 ity of [place] [facility] 4.2.7.2.686 [place] [phone] [address] Results This patient has no known results.
[2023-04-04 17:51] LABS: Absolute Lymphocytes (CBC) 1.7 K/uL (0.7-4.9); Hematocrit 39.9 % (36.0-45.0); Lymphocytes % 46.5 % (15.3-44.8); MCV 99.3 fL (80-100); RBC Red Blood Cell Count 4.02 M/uL (3.86-4.86)
[2023-04-04] MEDS ORDERED: ONDANSETRON 4 MG/2 ML VIAL ONE (17:51)
[2023-04-04] MEDS ORDERED: MAGNES/ALUMIN/SIMET 30ML UCUP ONE (17:51)
[2023-04-04] MEDS ORDERED: NA CHLORIDE 0.9% 1,000 ML ONE (17:52)
[2023-04-04] MEDS ORDERED: PANTOPRAZOLE 40 MG INJ ONE (17:52)
[2023-04-04 17:58] LABS: MPV 10.7 fL (7.6-11.3)
[2023-04-04 18:10] LABS: Albumin 4.3 g/dL (3.4-5.0); Bilirubin Total 0.8 mg/dL (0.2-1.0); Potassium 3.4 mEq/L (3.5-5.1); Protein, Total 8.4 g/dL (6.4-8.2); Troponin High Sensitivity 3.5 pg/mL (<58.9)
--- NOTE | 2023-04-04 19:20 | EDPHYS ---
Physician Documentation [facility] Name: Miya Persaud Age: 42 yrs Sex: Female : 1980 Arrival Date: 04/04/2023 Time: 16:47 Bed 19 Private MD: ED Physician Tomas Yanez HPI: 04/04 21:02 This 42 yrs old Black Female presents to ER via Ambulatory with complaints of Abdominal rt Pain, Nausea. 21:02 Patient with history of gastritis and other chronic stomach issues presents to the ED rt with nausea, vomiting, mild abdominal pain is consistent with her prior episodes. She is requesting IV Zofran for the nausea and vomiting. She denies other acute complaints at this time. Symptoms are moderate in severity, aching nature, nonradiating, no other aggravating or elevating factors.. Historical: - Allergies: 16:56 "mycin" medications. all those that end with mycin; nj1 16:56 Aspirin; nj1 16:56 Clarithromycin; nj1 16:56 Cyclobenzaprine; nj1 16:56 Demerol; nj1 16:56 diclofenac sodium; nj1 16:56 Levofloxacin; nj1 16:56 Gluten Protein; nj1 - PMHx: 16:56 Anemia; Anxiety; Depression; ibs; kidney disease; Stage IV renal disease; Thyroid nj1 problem; Liver condition; - PSHx: 16:56 Coronary Angioplasty; Uterine ablation; Cholecystectomy; nj1 - Immunization history:: Client reports having NOT received the Covid vaccine. - Social history:: Smoking status: Patient denies any tobacco usage or history of. - Family history:: not pertinent. ROS: 21:02 Constitutional: Negative for fever, chills, and weight loss, Cardiovascular: Negative rt for chest pain, palpitations, and edema, Respiratory: Negative for shortness of breath, cough, wheezing, and pleuritic chest pain, MS/Extremity: Negative for injury and deformity, Skin: Negative for injury, rash, and discoloration, Neuro: Negative for headache, weakness, numbness, tingling, and seizure, Psych: Negative for depression, anxiety, suicide ideation, homicidal ideation, and hallucinations. 21:02 Abdomen/GI: Positive for abdominal pain, nausea and vomiting. Exam: 21:02 Constitutional: This is a well developed, well nourished patient who is awake, alert, rt and in no acute distress. Head/Face: Normocephalic, atraumatic. Chest/axilla: Normal chest wall appearance and motion. Nontender with no deformity. No lesions are appreciated. Cardiovascular: Regular rate and rhythm with a normal S1 and S2. No gallops, murmurs, or rubs. Normal PMI, no JVD. No pulse deficits. Respiratory: Lungs have equal breath sounds bilaterally, clear to auscultation and percussion. No rales, rhonchi or wheezes noted. No increased work of breathing, no retractions or nasal flaring. Skin: Warm, dry with normal turgor. Normal color with no rashes, no lesions, and no evidence of cellulitis. MS/ Extremity: Pulses equal, no cyanosis. Neurovascular intact. Full, normal range of motion. Neuro: Awake and alert, GCS 15, oriented to person, place, time, and situation. Cranial nerves II-XII grossly intact. Motor strength 5/5 in all extremities. Sensory grossly intact. Cerebellar exam normal. Normal gait. Psych: Awake, alert, with orientation to person, place and time. Behavior, mood, and affect are within normal limits. 21:02 ECG was reviewed by the Attending Physician. 21:02 Abdomen/GI: Minimal epigastric tenderness without rebound, guarding, distention. Vital Signs: 16:53 BP 148 / 103; Pulse 72; Resp 18; Pulse Ox 100% on R/A; Height 5 ft. 0 in. ; Pain 10/10; nj1 17:07 BP 138 / 81; Pulse 17; Resp 61; Temp 98.1; Pulse Ox 98% on R/A; rs5 18:17 BP 122 / 73; Pulse 54; Resp 16; Pulse Ox 100% ; bp 19:00 BP 101 / 64; Pulse 60; Resp 16; Pulse Ox 100% ; vc1 16:53 Pain Scale: Adult nj1 MDM: 17:13 Patient medically screened. rt 21:02 Differential diagnosis: Gastritis, pancreatitis, acute coronary syndrome. Data rt reviewed: vital signs, nurses notes, lab test result(s), EKG. Test considered but Not performed: CT: Benign abdominal examination, chronic abdominal pain with nausea, CT scan is not indicated rule out acute surgical pathology such as an appendicitis.. Care significantly affected by the following chronic conditions: Gastritis, chronic kidney disease. Counseling: I had a detailed discussion with the patient and/or guardian regarding: the historical points, exam findings, and any diagnostic results supporting the discharge/admit diagnosis, lab results, the need for outpatient follow up. Response to treatment: the patient's symptoms have resolved after treatment. 04/04 17:32 Order name: CBC with Diff; Complete Time: 18:10 rt 04/04 17:32 Order name: CMP; Complete Time: 18:10 rt 04/04 17:32 Order name: Lipase; Complete Time: 18:10 rt 04/04 17:32 Order name: Troponin High Sensitivity; Complete Time: 18:10 rt 04/04 17:32 Order name: EKG; Complete Time: 17:33 rt 07 17:32 Order name: IV Saline Lock; Complete Time: 17:37 rt 07 17:32 Order name: Labs collected and sent; Complete Time: 17:37 rt 07 17:32 Order name: EKG - Nurse/Tech; Complete Time: 17:51 rt EC:02 Rate is 58 beats/min. Rhythm is regular, Sinus bradycardia with No ectopy. QRS [place] is rt Normal. [place] interval is normal. QRS interval is normal. QT interval is normal. No Q waves. T waves are Normal. No ST changes noted. Interpreted by me. Administered Medications: 17:51 Drug: NS 0.9% IV 1000 ml Route: IV; Rate: 1 bolus; Site: right antecubital; bp 17:51 Drug: Ondansetron IVP 4 mg Route: IVP; Site: right antecubital; bp 17:51 Drug: Alum-Mag Hydroxide-Simeth PO Suspension (200 mg-200 mg-20 mg/5 mL) 30 ml Route: bp PO; 19:50 Follow up: Response: No adverse reaction vc1 17:51 Drug: Pantoprazole IVP 40 mg Route: IVP; Site: right antecubital; bp 19:50 Follow up: Response: No adverse reaction vc1 19:50 Drug: MetoCLOPramide PO 10 mg Route: PO; vc1 19:50 Follow up: Response: Medication administered at discharge. vc1 Disposition Summary: 04/04/23 19:19 Discharge Ordered Location: Home rt Problem: chronic rt Symptoms: have improved rt Condition: Stable rt Diagnosis - Other gastritis without bleeding rt Followup: rt - With: Alexandro Tim MD - When: 2 - 3 days - Reason: Discharge Instructions: - Discharge Summary Sheet rt - Gastritis, Adult rt Forms: - Medication Reconciliation Form rt - Thank You Letter rt - Antibiotic Education rt - Prescription Opioid Use rt - [email or web address]_[email or web address] rt Prescriptions: - Reglan 10 mg Oral Tablet - take 1 tablet by ORAL route every 6 hours as needed; 18 tablet; Refills: 0, rt Product Selection Permitted Signatures: Dispatcher [employer] Omer Bejarano, RN RN bp Shanna Islas RN RN vc1 Tomas Yanez MD MD rt Anastasiia Dyer RN RN nj1
--- NOTE | 2023-04-04 19:20 | ER ---
Nurse's Notes [facility] Name: Miya Persaud Age: 42 yrs Sex: Female : 1980 Arrival Date: 04/04/2023 Time: 16:47 Bed 19 Private MD: Diagnosis: Other gastritis without bleeding Presentation: 04/04 16:53 Chief complaint: Patient states: Abdominal pain and nausea for 2 months. Unable to eat. nj1 "The generic form of zofran, the pill doesn't work, believes IV form works better" Saw GI doctor in March. Coronavirus screen: Vaccine status: Patient reports being unvaccinated. Ebola Screen: Patient denies travel to an Ebola-affected area in the 21 days before illness onset. Initial Sepsis Screen: Does the patient meet any 2 criteria? No. Patient's initial sepsis screen is negative. Does the patient have a suspected source of infection? No. Patient's initial sepsis screen is negative. Risk Assessment: Do you want to hurt yourself or someone else? Patient reports no desire to harm self or others. Onset of symptoms was February 01, 2023. 16:53 Method Of Arrival: Amb[facility] 16:53 Acuity: PARTH 3 nj1 Triage Assessment: 17:00 General: Appears in no apparent distress. uncomfortable, Behavior is calm, cooperative, bp appropriate for age. Pain: Complains of pain in abdomen. EENT: No deficits noted. Neuro: No deficits noted. Cardiovascular: No deficits noted. Respiratory: No deficits noted. GI: Reports lower abdominal pain, upper abdominal pain, nausea. : No signs and/or symptoms were reported regarding the genitourinary system. Derm: No deficits noted. Musculoskeletal: No deficits noted. Historical: - Allergies: 16:56 "mycin" medications. all those that end with mycin; nj1 16:56 Aspirin; nj1 16:56 Clarithromycin; nj1 16:56 Cyclobenzaprine; nj1 16:56 Demerol; nj1 16:56 diclofenac sodium; nj1 16:56 Levofloxacin; nj1 16:56 Gluten Protein; nj1 - PMHx: 16:56 Anemia; Anxiety; Depression; ibs; kidney disease; Stage IV renal disease; Thyroid nj1 problem; Liver condition; - PSHx: 16:56 Coronary Angioplasty; Uterine ablation; Cholecystectomy; nj1 - Immunization history:: Client reports having NOT received the Covid vaccine. - Social history:: Smoking status: Patient denies any tobacco usage or history of. - Family history:: not pertinent. Screenin:00 [facility] ED Fall Risk Assessment (Adult) History of falling in the last 3 months, bp including since admission No falls in past 3 months (0 pts). Abuse screen: Denies threats or abuse. Denies injuries from another. Nutritional screening: No deficits noted. Tuberculosis screening: No symptoms or risk factors identified. Assessment: 17:00 General: SEE TRIAGE NOTE. bp 18:00 Reassessment: No changes from previously documented assessment. Patient is alert, bp oriented x 3, equal unlabored respirations, skin warm/dry/pink. 19:00 Reassessment: Assumed care of patient from DUNCAN Tello. vc1 Vital Signs: 16:53 BP 148 / 103; Pulse 72; Resp 18; Pulse Ox 100% on R/A; Height 5 ft. 0 in. ; Pain 10/10; nj1 17:07 BP 138 / 81; Pulse 17; Resp 61; Temp 98.1; Pulse Ox 98% on R/A; rs5 18:17 BP 122 / 73; Pulse 54; Resp 16; Pulse Ox 100% ; bp 19:00 BP 101 / 64; Pulse 60; Resp 16; Pulse Ox 100% ; vc1 16:53 Pain Scale: Adult nj ED Course: 16:49 Patient arrived in ED. rg4 16:49 Tomas Yanez MD is Attending Physician. rt 16:56 Triage completed. nj1 16:59 Omer Smith, RN is Primary Nurse. bp 16:59 Arm band placed on right wrist. nj1 17:00 Patient has correct armband on for positive identification. Bed in low position. Call bp light in reach. Side rails up X2. 17:52 Inserted saline lock: 20 gauge in right antecubital area, using aseptic technique. rs5 Blood collected. 19:19 Alexandro Tim MD is Referral Physician. rt 19:51 No provider procedures requiring assistance completed. IV discontinued, intact, vc1 bleeding controlled, No redness/swelling at site. Pressure dressing applied. Administered Medications: 17:51 Drug: NS 0.9% IV 1000 ml Route: IV; Rate: 1 bolus; Site: right antecubital; bp 17:51 Drug: Ondansetron IVP 4 mg Route: IVP; Site: right antecubital; bp 17:51 Drug: Alum-Mag Hydroxide-Simeth PO Suspension (200 mg-200 mg-20 mg/5 mL) 30 ml Route: bp PO; 19:50 Follow up: Response: No adverse reaction vc1 17:51 Drug: Pantoprazole IVP 40 mg Route: IVP; Site: right antecubital; bp 19:50 Follow up: Response: No adverse reaction vc1 19:50 Drug: MetoCLOPramide PO 10 mg Route: PO; vc1 19:50 Follow up: Response: Medication administered at discharge. vc1 Medication: 19:40 VIS not applicable for this client. vc1 Outcome: 19:19 Discharge ordered by . rt 19:51 Discharged to home ambulatory. vc1 19:51 Condition: good 19:51 Discharge instructions given to patient, Instructed on discharge instructions, follow up and referral plans. medication usage, Demonstrated understanding of instructions, follow-up care, medications, Prescriptions given X 1. 19:52 Patient left the ED. vc1 Signatures: Michelle Reynaga rg4 Omer Smith, RN RN bp Shanna Islas RN RN vc1 Tomas Yanez MD MD rt Stevie Gilmore rs5 Anastasiia Dyer RN RN nj1
[2023-04-04] MEDS ORDERED: METOCLOPRAMIDE 5 MG TAB ONE (19:58)
[2023-04-04 19:59] VITALS: TEMP 98.1
[2023-04-04 20:00] VITALS: O2SAT 100
[2023-04-04 20:02] VITALS: BP 101/64
--- NOTE | 2023-04-05 12:30 | EKG ---
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
== END 2023-04-04 19:52 | disposition home or self-care (01) ==
LOC: ER 16:47
DX: K29.60 Other gastritis without bleeding (principal); N18.4 Chronic kidney disease, stage 4 (severe); Z88.3 Allergy status to other anti-infective agents; Z88.5 Allergy status to narcotic agent; Z88.6 Allergy status to analgesic agent
CPT/HCPCS: 93005; 85025; 36415; 84484; 83690; 80053; 96375; 96374; 99284; C9113; J2405; J7030

== ENCOUNTER 2023-04-07 01:54 | Emergency (ER) | payer OTHER ==
--- OUTSIDE RECORDS SUMMARY | 2023-04-07 01:58 | XMS REPORT | Continuity of Care Document ---
:1980 Author Organization [facility] t Address [address] [place] [address] [address] [place] [address] Care Team Providers Name Role Phone MELANIENORBERTOJoseJOANH Primary Care Physician Unavailable KIA WADDELL Attending Clinician Unavailable Pob, [facility] Main Attending Clinician Unavailable Randall Waddell MD Attending Clinician Unavailable Akilah Cedeno MD Attending Clinician AKILAH CEDENO Attending Clinician Unavailable Doctor Unassigned, [place] Attending Clinician Unavailable Kia Waddell MD Attending Clinician EUN STEEL Attending Clinician Unavailable Eun Steel MD Attending Clinician JEANA AHUMADA Attending Clinician Unavailable Jeana Ahumada DO Attending Clinician RANDALL WADDELL Attending Clinician Unavailable Jose Evans Attending Clinician DONAVAN GLYNN Attending Clinician Unavailable Donavan Espinoza Attending Clinician 1, [facility] Attending Clinician Unavailable Zaid Cowan Attending Clinician ZAID HERNÁNDEZ Attending Clinician Un[facility] Attending Clinician Unavailable Vtc-Lab Attending Clinician Unavailable [...] Type Policy Number Effective Date Expiration Date [facility] [id number] 2023 STAR PLUS 00:00:00 Problems Condition Condition [...] chronic 2-13 ity of disease disease 00:00: [place] [address] Medical Branch Urinary Urinary Disease Active Overview: [...] ity o f 00:00: g of this [place] note Medical might be Branch different from [...] f kidney kidney 00:00: g of this [place] disease disease 00 note Medical might be [...] ity of 00:00: [place] 00 Medical Branch ASPIRIN DRUG Active SOB Univers INGREDI 5-04 ity of 00:00: [place] 00 Medical Branch Aspirin Propensi Active Shortness of Experien c Univers ty to Breath 5-04 ed ity of adverse 00:00: shortness [place] reaction 00 of breath Medic al s and Branch hives. Social History Social Habit Start Date Stop Date Quantity Comments Source Alcohol intake 2022-05-26 2022-05-26 Current University of 00:00:00 00:00:00 non-drinker of [facility] alcohol (finding) Branch Exposure to 2022-04-17 2022-04-27 Yes [facility] SARS-CoV-2 00:00:00 14:37:00 [facility] (event) Branch Tobacco use and 2017-12-29 2017-12-29 Smokeless tobacco Un iversity of exposure 00:00:00 00:00:00 non-user [facility] Sex Assigned At [birth year] [facility] 00:[facility] 00:00:00 Smoking Status Start Date Stop Date Source Tobacco smoking consumption [facility] unknown Never smoked tobacco [facility] Medications Ordered Filled Start Stop Current Ordering Indication Dosage Frequency Signature Comments Components Source Medication Medication Date Date Medication? Clinician (SIG) Name Name mirtazapine Yes 15mg Take 15 mg Univers 15 mg 7-29 by mouth ity of tablet 03:23: at [place] 02 bedtime. Medical Branch mirtazapine Yes 15mg Take 15 mg Univers 15 mg 7-29 by mouth ity of tablet 03:23: at [place] 02 bedtime. Medical Branch mirtazapine Yes 15mg Take 15 mg Univers 15 mg 7-29 by mouth ity of tablet 03:23: at [place] 02 bedtime. Medical Branch mirtazapine 2021-0 Yes 15mg Take 15 mg Univers 15 mg 7-29 by mouth ity of tablet 03:23: at [place] 02 bedtime. Medical Branch mirtazapine 2021-0 Yes 15mg Take 15 mg Univers 15 mg 7-29 by mouth ity of tablet 03:23: at [place] 02 bedtime. Medical Branch NaCl 0.9% 2021- No 1000mL at 999 Uni vers (NS) bolus 04-27- mL/hr, ity of infusion 20:30: 20:10 1,000 mL, Fabien as 1,000 mL 00 :00 IV Medical Infusion, Branch ONCE, 1 dose, On Mon04/27/22 at 1530, KEYON mirtazapine 2021-0 Yes 15mg Take 15 mg Univers 15 mg - by mouth ity of tablet 15:16: at [place] [address] bedtime. [facility] Branch escitalopra 2021-0 Yes 20mg Take 20 mg Univers m oxalate 04-27 by mouth ity of 20 mg 14:24: daily. [facility] [place] 25 [facility] escitalopra 0 Yes 20mg Take 20 mg Univers m oxalate - by mouth ity of 20 mg 14:24: daily. [facility] [place] 25 [facility] escitalopra 0 Yes 20mg Take 20 mg Univers m oxalate - by mouth ity of 20 mg 14:24: daily. [place] tablet 25 [facility] escitalopra 2021-0 Yes 20mg Take 20 mg Univers m oxalate - by mouth ity of 20 mg 14:24: daily. [facility] [place] 25 [facility] escitalopra 0 Yes 20mg Take 20 mg Univers m oxalate - by mouth ity of 20 mg 14:24: daily. [place] tablet 25 [facility] escitalopra 0 Yes 20mg Take 20 mg Univers m oxalate - by mouth ity of 20 mg 14:24: daily. [facility] [place] 25 [facility] Branch ondansetron 2021- No 4mg Take 4 mg Univers 4 mg tablet 04-27 by mouth ity of 14:23: 00:00 every 8 [place] 56 :00 (eight) Medical hours as Branch needed. amoxicillin 2021- No [id number] 875mg Take 1 Univers 875 mg 7-27 08-04 tablet by ity of tablet 00:00: 04:59 mouth in [place] 00 :00 the Medical morning Branch and 1 tablet in the evening. Do all this for 7 days. ursodioL 2021-0 Yes [id number] 500mg Take 1 U nivers 500 mg 5-27 tablet by ity of tablet 00:00: mouth [place] 00 daily. Medical Branch proMETHazin 2021-0 Yes [id number] 25mg Take 1 Univers e 25 mg 5-27 tablet by ity of tablet 00:00: mouth [place] 00 every 6 Medical (six) Branch hours as needed for Nausea and Vomiting (N/V). ursodioL 2021-0 Yes [id number] 500mg Take 1 U nivers 500 mg 5-27 tablet by ity of tablet 00:00: mouth [place] 00 daily. Medical Branch proMETHazin 2021-0 Yes [id number] 25mg Take 1 Univers e 25 mg 5-27 tablet by ity of tablet 00:00: mouth [place] 00 every 6 Medical (six) Branch hours as needed for Nausea and Vomiting (N/V). ursodioL 2021-0 Yes [id number] 500mg Take 1 U nivers 500 mg 5-27 tablet by ity of tablet 00:00: mouth [place] 00 daily. Medical Branch proMETHazin 2021-0 Yes [id number] 25mg Take 1 Univers e 25 mg 5-27 tablet by ity of tablet 00:00: mouth [place] 00 every 6 Medical (six) Branch hours as needed for Nausea and Vomiting (N/V). ursodioL 2021-0 Yes [id number] 500mg Take 1 U nivers 500 mg 5-27 tablet by ity of tablet 00:00: mouth [place] 00 daily. Medical Branch proMETHazin 2021-0 Yes [id number] 25mg Take 1 Univers e 25 mg 5-27 tablet by ity of tablet 00:00: mouth [place] 00 every 6 Medical (six) Branch hours as needed for Nausea and Vomiting (N/V). ursodioL 2021-0 Yes [id number] 500mg Take 1 U nivers 500 mg 5-27 tablet by ity of tablet 00:00: mouth [place] 00 daily. Medical Branch proMETHazin 2021-0 Yes [id number] 25mg Take 1 Univers e 25 mg 5-27 tablet by ity of tablet 00:00: mouth [place] 00 every 6 Medical (six) Branch hours as needed for Nausea and Vomiting (N/V). ursodioL 2-0 Yes [id number] 500mg Take 1 U nivers 500 mg 5-27 tablet by ity of tablet 00:00: mouth [place] 00 daily. Medical Branch proMETHazin 2021-0 Yes [id number] 25mg Take 1 Univers e 25 mg 5-27 tablet by ity of tablet 00:00: mouth [place] 00 every 6 Medical (six) Branch hours as needed for Nausea and Vomiting (N/V). ursodioL 2-0 Yes [id number] 500mg Take 1 U nivers 500 mg 5-27 tablet by ity of tablet 00:00: mouth [place] 00 daily. Medical Branch proMETHazin 2021-0 Yes [id number] 25mg Take 1 Univers e 25 mg 5-27 tablet by ity of tablet 00:00: mouth [place] 00 every 6 Medical (six) Branch hours as needed for Nausea and Vomiting (N/V). proMETHazin 2021-0 2021- No [id number] 25mg Take 1 Univers e 25 mg 3-22 05-27 tablet by ity of tablet 00:00: 00:00 mouth [place] 00 :00 every 6 Medical (six) Branch hours as needed for Nausea and Vomiting (N/V). famotidine 2021-0 Yes 20mg Take 20 mg U nivers 20 mg 2-16 by mouth ity of tablet 00:00: at [place] [address] bedtime. Medical Branch famotidine 2021-0 Yes 20mg Take 20 mg U nivers 20 mg 2-16 by mouth ity of tablet 00:00: at [place] [address] bedtime. Medical Branch famotidine 2-0 Yes 20mg Take 20 mg U nivers 20 mg 2-16 by mouth ity of tablet 00:00: at [place] [address] bedtime. Medical Branch famotidine 2-0 Yes 20mg Take 20 mg U nivers 20 mg 2-16 by mouth ity of tablet 00:00: at [place] [address] bedtime. Medical Branch famotidine 2022-0 Yes 20mg Take 20 mg U nivers 20 mg 2-16 by mouth ity of tablet 00:00: at [place] [address] bedtime. Medical Branch famotidine 2-0 Yes 20mg Take 20 mg U nivers 20 mg 2-16 by mouth ity of tablet 00:00: at [place] [address] bedtime. Medical Branch famotidine 2021-0 Yes 20mg Take 20 mg U nivers 20 mg 2-16 by mouth ity of tablet 00:00: at [place] [address] bedtime. Medical Branch SERTraline 2-0 Yes Univers 25 mg 2-13 ity of tablet 00:00: [place] 00 Medical Branch SERTraline 2-0 2022- No Univer s 25 mg 2-13 07-27 ity of tablet 00:00: 00:00 [place] 00 :00 Medical Branch omeprazole 2-0 Yes 40mg Take 40 mg U nivers 40 mg 2-09 by mouth ity of capsule 00:00: every [place] 00 morning. Medical Branch omeprazole 2022-0 Yes 40mg Take 40 mg U nivers 40 mg 2-09 by mouth ity of capsule 00:00: every [place] 00 morning. Medical Branch omeprazole 2022-0 Yes 40mg Take 40 mg U nivers 40 mg 2-09 by mouth ity of capsule 00:00: every [place] 00 morning. Medical Branch omeprazole 2-0 Yes 40mg Take 40 mg U nivers 40 mg 2-09 by mouth ity of capsule 00:00: every [place] 00 morning. Medical Branch omeprazole 2022-0 Yes 40mg Take 40 mg U nivers 40 mg 2-09 by mouth ity of capsule 00:00: every [place] 00 morning. Medical Branch omeprazole 2022-0 Yes 40mg Take 40 mg U nivers 40 mg 2-09 by mouth ity of capsule 00:00: every [place] 00 morning. Medical Branch omeprazole 2022-0 Yes 40mg Take 40 mg U nivers 40 mg 2-09 by mouth ity of capsule 00:00: every [place] 00 morning. Medical Branch bismuth 2019-0 Yes Take by Univers subsalicyla 5-03 mouth. ity of te 15:24: [place] (PEPTO-BISM 46 Medical OL ORAL) Branch bismuth 2019-0 Yes Take by Univers subsalicyla 5-03 mouth. ity of te 15:24: [place] (PEPTO-BISM 46 Medical OL ORAL) Branch bismuth 2019-0 Yes Take by Univers subsalicyla 5-03 mouth. ity of te 15:24: [place] (PEPTO-BISM 46 Medical OL ORAL) Branch bismuth Yes Take by Univers subsalicyla 5-03 mouth. ity of te 15:24: [place] (PEPTO-BISM 46 Medical OL ORAL) Branch bismuth Yes Take by Univers subsalicyla 5-03 mouth. ity of te 15:24: [place] (PEPTO-BISM 46 Medical OL ORAL) Branch bismuth Yes Take by Univers subsalicyla 5-03 mouth. ity of te 15:24: [place] (PEPTO-BISM 46 Medical OL ORAL) Branch bismuth Yes Take by Univers subsalicyla 5-03 mouth. ity of te 15:24: [place] (PEPTO-BISM 46 Medical OL ORAL) Branch loratadine Yes 10mg Take 10 mg U nivers (CLARITIN) 5-03 by mouth ity o f 10 mg 15:08: daily. [place] tablet Medical Branch ALBUTEROL Yes [facility]. [facility] ity of 15:08: Medical Branch beclomethas Yes Inhale. Uni vers one 02-01 ity of dipropionat 15:08: [place] [facility] (QVAR 01 Medical INHALE) Branch ondansetron Yes 4mg Take 4 mg U nivers 4 mg tablet 03 by mouth ity of 15:08: every 8 [place] [address] (eight) Medical hours as Branch needed. calcium Yes Take by Univers carbonate 5-03 mouth. ity of (TUMS ORAL) 15:08: Medical Branch escitalopra Yes 20mg Take 20 mg Univers m oxalate 5-03 by mouth ity of (LEXAPRO) 15:08: daily. [place] 20 mg Medical tablet Branch loratadine Yes 10mg Take 10 mg U nivers (CLARITIN) 5-03 by mouth ity o f 10 mg 15:08: daily. [place] tablet Medical Branch ALBUTEROL 0 Yes Inhale. Unive rs INHALE 02-01 ity of 15:08: Medical Branch beclomethas Yes Inhale. Uni vers one - ity of dipropionat 15:08: [place] e (QVAR 01 Medical INHALE) Branch calcium Yes Take by Univers carbonate 5-03 mouth. ity of (TUMS ORAL) 15:08: [facility] loratadine Yes 10mg Take 10 mg U nivers (CLARITIN) 5-03 by mouth ity o f 10 mg 15:08: daily. [place] tablet [facility] ALBUTEROL Yes Inhale. [facility] 02-01 ity of 15:08: [facility] beclomethas Yes Inhale. Uni vers one 02-01 ity of dipropionat 15:08: [place] [facility] (QVAR 01 Medical INHALE) [place] calcium Yes Take by Univers carbonate 5-03 mouth. ity of (TUMS ORAL) 15:08: [place] [facility] loratadine Yes 10mg Take 10 mg U nivers (CLARITIN) 5-03 by mouth ity o f 10 mg 15:08: daily. [place] tablet [facility] ALBUTEROL Yes Inhale. [facility] rs INHALE 02-01 ity of 15:08: [facility] beclomethas Yes Inhale. Uni vers one 02-01 ity of dipropionat 15:08: [place] [facility] (QVAR 01 Medical INHALE) [place] calcium Yes Take by Univers carbonate 5-03 mouth. ity of (TUMS ORAL) 15:08: [place] [facility] loratadine Yes 10mg Take 10 mg U nivers (CLARITIN) 5-03 by mouth ity o f 10 mg 15:08: daily. [place] tablet [facility] ALBUTEROL Yes Inhale. [facility] rs INHALE 02-01 ity of 15:08: [facility] beclomethas Yes Inhale. Uni vers one 02-01 ity of dipropionat 15:08: [place] [facility] (QVAR 01 Medical INHALE) [place] calcium Yes Take by Univers carbonate 5-03 mouth. ity of (TUMS ORAL) 15:08: [address] loratadine Yes 10mg Take 10 mg U nivers (CLARITIN) 5-03 by mouth ity o f 10 mg 15:08: daily. [place] tablet [facility] ALBUTEROL 2019-0 Yes Inhale. [facility] rs INHALE 02-01 ity of 15:08: [place] [facility] beclomethas Yes Inhale. Uni vers one - ity of dipropionat 15:08: [place] e (QVAR 01 Medical INHALE) Branch calcium Yes Take by Univers carbonate 5-03 mouth. ity of (TUMS ORAL) 15:08: [place] [facility] loratadine Yes 10mg Take 10 mg U nivers (CLARITIN) 503 by mouth ity o f 10 mg 15:08: daily. [address] ALBUTEROL Yes Inhale. [facility] rs INHALE 02-01 ity of 15:08: [address] beclomethas Yes Inhale. Uni vers one 02-01 ity of dipropionat 15:08: [place] [facility] (QVAR 01 Medical INHALE) [place] calcium Yes Take by Univers carbonate 5-03 mouth. ity of (TUMS ORAL) 15:08: [place] [facility] PROAIR HFA Yes INHALE 2 Uni vers [...] 4 mg 1-15 ity of tablet 00:00: [place] [facility] Branch cyproheptad 2019-0 Yes Univer s ine 4 mg 1-15 ity of tablet 00:00: [place] [facility] cyproheptad 2019-0 Yes Univer s ine 4 mg 1-15 ity of tablet 00:00: [place] [facility] cyproheptad 2019-0 Yes Univer s ine 4 mg 1-15 ity of tablet 00:00: [place] [facility] cyproheptad 2019-0 Yes Univer s ine 4 mg 1-15 ity of tablet 00:00: [place] [facility] cyproheptad 2019-0 Yes Univer s ine 4 mg 1-15 ity of tablet 00:00: [place] [facility] cyproheptad 2019-0 Yes Univer s ine 4 mg 1-15 ity of tablet 00:00: [place] Medical [place] Vital Signs Vital Name Observation Time Observation Value Comments Source Systolic blood 2022-04-27 19:19:00 141 mm[Hg] Univer sity of pressure [facility] Diastolic blood 2022-04-27 19:19:00 93 mm[Hg] Unive rsity of pressure [facility] Heart rate 2022-04-27 19:19:00 87 /min [facility] Body temperature 2022-04-27 19:19:00 37.11 Carolyn [facility] rate 2022-04-27 19:19:00 18 /min [facility] Body weight 2022-04-27 19:19:00 45.813 kg [facility] BMI 2022-04-27 19:19:00 19.73 kg/m2 [facility] Oxygen saturation in 2022-04-27 19:19:00 98 /min [facility] Arterial blood by [facility] Pulse oximetry Branch Systolic blood 2022-02-25 20:21:00 133 mm[Hg] Univer sity of pressure [facility] Diastolic blood 2022-02-25 20:21:00 76 mm[Hg] Unive rsity of pressure [facility] Heart rate 2022-02-25 20:21:00 71 /min [facility] Respiratory rate 2022-02-25 20:21:00 18 /min [facility] Body height 2022-02-25 20:21:00 152.4 cm [facility] Body weight 2022-02-25 20:21:00 45.949 kg [facility] BMI 2022-02-25 20:21:00 19.78 kg/m2 [facility] Oxygen saturation in 2022-02-25 20:21:00 100 /min [facility] Arterial blood by [facility] Pulse oximetry Branch Procedures Procedure Date / Time Performing Clinician Source Performed ASSIGNMENT OF BENEFITS 2023-03-22 16:32:15 Doctor Unassigned, No [facility] AUTHORIZATION FOR 2022-10-10 06:01:00 Doctor Unassigned, No [facility] RELEASE OF [facility] COMP. METABOLIC PANEL 2022-04-27 19:35:00 Jeana Ahumada [facility] ([id number]) [facility] CBC WITH DIFF 2022-04-27 19:35:00 Jeana Ahumada [facility] CONSENT/REFUSAL FOR 2022-04-27 19:15:00 Doctor Unassigned, No [facility] DIAGNOSIS AND TREATMENT [facility] Encounters Start End Encounter Admission Attending Care Care Encounter Source Date/Time Date/Time Type Type Clinicians Facility Department ID 2023-09-08 2023-09-08 Outpatient James WADDELL [facility] [id number] Univers 10:30:00 10:30:00 KIA [facility] 2023-03-24 2023-03-24 Outpatient James WADDELL [facility] [id number] Univers 14:00:00 14:10:21 [facility] 2023-03-22 2023-03-22 Construction Safety Manager Christelle, Shaista Lab Main [facility] 1.2.8 40.114 [id number] Univers 12:30:00 12:45:00 Visit Randall Waddell RENE 350.1.1 3.10 ity of [place]ilah Cedeno 4.2.7.2.686 [facility] [id number] [address] 2023-03-22 2023-03-22 [facility] [id number] Univers 12:30:00 12:30:00 AKILAH itparamjit [facility] 2023-03-22 2023-03-22 Orders Doctor BRADEN 1.2.840.114 [id number] Univers 00:00:00 00:00:00 Only Unassigned, MARVIN 350.1.13.10 ity of [place] [facility] 4.2.7.2.686 Fabien as [id number] [facility] 009 Branch 2023-03-14 2023-03-14 Telephone [facility] [id number] Univers 00:00:00 00:00:00 Kia PA 350.1.13.10 ity of [place] 4.2.7.2.686 [facility] [id number] [facility] ALIVIA 072 Branch DIAB[facility]ES CLINIC 2022-10-10 2022-10-10 Orders Doctor BRADEN 1.2.840.114 [id number] Univers 00:00:00 00:00:00 Only Unassigned, MARVIN 350.1.13.10 ity of [place] [facility] 4.2.7.2.686 Fabien as [id number] [facility] 009 Branch 2022-05-26 2022-05-26 Outpatient R [facility] [id number] Univers 10:27:39 23:59:00 EUN ity [facility] 2022-05-26 2022-05-26 [facility] 1.2.840.114 [id number] Univers 10:27:39 23:59:00 Encounter Eun LÓPEZ 350.1.13.10 ity of [place] 4.2.7.2.686 [facility] [id number] [facility] 800 Branch 2022-04-27 2022-04-27 Emergency [facility] [id number] Univers 14:21:00 15:23:00 JEANA johnston [facility] 2022-04-27 2022-04-27 [facility] 1.2.840.114 [id number] Univers 14:21:00 15:23:00 Jeana LÓPEZ 350.1.13.10 ity of [place] 4.2.7.2.686 [facility] [id number] [facility] 084 Branch 2022-03-22 2022-03-22 [facility] [id number] Univers 00:00:00 00:00:00 Kia CARDOSOPEC 350.1.13.10 ity of [place] 4.2.7.2.686 [facility] [id number] [facility] 072 [place] [facility] 2022-03-16 2022-03-16 Construction Safety Manager Christelle, Shaista Lab Main [facility] 1.2.8 40.114 [id number] Univers 16:15:00 16:30:00 Visit Randall Waddell 350.1.1 3.10 ity [facility] 4.2.7.2.686 [facility] [id number] [facility] 2022-03-16 2022-03-16 Out[facility] [id number] Univers 16:15:00 16:15:00 RANDALL ity of [facility] 2022-03-16 2022-03-16 Orders Doctor FELICIANO 1.2.840.114 [id number] Univers 00:00:00 00:00:00 Only Unassigned, MARVIN 350.1.13.10 ity of [place] [facility] 4.2.7.2.686 [facility] [id number] [facility] 009 Branch 2022-02-25 2022-02-25 Out[facility] [id number] Univers 14:00:00 15:47:25 KIA salesy [facility] 2022-02-25 2022-02-25 Outpatient [facility] [id number] Univers 14:00:00 15:47:25 KIA johnston [facility] 2022-02-25 2022-02-25 Office Nadira [facility] 1.2.840.114 [id number] Univers 14:00:00 15:47:25 Visit Kia WALKERPEC 350.1.13.[address] [facility] 4.2.7.2.686 [facility] [id number] [facility] AND BUNCH 072 Branch DIABETES [facility]INIC 2022-02-25 2022-02-25 Outpatient R NADIRA [facility] [id number] Univers 14:00:00 14:00:00 KIA johnston [facility] 2022-02-25 2022-02-25 Outpatient James NADIRA [facility] [id number] Univers 14:00:00 14:00:00 2022-01-12 2022-01-12 Out[facility] [id number] Univers 11:30:00 11:30:00 [facility] 2022-01-08 2022-01-08 Abstract BRADEN Burton 1.2.840.114 [id number] Univers 00:00:00 00:00:00 Jose WONG 350.1.13.10 it y [facility] 4.2.7.2.686 [facility] [id number] [facility] 009 Branch 2021-12-21 2021-12-21 Emergency [facility] [id number] Univers 15:15:00 18:23:00 DONAVAN ity [facility] 2021-12-21 2021-12-21 Emergency [facility] [id number] Univers 15:15:00 18:23:00 Donavan Edilberto LÓPEZ 350.1.13.10 i ty [facility] 4.2.7.2.686 [facility] [id number] [facility] 084 Branch 2021-12-21 2021-12-21 Orders Doctor FELICIANO 1.2.840.114 [id number] Univers 00:00:00 00:00:00 Only Unassigned, MARVIN 350.1.13.10 ity of [place] [facility] 4.2.7.2.686 Fabien as [id number] [facility] 009 Branch 2021-12-21 2021-12-21 Patient Nadira [facility] 1.2.840.114 [id number] Univers 00:00:00 00:00:00 Secure Msg Shejacobyyar MULTISPEC 350.1.13.10 ity [place]2.7.2.686 [place] [id number] [address] DIABETES CLINIC 2021-12-20 2021-12-20 Telephone Virginiahisharona [facility] [id number] Univers 00:00:00 00:00:00 Shejacobyyar MULTISPEC 350.1.13.10 [place].2.686 [place] [id number] [address] DIABETES CLINIC 2021-12-10 2021-12-10 Outpatient [facility] [id number] Univers 08:46:40 23:59:00 [facility] 2021-12-10 2021-12-10 Hospital BERHANE Waddell 1.2.840.114 [id number] Univers 08:46:40 23:59:00 Encounter Kia [facility] 350.1.13.10 ity of CL[place] [phone] [facility] [address] 2021-12-10 2021-12-10 [facility] [id number] Univers 08:46:40 23:59:00 [facility]-12-10 2021-12-10 [facility] [id number] Univers 08:46:40 23:59:00 [facility] 2021-12-08 2021-12-08 Construction Safety Manager Christelle, Shaista Lab Main [facility] 1.2.8 40.114 [id number] Univers 11:15:00 11:30:00 Visit Kia Waddell 350.1.13.10 it[place] of [place] [facility] [phone] [facility] 353 [facility] 2021-12-08 2021-12-08 Construction Safety Manager 1, Adc Lab [facility] 1.2.840.114 [id number] Univers 10:45:00 11:00:00 Visit Akilah Cedeno RENE 350.1.13.10 [place] [phone] [facility] [address] [place] 2021-12-08 2021-12-08 Outpatient [facility] [id number] Univers 10:45:00 10:45:00 AKILAH [facility] 2021-12-08 2021-12-08 Outpatient R [facility] [id number] Univers 10:00:00 10:00:00 AKILAH [facility] 2021-12-08 2021-12-08 Orders Doctor BRADEN 1.2.840.114 [id number] Univers 00:00:00 00:00:00 Only Unassigned, MARVIN 350.1.13.10 ity of [place] [facility] 4.2.7.2.686 Fabien as [id number] [facility] [address] 2021 2021 Zaid Ortiz [facility] 1.2.840.114 [id number] Univers 00:00:00 00:00:00 Management Y HEALTH 350.1.13.10 [place] [id number] [facility] [address] 2021-11-26 2021-11-26 Outpatient R ZAID HERNÁNDEZ [facility] [id number] Univers 07:46:06 23:59:00 ity of [facility] 2021-11-26 2021-11-26 [facility] Zaid Hernández [facility] 1.2.840.114 [id number] Univers 07:46:06 23:59:00 [facility] Y HEALTH 350.1. 13.10 [place] [phone] [facility] [address] 2021-11-26 2021-11-26 Outpatient R ZAID HERNÁNDEZ [facility] [id number] Univers 07:46:06 23:59:00 ity of [facility] 2021-11-19 2021-11-19 Construction Safety Manager Sdc-Lab [facility] 1.2.840.114 [id number] Univers 15:15:00 15:30:00 Visit Kia Waddell 350.1.13.1 0 ity of [place] 4.2.7.2.686 [facility] [phone] [facility] [place] [address] [place] [facility] 2021-11-19 2021-11-19 Outpatient R NADIRA [facility] [id number] Univers 14:30:00 15:06:01 KIA ity of [facility] 2021-11-19 2021-11-19 [facility] 1.2.840.114 [id number] Univers 14:30:00 15:06:01 Visit Kia [place] 350.1.13.10 ity of [place] 4.2.7.2.686 [facility] [phone] [place] [id number] [place] [facility] 2021-11-19 2021-11-19 Outpatient R NADIRA [facility] [id number] Univers 14:30:00 15:06:01 KIA ity [facility] 2021-11-19 2021-11-19 [facility] 1.2.840.114 [id number] Univers 14:30:00 15:06:01 Visit Kia PA 350.1.13.10 ity of [place] 4.2.7.2.686 [facility] [phone] [facility] [place] [id number] [place] [facility] 2021-08-11 2021-08-11 Orders Doctor FELICIANO 1.2.840.114 [id number] Univers 00:00:00 00:00:00 Only Unassigned, MARVIN 350.1.13.10 ity of [place] [facility] 4.2.7.2.686 Fab[place] as [phone] [facility] [address] 2021-08-11 2021-08-11 Telephone KRISTOPHER Waddell 1.2.840.114 [id number] Univers 00:00:00 00:00:00 [facility] 350.1.13.10 ity of [facility] 4.2.7.2.686 [facility] [phone] [facility] [address] 2021-06-04 2021-06-04 EXT H OP Kelly, EXT M[facility] 1.2.840.114 1 [id number] [place] 00:00:00 00:00:00 [place] LOCATION 350.1.13.58 H [facility]alth [place] 9.2.7.2.686 [id number] [id number] 2021-06-04 2021-06-04 EXT [facility] OP Kelly, EXT MSR[facility] 1.2.840.114 1 [id number] [place] 00:00:00 00:00:00 [place] LOCATION 350.1.13.58 [facility] [place] 9.2.7.2.686 [id number] [id number] 2021-05-19 2021-05-19 [facility] [id number] Univers 14:00:00 14:00:00 [facility] 2021-03-26 2021-03-26 [facility] Radiology [facility] 1.2.840.114 [id number] Univers 16:00:00 23:59:00 Encounter [place] 350.1.13.10 ity [facility] 4.2.7.2.686 [facility] [phone] [facility] [address] [place] 2021-03-26 2021-03-26 [facility] Radiology [facility] 1.2.840.114 [id number] 16:00:00 23:59:00 Encounter [place] 350.1.13.10 [place] 4.2.7.2.686 [place] [id number] 2021-03-26 2021-03-26 Outpatient R RADIOLOGY [facility] [id number] Univers 00:00:00 00:00:00 ity [facility] 2021-03-26 2021-03-26 Orders Doctor FELICIANO 1.2.840.114 [id number] Univers 00:00:00 00:00:00 Only Unassigned, MARVIN 350.1.13.10 it[place] of [place] [facility] 4.2.7.2.686 Fabien as [phone] [facility] [address] 2021-03-26 2021-03-26 Orders Doctor BRADEN 1.2.840.114 [id number] 00:00:00 00:00:00 Only Unassigned, MARVIN 350.1.13.10 [place] [facility] 4.2.7.2.686 [id number] 2021-03-24 2021-03-24 [facility] Radiology [facility] 1.2.840.114 [id number] 07:33:57 23:59:00 Encounter [place] 350.1.13.10 [place] 4.2.7.2.686 [place] [id number] 2021-03-24 2021-03-24 [facility] Radiology [facility] 1.2.840.114 [id number] [facility] 07:33:57 23:59:00 Encounter [place] 350.1.13.10 ity of [place] 4.2.7.2.686 [facility] [phone] [facility] [address] [place] 2021-03-24 2021-03-24 Outpatient R RADIOLOGY [facility] [id number] Univers 00:00:00 00:00:00 [facility] 2021-03-24 2021-03-24 Orders Doctor BRADEN 1.2.840.114 [id number] 00:00:00 00:00:00 Only Unassigned, MARVIN 350.1.13.10 [place] [facility] 4.2.7.2.686 [id number] 2021-03-24 2021-03-24 Orders Doctor BRADEN [place].2.840.114 [id number] Univers 00:00:00 00:00:00 Only Unassigned, MARVIN 350.1.13.10 ity of [place] [facility] 4.2.7.2.686 [place] [id number] [address] 2021-02-11 2021-02-11 Outpatient R DAMIÁN, [facility] [id number] Univers 00:00:00 00:00:00 EUN [facility] 2020-08-19 2020-08-19 Outpatient R TRENT [facility] [id number] Univers 10:30:00 10:30:00 MYLES [facility] 2020-08-19 2020-08-19 Outpatient R TRENT [facility] [id number] Univers 10:30:00 10:30:00 MYLES [facility] 2020-03-02 2020-03-02 Outpatient R NATALIABENJY LISA [facility] [id number] Univers 11:30:00 11:30:[facility] 2020-02-26 2020-02-26 Outpatient R TRENT [facility] [id number] Univers 13:00:00 13:00:00 MYLES [facility] 2020-02-17 2020-02-17 Outpatient R [facility] [id number] Univers 11:00:00 11:00:00 [facility] 2019-11-26 2019-11-26 Construction Safety Manager Vtc-Lab [facility] 1.2.840.114 [id number] Univers 11:06:28 11:16:28 Visit Hadley Edmonds MULTISPEC 350.1.13. 10 ity of [place] 4.2.7.2.686 [facility] RIGA [id number] [address] DIAB[facility]IN[facility] 2019-11-26 2019-11-26 Office Peggy [facility] 1.2.840.114 [id number] 10:09:55 11:02:35 Visit John [place] 350.1.13.10 [place] 4.2.7.2.686 [place] [id number] [place] [address] [facility] CLIN[facility] 2019-11-26 2019-11-26 Office John Woods [facility] 1.2.840.114 [id number] Univers 10:09:55 11:02:35 Visit Hadley Edmonds MULTISPEC 350.1.13. 10 ity of [place] 4.2.7.2.686 [facility] RIGA [id number] [address] [facility]IC 2019-11-26 2019-11-26 [facility] [id number] Univers 10:00:00 10:00:00 HADLEY ity of [facility] 2019-11-20 2019-11-20 Orders Doctor BRADEN 1.2.840.114 [id number] Univers 00:00:00 00:00:00 Only Unassigned, MARVIN 350.1.13.10 ity of [place] [facility] 4.2.7.2.686 [place] [id number] [address] 2019-10-15 2019-10-15 Construction Safety Manager Shaista Bourgeois Lab Main [facility] 1.2.8 40.114 [id number] Univers 14:40:47 14:55:47 Visit Jess Hanks 350.1.13 .10 ity of [place] [phone] [address] 2019-10-15 2019-10-15 Orders Doctor BRADEN 1.2.840.114 [id number] Univers 00:00:00 00:00:00 Only Unassigned, MARVIN 350.1.13.10 it[facility] [place] [facility] 4.2.7.2.686 [place] [id number] [address] 2019-05-06 2019-05-06 Orders Doctor BRADEN 1.2.840.114 [id number] Univers 00:00:00 00:00:00 Only Unassigned, MARVIN 350.1.13.10 ity of [place] [facility] 4.2.7.2.686 [place] [id number] [address] Results This patient has no known results.
[2023-04-07 03:04] LABS: Absolute Lymphocytes (CBC) 2.3 K/uL (0.7-4.9); Hematocrit 36.9 % (36.0-45.0); Lymphocytes % 45.2 % (15.3-44.8); MCV 99.6 fL (80-100); MPV 10.2 fL (7.6-11.3)
[2023-04-07] MEDS ORDERED: NA CHLORIDE 0.9% 500 ML ONE (03:08)
[2023-04-07] MEDS ORDERED: KETOROLAC 30 MG/ML INJ ONE (03:08)
[2023-04-07] MEDS ORDERED: DICYCLOMINE HCL 20 MG/2 ML AMP IM ONE (03:08)
[2023-04-07] MEDS ORDERED: ONDANSETRON 4 MG/2 ML VIAL ONE (03:08)
[2023-04-07] MEDS ORDERED: MORPHINE 4 MG/ML SYR ONE (03:08)
[2023-04-07 03:21] LABS: Albumin 4.6 g/dL (3.4-5.0); Bilirubin Total 0.5 mg/dL (0.2-1.0); Potassium 3.6 mEq/L (3.5-5.1); Protein, Total 8.7 g/dL (6.4-8.2)
[2023-04-07] MEDS ORDERED: MAGNESIUM CITRATE 300 ML BOT ONE (06:07)
[2023-04-07] MEDS ORDERED: FLEET ENEMA ADULT PR ONE (06:07)
--- NOTE | 2023-04-07 06:31 | ER ---
Nurse's Notes [facility] Name: Miya Persaud Age: 42 yrs Sex: Female : 1980 Arrival Date: 04/07/2023 Time: 01:54 Bed 7 Private MD: Diagnosis: Slow transit constipation Presentation: 04/07 02:14 Chief complaint: Patient states: i am constipated and the pain is unbearable. i have lg3 been having stomach issues for a while but it has never been this bad. Coronavirus screen: Client denies travel out of the [place] in the last 14 days. At this time, the client does not indicate any symptoms associated with coronavirus-19. Ebola Screen: No symptoms or risks identified at this time. Initial Sepsis Screen: Does the patient meet any 2 criteria? No. Patient's initial sepsis screen is negative. Does the patient have a suspected source of infection? No. Patient's initial sepsis screen is negative. Risk Assessment: Do you want to hurt yourself or someone else? Patient reports no desire to harm self or others. Onset of symptoms is unknown. 02:14 Method Of Arrival: Ambulatory lg3 02:14 Acuity: PARTH 3 lg3 Triage Assessment: 02:17 General: Appears in no apparent distress. uncomfortable, Behavior is cooperative, lg3 crying. Pain: Complains of pain in rectum Pain radiates to left leg Pain currently is 10 out of 10 on a pain scale. EENT: No deficits noted. No signs and/or symptoms were reported regarding the EENT system. Neuro: No deficits noted. Tran Agitation-Sedation Scale (RASS): 0 - Alert and Calm Level of Consciousness is awake, alert, obeys commands, Oriented to person, place, time, situation. Cardiovascular: No deficits noted. Denies chest pain, shortness of breath, Capillary refill < 3 seconds Clubbing of nail beds is absent JVD is absent Patient's skin is warm and dry. Respiratory: No deficits noted. Airway is patent Respiratory effort is even, unlabored, Respiratory pattern is regular, symmetrical. GI: Abdomen is round distended, Reports lower abdominal pain, upper abdominal pain, constipation, cramping. : No deficits noted. No signs and/or symptoms were reported regarding the genitourinary system. Derm: No deficits noted. No signs and/or symptoms reported regarding the dermatologic system. Skin is intact, is healthy with good turgor, Skin is dry, Skin is normal, Skin temperature is warm. Musculoskeletal: No deficits noted. Circulation, motion, and sensation intact. Range of motion: intact in all extremities. PHARMACY ASSOCIATE: 02:17 LMP N/A - ablasian lg3 Historical: - Allergies: 02:17 "mycin" medications. all those that end with mycin; lg3 02:17 Aspirin; lg3 02:17 Clarithromycin; lg3 02:17 Cyclobenzaprine; lg3 02:17 Demerol; lg3 02:17 diclofenac sodium; lg3 02:17 Gluten Protein; lg3 02:17 Levofloxacin; lg3 - PMHx: 02:17 mild aorta insufficiency; Anemia; Anxiety; Depression; ibs; kidney disease; Liver lg3 condition; Stage IV renal disease; Thyroid problem; - PSHx: 02:17 Cholecystectomy; Coronary Angioplasty; uterine ablation; lg3 - Immunization history:: Adult Immunizations up to date, Client reports having NOT received the Covid vaccine. - Social history:: Smoking status: Patient denies any tobacco usage or history of. Patient/guardian denies using alcohol, street drugs. - Family history:: not pertinent. Screenin:01 [facility] ED Fall Risk Assessment (Adult) History of falling in the last 3 months, lg3 including since admission No falls in past 3 months (0 pts). Abuse screen: Denies threats or abuse. Denies injuries from another. Nutritional screening: No deficits noted. Tuberculosis screening: No symptoms or risk factors identified. Assessment: 03:01 General: see triage assessment. lg3 03:50 Reassessment: Patient appears in no apparent distress at this time. No changes from lg3 previously documented assessment. Patient and/or family updated on plan of care and expected duration. Pain level reassessed. Patient states symptoms have not improved. 04:57 Reassessment: Patient appears in no apparent distress at this time. No changes from lg3 previously documented assessment. Patient and/or family updated on plan of care and expected duration. Pain level reassessed. pt quietly resting at this time. 06:44 General: PT to DC post bedside commode use. lg3 Vital Signs: 02:14 BP 144 / 99; Pulse 76; Resp 17 S; Temp 98.2(O); Pulse Ox 100% on R/A; Weight 44.45 kg lg3 (R); Height 5 ft. 0 in. (R); Pain 10/10; 04:58 BP 131 / 83; Pulse 74; Resp 17 S; Pulse Ox 100% on R/A; lg3 06:57 BP 129 / 82; Pulse 71; Resp 18 S; Pulse Ox 97% on R/A; as6 02:14 Body Mass Index 19.14 (44.45 kg, 152.4 cm) lg3 02:14 Pain Scale: Adult lg3 ED Course: 01:57 Patient arrived in ED. ja2 02:13 Joe Castelan MD is Attending Physician. sp4 02:16 Radiology exam delayed due to lab results not completed at this time. (BUN/Creatinine) eh4 test not completed at this time. IV insertion attempt and/or patient not having appropriate IV at this time. 02:16 Triage completed. lg3 02:17 Arm band placed on right wrist. lg3 03:00 Initial lab(s) drawn, by me, sent to lab. Inserted saline lock: 20 gauge in right jw7 antecubital area, using aseptic technique. Blood collected. 03:00 CBC with Diff Sent. jw7 03:01 Rukhsana High, RN is Primary Nurse. lg3 03:01 Patient has correct armband on for positive identification. Placed in gown. Bed in low lg3 position. Call light in reach. Side rails up X 1. Client placed on continuous cardiac and pulse oximetry monitoring. NIBP monitoring applied. Door closed. Noise minimized. Warm blanket given. 03:01 CMP Sent. jw7 03:01 Lipase Sent. jw7 03:46 Abdomen In Process Unspecified. EDMS 06:58 No provider procedures requiring assistance completed. IV discontinued, intact, as6 bleeding controlled, No redness/swelling at site. Pressure dressing applied. Administered Medications: 03:09 Drug: Ketorolac IVP 30 mg Route: IVP; Site: right forearm; lg3 06:13 Follow up: Response: No adverse reaction; Marked relief of symptoms lg3 03:09 Drug: NS 0.9% IV 500 ml Route: IV; Rate: bolus; Site: right forearm; lg3 06:14 Follow up: Response: No adverse reaction; IV Status: Completed infusion; IV Intake: lg3 500ml 03:09 Drug: Dicyclomine IM 20 mg Route: IM; Site: right gluteus; lg3 06:14 Follow up: Response: No adverse reaction lg3 03:10 Drug: morphine IVP or IV 4 mg Route: IVP; Infused Over: 4 mins; Site: right forearm; lg3 06:13 Follow up: Response: No adverse reaction; Pain is decreased lg3 03:11 Drug: Ondansetron IVP 4 mg Route: IVP; Site: right forearm; lg3 06:12 Follow up: Response: No adverse reaction lg3 06:11 Drug: Magnesium Citrate PO Liquid 300 ml Route: PO; lg3 06:59 Follow up: Response: No adverse reaction as6 06:11 Drug: Fleet Enema UT 133 ml Route: UT; lg3 06:59 Follow up: Response: No adverse reaction as6 Medication: 06:58 VIS not applicable for this client. as6 Intake: 06:14 IV: 500ml; Total: 500ml. lg3 Outcome: 06:31 Discharge ordered by . sp4 06:58 Discharged to home ambulatory. as6 06:58 Condition: stable 06:58 Discharge instructions given to patient, Instructed on discharge instructions, follow up and referral plans. medication usage, Demonstrated understanding of instructions, follow-up care, medications, Prescriptions given X 1. 06:59 Patient left the ED. as6 Signatures: Dispatcher [employer] EDRukhsana Samuel RN RN lg3 Dayanna Reeves Ashby, RN RN as6 Teagan Webber [place] [id number] Joe Castelan MD MD sp4
--- NOTE | 2023-04-07 06:31 | EDPHYS ---
Physician Documentation [facility] Name: Miya Persaud Age: 42 yrs Sex: Female : 1980 Arrival Date: 04/07/2023 Time: 01:54 Bed 7 Private MD: ED Physician Joe Castelan HPI: 04/07 02:15 This 42 yrs old Black Female presents to ER via Unassigned with complaints of sp4 Constipation, Abdominal Pain. 06:20 42 year old female with PMH of Anemia; Anxiety; Depression; ibs; kidney disease; Stage sp4 IV renal disease; Thyroid problem; Liver condition; Coronary Angioplasty; Uterine ablation; Cholecystectomy; presents with worsening rectal pain associated with moderate constipation. States pain has intensified this morning. . [employer]: 02:17 LMP N/A - ablasian lg3 Historical: - Allergies: 02:17 "mycin" medications. all those that end with mycin; lg3 02:17 Aspirin; lg3 02:17 Clarithromycin; lg3 02:17 Cyclobenzaprine; lg3 02:17 Demerol; lg3 02:17 diclofenac sodium; lg3 02:17 Gluten Protein; lg3 02:17 Levofloxacin; lg3 - PMHx: 02:17 mild aorta insufficiency; Anemia; Anxiety; Depression; ibs; kidney disease; Liver lg3 condition; Stage IV renal disease; Thyroid problem; - PSHx: 02:17 Cholecystectomy; Coronary Angioplasty; uterine ablation; lg3 - Immunization history:: Adult Immunizations up to date, Client reports having NOT received the Covid vaccine. - Social history:: Smoking status: Patient denies any tobacco usage or history of. Patient/guardian denies using alcohol, street drugs. - Family history:: not pertinent. ROS: 06:20 Constitutional: Negative for fever, chills, and weight loss, Abdomen/GI: Negative for sp4 nausea, vomiting, diarrhea, positive for abdominal pain, rectal pain, constipation 06:20 All other systems are negative. Exam: 06:20 Constitutional: This is a well developed, well nourished patient who is awake, alert, sp4 uncomfortable appearing female. Head/Face: Normocephalic, atraumatic. Eyes: Pupils equal round and reactive to light, extra-ocular motions intact. Lids and lashes normal. Conjunctiva and sclera are not injected. Cornea within normal limits. Periorbital areas with no swelling, redness, or edema. ENT: Nares patent. No nasal discharge, no septal abnormalities noted. Tympanic membranes are normal and external auditory canals are clear. Oropharynx with no redness, swelling, or masses, exudates, or evidence of obstruction, uvula midline. Mucous membranes moist. Neck: Trachea midline, no thyromegaly or masses palpated, and no cervical lymphadenopathy. Supple, full range of motion without nuchal rigidity, or vertebral point tenderness. Chest/axilla: Normal chest wall appearance and motion. Nontender with no deformity. No lesions are appreciated. Cardiovascular: Regular rate and rhythm with a normal S1 and S2. No gallops, murmurs, or rubs. Normal PMI, no JVD. No pulse deficits. Respiratory: Lungs have equal breath sounds bilaterally, clear to auscultation and percussion. No rales, rhonchi or wheezes noted. No increased work of breathing, no retractions or nasal flaring. Abdomen/GI: Soft, with normal bowel sounds. No distension or tympany. No guarding, no rebound, diffuse abdominal discomfort to palpation. Rectal exam revealed significant rectal stool, no large fecal impaction but multiple stool pellets consistent with moderate to severe constipation. Rectal stool was partially evacuated on exam. Back: No spinal tenderness. No costovertebral tenderness. Skin: Warm, dry with normal turgor. Normal color with no rashes, no lesions, and no evidence of cellulitis. MS/ Extremity: Pulses equal, no cyanosis. Neurovascular intact. Full, normal range of motion. Neuro: Awake and alert, GCS 15, oriented to person, place, time, and situation. Cranial nerves II-XII grossly intact. Motor strength 5/5 in all extremities. Sensory grossly intact. Psych: Awake, alert, with orientation to person, place and time. Behavior, mood, and affect are within normal limits Vital Signs: 02:14 BP 144 / 99; Pulse 76; Resp 17 S; Temp 98.2(O); Pulse Ox 100% on R/A; Weight 44.45 kg lg3 (R); Height 5 ft. 0 in. (R); Pain 10/10; 04:58 BP 131 / 83; Pulse 74; Resp 17 S; Pulse Ox 100% on R/A; lg3 06:57 BP 129 / 82; Pulse 71; Resp 18 S; Pulse Ox 97% on R/A; as6 02:14 Body Mass Index 19.14 (44.45 kg, 152.4 cm) lg3 02:14 Pain Scale: Adult lg3 MDM: 02:14 Patient medically screened. sp4 06:20 ED course: CLINICAL HISTORY: abd pain, constipation COMPARISON: 05/14/2021. TECHNIQUE: sp4 CTABDOMEN PELVIS WITHOUT IV CONTRAST on 04/07/2023 2:14 AM CDT This exam was performed according to our departmental dose-optimization program, which includes automated exposure control, adjustment of the mA and/or kV according to patient size and/or use of iterative reconstruction technique. FINDINGS: Lower lungs are clear. Abdomen: The liver is normal in appearance. There is no biliary dilatation. Cholecystectomy was performed. The pancreas and spleen are normal in appearance. The adrenal glands are normal. There is moderate right and severe left renal atrophy. Abdominal aorta is normal in course and caliber without aneurysm. There is no free air. There is no retroperitoneal adenopathy. Pelvis: There is large amount of stool throughout the colon. Urinary bladder is unremarkable. There is no free fluid. Uterus is normal in size. Appendix is normal. Skeleton: There are no acute osseous findings. No suspicious bony lesions. IMPRESSION: Constipation. 06:25 Differential Diagnosis Constipation, obstipation, bowel obstruction. Data reviewed: sp4 vital signs, nurses notes, old medical records, lab test result(s), CBC, electrolytes, hepatic panel, radiologic studies, CT scan. Consideration of Admission/Observation Patient was admitted/placed on observation. Escalation of care including admission/observation considered. ED course: Patient and will be prescribed GoLytely to take home to alleviate severe constipation. 04/07 02:14 Order name: CBC with Diff; Complete Time: 05:50 sp4 04/07 02:14 Order name: CMP; Complete Time: 05:50 sp4 04/07 02:14 Order name: Lipase; Complete Time: 05:50 sp4 04/07 03:27 Order name: Abdomen EDMS 04/07 02:14 Order name: IV Saline Lock; Complete Time: 03:00 sp4 04/07 02:14 Order name: Labs collected and sent; Complete Time: 03:00 sp4 Administered Medications: 03:09 Drug: Ketorolac IVP 30 mg Route: IVP; Site: right forearm; lg3 06:13 Follow up: Response: No adverse reaction; Marked relief of symptoms lg3 03:09 Drug: NS 0.9% IV 500 ml Route: IV; Rate: bolus; Site: right forearm; lg3 06:14 Follow up: Response: No adverse reaction; IV Status: Completed infusion; IV Intake: lg3 500ml 03:09 Drug: Dicyclomine IM 20 mg Route: IM; Site: right gluteus; lg3 06:14 Follow up: Response: No adverse reaction lg3 03:10 Drug: morphine IVP or IV 4 mg Route: IVP; Infused Over: 4 mins; Site: right forearm; lg3 06:13 Follow up: Response: No adverse reaction; Pain is decreased lg3 03:11 Drug: Ondansetron IVP 4 mg Route: IVP; Site: right forearm; lg3 06:12 Follow up: Response: No adverse reaction lg3 06:11 Drug: Magnesium Citrate PO Liquid 300 ml Route: PO; lg3 06:59 Follow up: Response: No adverse reaction as6 06:11 Drug: Fleet Enema VA 133 ml Route: VA; lg3 06:59 Follow up: Response: No adverse reaction as6 Disposition Summary: 04/07/23 06:31 Discharge Ordered Location: Home sp4 Problem: new sp4 Symptoms: have improved sp4 Condition: Stable sp4 Diagnosis - Slow transit constipation sp4 Followup: sp4 - With: Private Physician - When: 7 - 10 days - Reason: Recheck today's complaints Discharge Instructions: - Discharge Summary Sheet sp4 - Constipation, Adult, [id number] sp4 Forms: - [facility]_[email or web address].htm sp4 Prescriptions: - Golytely [id number] -5.86 gram Oral Recon Soln - take 240 milliliter by ORAL route once; 240 milliliter; Refills: 0, Product sp4 Selection Permitted Signatures: Dispatcher [facility] Rukhsana Luo RN RN lg3 Joe Castelan MD MD sp4 Kevon Aguirre RN as6 Corrections: (The following items were deleted from the chart) 03:27 02:14 Abdomen Pelvis W Con+CT.[email or web address].BRZ ordered. EDMS EDMS
[2023-04-07 07:50] VITALS: TEMP 98.2
[2023-04-07 07:53] VITALS: BP 129/82; O2SAT 97
--- NOTE | 2023-04-07 11:19 | RAD REPORT ---
EXAM DESCRIPTION: CT - Abdomen Pelvis Wo Contrast - 04/07/2023 5:38 am CLINICAL HISTORY: Abd pain, constipation COMPARISON: 05/14/2021. TECHNIQUE: CT ABDOMEN PELVIS WITHOUT IV CONTRAST on 04/07/2023 2:14 AM CDT This exam was performed according to our departmental dose-optimization program, which includes autom ated exposure control, adjustment of the mA and/or kV according to patient size and/or use of iterati ve reconstruction technique. FINDINGS: Lower lungs are clear. Abdomen: The liver is normal in appearance. There is no biliary dilatation. Cholecystectomy was perfo rmed. The pancreas and spleen are normal in appearance. The adrenal glands are normal. There is moder ate right and severe left renal atrophy. Abdominal aorta is normal in course and caliber without aneurysm. There is no free air. There is no r etroperitoneal adenopathy. Pelvis: There is large amount of stool throughout the colon. Urinary bladder is unremarkable. There i s no free fluid. Uterus is normal in size. Appendix is normal. Skeleton: There are no acute osseous findings. No suspicious bony lesions. IMPRESSION: Constipation. Electronically signed by: Demetri Leonard MD 04/07/2023 4:43 AM CDT Due to temporary technical issues with the PACS/Fluency reporting system, reports are being signed by the in house radiologists without review as a courtesy to insure prompt reporting. The interpreting radiologist is fully responsible for the content of the report.
== END 2023-04-07 06:59 | disposition home or self-care (01) ==
LOC: ER 01:54
DX: K59.01 Slow transit constipation (principal); N18.4 Chronic kidney disease, stage 4 (severe); Z88.1 Allergy status to other antibiotic agents; Z88.3 Allergy status to other anti-infective agents; Z88.5 Allergy status to narcotic agent; Z88.6 Allergy status to analgesic agent; Z88.8 Allergy status to other drugs, medicaments and biological substances
CPT/HCPCS: 96361; 85025; 36415; 83690; 80053; 74176; 96375; 96372; 96374; 99284; J0500; J2405; J7040

== ENCOUNTER 2023-05-13 14:36 | Inpatient (IN) | payer OTHER ==
--- OUTSIDE RECORDS SUMMARY | 2023-05-13 15:25 | XMS REPORT | Continuity of Care Document ---
:1980 Author Organization [facility] t Address [address] [place] [address]. [address] [place] [address] Care Team Providers Name Role Phone Greg Feldman DO Primary Care Physician KIA WADDELL Attending Clinician Unavailable [email or web address] Attending Clinician Unavailable Birgit REYNA Attending Clinician Unavailable Birgit Min Attending Clinician Kia Waddell MD Attending Clinician Pob, [facility] Main Attending Clinician Unavailable Randall Waddell MD Attending Clinician Unavailable Akilah Cedeno MD Attending Clinician AKILAH CEDENO Attending Clinician Unavailable Doctor Unassigned, [place] Attending Clinician Unavailable EUN STEEL Attending Clinician Unavailable Eun Steel MD Attending Clinician JEANA AHUMADA Attending Clinician Unavailable Jeana Ahumada DO Attending Clinician RANDALL WADDELL Attending Clinician Unavailable Jose Evans Attending Clinician DONAVAN GLYNN Attending Clinician Unavailable Glynn PACDonavan S Attending Clinician 1, [facility] Attending Clinician Unavailable Zaid Cowan Attending Clinician ZAID HERNÁNDEZ Attending Clinician Unavailable [place] Attending Clinician Unavailable Vtc-Lab Attending Clinician Unavailable Matthew Kelly MD Attending Clinician Radiology Attending Clinician Unavailable RADIOLOGY Attending Clinician Unavailable MYLES NEWMAN Attending Clinician Unavailable LISA MALAVE Attending Clinician Unavailable Hadley Edmonds MD Attending Clinician John Woods MD Attending Clinician HADLEY EDMONDS Attending Clinician Unavailable Jess Hanks MD Attending Clinician [email or web address]_S Admitting Clinician Unavailable Birgit REYNA Admitting Clinician Unavailable EUN STEEL Admitting Clinician Unavailable DONAVAN GLYNN Admitting Clinician Unavailable KIA WADDELL Admitting Clinician Unavailable Payers Payer Name Policy Type Policy Number Effective Date Expiration Date Edilberto palma [facility] [id number] 2023 STAR PLUS 00:00:00 [facility] [id number] 2015 [facility] (MEDICAID [id number] O) Problems Condition Condition Condition Status Onset Resolution Last Treating Co mments Source Name Details Category Date Date Treatment Clinician Date Mild Mild Disease Active 2020-10 Univers intermitte intermitte 2-20 [place] of nt asthma [place] [facility] [place] Nephrogeno Nephrogeno Disease Active 2020-10 U nivers us us 2-13 ity of protein[place] proteinuri [place] Anemia of Anemia of Disease Active 2020-10 Uni vers chronic chronic 2-13 ity of disease disease 00:00: [place] [address] Medical Branch Urinary Urinary Disease Active Overview: Univ ers incontinen incontinen 6-11 Formattin ity of ce ce 00:00: g of this [place] 00 note Medical might be Branch different from the original. Formattin g of this note might be different from the original. Possible mixed incontine nce on oxybutyni n being managed by Dr Steel Grade 3 Grade 3 Disease Active Overview: Univ ers out of 6 out of 6 03-12 Formattin ity of intensity intensity 00:00: [place] murmur murmur note Medical might be Branch different from [...] f kidney kidney 00:00: g of this [place] disease disease note Medical might be Branch [...] [place] ics reaction 00 Medical s Branch Macrolid Propensi Active Shortness of Univers e ty to Breath 2-25 ity of Antibiot adverse 00:00: [place] ics reaction 00 Medical s Branch MACROLID Drug Active SOB Univers E Class 2-25 ity of ANTIBIOT 00:00: [place] ICS 00 Medical Branch Cycloben Propensi Active Shortness of Univers zaprine ty to Breath 6-10 ity of adverse 00:00: [place] reaction 00 Medical s Branch CYCLOBEN DRUG Active SOB Univers ZAPRINE INGREDI 6-10 ity of 00:00: [place] 00 Medical Branch Gluten Propensi Active Unknown - [...] Univers INGREDI 5-04 ity of 00:00: [place] [facility] [place] Social History Social Habit Start Date Stop Date Quantity Comments Source Gender identity Universit y of [facility] Sexual orientation Univer sity of [facility] Alcohol intake 2022-05-26 2022-05-26 Current University of 00:00:00 00:00:00 non-drinker of [facility] alcohol Branch (finding) Exposure to 2022-04-17 2022-04-27 Yes University of SARS-CoV-2 (event) 00:00:00 14:37:00 [facility] History of Social 2020-05-06 2020-05-06 Univers ity of function 00:00:00 00:00:00 [facility] Tobacco use and 2017-12-29 2017-12-29 Smokeless Universit y of exposure 00:00:00 00:00:00 tobacco non-user [place] Me dical Branch Sex Assigned At [birth year] [facility] 00:00:00 00:00:00 Smoking Status Start Date Stop Date Source [facility] Never smoked tobacco [facility] Medications Ordered Filled Start Stop Current Ordering Indication Dosage Frequency Signature Comments Components Source Medication Medication Date Date Medication? Clinician (SIG) Name Name NaCl 0.9% 2022- No 1000mL at 999 Uni vers (NS) bolus 04-08 07-08 mL/hr, ity of infusion 02:00: 03:04 1,000 mL, Fabien as 1,000 mL 00 :00 IV Medical Infusion, Nimo ONCE, 1 dose, On Mon04/07/23 at 2100, STAT ursodioL 2022-0 Yes [id number] 500mg Take 1 U nivers 500 mg 6-23 tablet by ity of tablet 00:00: mouth in [place] the Medical morning. Branch ursodioL 2022-0 Yes [id number] 500mg Take 1 U nivers 500 mg 6-23 tablet by ity of tablet 00:00: mouth in [place] the Medical morning. Branch ursodioL 2022-0 Yes [id number] 500mg Take 1 U nivers 500 mg 6-23 tablet by ity of tablet 00:00: mouth in [place] 00 the Medical morning. Branch mirtazapine 2021-0 Yes 15mg Take 15 mg Univers 15 mg 7-29 by mouth ity of tablet 03:23: at [place] [address] bedtime. Medical Branch mirtazapine 2021-0 Yes 15mg Take 15 mg Univers 15 mg 7-29 by mouth ity of tablet 03:23: at [place] [address] bedtime. Medical Branch mirtazapine 2021-0 Yes 15mg Take 15 mg Univers 15 mg 7-29 by mouth ity of tablet 03:23: at [place] [address] bedtime. Medical Branch mirtazapine 2021-0 Yes 15mg Take 15 mg Univers 15 mg 7-29 by mouth ity of tablet 03:23: at [place] 02 bedtime. Medical Branch mirtazapine 2021-0 Yes 15mg Take 15 mg Univers 15 mg 7-29 by mouth ity of tablet 03:23: at [place] 02 bedtime. Medical Branch mirtazapine 2021-0 Yes 15mg Take 15 mg Univers 15 mg 7-29 by mouth ity of tablet 03:23: at [place] 02 bedtime. [facility] Branch mirtazapine 2021-0 Yes 15mg Take 15 mg Univers 15 mg 7-29 by mouth ity of tablet 03:23: at [place] 02 bedtime. [facility] Branch mirtazapine 2021-0 Yes 15mg Take 15 mg Univers 15 mg 7-29 by mouth ity of tablet 03:23: at [place] 02 bedtime. [facility] Branch NaCl 0.9% 2021- No 1000mL at 999 Uni vers (NS) bolus 7- 07-27 mL/hr, ity of infusion 20:30: 20:10 1,000 mL, Fabien as 1,000 mL 00 :00 IV Medical Infusion, Branch ONCE, 1 dose, On Mon04/27/22 at 1530, KEYON mirtazapine 2021-0 Yes 15mg Take 15 mg Univers 15 mg 7-27 by mouth ity of tablet 15:16: at [place] [address] bedtime. [facility] escitalopra 2021-0 Yes 20mg Take 20 mg Univers m oxalate 7-27 by mouth ity of 20 mg 14:24: daily. [facility] 25 [facility] escitalopra 2021-0 Yes 20mg Take 20 mg Univers m oxalate 7-27 by mouth ity of 20 mg 14:24: daily. [facility] 25 [facility] escitalopra 2021-0 Yes 20mg Take 20 mg Univers m oxalate 7-27 by mouth ity of 20 mg 14:24: daily. [place] tablet 25 [facility] escitalopra 2021-0 Yes 20mg Take 20 mg Univers m oxalate 7-27 by mouth ity of 20 mg 14:24: daily. [facility] 25 [facility] escitalopra 2021-0 Yes 20mg Take 20 mg Univers m oxalate 7-27 by mouth ity of 20 mg 14:24: daily. [place] tablet 25 [facility] escitalopra 2021-0 Yes 20mg Take 20 mg Univers m oxalate 7-27 by mouth ity of 20 mg 14:24: daily. [place] tablet 25 [facility] escitalopra 2021-0 Yes 20mg Take 20 mg Univers m oxalate 7-27 by mouth ity of 20 mg 14:24: daily. [facility] 25 [facility] escitalopra 2021-0 Yes 20mg Take 20 mg Univers m oxalate 7-27 by mouth ity of 20 mg 14:24: daily. [place] tablet 25 Medical Branch escitalopra Yes 20mg Take 20 mg Univers m oxalate 04-27 by mouth ity of 20 mg 14:24: daily. [place] tablet 25 Medical Branch ondansetron 2021- No 4mg Take 4 mg Univers 4 mg tablet 04-27 by mouth ity of 14:23: 00:00 every 8 [place] 56 :00 (eight) Medical hours as Branch needed. amoxicillin 2021- No [id number] 875mg Take 1 Univers 875 mg 04-27 tablet by ity of tablet 00:00: 04:59 mouth in [place] 00 :00 the Medical morning Branch and 1 tablet in the evening. Do all this for 7 days. proMETHazin Yes [id number] 25mg Take 1 Univers e 25 mg 5-27 tablet by ity of tablet 00:00: mouth [place] 00 every 6 Medical (six) Branch hours as needed for Nausea and Vomiting (N/V). ursodioL Yes [id number] 500mg Take 1 U nivers 500 mg 5-27 tablet by ity of tablet 00:00: mouth [place] 00 daily. Medical Branch proMETHazin Yes [id number] 25mg Take 1 Univers e 25 mg 5-27 tablet by ity of tablet 00:00: mouth [place] 00 every 6 Medical (six) Branch hours as needed for Nausea and Vomiting (N/V). ursodioL Yes [id number] 500mg Take 1 U nivers 500 mg 5-27 tablet by ity of tablet 00:00: mouth [place] 00 daily. Medical Branch proMETHazin 0 Yes [id number] 25mg Take 1 Univers e 25 mg 5-27 tablet by ity of tablet 00:00: mouth [place] 00 every 6 Medical (six) Branch hours as needed for Nausea and Vomiting (N/V). ursodioL 0 Yes [id number] 500mg Take 1 U nivers 500 mg 5-27 tablet by ity of tablet 00:00: mouth [place] 00 daily. Medical Branch proMETHazin Yes [id number] 25mg Take 1 Univers e 25 mg 5-27 tablet by ity of tablet 00:00: mouth [place] 00 every 6 Medical (six) Branch hours as needed for Nausea and Vomiting (N/V). ursodioL 2-0 Yes [id number] 500mg Take 1 U nivers 500 mg 5-27 tablet by ity of tablet 00:00: mouth [place] 00 daily. Medical Branch proMETHazin 2-0 Yes [id number] 25mg Take 1 Univers e 25 mg 5-27 tablet by ity of tablet 00:00: mouth [place] 00 every 6 Medical (six) Branch hours as needed for Nausea and Vomiting (N/V). ursodioL 2022-0 Yes [id number] 500mg Take 1 U nivers 500 mg 5-27 tablet by ity of tablet 00:00: mouth [place] 00 daily. Medical Branch proMETHazin 2021-0 Yes [id number] 25mg Take 1 Univers e 25 mg 5-27 tablet by ity of tablet 00:00: mouth [place] 00 every 6 Medical (six) Branch hours as needed for Nausea and Vomiting (N/V). ursodioL 2-0 Yes [id number] 500mg Take 1 U nivers 500 mg 5-27 tablet by ity of tablet 00:00: mouth [place] 00 daily. Medical Branch proMETHazin 2021-0 Yes [id number] 25mg Take 1 Univers e 25 mg 5-27 tablet by ity of tablet 00:00: mouth [place] 00 every 6 Medical (six) Branch hours as needed for Nausea and Vomiting (N/V). ursodioL 2-0 Yes [id number] 500mg Take 1 U nivers 500 mg 5-27 tablet by ity of tablet 00:00: mouth [place] 00 daily. Medical Branch proMETHazin 2-0 Yes [id number] 25mg Take 1 Univers e 25 mg 5-27 tablet by ity of tablet 00:00: mouth [place] 00 every 6 Medical (six) Branch hours as needed for Nausea and Vomiting (N/V). proMETHazin 2022-0 Yes [id number] 25mg Take 1 Univers e 25 mg 5-27 tablet by ity of tablet 00:00: mouth [place] 00 every 6 Medical (six) Branch hours as needed for Nausea and Vomiting (N/V). proMETHazin 2022-0 Yes [id number] 25mg Take 1 Univers e 25 mg 5-27 tablet by ity of tablet 00:00: mouth [place] 00 every 6 Medical (six) Branch hours as needed for Nausea and Vomiting (N/V). ursodioL 2021-0 3- No [id number] 500mg Take 1 Univers 500 mg 5-27 06-23 tablet by ity of tablet 00:00: 00:00 mouth [place] 00 :00 daily. Medical Branch ursodioL 2021-0 3- No [id number] 500mg Take 1 Univers 500 mg 5-27 06-23 tablet by ity of tablet 00:00: 00:00 mouth [place] 00 :00 daily. Medical Branch proMETHazin 2021-0 2- No [id number] 25mg Take 1 Univers e 25 mg 3-22 05-27 tablet by ity of tablet 00:00: 00:00 mouth [place] 00 :00 every 6 Medical (six) Branch hours as needed for Nausea and Vomiting (N/V). famotidine 2-0 Yes 20mg Take 20 mg U nivers 20 mg 2-16 by mouth ity of tablet 00:00: at [place] [address] bedtime. Medical Branch famotidine 2-0 Yes 20mg Take 20 mg U nivers 20 mg 2-16 by mouth ity of tablet 00:00: at [place] [address] bedtime. Medical Branch famotidine 2-0 Yes 20mg Take 20 mg U nivers 20 mg 2-16 by mouth ity of tablet 00:00: at [place] [address] bedtime. Medical Branch famotidine 2-0 Yes 20mg Take 20 mg U nivers 20 mg 2-16 by mouth ity of tablet 00:00: at [place] [address] bedtime. Medical Branch famotidine 2-0 Yes 20mg Take 20 mg U nivers 20 mg 2-16 by mouth ity of tablet 00:00: at [place] [address] bedtime. Medical Branch famotidine 2022-0 Yes 20mg Take 20 mg U nivers 20 mg 2-16 by mouth ity of tablet 00:00: at [place] [address] bedtime. Medical Branch famotidine 2022-0 Yes 20mg Take 20 mg U nivers 20 mg 2-16 by mouth ity of tablet 00:00: at [place] [address] bedtime. Medical Branch famotidine 2022-0 Yes 20mg Take 20 mg U nivers 20 mg 2-16 by mouth ity of tablet 00:00: at [place] [address] bedtime. Medical Branch famotidine 2022-0 Yes 20mg Take 20 mg U nivers 20 mg 2-16 by mouth ity of tablet 00:00: at [place] [address] bedtime. Medical Branch famotidine 2-0 Yes 20mg Take 20 mg U nivers 20 mg 2-16 by mouth ity of tablet 00:00: at [place] [address] bedtime. Medical Branch SERTraline 2-0 Yes Univers 25 mg 2-13 ity of tablet 00:00: [place] 00 Medical Branch SERTraline 2-0 2022- No Univer s 25 mg 2-13 07-27 ity of tablet 00:00: 00:00 [place] 00 :00 Medical Branch omeprazole 2-0 Yes 40mg Take 40 mg U nivers 40 mg 2-09 by mouth ity of capsule 00:00: every [place] 00 morning. Medical Branch omeprazole 2-0 Yes 40mg Take 40 mg U nivers 40 mg 2-09 by mouth ity of capsule 00:00: every [place] 00 morning. Medical Branch omeprazole 2-0 Yes 40mg Take 40 mg U nivers 40 mg 2-09 by mouth ity of capsule 00:00: every [place] 00 morning. Medical Branch omeprazole 2-0 Yes 40mg Take 40 mg U nivers 40 mg 2-09 by mouth ity of capsule 00:00: every [place] 00 morning. Medical Branch omeprazole 2-0 Yes 40mg Take 40 mg U nivers 40 mg 2-09 by mouth ity of capsule 00:00: every [place] 00 morning. Medical Branch omeprazole 2-0 Yes 40mg Take 40 mg U nivers 40 mg 2-09 by mouth ity of capsule 00:00: every [place] 00 morning. Medical Branch omeprazole 2-0 Yes 40mg Take 40 mg U nivers 40 mg 2-09 by mouth ity of capsule 00:00: every [place] 00 morning. Medical Branch omeprazole 2022-0 Yes 40mg Take 40 mg U nivers 40 mg 2-09 by mouth ity of capsule 00:00: every [place] 00 morning. Medical Branch omeprazole 2022-0 Yes 40mg Take 40 mg U nivers 40 mg 2-09 by mouth ity of capsule 00:00: every [place] 00 morning. Medical Branch omeprazole 2022-0 Yes 40mg Take 40 mg U nivers 40 mg 2-09 by mouth ity of capsule 00:00: every [place] 00 morning. [facility] Take by Univers subsalicyla 5-03 mouth. ity of te 15:24: [place] (PEPTO-BISM 46 Medical OL ORAL) Branch [facility] Yes Take by Univers subsalicyla 5-03 mouth. ity of te 15:24: [place] (PEPTO-BISM 46 Medical OL ORAL) Branch [facility] Yes Take by Univers subsalicyla 5-03 mouth. ity of te 15:24: [place] (PEPTO-BISM 46 Medical OL ORAL) Branch [facility] Yes Take by Univers subsalicyla 5-03 mouth. ity of te 15:24: [place] (PEPTO-BISM 46 Medical OL ORAL) Branch [facility] Yes Take by Univers subsalicyla 5-03 mouth. ity of te 15:24: [place] (PEPTO-BISM 46 Medical OL ORAL) [facility] Yes Take by Univers subsalicyla 5-03 mouth. ity of te 15:24: [place] (PEPTO-BISM 46 Medical OL ORAL) Branch [facility] Yes Take by Univers subsalicyla 5-03 mouth. ity of te 15:24: [place] (PEPTO-BISM 46 Medical OL ORAL) Branch [facility] Yes Take by Univers subsalicyla 5-03 mouth. ity of te 15:24: [place] (PEPTO-BISM 46 Medical OL ORAL) [facility] Yes Take by Univers subsalicyla 5-03 mouth. ity of te 15:24: [place] (PEPTO-BISM 46 Medical OL ORAL) Branch [facility] Yes Take by Univers subsalicyla 5-03 mouth. ity of te 15:24: [place] (PEPTO-BISM 46 Medical OL ORAL) Branch loratadine Yes 10mg Take 10 mg U nivers (CLARITIN) 02-01 by mouth ity o f 10 mg 15:08: daily. [place] tablet Medical Branch ALBUTEROL Yes Inhale. Unive rs INHALE 02-01 ity of 15:08: [place] Medical Branch beclomethas Yes Inhale. Uni vers one 02-01 ity of dipropionat 15:08: [place] e (VAR 01 Medical INHALE) Branch ondansetron Yes 4mg Take 4 mg U nivers 4 mg tablet 503 by mouth ity of 15:08: every 8 [place] [address] (eight) Medical hours as Branch needed. calcium Yes Take by Univers carbonate 5-03 mouth. ity of (TUMS ORAL) 15:08: [place] [address] Medical Branch escitalopra Yes 20mg Take 20 mg Univers m oxalate 503 by mouth ity of (LEXAPRO) 15:08: daily. [place] 20 mg Medical tablet Branch loratadine Yes 10mg Take 10 mg U nivers (CLARITIN) 503 by mouth ity o f 10 mg 15:08: daily. [place] tablet Medical Branch ALBUTEROL Yes Inhale. [facility] rs INHALE 02-01 ity of 15:08: [place] [address] Medical Branch beclomethas Yes Inhale. Uni vers one 02-01 ity of dipropionat 15:08: [facility] (VAR 01 Medical INHALE) Branch calcium Yes Take by Univers carbonate 5-03 mouth. ity of (TUMS ORAL) 15:08: [place] [address] Medical [place] loratadine Yes 10mg Take 10 mg U nivers (CLARITIN) 03 by mouth ity o f 10 mg 15:08: daily. [place] tablet Medical Branch ALBUTEROL Yes Inhale. [facility] rs INHALE 02-01 ity of 15:08: [place] [address] Medical [place] beclomethas 2019 Yes Inhale. Uni vers one 02-01 ity of dipropionat 15:08: [facility] (QVAR 01 Medical INHALE) Branch calcium Yes Take by Univers carbonate 5-03 mouth. ity of (TUMS ORAL) 15:08: [place] [address] Medical Branch loratadine Yes 10mg Take 10 mg U nivers (CLARITIN) 503 by mouth ity o f 10 mg 15:08: daily. [place] tablet Medical Branch ALBUTEROL 0 Yes [facility]ale. [facility]-01 ity of 15:08: [place] [address] Medical [place] beclomethas [address] Yes Inhale. Uni vers one 02-01 ity of dipropionat 15:08: [facility] (QVAR 01 Medical INHALE) [place] calcium Yes Take by Univers carbonate 5-03 mouth. ity of (TUMS ORAL) 15:08: [facility] loratadine Yes 10mg Take 10 mg U nivers (CLARITIN) 5-03 by mouth ity o f 10 mg 15:08: daily. [place] tablet [facility] ALBUTEROL Yes Inhale. [facility]ALE 02-01 ity of 15:08: [facility] beclomethas Yes Inhale. Uni vers one 02-01 ity of dipropionat 15:08: [facility] (QVAR 01 Medical INHALE) [place] calcium Yes Take by Univers carbonate 5-03 mouth. ity of (TUMS ORAL) 15:08: [place] [facility] loratadine Yes 10mg Take 10 mg U nivers (CLARITIN) 5-03 by mouth ity o f 10 mg 15:08: daily. [place] tablet [facility] ALBUTEROL Yes Inhale. [facility] rs INHALE 02-01 ity of 15:08: [facility] beclomethas Yes Inhale. Uni vers one 02-01 ity of dipropionat 15:08: [facility] ([place] [address] Medical INHALE) [place] calcium Yes Take by Univers carbonate 5-03 mouth. ity of (TUMS ORAL) 15:08: [place] [facility] loratadine Yes 10mg Take 10 mg U nivers (CLARITIN) 5-03 by mouth ity o f 10 mg 15:08: daily. [place] tablet [facility] ALBUTEROL Yes Inhale. [facility] rs INHALE 02-01 ity of 15:08: [facility] beclomethas Yes Inhale. Uni vers one 02-01 ity of dipropionat 15:08: [facility] ([place] [address] Medical INHALE) [place] calcium Yes Take by Univers carbonate 5-03 mouth. ity of (TUMS ORAL) 15:08: [address] loratadine Yes 10mg Take 10 mg U nivers (CLARITIN) 5-03 by mouth ity o f 10 mg 15:08: daily. [place] tablet [address] [place] [address] ALBUTEROL Yes Inhale. [facility] rs INHALE 02-01 ity of 15:08: [facility] beclomethas 2019 Yes Inhale. Uni vers one - ity of dipropionat 15:08: [facility] ([facility] 01 Medical INHALE) [place] calcium Yes Take by Univers carbonate 5-03 mouth. ity of (TUMS ORAL) 15:08: [address] loratadine Yes 10mg Take 10 mg U nivers (CLARITIN) 5-03 by mouth ity o f 10 mg 15:08: daily. [place] tablet [facility] ALBUTEROL Yes Inhale. [facility] rs INHALE 02-01 ity of 15:08: [place] [facility] beclomethas Yes Inhale. Uni vers one 02-01 ity of dipropionat 15:08: [facility] (VAR 01 Medical INHALE) [place] calcium Yes Take by Univers carbonate 5-03 mouth. ity of (TUMS ORAL) 15:08: [address] loratadine Yes 10mg Take 10 mg U nivers (CLARITIN) 503 by mouth ity o f 10 mg 15:08: daily. [place] tablet [facility] ALBUTEROL Yes Inhale. [facility] rs INHALE 02-01 ity of 15:08: [address] beclomethas Yes Inhale. Uni vers one 5- ity of dipropionat 15:08: [facility] (QVAR 01 Medical INHALE) [place] calcium Yes Take by Univers carbonate 5-03 mouth. ity of (TUMS ORAL) 15:08: [address] PROAIR HFA Yes INHALE 2 Uni [...] on inhaler 00 SOB/ Medical WHEEZING Branch [facility] Yes INHALE 2 Uni vers 90 1-25 PUFFS PO Q ity of mcg/actuati 00:00: 4-6 H PRF [place] on inhaler 00 SOB/ Medical WHEEZING Branch [facility] Yes INHALE 2 Uni vers 90 1-25 PUFFS PO Q ity of mcg/actuati 00:00: 4-6 H PRF [place] on inhaler 00 SOB/ Medical WHEEZING Branch [facility] Yes INHALE 2 Uni vers 90 1-25 PUFFS PO Q ity of mcg/actuati 00:00: 4-6 H PRF [place] on inhaler 00 SOB/ Medical WHEEZING Branch [facility] Yes INHALE 2 Uni vers 90 1-25 PUFFS PO Q ity of mcg/actuati 00:00: 4-6 H PRF [place] on inhaler 00 SOB/ Medical WHEEZING Branch [facility] Yes INHALE 2 Uni vers 90 1-25 PUFFS PO Q ity of mcg/actuati 00:00: 4-6 H PRF [place] on inhaler 00 SOB/ Medical WHEEZING Branch [facility] Yes INHALE 2 Uni vers 90 1-25 PUFFS PO Q ity of mcg/actuati 00:00: 4-6 H PRF [place] on inhaler 00 SOB/ Medical WHEEZING Branch [facility] Yes INHALE 2 Uni vers 90 1-25 PUFFS PO Q ity of mcg/actuati 00:00: 4-6 H PRF [place] on inhaler 00 SOB/ Medical WHEEZING Branch cyproheptad 0 Yes Univer s ine 4 mg 1-15 ity of tablet 00:00: [place] 00 Medical Branch cyproheptad 0 Yes Univer s ine 4 mg 1-15 ity of tablet 00:00: [place] [facility] Branch cyproheptad 0 Yes Univer s ine 4 mg 1-15 ity of tablet 00:00: [place] 00 Medical Branch cyproheptad 0 Yes Univer s ine 4 mg 1-15 ity of tablet 00:00: [place] [facility] cyproheptad 2019-0 Yes Univer s ine 4 mg 1-15 ity of tablet 00:00: [place] [facility] Branch cyproheptad 2019-0 Yes Univer s ine 4 mg 1-15 ity of tablet 00:00: [place] [facility] Branch cyproheptad 2019-0 Yes Univer s ine 4 mg 1-15 ity of tablet 00:00: [place] [facility] cyproheptad 2019-0 Yes Univer s ine 4 mg 1-15 ity of tablet 00:00: [place] [facility] cyproheptad 2019-0 Yes Univer s ine 4 mg 1-15 ity of tablet 00:00: [place] [facility] cyproheptad 2019-0 Yes Univer s ine 4 mg 1-15 ity of tablet 00:00: [place] [facility] Branch Vital Signs Vital Name Observation Time Observation Value Comments Source Systolic blood 2023-04-08 03:00:00 117 mm[Hg] Univer sity of pressure [facility] Diastolic blood 2023-04-08 03:00:00 81 mm[Hg] Unive rsity of [facility] Heart rate 2023-04-08 03:00:00 60 /min [facility] Respiratory rate 2023-04-08 03:00:00 16 /min [facility] Oxygen saturation in 2023-04-08 03:00:00 100 /min [facility] Arterial blood by [facility] Pulse oximetry [place] Body temperature 2023-04-08 00:28:00 36.72 [facility] Body height 2023-04-08 00:28:00 152.4 cm [facility] Body weight 2023-04-08 00:28:00 44.453 kg [facility] BMI 2023-04-08 00:28:00 19.14 kg/m2 [facility] Systolic blood 2023-03-24 18:52:00 109 mm[Hg] Univer sity of pressure [facility] [facility] Diastolic blood 2023-03-24 18:52:00 66 mm[Hg] Unive rsity of pressure [facility] Heart rate 2023-03-24 18:52:00 67 /min [facility] Body temperature 2023-03-24 18:52:00 36.89 Carolyn [facility] Body height 2023-03-24 18:52:00 152.4 cm [facility] Body weight 2023-03-24 18:52:00 46.63 kg [facility] BMI 2023-03-24 18:52:00 20.08 kg/m2 [facility] Oxygen saturation in 2023-03-24 18:52:00 100 /min [facility] Pulse oximetry Branch Systolic blood 2022-04-27 19:19:00 141 mm[Hg] [facility] Diastolic blood 2022-04-27 19:19:00 93 mm[Hg] [facility] Heart rate 2022-04-27 19:19:00 87 /min [facility] Body temperature 2022-04-27 19:19:00 37.11 Carolyn [facility] Respiratory rate 2022-04-27 19:19:00 18 /min [facility] Body weight 2022-04-27 19:19:00 45.813 kg [facility] BMI 2022-04-27 19:19:00 19.73 kg/m2 [facility] Oxygen saturation in 2022-04-27 19:19:00 98 /min University of Arterial blood by [facility] Pulse oximetry Branch Systolic blood 2022-02-25 20:21:00 133 mm[Hg] [facility] Diastolic blood 2022-02-25 20:21:00 76 mm[Hg] [facility] Heart rate 2022-02-25 20:21:00 71 /min [facility] Respiratory rate 2022-02-25 20:21:00 18 /min [facility] Body height 2022-02-25 20:21:00 152.4 cm [facility] Body weight 2022-02-25 20:21:00 45.949 kg [facility] BMI 2022-02-25 20:21:00 19.78 kg/m2 [facility] Oxygen saturation in 2022-02-25 20:21:00 100 /min University Arterial blood by [facility] Pulse oximetry Branch Procedures Procedure Date / Time Performing Clinician Source Performed URINALYSIS 2023-04-08 02:40:00 Birgit Reyna [facility] CT ABDOMEN PELVIS WO 2023-04-08 01:25:47 Birgit Reyna [facility] CONTRAST Medical Branch LIPASE 2023-04-08 01:02:00 Birgit Reyna [facility] MAGNESIUM 2023-04-08 01:02:00 Birgit Reyna [facility] COMP. METABOLIC PANEL 2023-04-08 01:02:00 Birgit Reyna Angelica [facility] ([id number]) Medical Branch CBC WITH DIFF 2023-04-08 01:02:00 Maribell [facility] CONSENT/REFUSAL FOR 2023-04-08 00:17:34 Doctor Unassigned, No [facility] DIAGNOSIS AND TREATMENT Name Medical Branch ASSIGNMENT OF BENEFITS 2023-03-22 16:32:15 Doctor Unassigned, No [facility] Branch AUTHORIZATION FOR 2022-10-10 06:01:00 Doctor Unassigned, No [facility] RELEASE OF [facility] Branch COMP. METABOLIC PANEL 2022-04-27 19:35:00 Jeana Ahumada [facility] ([id number]) Medical Branch CBC WITH DIFF 2022-04-27 19:35:[address] [facility] CONSENT/REFUSAL FOR 2022-04-27 19:15:00 Doctor Unassigned, No [facility] DIAGNOSIS AND TREATMENT Name Medical Branch Encounters Start End Encounter Admission Attending Care Care Encounter Source Date/Time Date/Time Type Type Clinicians Facility Department ID 2023-09-08 2023-09-08 Outpatient James WADDELL [facility] [id number] Univers 10:30:00 10:30:00 [facility] 2023-05-11 2023-05-11 Outpatient GC_GCBZW_Ka PRIV PRIV [id number] [facility] 00:00:00 00:00:00 Larry [id number] Medic al 2023-05-102023-05-10 Outpatient GC_GCBZW_Ka PRIV PRIV [id number] [facility] 00:00:00 00:00:00 diyala_S [id number] Medic al 2023-05-09 2023-05-09 Outpatient GC_GCBZW_Ka PRIV PRIV [id number] [facility] 00:00:00 00:00:00 diyala_S [id number] Medic al 2023-04-07 2023-04-07 Emergency X MARIBELL, Birgit [facility] ERT [id number] Univers 19:32:00 22:27:00 ity of [facility] 2023-04-07 2023-04-07 Emergency MaribellBirgit [facility] 1.2.840.114 [id number] Univers 19:32:00 22:27:00 Angelica LÓPEZ 350.1.13.10 i ty moustapha [place] 4.2.7.2.686 [facility] [id number] [facility] eloisa 084 Branch 2023-03-24 2023-03-24 Outpatient R NADIRA [facility] [id number] Univers 14:00:00 14:10:21 [facility] 2023-03-24 2023-03-24 Office Nadira [facility] 1.2.840.114 [id number] Univers 14:00:00 14:10:21 Visit Kia PA 350.1.13.10 ity of [place] 4.2.7.2.686 [facility] [id number] [facility] AND ALIVIA 072 Branch [facility] 2023-03-22 2023-03-22 Warehouse Technician Christelle, Shaista Lab Main [facility] 1.2.8 40.114 [id number] Univers 12:30:00 12:45:00 Visit Randall Waddell 350.1.1 3.10 ity of [place] 4.2.7.2.686 [facility] [id number] Wy dical NAL 353 Branch [facility] 2023-03-22 2023-03-22 Outpatient James CEDENO [facility] [id number] Univers 12:30:00 12:30:00 AKILAH johnston [facility] 2023-03-22 2023-03-22 Orders Doctor BRADEN 1.2.840.114 [id number] Univers 00:00:00 00:00:00 Only Unassigned, MARVIN 350.1.13.10 ity of [place] [facility] 4.2.7.2.686 Fabien as [phone] [facility] 009 Branch 2023-03-14 2023-03-14 [facility] 1.2.619.166 [id number] Univers 00:00:00 00:00:00 Shejonny MULTISPEC 350.1.13.10 ity of [place] 4.2.7.2.686 [facility] [id number] [place] 608142 Branch [facility]IC 2022-10-10 2022-10-10 Orders Doctor FELICIANO 1.2.840.114 [id number] Univers 00:00:00 00:00:00 Only Unassigned, MARVIN 350.1.13.[address] [place] [facility] 4.2.7.2.686 Fabien as [phone] [facility] 009 Branch 2022-05-26 2022-05-26 [facility] [id number] Univers 10:27:39 23:59:00 EUN johnston [facility] 2022-05-26 2022-05-26 [facility] 1.2.840.114 [id number] Univers 10:27:39 23:59:00 Encounter Eun LÓPEZ 350.1.13.10 ity [facility] 4.2.7.2.686 [facility] [id number] [facility] 800 Branch 2022-04-27 2022-04-27 Emergency X BRANDYNRUST ERT [id number] Univers 14:21:00 15:23:00 JEANA johnston [facility] 2022-04-27 2022-04-27 Emergency BrandynRUST 1.2.840.114 [id number] Univers 14:21:00 15:23:00 Jeana LÓPEZ 350.1.13.10 ity of [place] 4.2.7.2.686 [facility] [id number] [facility] 084 Branch 2022-03-22 2022-03-22 Telephone VirginiaazsharonaRUST 1.2.884.702 [id number] Univers 00:00:00 00:00:00 Shejonny MULTISPEC 350.1.13.10 ity of [place] 4.2.7.2.686 [facility] [id number] [address] DIABETES CLINIC 2022-03-16 2022-03-16 Warehouse Technician Christelle, Adc Lab Main [facility] 1.2.8 40.114 [id number] Univers 16:15:00 16:30:00 Visit Randall Waddell 350.1.1 3.10 ity of [place] 4.2.7.2.686 [facility] [id number] Wy dical [address] 2022-03-16 2022-03-16 Outpatient R NADIRAVAN [facility] [id number] Univers 16:15:00 16:15:00 RANDALL ity [facility] 2022-03-16 2022-03-16 Orders Doctor BRADEN 1.2.840.114 [id number] Univers 00:00:00 00:00:00 Only Unassigned, MARVIN 350.1.13.[address] [place] [facility] 4.2.7.2.[address] [facility] [id number] [facility] 009 Branch 2022-02-25 2022-02-25 Outpatient R NADIRAVAN [facility] [id number] Univers 14:00:00 15:47:25 SHEHARYAR ity [facility] 2022-02-25 2022-02-25 [facility] [id number] Univers 14:00:00 15:47:25 MONICAYAR ity [facility] 2022-02-25 2022-02-25 Office [facility] 1.2.840.114 [id number] Univers 14:00:00 15:47:25 Visit Kia PA 350.1.13.10 ity of [place] 4.2.7.2.686 [facility] [id number] [address] DIABETES CLINIC 2022-02-25 2022-02-25 Outpatient R NADIRA [facility] [id number] Univers 14:00:00 14:00:00 KIA johnston [facility] 2022-02-25 2022-02-25 Outpatient R NADIRA [facility] [id number] Univers 14:00:00 14:00:00 KIA johnston [facility] 2022-01-12 2022-01-12 Outpatient R NADIRA [facility] [id number] Univers 11:30:00 11:30:00 [facility] 2022-01-08 2022-01-08 Abstract BRADEN Burton 1.2.840.114 [id number] Univers 00:00:00 00:00:00 Jose MARVIN 350.1.13.10 it y of HOSPITAL 4.2.7.2.686 Fabien as [phone] [facility] 009 Branch 2021-12-21 2021-12-21 Emergency X [facility] ERT [id number] Univers 15:15:00 18:23:00 [facility]AN [facility] 2021-12-21 2021-12-21 Emergency [facility] 1.2.460.202 [id number] Univers 15:15:00 18:23:00 Donavan S RENE 350.1.13.10 i ty of [place].7.2.[place] [id number] [facility] 084 Branch 2021-12-21 2021-12-21 Orders Doctor BRADEN 1.2.840.114 [id number] Univers 00:00:00 00:00:00 Only Unassigned, MARVIN 350.1.13.[address] [place] [facility] 4.2.7.2.686 Fabien as [phone] [facility] 009 Branch 2021-12-21 2021-12-21 Patient Nadira [facility] 1.2.840.114 [id number] Univers 00:00:00 00:00:00 Secure Msg Kia MULTISPEC 350.1.13.10 ity of [facility] 4.2.7.2.686 [place] [phone] [facility] AND [place] [address] DI[facility] CLINIC 2021-12-20 2021-12-20 Telephone [facility] 1.2.993.845 [id number] Univers 00:00:00 00:00:00 Kia [facility] 350.1.13.10 it[place]2.[place] [id number] [address] DIABETES CLINIC 2021-12-10 2021-12-10 Outpatient R [facility] [id number] Univers 08:46:40 23:59:00 [facility] ity [facility] 2021-12-10 2021-12-10 [facility] 1..840.114 [id number] [facility] 08:46:40 23:59:00 Encounter Kia [facility] 350.1.13.10 ity of [facility] 4.2.7.2.686 [facility] [id number] [facility] [address] [place] 2021-12-10 2021-12-10 Outpatient R [facility] [id number] Univers 08:46:40 23:59:00 [facility] 2021-12-10 2021-12-10 Outpatient R [facility] [id number] Univers 08:46:40 23:59:00 [facility] 2021-12-08 2021-12-08 Warehouse Technician Christelle, Adc Lab Main [facility] 1.2.8 40.114 [id number] [facility] 11:15:00 11:30:00 Visit Kia Waddell 350.1.13.10 ity of [place].7.2.686 [place] [facility] [phone] [address] 2021-12-08 2021-12-08 Warehouse Technician 1, Adc Lab [facility] 1.2.840.114 [id number] Univers 10:45:00 11:00:00 Visit Akilah Cedeno 350.1.13.10 ity of [place].2.7.2.[place] [id number] [facility] 353 Branch 2021-12-08 2021-12-08 Outpatient R PAO [facility] [id number] Univers 10:45:00 10:45:00 AKILAH [facility] 2021-12-08 2021-12-08 Outpatient R PAO [facility] [id number] Univers 10:00:00 10:00:00 AKILAH [facility] 2021-12-08 2021-12-08 Orders Doctor BRADEN 1.2.840.114 [id number] Univers 00:00:00 00:00:00 Only Unassigned, MARVIN 350.1.13.[address] [place] [facility] 4.2.7.2.686 Fabien as [phone] [facility] 009 Branch 2021 2021 Zaid Ortiz [facility] 1.2.840.114 [id number] Univers 00:00:00 00:00:00 Management Y HEALTH 350.1.13.10 ity of CL[place].2.[place] [id number] [facility] 803 Branch 2021-11-26 2021-11-26 Outpatient ZAID ROSARIO [facility] [id number] Univers 07:46:06 23:59:00 ity of [facility] 2021-11-26 2021-11-26 Hospital Zaid Hernández [facility] 1.2.840.114 [id number] Univers 07:46:06 23:59:00 Encounter [facility] Y HEALTH 350.1. 13.10 ity of CL[place]ICS 4.2.7.2.[place] [id number] [facility] 803 Branch 2021-11-26 2021-11-26 Outpatient ZAID ROSARIO [facility] [id number] Univers 07:46:06 23:59:00 ity of [facility] 2021-11-19 2021-11-19 Warehouse Technician Vtc-Lab [facility] 1.2.840.114 [id number] Univers 15:15:00 15:30:00 Visit Kia WaddellPEC 350.1.13.1 0 it[place] of [place].2.[place] [id number] [facility] [address] DIABETES CLINIC 2021-11-19 2021-11-19 Outpatient R [facility] [id number] Univers 14:30:00 15:06:01 [facility] 2021-11-19 2021-11-19 Office [facility] 1.2.840.114 [id number] Univers 14:30:00 15:06:01 Visit Monicajames MULTISPEC 350.1.13.10 ity of [place] 4.2.7.2.686 [facility] KELLY [phone] [address] DIABETES CLINIC 2021-11-19 2021-11-19 Outpatient R [facility] [id number] Univers 14:30:00 15:06:01 [facility] 2021-11-19 2021-11-19 Office [facility] 1.2.840.114 [id number] Univers 14:30:00 15:06:01 Visit Kia [facility] 350.1.13.10 ity of [place] 4.2.7.2.686 [facility] KELLY [id number] [address] DIABETES CLINIC 2021-08-11 2021-08-11 Orders Doctor BRADEN 1.2.840.114 [id number] Univers 00:00:00 00:00:00 Only Unassigned, MARVIN 350.1.13.10 ity of [place] [facility] 4.2.7.2.686 Fabien as [phone] [facility] 009 Branch 2021-08-11 2021-08-11 Telephone BERHANE Waddell 1.2.840.114 [id number] Univers 00:00:00 00:00:00 [facility] 350.1.13.10 ity of CL[place].2.[place] [id number] [facility] 071 Branch 2021-06-04 2021-06-04 EXT MHH OP Kelly, EXT MSRDP 1.2.840.114 [id number] [place] 00:00:00 00:00:00 [place] LOCATION 350.1.13.58 H josé [place] 9.2.7.2.686 [id number] 0 2021-06-04 2021-06-04 EXT MHH OP Kelly, EXT MSRDP 1.2.840.114 1 [id number] [place] 00:00:00 00:00:00 [place] LOCATION 350.1.13.58 H josé [place] 9.2.7.2.686 [id number] 2021-05-19 2021-05-19 Outpatient R DAMIÁN, [facility] [id number] Univers 14:00:00 14:00:00 EUN ity [facility] 2021-03-26 2021-03-26 [facility] Radiology [facility] 1.2.840.114 [id number] 16:00:00 23:59:00 Encounter [place] 350.1.13.10 [place] 4.2.7.2.686 [place] [id number] [facility] 2021-03-26 2021-03-26 [facility] Radiology [facility] 1.2.840.114 [id number] [facility] 16:00:00 23:59:00 Encounter [place] 350.1.13.10 ity of [place] 4.2.7.2.686 [facility] [id number] [address] 2021-03-26 2021-03-26 Outpatient R RADIOLOGY [facility] [id number] Univers 00:00:00 00:00:00 ity [facility] 2021-03-26 2021-03-26 Orders Doctor BRADEN 1.2.840.114 [id number] 00:00:00 00:00:00 Only Unassigned, MARVIN 350.1.13.[address] [place] [facility] 4.2.7.2.686 [id number] 009 2021-03-26 2021-03-26 Orders Doctor BRADEN 1.2.840.114 [id number] Univers 00:00:00 00:00:00 Only Unassigned, MARVIN 350.1.13.[address] [place] [facility] 4.2.7.2.686 Fabien as [id number] [facility] 009 Branch 2021-03-24 2021-03-24 [facility] Radiology [facility] 1.2.840.114 [id number] 07:33:57 23:59:00 Encounter [place] 350.1.13.10 [place] 4.2.7.2.686 [place] [id number] 2021-03-24 2021-03-24 [facility] Radiology [facility] 1.2.840.114 [id number] Univers 07:33:57 23:59:00 Encounter [place] 350.1.13.10 ity of [place].2.[place] [id number] [facility] 807 Branch 2021-03-24 2021-03-24 Outpatient R RADIOLOGY [facility] [id number] Univers 00:00:00 00:00:00 [facility] 2021-03-24 2021-03-24 Orders Doctor BRADEN 1.2.840.114 [id number] 00:00:00 00:00:00 Only Unassigned, MARVIN 350.1.13.[address] [place] [facility] 4.2.7.2.686 [id number] 009 2021-03-24 2021-03-24 Orders Doctor BRADEN 1.2.840.114 [id number] Univers 00:00:00 00:00:00 Only Unassigned, MARVIN 350.1.13.[address] [place] [facility] 4.2.7.2.686 Fabien as [phone] [facility] 009 Branch 2021-02-11 2021-02-11 Outpatient R DAMIÁN, [facility] [id number] Univers 00:00:00 00:00:00 EUN [facility] 2020-08-19 2020-08-19 Outpatient R TRENT [facility] [id number] Univers 10:30:00 10:30:00 MYLES [facility] 2020-08-19 2020-08-19 Outpatient R TRENT [facility] [id number] Univers 10:30:00 10:30:00 MYLES [facility] 2020-03-02 2020-03-02 Outpatient R LISA MALAVE [facility] [id number] Univers 11:30:00 11:30:00 ity of [facility] 2020-02-26 2020-02-26 Outpatient R TRENT, [facility] [id number] Univers 13:00:00 13:00:00 MYLES ity of [facility] 2020-02-17 2020-02-17 Outpatient R [facility] [id number] Univers 11:00:00 11:00:00 ity of [facility] 2019-11-26 2019-11-26 Warehouse Technician Vtc-Lab [facility] 1.2.840.114 [id number] Univers 11:06:28 11:16:28 Visit Hadley Edmonds MULTISPEC 350.1.13. 10 [place] [id number] [facility] AND [address] DIABETES CLINIC 2019-11-26 2019-11-26 Office Peggy [facility] 1.2.840.114 [id number] 10:09:55 11:02:35 Visit John PA 350.1.13.10 [place] 4.2.7.2.686 CENTER [id number] [place] [address] DIABETES CLINIC 2019-11-26 2019-11-26 Office John Woods [facility] 1.2.840.114 [id number] Univers 10:09:55 11:02:35 Visit Hadley EdmondsPEC 350.1.13. 10 ity of [place] 4.2.7.2.686 [facility] CENTER [id number] [address] DIABETES CLINIC 2019-11-26 2019-11-26 Outpatient R KENDAL [facility] [id number] Univers 10:00:00 10:00:00 HADLEY ity [facility] 2019-11-20 2019-11-20 Orders Doctor BRADEN 1.2.840.114 [id number] Univers 00:00:00 00:00:00 Only Unassigned, MARVIN 350.1.13.10 ity of [place] [facility] 4.2.7.2.686 Fabien as [phone] [address] 2019-10-15 2019-10-15 Warehouse Technician Christelle, Adc Lab Main [facility] 1.2.8 40.114 [id number] Univers 14:40:47 14:55:47 Visit Jess Hanks 350.1.13 .10 ity of [place].2.[place] [id number] Wy dical [address] 2019-10-15 2019-10-15 Orders Doctor BRADEN 1.2.840.114 [id number] Univers 00:00:00 00:00:00 Only Unassigned, MARVIN 350.1.13.10 ity of [place] [facility] 4.2.7.2.686 Fabien as [phone] [facility] 009 Branch 2019-05-06 2019-05-06 Orders Doctor BRADEN 1.2.840.114 [id number] Univers 00:00:00 00:00:00 Only Unassigned, MARVIN 350.1.13.10 ity of [place] [facility] 4.2.7.2.686 Fabien as [id number] [place] [address] Branch Results This patient has no known results.
[2023-05-13] MEDS ORDERED: FAMOTIDINE 20 MG/2 ML VIAL IV ONE (15:34)
[2023-05-13] MEDS ORDERED: ONDANSETRON 4 MG/2 ML VIAL ONE ×2 (15:34→18:36)
[2023-05-13] MEDS ORDERED: NA CHLORIDE 0.9% 1,000 ML ONE (15:34)
[2023-05-13 16:17] LABS: Absolute Lymphocytes (CBC) 2.9 K/uL (0.7-4.9); Hematocrit 43.2 % (36.0-45.0); Lymphocytes % 25.3 % (15.3-44.8); MCV 101.4 fL (80-100); MPV 10.9 fL (7.6-11.3); Platelets 119 thou/uL (152-406); RBC Red Blood Cell Count 4.26 M/uL (3.86-4.86)
[2023-05-13 16:37] LABS: Albumin 4.5 g/dL (3.4-5.0); Bilirubin Total 0.5 mg/dL (0.2-1.0); Protein, Total 8.6 g/dL (6.4-8.2)
[2023-05-13 16:39] LABS: Potassium 2.7 mEq/L (3.5-5.1)
[2023-05-13 17:11] LABS: Troponin High Sensitivity 3.5 pg/mL (<58.9)
--- NOTE | 2023-05-13 17:22 | RAD REPORT ---
EXAM DESCRIPTION: RADChest Single View05/13/2023 4:54 pm CLINICAL HISTORY: PAIN COMPARISON: Chest Single View dated 02/01/2023; Chest Single View dated 05/14/2021; Chest Single View d ated 04/05/2021; Chest Single View dated 03/28/2021 TECHNIQUE: Portable AP view of the chest. FINDINGS: The lungs are clear. No pneumothorax or effusion. The cardiomediastinal contours are unrem arkable. IMPRESSION: No acute cardiopulmonary process.
--- NOTE | 2023-05-13 17:42 | RAD REPORT ---
EXAM DESCRIPTION: CT - Abdomen Pelvis Wo Contrast - 05/13/2023 5:02 pm CLINICAL HISTORY: ABD PAIN COMPARISON: Abdomen Pelvis Wo Contrast dated 04/07/2023; Abdomen Pelvis Wo Contrast dated 1; Abdomen Pelvis Wo Contrast dated 07/16/2020; Abdomen Pelvis Wo Contrast dated 01/19/2018 TECHNIQUE: Thin cut axial CT imaging of the abdomen and pelvis was performed without IV contrast. Mu ltiplanar reformats were generated and reviewed. All CT scans are performed using dose optimization technique as appropriate and may include automated exposure control or mA/KV adjustment according to patient size. FINDINGS: No suspicious findings in the lung bases. Stable hepatomegaly with nodular liver contour. Adrenal glands, spleen, and pancreas show no suspicio us findings. Status post cholecystectomy. Symmetric renal contour, without suspicious parenchymal findings within limits of noncontrast techniq ue. No evidence of radiopaque calculi or hydroureteronephrosis. Some apparent wall thickening throughout the colon. Fluid filling of the distal descending colon thro ugh rectum. The distal colon also demonstrates a somewhat ahaustral pattern. No free air, free fluid or inflammatory stranding. No hernia, mass or bulky lymphadenopathy. The urinary bladder is without s ignificant finding. No suspicious bony findings. IMPRESSION: Wall thickening throughout the colon. Fluid filling and ahaustral pattern of the distal colon. . Findings suggest segmental or diffuse colitis. This could be of inflammatory nature. Stable hepatomegaly with annular contour which may suggest cirrhosis.
--- NOTE | 2023-05-13 18:17 | ER ---
Nurse's Notes [facility] Name: Miya Persaud Age: 42 yrs Sex: Female : 1980 Arrival Date: 05/13/2023 Time: 14:36 Bed 7 Private MD: Diagnosis: Bradycardia, unspecified;Colitis Presentation: 05/13 14:43 Chief complaint: Patient states: abd pain, N/V/D that began today. Coronavirus screen: ss Client denies travel out of the [place] in the last 14 days. Ebola Screen: Patient denies exposure to infectious person. Patient denies travel to an Ebola-affected area in the 21 days before illness onset. Initial Sepsis Screen: Does the patient meet any 2 criteria? No. Patient's initial sepsis screen is negative. Does the patient have a suspected source of infection? No. Patient's initial sepsis screen is negative. Risk Assessment: Do you want to hurt yourself or someone else? Patient reports no desire to harm self or others. Onset of symptoms was May 13, 2023. 14:43 Method Of Arrival: EMS: [facility] ss 14:43 Acuity: PARTH 3 ss PHY THERAPIST: 16:15 LMP N/A - control method jl7 Historical: - Allergies: 14:44 "mycin" medications. all those that end with mycin; ss 14:44 Aspirin; ss 14:44 Clarithromycin; ss 14:44 Cyclobenzaprine; ss 14:44 Demerol; ss 14:44 diclofenac sodium; ss 14:44 Gluten Protein; ss 14:44 Levofloxacin; ss - PMHx: 14:44 Anemia; mild aorta insufficiency; Liver condition; ibs; kidney disease; Stage IV renal ss disease; Depression; Anxiety; Thyroid problem; - PSHx: 14:44 Cholecystectomy; Coronary Angioplasty; uterine ablation; ss - Immunization history:: Adult Immunizations unknown. - Social history:: Smoking status: Patient denies any tobacco usage or history of. Patient/guardian denies using street drugs. Screenin:00 [facility] ED Fall Risk Assessment (Adult) History of falling in the last 3 months, jl7 including since admission No falls in past 3 months (0 pts) Confusion or Disorientation No (0 pts) Intoxicated or Sedated No (0 pts) Impaired Gait No (0 pts) Mobility Assist Device Used No (0 pt) Altered Elimination Yes (1 pt) Score/Fall Risk Level 0 - 2 = Low Risk Oriented to surroundings, Maintained a safe environment. 16:00 Abuse screen: Denies threats or abuse. Denies injuries from another. Nutritional jl7 screening: No deficits noted. Tuberculosis screening: No symptoms or risk factors identified. Assessment: 15:00 Reassessment: Pt incontinent of bowel, cleaned and changed bed and pt put in hospital jl7 gown and brief, wears briefs at home. 15:15 General: Appears in no apparent distress. uncomfortable, ill, Behavior is cooperative, jl7 restless. Pain: Complains of pain in abdomen diffusely Pain currently is 10 out of 10 on a pain scale. Is continuous. Neuro: Level of Consciousness is awake, alert, obeys commands, Oriented to person, place, time, situation. Cardiovascular: Denies chest pain, shortness of breath, Patient's skin is warm and dry. Rhythm is sinus bradycardia. Respiratory: Airway is patent Respiratory effort is even, unlabored, Respiratory pattern is regular, symmetrical. GI: Abdomen is flat, non-distended, Bowel sounds present X 4 quads. Abd is soft Abd is non tender X 4 quads Reports diarrhea, nausea, vomiting. : No signs and/or symptoms were reported regarding the genitourinary system. Derm: Skin is pink, warm \\T\\ dry. 16:15 Reassessment: Patient appears in no apparent distress at this time. No changes from jl7 previously documented assessment. Patient and/or family updated on plan of care and expected duration. Pain level reassessed. Pt laying in bed with eyes closed, respirations even and unlabored. HR 42. 16:30 Reassessment: Pt's HR noted to continued to be 38-42, ERP notified, cardiac workup jl7 ordered. 17:30 Reassessment: Patient appears in no apparent distress at this time. No changes from jl7 previously documented assessment. Patient and/or family updated on plan of care and expected duration. Pain level reassessed. Patient is alert, oriented x 3, equal unlabored respirations, skin warm/dry/pink. 18:15 Reassessment: Pt reports continued abdominal pain and nausea, ERP notified, see MAR for jl7 orders. Vital Signs: 14:43 BP 154 / 79; Pulse 46; Resp 15; Temp 97.9(TE); Pulse Ox 100% on R/A; Weight 43.09 kg; ss Height 5 ft. 0 in. ; Pain 10/10; 16:15 BP 139 / 68; Pulse 40; Resp 15; Pulse Ox 100% ; jl7 17:00 BP 136 / 61; Pulse 72; Resp 15; Pulse Ox 100% ; jl7 19:43 BP 148 / 81; Pulse 43; Resp 16; Pulse Ox 100% ; jl7 14:43 Body Mass Index 18.55 (43.09 kg, 152.4 cm) ss 14:43 Pain Scale: Adult ss ED Course: 14:43 Patient arrived in ED. ss 14:44 Triage completed. ss 14:44 Arm band placed on right wrist. ss 14:48 Zeynep Barba FNP-C [facility]. kb 14:48 Derek Gomez MD is Attending Physician. kb 15:20 Initial lab(s) drawn, by me, sent to lab. Inserted saline lock: 22 gauge in right jl7 antecubital area, using aseptic technique. Blood collected. 15:21 Scott Richards, RN is Primary Nurse. jl7 16:00 Patient has correct armband on for positive identification. Placed in gown. Bed in low jl7 position. Call light in reach. Side rails up X2. Provided Education on: use of call reza. Client placed on continuous cardiac and pulse oximetry monitoring. NIBP monitoring applied. Warm blanket given. 16:30 EKG done, by ED staff, reviewed by Zeynep STEIN. jl7 16:30 No provider procedures requiring assistance completed. jl7 16:56 XRAY Chest (1 view) In Process Unspecified. EDMS 17:04 Abdomen In Process Unspecified. EDMS 18:16 Nikole Pryor MD is Hospitalizing Provider. kb 19:46 Patient admitted, IV remains in place. intact, No redness/swelling at site. jl7 Administered Medications: 15:55 Drug: NS 0.9% IV 1000 ml Route: IV; Rate: 1000 ml; Site: right antecubital; jl7 17:00 Follow up: IV Status: Completed infusion; IV Intake: 1000ml jl7 15:55 Drug: Famotidine IVP 20 mg Route: IVP; Site: right antecubital; jl7 19:44 Follow up: Response: No adverse reaction jl7 16:02 Drug: Ondansetron IVP 4 mg Route: IVP; Site: right antecubital; jl7 16:30 Follow up: Response: No adverse reaction; Nausea is decreased jl7 18:29 Drug: Dicyclomine PO 20 mg Route: PO; bp 19:43 Follow up: Response: No adverse reaction jl7 18:29 Drug: Ondansetron IVP 4 mg Route: IVP; Site: right antecubital; bp 19:00 Follow up: Response: No adverse reaction; Nausea is decreased jl7 Medication: 19:43 VIS not applicable for this client. jl7 Intake: 17:00 IV: 1000ml; Total: 1000ml. jl7 Outcome: 18:16 Decision to Hospitalize by Provider. kb 19:46 Admitted to Tele accompanied by tech, via stretcher, room 205, with chart, Report jl7 called to DUNCAN Sarabia 19:46 Condition: stable 19:46 Discharge instructions given to patient, Instructed on the need for admit, Demonstrated understanding of instructions. 19:48 Patient left the ED. rv Signatures: Dispatcher [employer] EDMS Zeynep Barba, INSTRUMENT TESTER-C INSTRUMENT TESTER-Ckb Deanne Weller, RN RN ss Scott Richards RN RN Omer Nina, RN Neville Hagen, RN RN rv Corrections: (The following items were deleted from the chart) 19:46 16:30 Patient admitted, IV remains in place. intact, No redness/swelling at site. jl7 jl7
--- NOTE | 2023-05-13 18:17 | EDPHYS ---
Physician Documentation [facility] Name: Miya Persaud Age: 42 yrs Sex: Female : 1980 Arrival Date: 05/13/2023 Time: 14:36 Bed 7 Private MD: ED Physician Derek Gomez HPI: 05/13 16:13 This 42 yrs old Black Female presents to ER via EMS with complaints of Abdominal Pain, kb Nausea/Vomiting/Diarrhea. 16:13 The patient presents with abdominal pain. Onset: The symptoms/episode began/occurred kb last night. The symptoms do not radiate. Associated signs and symptoms: Pertinent positives: nausea, vomiting, and diarrhea, Pertinent negatives: fever. The symptoms are described as constant. Modifying factors: The symptoms are alleviated by nothing, the symptoms are aggravated by nothing. Severity of pain: At its worst the pain was moderate in the emergency department the pain is unchanged. The patient has experienced similar episodes in the past. The patient has not recently seen a physician. 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 all those that end with mycin; ss 14:44 Aspirin; ss 14:44 Clarithromycin; ss 14:44 Cyclobenzaprine; ss 14:44 Demerol; ss 14:44 diclofenac sodium; ss 14:44 Gluten Protein; ss 14:44 Levofloxacin; ss - PMHx: 14:44 Anemia; mild aorta insufficiency; Liver condition; ibs; kidney disease; Stage IV renal ss disease; Depression; Anxiety; Thyroid problem; - PSHx: 14:44 Cholecystectomy; Coronary Angioplasty; uterine ablation; ss - Immunization history:: Adult Immunizations unknown. - Social history:: Smoking status: Patient denies any tobacco usage or history of. Patient/guardian denies using street drugs. ROS: 15:47 Constitutional: Negative for fever, chills, and weight loss. kb 15:47 Abdomen/GI: Positive for abdominal pain, nausea, vomiting, and diarrhea. 15:47 All other systems are negative. Exam: 16:11 Constitutional: This is a well developed, well nourished patient who is awake, alert, kb and in no acute distress. Head/Face: Normocephalic, atraumatic. ENT: Moist Mucous membranes Cardiovascular: Regular rate and rhythm with a normal S1 and S2. No gallops, murmurs, or rubs. No pulse deficits. Respiratory: Respirations even and unlabored. No increased work of breathing. Talking in full sentences Skin: Warm, dry with normal turgor. Normal color. MS/ Extremity: Pulses equal, no cyanosis. Neurovascular intact. Full, normal range of motion. Neuro: Awake and alert, GCS 15, oriented to person, place, time, and situation. Moves all extremities. Normal gait. 16:11 Abdomen/GI: Inspection: abdomen appears normal, Bowel sounds: normal, Palpation: soft, in all quadrants, mild abdominal tenderness, in all quadrants. 17:14 ECG was reviewed by the Attending Physician. kb Vital Signs: 14:43 BP 154 / 79; Pulse 46; Resp 15; Temp 97.9(TE); Pulse Ox 100% on R/A; Weight 43.09 kg; ss Height 5 ft. 0 in. ; Pain 10/10; 16:15 BP 139 / 68; Pulse 40; Resp 15; Pulse Ox 100% ; jl7 17:00 BP 136 / 61; Pulse 72; Resp 15; Pulse Ox 100% ; jl7 19:43 BP 148 / 81; Pulse 43; Resp 16; Pulse Ox 100% ; jl7 14:43 Body Mass Index 18.55 (43.09 kg, 152.4 cm) ss 14:43 Pain Scale: Adult ss MDM: 14:47 Patient medically screened. kb 16:12 Data reviewed: vital signs, nurses notes. kb 16:12 Differential diagnosis: diverticulitis, non-specific abd pain, gastritis, colitis. kb Historians other than the Patient: EMS: [facility]. 18:14 Consideration of Admission/Observation Patient was admitted/placed on observation. kb Escalation of care including admission/observation considered. Management of patient was discussed with the following: Hospitalist: WILLIAM Garcia accepts pt for admission under Dr Pryor. Counseling: I had a detailed discussion with the patient and/or guardian regarding: the historical points, exam findings, and any diagnostic results supporting the discharge/admit diagnosis, lab results, radiology results, the need for further work-up and treatment in the hospital. 05/13 14:47 Order name: CBC with Diff; Complete Time: 16:34 kb 05/13 14:47 Order name: CMP; Complete Time: 16:40 kb 05/13 14:47 Order name: Lipase; Complete Time: 16:40 kb 05/13 16:34 Order name: NT PRO-BNP; Complete Time: 17:11 kb 05/13 16:34 Order name: Troponin HS; Complete Time: 17:11 kb 05/13 18:42 Order name: Urinalysis w/ reflexes EDMS 05/13 18:42 Order name: Basic Metabolic Panel EDMS 05/13 18:43 Order name: Basic Metabolic Panel EDMS 05/13 18:43 Order name: Basic Metabolic Panel EDMS 05/13 18:43 Order name: Basic Metabolic Panel EDMS 05/13 18:43 Order name: CBC with Automated Diff EDMS 05/13 18:43 Order name: CBC with Automated Diff EDMS 05/13 18:43 Order name: CBC with Automated Diff EDMS 05/13 18:43 Order name: CBC with Automated Diff EDMS 05/13 18:43 Order name: Magnesium EDMS 05/13 18:43 Order name: Magnesium EDMS 05/13 18:43 Order name: Magnesium EDMS 05/13 18:43 Order name: Magnesium EDMS 05/13 18:51 Order name: C.difficile GDH Ag EDMS 05/13 18:51 Order name: Stool Culture EDMS 05/13 16:34 Order name: XRAY Chest (1 view); Complete Time: 17:31 kb 05/13 16:59 Order name: Abdomen ; Complete Time: 17:55 EDMS 05/13 16:34 Order name: EKG; Complete Time: 16:35 kb 05/13 18:42 Order name: CONS Physician Consult EDMS 05/13 18:42 Order name: Clear Liquid EDMS 05/13 14:47 Order name: IV Saline Lock; Complete Time: 16:01 kb 05/13 14:47 Order name: Labs collected and sent; Complete Time: 16:01 kb 05/13 16:34 Order name: Cardiac monitoring; Complete Time: 17:23 kb 05/13 16:34 Order name: EKG - Nurse/Tech; Complete Time: 17:23 kb 05/13 16:34 Order name: O2 Per Protocol; Complete Time: 17:23 kb 05/13 16:34 Order name: O2 Sat Monitoring; Complete Time: 17:23 kb EC:14 Rate is 40 beats/min. Rhythm is regular. QRS [place] is Normal. UT interval is prolonged kb at 204 msec. QRS interval is normal at 96 msec. QT interval is normal at 404 msec. Administered Medications: 15:55 Drug: NS 0.9% IV 1000 ml Route: IV; Rate: 1000 ml; Site: right antecubital; jl7 17:00 Follow up: IV Status: Completed infusion; IV Intake: 1000ml jl7 15:55 Drug: Famotidine IVP 20 mg Route: IVP; Site: right antecubital; jl7 19:44 Follow up: Response: No adverse reaction jl7 16:02 Drug: Ondansetron IVP 4 mg Route: IVP; Site: right antecubital; jl7 16:30 Follow up: Response: No adverse reaction; Nausea is decreased jl7 18:29 Drug: Dicyclomine PO 20 mg Route: PO; bp 19:43 Follow up: Response: No adverse reaction jl7 18:29 Drug: Ondansetron IVP 4 mg Route: IVP; Site: right antecubital; bp 19:00 Follow up: Response: No adverse reaction; Nausea is decreased jl7 Disposition: 05/14 07:54 Co-signature as Attending Physician, Derek Gomez MD I agree with the assessment and kdr plan of care. Disposition Summary: 05/13/23 18:16 Hospitalization Ordered Hospitalization Status: Observation kb Provider: Nikole Pryor Location: Telemetry/MedSurg (observation) kb Condition: Stable kb Problem: new kb Symptoms: are unchanged kb Bed/Room Type: Standard Room Assignment: 205(05/13/23 19:21) eb1 Diagnosis - Bradycardia, unspecified kb - Colitis kb Forms: - Medication Reconciliation Form kb - SBAR form kb - Leadership Thank You Letter kb Signatures: Dispatcher [employer] EDMS Zeynep Barba, MANAGER FUND-C MANAGER FUND-Johnb Derek Gomez MD MD kdr Blanchard, Shelby, RN RN Scott Gill RN RN jl7 Omer Smith, RN Kiley Madden RN RN eb1 Corrections: (The following items were deleted from the chart) 05/13 16:59 14:49 Abdomen Pelvis W Con+CT.RAD.BRZ ordered. EDMS EDMS 19:21 18:16 kb eb1
[2023-05-13] MEDS ORDERED: DICYCLOMINE HCL 10 MG CAP ONE (18:36)
--- NOTE | 2023-05-13 18:36 | P.HP ---
Certification for Inpatient Patient admitted to: Inpatient With expected LOS: <2 Midnights Patient will require the following post-hospital care: None Practitioner: I am a practitioner with admitting privileges, knowledge of patient current condition, hospital course, and medical plan of care. Services: Services provided to patient in accordance with Admission requirements found in Title 42 Section 412.3 of the Code of Federal Regulations Patient History Date of Service: 05/13/23 Reason for admission: Sinus bradycardia History of Present Illness: 42-year-old -British female with a past medical history of CKD, ulcerative colitis, celiac disease, anxiety, depression, asthma, liver disease, presents to the emergency room for for nausea and vomiting. Diarrhea. She reports history of colitis. She denies hematochezia, hematemesis, fever, chills, cough, shortness of breath chest pain. ER evaluation EKG sinus bradycardia in the 40s, no ST elevation, plan to admit for sinus bradycardia, acute on chronic kidney disease, colitis. For cardiology evaluation of bradycardia. Laboratory evaluation WBCs 11.70, platelet count 119, hypokalemia 2.7, BUN 28, creatinine 2.33, chest x-ray no acute cardiopulmonary process CT of the abdomen IMPRESSION: Wall thickening throughout the colon. Fluid filling and ahaustral pattern of the distal colon. . Findings suggest segmental or diffuse colitis. This could be of inflammatory nature. Allergies aspirin Allergy (Verified 05/12/21 08:27) Anaphylaxis clarithromycin Allergy (Verified 05/12/21 08:27) Anaphylaxis cyclobenzaprine Allergy (Verified 05/12/21 08:27) Anaphylaxis gluten Allergy (Verified 05/12/21 08:27) Anaphylaxis Home Medications: Loratadine [Claritin*] 10 mg PO DAILY PRN 06/20/16 Estradiol/Levonorgestrel [Climara Pro Patch] 1 each TD EVERY 7TH DAY 04/05/21 Famotidine 20 mg PO BEDTIME 04/05/21 Lactobacillus Acidophilus [Probiotic] 1 cap PO DAILY 04/05/21 Omeprazole [Prilosec] 40 mg PO DAILY 04/05/21 Albuterol Neb [Proventil 0.083% Neb Soln] 2.5 mg IH PRN PRN 05/12/21 Albuterol Sulfate [Proair Hfa] 8.5 gm IH PRN PRN 05/12/21 Escitalopram Oxalate 10 mg PO DAILY 02/01/23 Promethazine HCl 25 mg PO Q6HR PRN 02/01/23 ursodioL [Ursodiol] 500 mg PO DAILY 02/01/23 Ergocalciferol (Vitamin D2) [Vitamin D 50,000 Unit Cap] 50,000 unit PO SEECOM 02/02/23 Ensure Clear 237 ml PO BID #30 can 02/04/23 Polyethylene Glycol 3350 [Miralax] 17 gm PO DAILY PRN #30 packet 02/04/23 - Past Medical/Surgical History Diabetic: No -: Depression with anxiety -: CKD IV with Proteinuria (Dr. Lo/ Francia) -: Anemia/ Thrombocytopenia -: Asthma -: Seasonal allergies -: Hypothyroidism -: Irritable bowel -: Bilateral axillary surgery -: Right foot surgery -: ligation Psychosocial/ Personal History: Patient was adopted. She is single. She has an adopted child. - Family History Mother -: Heart disease, Hypertension Notes: cervical cancer - Social History Smoking Status: Never smoker Alcohol use: No CD- Drugs: No Caffeine use: No Review of Systems 10-point ROS is otherwise unremarkable Physical Examination - Physical Exam General: Alert, In no apparent distress, Oriented x3 HEENT: Atraumatic, Normocephalic Neck: Supple, 2+ carotid pulse no bruit Respiratory: Clear to auscultation bilaterally, Normal air movement Cardiovascular: No edema, Normal pulses, Normal S1 S2 Capillary refill: <2 Seconds Gastrointestinal: Normal bowel sounds, Other (Diffuse abdominal tenderness no rebound tenderness) Musculoskeletal: No clubbing, No swelling Integumentary: No rashes, No breakdown - Studies Laboratory Data (last 24 hrs) 05/13/23 05/13/23 15:56 15:56 WBC 11.70 H Hgb 13.9 Hct 43.2 Plt Count 119 L Sodium 140 Potassium 2.7 L BUN 28 H Creatinine 2.33 H Glucose 171 H Total Bilirubin 0.5 AST 35 ALT 53 Alkaline Phosphatase 122 H Lipase 36 Assessment and Plan - Plan Assessment plan Sinus bradycardia heart rate in the 40s Hypokalemia Leukocytosis likely secondary from mild colitis Colitis Thrombocytopenia Acute on chronic kidney injury CKD stage IV GERD Depression anxiety DVT prophylaxis Assessment plan Sinus bradycardia heart rate in the 40s Telemetry, cardiology consult Hypokalemia hypokalemia 2.7, Trend electrolytes replace as needed Colitis IV fluids, Flagyl, steroids, CT of the abdomen IMPRESSION: Wall thickening throughout the colon. Fluid filling and ahaustral pattern of the distal colon. Findings suggest segmental or diffuse colitis. This could be of inflammatory nature. Thrombocytopenia likely secondary to liver disease , platelet count 119, CKD stage IV Nephrology consult -notified Dr. Feldman with admission IV fluids, BUN 28, creatinine 2.33, Depression anxiety Resume appropriate home meds DVT prophylaxis Heparin Diet clear liquid Full code . Discharge Plan: Home Plan to discharge in: 48 Hours - Advance Directives Does patient have a Living Will: No Does patient have a Durable POA for Healthcare: No - Code Status/Comfort Care Code Status: Full Code Physician Review: Patient Assessed, Agree with Above Assessment and Plan Time Spent Managing Pts Care (In Minutes): 50
[2023-05-13] MEDS ORDERED: NA CHLORIDE 0.9% 1,000 ML IV SCH (19:00)
[2023-05-13] MEDS ORDERED: SODIUM CHLORIDE 0.9% 10ML INJ IV PRN (19:27)
[2023-05-13] MEDS ORDERED: POTASSIUM CL 40 MEQ in NA CHLORIDE 0.9% 500 ML IV SCH (20:00)
[2023-05-13] MEDS: KCL 20 MEQ/100 mL IVPB 100 ML IV SCH ×2 (20:22→22:36)
[2023-05-13] MEDS: METHYLPREDNISOLONE 125 MG INJ IV SCH (20:23)
[2023-05-13] MEDS: PANTOPRAZOLE 40 MG INJ IVP SCH (20:23)
[2023-05-13] MEDS ORDERED: PROMETHAZINE INJ 25 MG/ML AMP IV PRN (20:46)
[2023-05-13] MEDS: PROMETHAZINE INJ 25 MG/ML AMP IV PRN (21:49)
[2023-05-13 22:26] VITALS: BMI 18.8
[2023-05-13] MEDS: Ringers Lactate 1,000 ML IV SCH (22:36)
[2023-05-14] MEDS: KCL 20 MEQ/100 mL IVPB 100 ML IV SCH ×2 (00:46→04:48)
[2023-05-14] MEDS: ONDANSETRON 4 MG/2 ML VIAL IV PRN ×2 (00:49→07:53)
[2023-05-14] MEDS: DICYCLOMINE HCL 10 MG CAP PO PRN ×2 (00:52→07:53)
[2023-05-14] MEDS: HEPARIN 5000 UNIT/ML 1 ML VIAL SQ SCH ×3 (00:53→15:48)
[2023-05-14 01:45] LABS: Specific Gravity 1.008 (1.005-1.030); Urine Bacteria None Seen /HPF (<20); Urine Bilirubin NEGATIVE (Negative); Urine Blood Trace (Negative); Urine Clarity Clear (Clear); Urine Color Colorless (Yellow); Urine Glucose 3+ (Negative); Urine Mucus Slight /HPF (None Seen); Urine Protein 1+ (Negative); Urine RBC <5 /HPF (None Seen); Urine Urobilinogen Normal (Normal); Urine pH 7.5 (5.0-7.0)
[2023-05-14 02:14] LABS: UR MICROALBUMIN 14.1 mg/dL (< 1.9); UR PROTEIN 66.6 mg/dL (<11.9); Urine Protein/Creatinine Ratio 2.78 ratio (<0.15)
[2023-05-14 03:04] LABS: Absolute Lymphocytes (CBC) 0.9 K/uL (0.7-4.9); Hematocrit 37.2 % (36.0-45.0); Lymphocytes % 14.2 % (15.3-44.8); MCV 100.8 fL (80-100); MPV 10.7 fL (7.6-11.3); Platelets 85 thou/uL (152-406); RBC Red Blood Cell Count 3.69 M/uL (3.86-4.86)
[2023-05-14 03:21] LABS: Magnesium 2.2 mg/dL (1.6-2.4); Phosphorus 1.7 mg/dL (2.5-4.9); Uric Acid 1.5 mg/dL (2.6-6.0)
[2023-05-14] MEDS: PANTOPRAZOLE 40 MG INJ IVP SCH ×2 (07:53→21:31)
[2023-05-14] MEDS: METHYLPREDNISOLONE 125 MG INJ IV SCH ×3 (07:54→15:49)
[2023-05-14] MEDS: LACTOBACILLUS/ACIDOPHILUS TAB PO SCH ×3 (07:54→21:00)
[2023-05-14] MEDS: Ringers Lactate 1,000 ML IV SCH (07:54)
[2023-05-14] MEDS: METRONIDAZOLE 500mg IVPB 500 MG/100 ML BAG IV SCH ×2 (07:58→15:50)
[2023-05-14] MEDS ORDERED: POTASS/SODIUM PHOSPHATE 1 PKT POWD.PACK PO SCH (09:00)
[2023-05-14] MEDS ORDERED: DRISDOL (VITAMIN D=ERGOCALCIFEROL) 50000 UNIT CAP PO SCH (09:00)
[2023-05-14] MEDS ORDERED: NACHLORIDE 0.45% 1,000 ML IV SCH (10:00)
[2023-05-14] MEDS: SODIUM BICARB 325 MG TAB PO SCH ×2 (10:26→16:55)
[2023-05-14] MEDS: POTASS/SODIUM PHOSPHATE 1 PKT POWD.PACK PO SCH ×2 (10:26→13:34)
--- NOTE | 2023-05-14 14:21 | P.PN ---
Subjective Date of Service: 05/14/23 Subjective: No new changes, No C/O voiced, Improving Patient is clinically doing better. We will get cardiology evaluation and get an echocardiogram. Check thyroid studies. If renal function is stable and heart rate is improved and no significant cardiac findings and we should be able to discharge tomorrow. Review of Systems 10-point ROS is otherwise unremarkable Physical Examination - Vital Signs Temperature: 99.2 F Blood Pressure: 98/53 Pulse: 62 Respirations: 16 Pulse Ox (%): 100 - Physical Exam General: Alert, In no apparent distress, Oriented x3 HEENT: Atraumatic, PERRLA, EOMI Neck: Supple, JVD not distended Respiratory: Clear to auscultation bilaterally, Normal air movement Cardiovascular: Regular rate/rhythm, Normal S1 S2 Gastrointestinal: Normal bowel sounds, No tenderness Musculoskeletal: No tenderness Integumentary: No rashes Neurological: Normal speech, Normal tone, Normal affect Lymphatics: No axilla or inguinal lymphadenopathy - Studies Laboratory Data (last 24 hrs) 05/13/23 05/13/23 15:56 15:56 WBC 11.70 H Hgb 13.9 Hct 43.2 Plt Count 119 L Sodium 140 Potassium 2.7 L BUN 28 H Creatinine 2.33 H Glucose 171 H Total Bilirubin 0.5 AST 35 ALT 53 Alkaline Phosphatase 122 H Lipase 36 Medications List Reviewed: Yes Assessment & Plan - Problems (Diagnosis) (1) Bradycardia Current Visit: Yes Status: Acute (2) ANIKA (acute kidney injury) Current Visit: Yes Status: Acute (3) Liver disease Current Visit: Yes Status: Acute (4) Anemia Current Visit: Yes Status: Acute (5) Thrombocytopenia Current Visit: Yes Status: Acute (6) Chronic kidney disease Current Visit: Yes Status: Acute - Plan 1. Continue with gentle hydration 2. Monitor renal function and liver function 3. Echocardiogram 4. Check thyroid studies 5. Crease physical activity 6. Outpatient hematology follow-up; anemia most likely related to chronic kidney disease and thrombocytopenia related to liver disease 7. GI DVT prophylaxis - Advance Directives Does patient have a Living Will: No Does patient have a Durable POA for Healthcare: No - Code Status/Comfort Care Code Status: Full Code Physician Review: Patient Assessed, Agree with Above Assessment and Plan
[2023-05-14] MEDS ORDERED: D5W 1,000 ML with NA BICARB 8.4% 50 MEQ IV SCH ×2 (15:00)
[2023-05-14 15:01] LABS: Protime INR 1.15
[2023-05-14 15:20] LABS: Potassium 3.6 mEq/L (3.5-5.1); Thyroid Stimulating Hormone 0.222 uIU/mL (0.358-3.740)
--- NOTE | 2023-05-14 15:28 | EKG ---
Test Date: 2023-05-13 Test Time: 16:45:35 Summer Counselor: HUMERA MEASUREMENT RESULTS: Intervals: Rate: 40 CO: 204 QRSD: 96 QT: 496 QTc: 404 [place]: P: 53 CO: 204 QRS: 55 T: 38 INTERPRETIVE STATEMENTS: Marked sinus bradycardia with sinus arrhythmia Abnormal ECG Compared to ECG 04/04/2023 17:39:17 No significant changes Electronically Signed On 05-14-23 15:27:55 CDT by Yosi Morrison
[2023-05-14 16:02] LABS: Hepatitis B Core IgM Nonreactive (Nonreactive); Hepatitis B surface AG Interp. Nonreactive (Nonreactive); Hepatitis C Virus Ab Nonreactive (Nonreactive)
--- NOTE | 2023-05-14 16:12 | CON ---
Date of Consultation: 05/14/2023 Reason For Consultation: Bradycardia. History Of Present Illness: A 42-year-old female, history of celiac disease, chronic kidney disease, ulcerative colitis, presented to the emergency room with nausea and vomiting and diarrhea, felt gene rally weak in the ER. EKG was sinus bradycardia in the 40s, but denies having any chest pain. There is no dizziness. Feeling generally better today. Past Medical History: As outlined above in the HPI. Medications: Refer reconciliation sheet for detailed list. Allergies: ASPIRIN, CLARITHROMYCIN, CYCLOBENZAPRINE, AND GLUTEN. Family History: No premature coronary artery disease or cancer. Social History: She does not smoke or drink. Does not use any drugs. Review of Systems: All systems reviewed and they were negative except what mentioned in HPI. Physical Examination: Vital Signs: Temperature is 99.2, pulse 62, breathing at 16, blood pressure 98/53, saturating 100% o n room air. GENERAL: Pleasant, young female, in no apparent distress. Head and Neck: Pupils are equal, reactive to light. Intact eye movements. No cervical lymphadenopa thy. Neck is supple. Thyroid is not enlarged. Lungs: Clear to auscultation bilaterally. No rhonchi, rales, or crackles. No accessory muscle use. Heart: Irregular with aortic diastolic murmur present. Lungs: Clear to auscultation bilaterally. No rhonchi, rales, or crackles. No accessory muscle use. Abdomen: Soft, nontender. Bowel sounds positive. No organomegaly. No masses or hernia. No rigidi ty or rebound. Extremities: No clubbing, cyanosis. Intact pulses. Skin: No rash noted. Neurologic: Alert and awake. No acute focal deficits appreciated. Investigations: BUN is 20, creatinine 1.73. Hemoglobin is 12.5, white blood count 6.4. Assessment And Recommendation: 1.Sinus bradycardia. At this point, her heart rate is better and she has no symptoms. Keep patient on telemetry and to monitor for any heart block and when she is stronger to ambulate and see her hea rt rate response to activities, heart rate picks up, then no action will be needed unless we see any inappropriate response to activities or profound heart block. 2.Acute renal failure due to dehydration, on proper IV fluid management. 3.Aortic diastolic murmur. Obtain an echocardiogram on her tomorrow to further assess and I will mo nitor the patient with you. /NGOC Voice ID: [id number] Report ID: [id number]
[2023-05-14 16:35] VITALS: O2SAT 97
[2023-05-14] MEDS ORDERED: METRONIDAZOLE 500mg IVPB 500 MG/100 ML BAG IV SCH (20:00)
[2023-05-14] MEDS: PROMETHAZINE INJ 25 MG/ML AMP IV PRN (21:42)
[2023-05-15] MEDS: METRONIDAZOLE 500mg IVPB 500 MG/100 ML BAG IV SCH ×3 (00:44→17:24)
[2023-05-15] MEDS: HEPARIN 5000 UNIT/ML 1 ML VIAL SQ SCH ×3 (00:44→17:23)
[2023-05-15 03:14] LABS: C.diff Antigen/Toxin Ag neg : Tox neg (NEG : NEG)
[2023-05-15 03:59] LABS: Absolute Lymphocytes (CBC) 2.5 K/uL (0.7-4.9); Hematocrit 32.5 % (36.0-45.0); Lymphocytes % 34.8 % (15.3-44.8); MCV 100.1 fL (80-100); MPV 10.3 fL (7.6-11.3); Platelets 80 thou/uL (152-406); RBC Red Blood Cell Count 3.24 M/uL (3.86-4.86)
[2023-05-15 04:16] LABS: Magnesium 2.2 mg/dL (1.6-2.4); Phosphorus 1.9 mg/dL (2.5-4.9); Potassium 3.4 mEq/L (3.5-5.1)
[2023-05-15] MEDS: POTASS/SODIUM PHOSPHATE 1 PKT POWD.PACK PO SCH ×5 (08:50→17:22)
[2023-05-15] MEDS: METHYLPREDNISOLONE 125 MG INJ IV SCH (08:50)
[2023-05-15] MEDS: SODIUM BICARB 325 MG TAB PO SCH ×2 (08:50→17:23)
[2023-05-15] MEDS: PANTOPRAZOLE 40 MG INJ IVP SCH ×2 (08:50→20:05)
[2023-05-15] MEDS: LACTOBACILLUS/ACIDOPHILUS TAB PO SCH ×3 (08:51→20:06)
[2023-05-15] MEDS ORDERED: POTASSIUM 25 MEQ EFFERV TAB PO ONE (09:00)
--- NOTE | 2023-05-15 09:51 | P.CNS ---
Date of Consult: 05/15/23 Reason for Consult: ANIKA/ CKD Requesting Physician: Nikole Pryor Chief Complaint: Sinus bradycardia History of Present Illness: 42-year-old -[place] female with a past medical history of CKD, ulcerative colitis, celiac disease, anxiety, depression, asthma, liver disease, presents to the emergency room for for nausea and vomiting. Diarrhea. She reports history of colitis. She denies hematochezia, hematemesis, fever, chills, cough, shortness of breath chest pain. ER evaluation EKG sinus bradycardia in the 40s, no ST elevation, plan to admit for sinus bradycardia, acute on chronic kidney disease, colitis. For cardiology evaluation of bradycardia. Laboratory evaluation WBCs 11.70, platelet count 119, hypokalemia 2.7, BUN 28, creatinine 2.33, chest x-ray no acute cardiopulmonary process CT of the abdomen IMPRESSION: Wall thickening throughout the colon. Fluid filling and ahaustral pattern of the distal colon. . Findings suggest segmental or diffuse colitis. This could be of inflammatory nature. 16:13 This 42 yrs old Black Female presents to ER via EMS with complaints of Abdominal Pain, kb Nausea/Vomiting/Diarrhea. 16:13 The patient presents with abdominal pain. Onset: The symptoms/episode beg an/occurred kb last night. The symptoms do not radiate. Associated signs and symptoms: Pertinent positives: nausea, vomiting, and diarrhea, Pertinent negatives: fever. The symptoms are described as constant. Modifying factors: The symptoms are alleviated by nothing, the symptoms are aggravated by nothing. Severity of pain: At its worst the pain was moderate in the emergency department the pain is unchanged. The patient has experienced similar episodes in the past. The patient has not recently seen a physician. Allergies aspirin Allergy (Verified 05/13/23 22:14) Anaphylaxis clarithromycin Allergy (Verified 05/13/23 22:14) Anaphylaxis cyclobenzaprine Allergy (Verified 05/13/23 22:14) Anaphylaxis gluten Allergy (Verified 05/13/23 22:14) Anaphylaxis Home medications list reviewed: Yes Home Medications: Loratadine [Claritin*] 10 mg PO DAILY 06/20/16 Estradiol/Levonorgestrel [Climara Pro Patch] 1 each TD EVERY 7TH DAY 04/05/21 Famotidine 20 mg PO BEDTIME 04/05/21 Omeprazole [Prilosec] 40 mg PO DAILY 04/05/21 Escitalopram Oxalate 10 mg PO BEDTIME 02/01/23 ursodioL [Ursodiol] 500 mg PO DAILY 02/01/23 Ergocalciferol (Vitamin D2) [Vitamin D 50,000 Unit Cap] 50,000 unit PO SEECOM 02/02/23 Hyoscyamine Sulfate [Levsin-Sl] 0.125 mg SL SEECOM PRN 05/14/23 Ondansetron [Zofran] 4 mg PO Q8H PRN 05/14/23 - Past Medical/Surgical History Diabetic: No -: Depression with anxiety -: CKD IV with Proteinuria (Dr. oL/ Francia) -: Anemia/ Thrombocytopenia -: Asthma -: Seasonal allergies -: Hypothyroidism -: Irritable bowel -: ulcerative colitis -: celiac disease -: liver disease -: Bilateral axillary surgery -: Right foot surgery -: ligation Psychosocial/ Personal History: Patient was adopted. She is single. She has an adopted child. - Family History Mother Medical History: Heart disease, Hypertension Notes: cervical cancer - Social History Smoking Status: Unknown if ever smoked Alcohol use: No CD- Drugs: No Caffeine use: No Place of Residence: Home Review of Systems 10-point ROS is otherwise unremarkable General: Weakness, Malaise Physical Examination Temp Pulse Resp BP Pulse Ox 98.0 F 56 16 105/63 96 05/15/23 08:00 05/15/23 08:00 05/15/23 08:00 05/15/23 08:00 05/15/23 08:00 General: In no apparent distress, Oriented x3, Cooperative HEENT: Atraumatic Neck: Supple Respiratory: Normal air movement Cardiovascular: No edema, Regular rate/rhythm Gastrointestinal: Soft and benign, Non-distended Musculoskeletal: No clubbing, No contractures Integumentary: No rashes, No cyanosis Neurological: Normal speech Blood work reviewed in the chart Imagings Data: EXAM DESCRIPTION: CT - Abdomen Pelvis Wo Contrast - 05/13/2023 5:02 pm CLINICAL HISTORY: ABD PAIN COMPARISON: Abdomen Pelvis Wo Contrast dated 04/07/2023; Abdomen Pelvis Wo Contrast dated 05/14/2021; Abdomen Pelvis Wo Contrast dated 07/16/2020; Abdomen Pelvis Wo Contrast dated 01/19/2018 TECHNIQUE: Thin cut axial CT imaging of the abdomen and pelvis was performed without IV contrast. Multiplanar reformats were generated and reviewed. All CT scans are performed using dose optimization technique as appropriate and may include automated exposure control or mA/KV adjustment according to patient size. FINDINGS: No suspicious findings in the lung bases. Stable hepatomegaly with nodular liver contour. Adrenal glands, spleen, and pancreas show no suspicious findings. Status post cholecystectomy. Symmetric renal contour, without suspicious parenchymal findings within limits of noncontrast technique. No evidence of radiopaque calculi or hydroureteronephrosis. Some apparent wall thickening throughout the colon. Fluid filling of the distal descending colon through rectum. The distal colon also demonstrates a somewhat ahaustral pattern. No free air, free fluid or inflammatory stranding. No hernia, mass or bulky lymphadenopathy. The urinary bladder is without significant finding. No suspicious bony findings. IMPRESSION: Wall thickening throughout the colon. Fluid filling and ahaustral pattern of the distal colon. . Findings suggest segmental or diffuse colitis. This could be of inflammatory nature. Stable hepatomegaly with annular contour which may suggest cirrhosis. [facility] CLINICAL HISTORY: PAIN COMPARISON: Chest Single View dated 02/01/2023; Chest Single View dated 05/14/2021; Chest Single View dated 04/05/2021; Chest Single View dated 03/28/2021 TECHNIQUE: Portable AP view of the chest. FINDINGS: The lungs are clear. No pneumothorax or effusion. The cardiomed iastinal contours are unremarkable. IMPRESSION: No acute cardiopulmonary process. Conclusions/Impression: Stage I ANIKA likely due to hypovolemia CKD IIIb with Proteinuria -No NSAIDs -s/p IVF resuscitation Hypokalemia -Replete as ordered NAG Metabolic Acidosis -Continue oral bicarb Hypophosphatemia -Replete as ordered Anemia in chronic illness -Monitor H&H Colitis -Continue abx Case reviewed with Dr. Shaver Thank you kindly for the consultation
[2023-05-15] MEDS ORDERED: POTASSIUM 25 MEQ EFFERV TAB FT ONE (11:30)
--- NOTE | 2023-05-15 16:00 | P.DS ---
Admission Date: 05/13/23 Discharge Date: 05/15/23 Disposition: TRANSFER TO [facility] Comment: [facility] Discharge Condition: GOOD Reason for Admission: Sinus bradycardia Consultations: 1. Cardiology Hospital Course: DIAGNOSES: # Suspect Acute Ulcerative Colitis Flare # KDIGO Stage I Acute Kidney Injury on Chronic Kidney Disease Stage IV - resolved # Likely Liver Cirrhosis # Thrombocytopenia due to Cirrhosis # Celiac Disease # Irritable Bowel Syndrome # Hypothyroidism # Depression with Anxiety # Asthma HOSPITAL COURSE: Ms. Miya Persaud is a 42 year old female with a past medical history significant for ulcerative colitis, Celiac disease, irritable bowel syndrome, and chronic kidney disease stage IV who was admitted to the [facility] on 05/13/2023 for nausea, vomiting, and diarrhea. She was admitted to the Medicine service. Upon further evaluation, her CT abdomen/pelvis revealed, "wall thickening throughout the colon. Fluid filling and ahaustral pattern of the distal colon. Findings suggest segmental or diffuse colitis. This could be of inflammatory nature. Stable hepatomegaly with annular contour which may suggest cirrhosis." She was started on IV metronidazole and IV methylprednisolone. Over the course of her hospitalization, her symptoms (abdominal pain/diarrhea) gradually worsened. It was felt that she would benefit from a Gastroenterology evaluation. She follows with Dr. Tim, and I was able to speak with him; however, he was unavailable for consultation. Through shared- decision making, Ms. Persaud agreed that it would be best for her to be transferred to a facility with Gastroenterology services available. Transfer was initiated to [facility]. Doc-to-doc was completed with Dr. Neela Hairston ([facility] Gastroenterology), who has generously agreed to consult on her case. Doc-to-doc was completed with Dr. Faye Newsome ([facility] Hospitalist), who has generously accepted her for transfer. Incidentally, she was found to have asymptomatic bradycardia. Her EKG revealed sinus bradycardia and her chest x-ray revealed, "no acute cardiopulmonary process." Cardiology was consulted and she was evaluated by Dr. Morrison. He recommended no additional evaluation given that she was in sinus rhythm and was asymptomatic. On 05/15/2023, she was seen on rounds and deemed medically stable for transfer. She was given the opportunity to ask questions and reported no further questions. Furthermore, all questions were answered to the best of my ability. A copy of this discharge summary will be sent to the above providers to facilitate continuity of care. Today, I personally spent 35 minutes on her case, of which greater than 50% of the time was spent in patient education, counseling, and coordination of care as described above. Vital Signs/Physical Exam: Temp Pulse Resp BP Pulse Ox 98.3 F 54 16 103/60 96 05/15/23 11:35 05/15/23 11:35 05/15/23 11:35 05/15/23 11:35 05/15/23 11:35 General: Alert, In no apparent distress, Oriented x3 HEENT: Atraumatic, Mucous membr. moist/pink, Sclerae nonicteric Neck: JVD not distended Respiratory: Clear to auscultation bilaterally, Normal air movement Cardiovascular: No edema, Regular rate/rhythm, Normal S1 S2, No gallops, No rubs, No murmurs Gastrointestinal: Normal bowel sounds, Non-distended, No rebound, No guarding, Tenderness (generalized) Musculoskeletal: No clubbing Integumentary: No rashes Neurological: Normal speech, Normal affect Laboratory Data at Discharge: WBC 7.10 thou/uL (4.3-10.9) 05/15/23 02:56 Hgb 11.1 g/dL (12.0-15.0) L D 05/15/23 02:56 Hct 32.5 % (36.0-45.0) L 05/15/23 02:56 Plt Count 80 thou/uL (152-406) L 05/15/23 02:56 PT 12.6 SECONDS (9.5-12.5) H 05/14/23 14:34 INR 1.15 05/14/23 14:34 APTT 33.6 SECONDS (24.3-36.9) 05/14/23 14:34 Sodium 140 mEq/L (136-145) 05/15/23 02:56 Potassium 3.4 mEq/L (3.5-5.1) L 05/15/23 02:56 BUN 26 mg/dL (7-18) H 05/15/23 02:56 Creatinine 1.83 mg/dL (0.55-1.02) H 05/15/23 02:56 Glucose 108 mg/dL (74-106) H 05/15/23 02:56 Uric Acid 1.5 mg/dL (2.6-6.0) L 05/14/23 02:42 Phosphorus 1.9 mg/dL (2.5-4.9) L 05/15/23 02:56 Magnesium 2.2 mg/dL (1.6-2.4) 05/15/23 02:56 Total Bilirubin 0.5 mg/dL (0.2-1.0) 05/13/23 15:56 AST 35 U/L (15-37) 05/13/23 15:56 ALT 53 U/L (13-56) 05/13/23 15:56 Alkaline Phosphatase 122 U/L (45-117) H 05/13/23 15:56 Lipase 36 U/L (13-75) 05/13/23 15:56 Home Medications: Loratadine [Claritin*] 10 mg PO DAILY 06/20/16 Estradiol/Levonorgestrel [Climara Pro Patch] 1 each TD EVERY 7TH DAY 04/05/21 Famotidine 20 mg PO BEDTIME 04/05/21 Escitalopram Oxalate 10 mg PO BEDTIME 02/01/23 ursodioL [Ursodiol] 500 mg PO DAILY 02/01/23 Ergocalciferol (Vitamin D2) [Vitamin D 50,000 Unit Cap] 50,000 unit PO SEECOM 02/02/23 Hyoscyamine Sulfate [Levsin-Sl] 0.125 mg SL SEECOM PRN 05/14/23 Ondansetron [Zofran (Odt)*] 4 mg PO Q8H PRN 05/14/23 Dicyclomine [Bentyl*] 10 mg PO TID PRN cap 05/15/23 Methylpred Na Suc [Solu-Medrol*] 60 mg IV DAILY vial 05/15/23 Na Bicarb Tab [Sodium Bicarb 325 MG Tab*] 325 mg PO BIDPC tab 05/15/23 Pantoprazole Inj [Protonix IV*] 40 mg IVP Q12HR vial 05/15/23 Promethazine Inj [Phenergan -Inj*] 12.5 mg IV Q6H PRN amp 05/15/23 Physician Discharge Instructions: - Continue care at [facility] Diet: Clear Liq Activity: Ad oscar Time spent managing pt's care (in minutes): 35
[2023-05-15] MEDS: ONDANSETRON 4 MG/2 ML VIAL IV PRN (17:26)
[2023-05-15] MEDS ORDERED: hydrOXYzine HCL 25 MG TAB PO ONE (19:46)
[2023-05-15] MEDS ORDERED: ESCITALOPRAM 20 MG TAB PO ONE (20:25)
--- NOTE | 2023-05-15 20:51 | PN ---
Date of Progress Note: 05/15/2023 Subjective: Seen by bedside. Doing clinically well. No chest pain or shortness of breath. No dizz iness. Heart rate is in the 60s and she is doing well. Review of Systems: No chest pain, shortness of breath, orthopnea, or cough. No nausea, or vomiting. All other systems were reviewed, they were negative. Objective: Vital Signs: Reviewed. Head and Neck: Pupils are equal, reactive to light. Intact eye movements. No JVD. No cervical lym phadenopathy. Neck is supple. Thyroid is not enlarged. Lungs: Clear to auscultation bilaterally. No rhonchi, wheezing, or crackles. No accessory muscle u se. Heart: Regular rate and rhythm. No extra sounds. Abdomen: Soft, nontender. Bowel sounds positive. No organomegaly. No masses or hernia. No rigidi ty or rebound. Extremities: No edema, clubbing, or cyanosis. Intact pulses. Skin: No rash. No nodule. Neurologic: Alert, awake, oriented x3. No acute focal deficits appreciated. Investigations: BUN 26, creatinine 1.83, and hemoglobin 11.1. Assessment And Recommendations: 1.Bradycardia. It is not significant. Patient is asymptomatic. I will continue to monitor. No fu rther workup is needed. 2.Acute renal failure, improving on IV fluids. Cardiology will sign off. SR/MODL Voice ID: [id number] Report ID: [id number]
[2023-05-15] MEDS ORDERED: MORPHINE 2 MG/ML SYR IV PRN (22:03)
[2023-05-16] MEDS: METRONIDAZOLE 500mg IVPB 500 MG/100 ML BAG IV SCH (01:41)
[2023-05-16] MEDS: HEPARIN 5000 UNIT/ML 1 ML VIAL SQ SCH (01:42)
[2023-05-16 04:37] VITALS: BP 110/70; TEMP 97.5
[2023-05-16 04:52] LABS: Absolute Lymphocytes (CBC) 2.9 K/uL (0.7-4.9); Hematocrit 36.7 % (36.0-45.0); Lymphocytes % 46.1 % (15.3-44.8); MCV 100.9 fL (80-100); MPV 10.5 fL (7.6-11.3); Platelets 85 thou/uL (152-406); RBC Red Blood Cell Count 3.64 M/uL (3.86-4.86)
[2023-05-16 05:11] LABS: Magnesium 2.4 mg/dL (1.6-2.4); Potassium 3.6 mEq/L (3.5-5.1)
[2023-05-16 08:16] LABS: Blood Morphology Comment NOT SEEN (NOT SEEN); Platelet Estimate DECR; White Blood Cell Scan OK (OK)
--- NOTE | 2023-05-16 17:02 | EKG ---
Test Date: 2023-05-15 Test Time: 21:51:05 Explosive Operator Supervisor: HERNANDO MEASUREMENT RESULTS: Intervals: Rate: 50 DC: 154 QRSD: 72 QT: 458 QTc: 417 [place]: P: 57 DC: 154 QRS: 53 T: 51 INTERPRETIVE STATEMENTS: Sinus bradycardia Minimal voltage criteria for LVH, may be normal variant Septal infarct, age undetermined Abnormal ECG Compared to ECG 05/13/2023 16:45:35 Left ventricular hypertrophy now present Myocardial infarct finding now present Sinus arrhythmia no longer present Electronically Signed On 05-16-23 17:01:05 CDT by Yosi oMrrison
== END 2023-05-16 05:00 | disposition short-term general hospital (02) | DRG 386 ==
LOC: ER 14:36 → ERHOLD 18:37 → 2ND 19:37
PROVIDERS: ADMIT Hospitalist; ATTEND Internal Medicine
DX: K51.90 Ulcerative colitis, unspecified, without complications (principal); E87.20 Acidosis, unspecified; N17.9 Acute kidney failure, unspecified; N18.4 Chronic kidney disease, stage 4 (severe); R00.1 Bradycardia, unspecified; D63.1 Anemia in chronic kidney disease; E03.9 Hypothyroidism, unspecified; E87.6 Hypokalemia; K74.60 Unspecified cirrhosis of liver; D69.59 Other secondary thrombocytopenia; I35.8 Other nonrheumatic aortic valve disorders; K90.0 Celiac disease; F41.8 Other specified anxiety disorders; E83.39 Other disorders of phosphorus metabolism; K21.9 Gastro-esophageal reflux disease without esophagitis; J45.909 Unspecified asthma, uncomplicated; Z88.8 Allergy status to other drugs, medicaments and biological substances; Z88.5 Allergy status to narcotic agent; Z88.6 Allergy status to analgesic agent; Z88.1 Allergy status to other antibiotic agents; Z95.1 Presence of aortocoronary bypass graft; Z90.49 Acquired absence of other specified parts of digestive tract; Z79.899 Other long term (current) drug therapy
CPT/HCPCS: 36415; 71045; 74176; 80048; 80053; 80074; 81001; 82043; 82570; 82607; 83540; 83690; 83735; 83880; 84100; 84132; 84156; 84439; 84443; 84484; 84550; 85025; 85610; 85730; 87324; 93005; 96361; 96374; 96375; 99285; C9113; J1644; J2270; J2405; J2550; J2930; J3480; J7030; J7120

== ENCOUNTER → 2023-12-24 | Emergency (ER) | payer OTHER ==
[~2023-12-24] MED LIST: BISACODYL E.C. 5 MG TAB PO ONE; FAMOTIDINE 20 MG/2 ML VIAL IV ONE; MAGNESIUM CITRATE 300 ML BOT ONE; NA CHLORIDE 0.9% 1,000 ML ONE; ONDANSETRON 4 MG/2 ML VIAL ONE
[2023-12-24 12:00] LABS: Absolute Lymphocytes (CBC) 1.6 K/uL (0.7-4.9); Absolute Monocytes 0.4 K/uL (0.1-1.3); Absolute Neutrophil 3.7 K/uL (1.8-8.0); Basophils % 0.5 % (0-1.3); Hematocrit 37.3 % (36.0-45.0); Hemoglobin 12.4 g/dL (12.0-15.0); MCH 33.2 pg (27.0-35.0); MCHC 33.3 g/dL (32.0-36.0); MCV 99.8 fL (80-100); MPV 11.2 fL (7.6-11.3); Monocytes % 6.2 % (3.3-12.3); Neutrophils % 65.3 % (41.7-73.7); Platelets 66 thou/uL (152-406); RBC Red Blood Cell Count 3.73 M/uL (3.86-4.86); Red Cell Distribution Width 14.3 % (12.1-15.2)
[2023-12-24 12:27] LABS: Albumin 3.7 g/dL (3.4-5.0); Albumin/Globulin Ratio 1.1 (1.1-1.8); Anion Gap 11.3 mEq/L (5.0-15.0); Bilirubin Total 0.6 mg/dL (0.2-1.0); Globulin 3.5 g/dL (2.3-3.5); Potassium 3.3 mEq/L (3.5-5.1); Protein, Total 7.2 g/dL (6.4-8.2); Troponin High Sensitivity 3.1 pg/mL (<58.9)
--- NOTE | 2023-12-24 12:42 | RAD REPORT ---
EXAM DESCRIPTION: RAD - Chest Single View - 12/24/2023 12:33 pm CLINICAL HISTORY: CHEST PAIN Chest pain. COMPARISON: Chest Single View dated 05/13/2023; Chest Single View dated 02/01/2023; Chest Single View d ated 05/14/2021; Chest Single View dated 04/05/2021 FINDINGS: Portable technique limits examination quality. The lungs are grossly clear. The heart is normal in size. No displaced fractures. IMPRESSION: No acute intrathoracic process suspected.
[2023-12-24 12:55] LABS: Blood Morphology Comment NOT SEEN (NOT SEEN); Platelet Estimate DECR; White Blood Cell Scan OK (OK)
--- NOTE | 2023-12-24 13:08 | RAD REPORT ---
EXAM DESCRIPTION: CT - Abdomen Pelvis Wo Contrast - 12/24/2023 1:00 pm CLINICAL HISTORY: Abdominal pain. ABD PAIN COMPARISON: Abdomen Pelvis Wo Contrast dated 05/13/2023 TECHNIQUE: CT imaging of the abdomen and pelvis was performed without contrast. Solid organ, bowel a nd vascular assessment is limited due to lack of IV and oral contrast. All CT scans are performed using dose optimization technique as appropriate and may include automated exposure control or mA/KV adjustment according to patient size. FINDINGS: The lower lung pike are clear.Cholecystectomy. The liver, spleen, pancreas, adrenal glands and kidneys are within normal limits for a limited non-co ntrast examination. No bowel obstruction, free air, free fluid or abscess. Moderate stool is present throughout the colon . The appendix is normal. The osseous structures are within normal limits. IMPRESSION: Moderate stool is present throughout the colon. No acute findings seen. A limited non-contrast examination was performed as detailed.
[2023-12-24 13:26] LABS: Specific Gravity 1.011 (1.005-1.030)
[2023-12-24 13:27] LABS: Specific Gravity 1.011 (1.005-1.030); Sqamous Epithelial <5 /HPF (None Seen); Urine Bacteria None Seen /HPF (<20); Urine Bilirubin NEGATIVE (Negative); Urine Blood Trace (Negative); Urine Clarity Clear (Clear); Urine Color Colorless (Yellow); Urine Culture Reflex Order NOT NEEDED; Urine Glucose 1+ (Negative); Urine Ketones TRACE (Negative); Urine Microscopic Reflex YN ORDER UMIC; Urine Mucus Slight /HPF (None Seen); Urine Nitrite NEGATIVE (Negative); Urine Protein 1+ (Negative); Urine RBC <5 /HPF (None Seen); Urine Urobilinogen Normal (Normal); Urine WBC None Seen /HPF (<5); Urine pH 6.5 (5.0-7.0)
--- NOTE | 2023-12-24 14:16 | EDPHYS ---
Physician Documentation [facility] Name: Miya Persaud Age: 43 yrs Sex: Female : 1980 Arrival Date: 12/24/2023 Time: 10:48 Bed 18 Private MD: Greg Feldman ED Physician Kalyan Cr HPI: 12/23 11:46 This 43 yrs old Black Female presents to ER via Ambulatory with complaints of kb Nausea/Vomiting, Constipation. 11:47 Pt is a 43 year old female who presents with nausea and constipation that started 7 kb months ago. States she came in today because she started vomiting. Denies abd pain or fever. States she is able to have small bowel movements occasionally. States her abd was distended last night, but that resolved. States the last time she had vomiting it caused her heart rate to drop into the 40s so she wanted to get her heart checked as well. . 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 - Social history:: Smoking status: Patient denies any tobacco usage or history of. ROS: 11:46 Constitutional: As per HPI kb Exam: 11:46 Constitutional: This is a well developed, well nourished patient who is awake, alert, kb and in no acute distress. Head/Face: Normocephalic, atraumatic. ENT: Moist Mucous membranes Cardiovascular: Regular rate Respiratory: Respirations even and unlabored. No increased work of breathing. Talking in full sentences Skin: Warm, dry with normal turgor. Normal color. MS/ Extremity: Pulses equal, no cyanosis. Neurovascular intact. Full, normal range of motion. Neuro: Awake and alert, GCS 15, oriented to person, place, time, and situation. Moves all extremities. Normal gait. 11:46 Abdomen/GI: Inspection: abdomen appears normal, Bowel sounds: normal, Palpation: soft, in all quadrants, mild abdominal tenderness, in the umbilical area, 12:21 ECG was reviewed by the Attending Physician. kb Vital Signs: 10:54 BP 134 / 81; Pulse 90; Resp 16; Temp 97.5(TE); Pulse Ox 96% on R/A; Weight 41.73 kg; nj1 Height 5 ft. 0 in. ; 12:00 BP 103 / 58; Pulse 79; Resp 18; Pulse Ox 100% ; cp4 13:00 BP 102 / 70; Pulse 61; Resp 18; Pulse Ox 98% ; cp4 14:00 BP 110 / 76; Pulse 67; Resp 18; Pulse Ox 100% ; cp4 10:54 Body Mass Index 17.97 (41.73 kg, 152.4 cm) nj1 MDM: 10:54 Patient medically screened. kb 11:46 Data reviewed: vital signs, nurses notes. kb 14:14 Differential diagnosis: constipation, bowel obstruction. Counseling: I had a detailed kb discussion with the patient and/or guardian regarding the historical points, exam findings, and any diagnostic results supporting the discharge/admit diagnosis, lab results, radiology results, the need for outpatient follow up, a deliverer pharmacy, to return to the emergency department if symptoms worsen or persist or if there are any questions or concerns that arise at home. 12/23 11:00 Order name: CBC with Diff; Complete Time: 13:08 kb 12/23 11:00 Order name: CMP; Complete Time: 12:27 kb 12/23 11:00 Order name: Lipase; Complete Time: 12:27 kb 12/23 11:00 Order name: Test, Urine; Complete Time: 13:27 kb 12/23 11:00 Order name: Urinalysis w/ reflexes; Complete Time: 13:28 kb 12/23 11:00 Order name: Troponin HS; Complete Time: 12:27 kb 12/23 12:18 Order name: CBC Smear Scan; Complete Time: 13:08 EDMS 12/23 11:00 Order name: XRAY Chest (1 view); Complete Time: 12:46 kb 12/23 12:51 Order name: Abdomen ; Complete Time: 13:08 EDMS 12/23 11:00 Order name: EKG; Complete Time: 11:01 kb 12/23 11:00 Order name: IV Saline Lock; Complete Time: 11:18 kb 12/23 11:00 Order name: Labs collected and sent; Complete Time: 11:18 kb 12/23 11:00 Order name: EKG - Nurse/Tech; Complete Time: 11:17 kb 12/23 11:47 Order name: Labs - recollect needed: recollect all the blood/ hemolyzed per Aruna; eb Complete Time: 11:57 EC:21 Rate is 66 beats/min. Rhythm is regular. QRS Bartlett is Normal. NM interval is normal at kb 150 msec. QRS interval is normal at 82 msec. QT interval is normal at 452 msec. Administered Medications: 11:24 Drug: NS 0.9% IV 1000 ml IV at 1 bolus Per protocol; 1000 mL bolus Route: IV; Rate: 1 cp4 bolus; Site: right antecubital; 13:28 Follow up: Response: No adverse reaction; IV Status: Completed infusion cp4 11:24 Drug: Famotidine IVP 20 mg IVP once; dilute with 10 mL 0.9% NaCl; give over 2 minutes cp4 Route: IVP; Site: right antecubital; 13:28 Follow up: Response: No adverse reaction cp4 11:24 Drug: Ondansetron IVP 4 mg IVP once; over 2 minutes Route: IVP; Site: right antecubital;cp4 13:29 Follow up: Response: No adverse reaction cp4 13:27 Drug: Magnesium Citrate PO Liquid 300 ml PO once Route: PO; cp4 14:40 Follow up: Response: No adverse reaction cp4 14:30 Drug: Dulcolax PO Delayed Release Tablet 5 mg PO once Route: PO; cp4 14:40 Follow up: Response: No adverse reaction cp4 Disposition Summary: 12/24/23 14:15 Discharge Ordered Notes: Location: Home kb Condition: Stable kb Diagnosis - Constipation kb Followup: kb - With: Emergency Department - When: As needed - Reason: Worsening of condition Followup: kb - With: Private Physician - When: 2 - 3 days - Reason: Recheck today's complaints, Continuance of care, Re-evaluation by your physician Discharge Instructions: - Discharge Summary Sheet kb - Constipation, Adult, [id number] kb Forms: - Medication Reconciliation Form kb - Thank You Letter kb - Antibiotic Education kb - Prescription Opioid Use kb - Patient Portal Instructions kb - Leadership Thank You Letter kb Signatures: Dispatcher [employer] EDZeynep Newman FNP-Anson FLOYD-Ebony Jose Norma, RN RN nj1 Jodi Gallegos cp4 Corrections: (The following items were deleted from the chart) 12:51 11:01 Abdomen Pelvis W Con+CT.RAD.BRZ ordered. EDIN EDMS
--- NOTE | 2023-12-24 14:16 | ER ---
Nurse's Notes [facility] Name: Miya Persaud Age: 43 yrs Sex: Female : 1980 Arrival Date: 12/24/2023 Time: 10:48 Bed 18 Private MD: Greg Feldman Diagnosis: Constipation Presentation: 12/23 10:54 Chief complaint: Patient states: Nausea for months as well as problems with nj1 constipation, however, nausea got severe this morning and started vomiting "brown stuff". Sees GI and casting agent. 10:54 Coronavirus screen: Vaccine status: Patient reports being unvaccinated. Ebola Screen: nj1 Patient denies travel to an Ebola-affected area in the 21 days before illness onset. Initial Sepsis Screen: Does the patient meet any 2 criteria? No. Patient's initial sepsis screen is negative. Does the patient have a suspected source of infection? No. Patient's initial sepsis screen is negative. Risk Assessment: Do you want to hurt yourself or someone else? Patient reports no desire to harm self or others. Onset of symptoms was December 24, 2023. 10:54 Method Of Arrival: Ambulatory nj1 10:54 Acuity: PARTH 3 nj1 GRINDER SET UP OPERATOR SURFACE: 13:00 LMP 11/2023, unknown cp4 Historical: - Allergies: 11:02 Aspirin; nj1 11:02 Clarithromycin; nj1 11:02 Cyclobenzaprine; nj1 11:02 Demerol; nj1 11:02 diclofenac sodium; nj1 11:02 Gluten Protein; nj1 11:02 Levofloxacin; nj1 - PMHx: 11:02 Anemia; Anxiety; Depression; ibs; kidney disease; Liver condition; mild aorta nj1 insufficiency; Stage IV renal disease; Thyroid problem; - PSHx: 11:02 Cholecystectomy; Coronary Angioplasty; uterine ablation; nj1 - Immunization history:: Client reports having NOT received the Covid vaccine. - Social history:: Smoking status: Patient denies any tobacco usage or history of. Screenin:25 [facility] ED Fall Risk Assessment (Adult) History of falling in the last 3 months, cp4 including since admission No falls in past 3 months (0 pts) Confusion or Disorientation No (0 pts) Intoxicated or Sedated No (0 pts) Impaired Gait No (0 pts) Mobility Assist Device Used No (0 pt) Altered Elimination No (0 pt) Score/Fall Risk Level 0 - 2 = Low Risk Oriented to surroundings, Maintained a safe environment, Assessed \\T\\ reinforced patient's understanding of fall precautions, Hourly rounding (assess needs \\T\\ fall precautionary measures) done. Abuse screen: Denies threats or abuse. Nutritional screening: No deficits noted. Tuberculosis screening: No symptoms or risk factors identified. Assessment: 11:25 General: Appears uncomfortable, Behavior is calm, cooperative, appropriate for age. cp4 Pain: Denies pain. GI: Abdomen is flat, non-distended, Pt is actively vomiting Bowel sounds present X 4 quads. Abd is soft and non tender X 4 quads. Reports constipation, nausea, vomiting. 12:54 Reassessment: Patient unable to urinate at this time. Provider notified. cp4 Vital Signs: 10:54 BP 134 / 81; Pulse 90; Resp 16; Temp 97.5(TE); Pulse Ox 96% on R/A; Weight 41.73 kg; nj1 Height 5 ft. 0 in. ; 12:00 BP 103 / 58; Pulse 79; Resp 18; Pulse Ox 100% ; cp4 13:00 BP 102 / 70; Pulse 61; Resp 18; Pulse Ox 98% ; cp4 14:00 BP 110 / 76; Pulse 67; Resp 18; Pulse Ox 100% ; cp4 10:54 Body Mass Index 17.97 (41.73 kg, 152.4 cm) ct1 ED Course: 10:51 Patient arrived in ED. mr 10:51 Greg Feldman DO is Private Physician. mr 10:54 [facility] kb 10:54 Kalyan Cr MD is Attending Physician. kb 11:01 Jodi Gallegos is Primary Nurse. cp4 11:02 Triage completed. nj1 11:03 Arm band placed on. nj1 11:15 No provider procedures requiring assistance completed. Inserted saline lock: 20 gauge cp4 in right antecubital area, using aseptic technique. Blood collected. 11:17 Troponin HS Sent. cp4 11:18 CBC with Diff Sent. cp4 11:18 CMP Sent. cp4 11:18 Lipase Sent. cp4 11:25 Bed in low position. Call light in reach. Side rails up X 1. cp4 11:25 Client placed on continuous cardiac and pulse oximetry monitoring. NIBP monitoring cp4 applied. patient monitor on. 11:27 Initial lab(s) drawn, by me, sent to lab. EKG done, by ED staff, reviewed by Zeynep STEIN. 12:35 XRAY Chest (1 view) In Process Unspecified. EDMS 12:[address] via wheelchair. hb 13:02 Abdomen In Process Unspecified. EDMS 13:19 Test, Urine Sent. cp4 13:19 Urinalysis w/ reflexes Sent. cp4 14:41 Provided Education on: consitipation. cp4 14:41 intact, bleeding controlled, No redness/swelling at site. Pressure dressing applied. cp4 Administered Medications: 11:24 Drug: NS 0.9% IV 1000 ml IV at 1 bolus Per protocol; 1000 mL bolus Route: IV; Rate: 1 cp4 bolus; Site: right antecubital; 13:28 Follow up: Response: No adverse reaction; IV Status: Completed infusion cp4 11:24 Drug: Famotidine IVP 20 mg IVP once; dilute with 10 mL 0.9% NaCl; give over 2 minutes cp4 Route: IVP; Site: right antecubital; 13:28 Follow up: Response: No adverse reaction cp4 11:24 Drug: Ondansetron IVP 4 mg IVP once; over 2 minutes Route: IVP; Site: right antecubital;cp4 13:29 Follow up: Response: No adverse reaction cp4 13:27 Drug: Magnesium Citrate PO Liquid 300 ml PO once Route: PO; cp4 14:40 Follow up: Response: No adverse reaction cp4 14:30 Drug: Dulcolax PO Delayed Release Tablet 5 mg PO once Route: PO; cp4 14:40 Follow up: Response: No adverse reaction cp4 Medication: 11:25 VIS not applicable for this client. cp4 Outcome: 14:15 Discharge ordered by MD. marks 14:41 Discharged to home ambulatory, cp4 14:41 Condition: stable 14:41 Discharge instructions given to patient, Instructed on discharge instructions, follow up and referral plans. Demonstrated understanding of instructions, follow-up care, 14:43 Patient left the ED. cp4 Signatures: Dispatcher [employer]DA[employer] Zeynep Barba FNP-C FNP-Sylvia Dotson [facility] Reg mr Marie Russ, RN RN hb Anastasiia Dyer RN RN nj1 Jodi Gallegos cp4
[2023-12-24 14:48] VITALS: TEMP 97.5
[2023-12-24 15:20] VITALS: BP 110/76; O2SAT 100
--- NOTE | 2023-12-25 14:16 | EKG ---
Test Date: 2023-12-24 Test Time: 10:56:44 [employer] Sweater Operator: DAMION MEASUREMENT RESULTS: Intervals: Rate: 66 MO: 150 QRSD: 82 QT: 432 QTc: 452 [place]: P: 73 MO: 150 QRS: 74 T: 72 INTERPRETIVE STATEMENTS: Normal sinus rhythm with sinus arrhythmia Biatrial enlargement Abnormal ECG Compared to ECG 05/15/2023 21:51:05 Atrial abnormality now present Sinus bradycardia no longer present Left ventricular hypertrophy no longer present Myocardial infarct finding no longer present Electronically Signed On 12-25-23 14:13:55 CDT by Yosi Morrison
== END ==
LOC: ER 10:48
DX: K59.00 Constipation, unspecified (principal); Z88.3 Allergy status to other anti-infective agents; Z88.5 Allergy status to narcotic agent; Z88.6 Allergy status to analgesic agent; Z88.8 Allergy status to other drugs, medicaments and biological substances; Z28.310 Unvaccinated for COVID-19
CPT/HCPCS: 93005; 85025; 81001; 36415; 81025; 84484; 83690; 80053; 74176; 71045; J2405; J7030; 96361; 96374; 96375; 99285